=== PATIENT | female | born 1955 | race Two or more races ===

== ENCOUNTER 2024-02-03 01:10 | Emergency (ER) | payer MEDICARE, SELFPAY ==
[2024-02-03 01:18] VITALS: BP 150/90; PULSE 96; RESP 20; TEMP 36.5; O2SAT 100
--- NOTE | 2024-02-03 01:29 | XR_ITS ---
Examination: CT abdomen and pelvis without contrast. Coronal 3-D reconstructions. Sagittal 2-D reconstructions. Exam date and time: February 03, 2024 0153 hrs. Indications: Onset pelvic pain beginning 2 months ago CTDI: vol (mGy): 7.72 DLP: (mGycm): 451 Technique: Axial images of the abdomen have been obtained, 3 mm slice thickness Intravenous contrast material has not been administered. Low dose protocols were performed. One or more of the following dose reduction techniques were used; automated exposure control, adjustment of the mA and/or KV according to patient size, use of iterative reconstruction technique. Findings: No focal liver or splenic lesions No gallstones No pancreatic or adrenal mass No renal or ureteral calculi Abdominal aortic calcification no aneurysmal dilatation Normal appendix No bowel obstruction Moderate to abundant stool in the rectosigmoid Uterus is not visualized No pelvic mass Moderate osteopenia moderate disc narrowing L5-S1 with small central bulging disc Contracted urinary bladder Impression: No renal or ureteral calculi, no hydronephrosis Normal appendix No pelvic mass noted, consider pelvic sonography follow-up
--- NOTE | 2024-02-03 01:30 | PD.EDRME ---
Rapid Medical Screening Exam RME Arrival date/time: 02/03/24 01:10 68-year-old female presents emergency department complaining of diffuse abdominal pain and dysuria that is been ongoing for several months. Chief Complaint: Abdominal Pain Vital signs: Vital Signs Temperature 97.7 F 02/03/24 01:18 Pulse Rate 96 02/03/24 01:18 Respiratory Rate 20 02/03/24 01:18 Blood Pressure 150/90 H 02/03/24 01:18 Pulse Oximetry (%) 100 02/03/24 01:18 Oxygen Delivery Method Room Air 02/03/24 01:18 Vital signs reviewed by provider: Yes
[2024-02-03] MEDS: KETOROLAC INJ 60 MG/2 ML VIAL 30 MG IM (02:02)
[2024-02-03 02:40] LABS: Alanine Aminotransferase 11 U/L (10-49); Albumin, Serum 4.7 gm/dL (3.4-4.8); Albumin/Globulin Ratio 1.7 (1.2-2.2); Alkaline Phosphatase 77 U/L (46-116); Anion Gap 9 (7-16); Aspartate Amino Transferase 10 U/L (0-34); BUN/Creatinine Ratio 30 Ratio (12-20); Bilirubin,Total 0.8 mg/dL (0.3-1.2); Blood Urea Nitrogen 24 mg/dL (9-23); Calcium 10.4 mg/dL (8.3-10.6); Calcium (Corrected) 10.4 mg/dL (8.5-10.1); Carbon Dioxide 23.7 mMol/L (20.0-31.0); Chloride 98 mMol/L (98-107); Creatinine (Component) 0.8 mg/dL (0.6-1.3); Globulin 2.8 gm/dL (2.3-3.5); Glucose 221 mg/dL (74-106); Lipase 42 U/L (12-53); Osmolality,Calculated 273 (275-295); Potassium 4.7 mMol/L (3.4-5.1); Sodium 131 mMol/L (136-145); Total Protein 7.5 gm/dL (5.7-8.2); eGFR > 60 See Note
--- NOTE | 2024-02-03 02:47 | PRELIM_ITS ---
CT scan of the abdomen and pelvis without intravenous contrast (axial sections with sagittal and meghan nal reformats) February 03, 2024 0153 hours Clinical History: Abdominal pain Comparison: No prior joey dy is available for comparison. Findings:The lung bases are clear.The liver,gallbladder, pancreas, sp cathryn, kidneys and adrenals are unremarkable on this noncontrast study. A moderate amount of fecal mat erial is present in the colon. No evidence of bowel obstruction. The appendix is within normal limits ( coronal images 67-75/139). There is no mesenteric or retroperitoneal adenopathy.The urinary bladde r is unremarkable. There is no free fluid or free air.The osseous structures are unremarkable.Impress ion:No evidence of bowel obstruction, free air or fluid collection. Report Electronically Signed By: Caty Louis 02/03/2024 2:46:29 AM [EST]
[2024-02-03 02:48] LABS: Basophils # (Auto) 0.1 Thou/mm3 (0.0-0.2); Basophils % (Auto) 1 % (0-2.5); Eosinophils # (Auto) 0.6 Thou/mm3 (0.0-0.5); Eosinophils % (Auto) 4 % (0-10); Hematocrit 36.9 % (36.0-46.0); Hemoglobin 13.7 g/dL (12.0-16.0); Immature Granulocytes % (Auto) 0 % (0-0); Immature Granulocytes Auto 0.04 Thou/mm3 (0.00-0.00); Lymphocytes # (Auto) 2.3 Thou/mm3 (1.0-4.8); Lymphocytes % (Auto) 17 % (10-50); Mean Corpuscular HGB Conc 37.1 g/dl (31.0-37.0); Mean Corpuscular Hemoglobin 30.4 pg (25.0-35.0); Mean Corpuscular Volume 82 fL (80-100); Monocytes # (Auto) 0.8 Thou/mm3 (0.0-0.8); Monocytes % (Auto) 6 % (0-12); Neutrophils # (Auto) 9.4 Thou/mm3 (1.8-7.7); Neutrophils % (Auto) 71 % (37-80); Nucleated Red Blood Cell % 0 /100 WBC (0); Platelet Count 511 Thou/mm3 (140-440); Red Blood Count 4.51 Miln/mm3 (4.00-5.20); White Blood Count 13.1 Thou/mm3 (3.6-11.0)
[2024-02-03 02:53] LABS: Collection Type, Urine Clean Catch
[2024-02-03 02:58] LABS: Bilirubin,Urine Negative (Negative); Blood,Urine Trace (Negative); Clarity,Urine Clear (Clear/Hazy); Color,Urine Yellow (Lt Yel-Yel); Glucose, Urine 1+ (Negative); Hyaline Casts,Urine 2 /hpf (0-1); Ketones,Urine Trace (Negative); Leukocyte Esterase,Urine Positive (Negative); Nitrite,Urine Negative (Negative); PH,Urine 5.5 (5.0-7.0); Protein,Urine 2+ (Neg - Trace); RBC,Urine 3 /hpf (0-3); Specific Gravity,Urine 1.024 (1.001-1.035); Squamous Epithelial Cell,Urine 1 /hpf (0-5); Urobilinogen,Urine Negative mg/dL (0.0-1.0); WBC,Urine 16 /hpf (0-5)
[2024-02-03 02:59] LABS: Culture Indicated,Urine Yes
--- NOTE | 2024-02-03 03:07 | PD.EDABDPN ---
ED Abdominal Pain RME/HPI General Chief Complaint: Abdominal Pain Stated complaint: ABDOMINAL PAIN Time seen by provider: 02/03/24 03:39 Arrival date/time: 02/03/24 01:10 Limitations: no limitations RME / HPI RME / HPI narrative: 02/03/24 01:10 68-year-old female presents emergency department complaining of diffuse abdominal pain and dysuria that is been ongoing for several months. ------- Dr. Lyle's Main ED Evaluation: Related Data Home Medications ?Medication ?Instructions ?Recorded ?Confirmed acyclovir 200 mg capsule 400 mg PO BID 03/05/18 03/05/18 clonazepam 1 mg tablet 1 mg PO BID PRN Seizures 03/05/18 03/05/18 gabapentin 100 mg capsule 100 mg PO TID 03/05/18 03/05/18 Previous Rx's ?Medication ?Instructions ?Recorded benazepril 5 mg tablet 5 mg PO QDAY #30 tabs 01/17/18 metformin 1,000 mg tablet 1,000 mg PO BID #60 tabs 01/17/18 levetiracetam 250 mg tablet 500 mg (2 x 250 mg) PO BID #60 tabs 01/21/18 sitagliptin phosphate 100 mg 100 mg PO QDAY #30 tabs 01/21/18 tablet (Januvia) Allergies Allergy/AdvReac Type Severity Reaction Status Date / Time morphine AdvReac Severe Anaphylaxis Verified 03/05/18 11:02 Review of Systems Review of Systems Systems Reviewed: All systems reviewed, normal except as documented Past Medical History Past Medical History NEUROLOGIC: Positive Seizures and Head Trauma CARDIAC: Positive Hypercholesterolemia and Hypertension; Negative Cardiac Disorders or Congestive Heart Failure RESPIRATORY: Negative Chronic Obstructive Pulmonary Disease (COPD) or Asthma GENITOURINARY: Negative Genitourinary Disorders or Renal Disease REPRODUCTIVE: Negative Pelvic Inflammatory Disease MUSCULOSKELETAL: Negative Musculoskeletal Disorders ENT: Positive Head Trauma ENDOCRINE: Positive Diabetes Mellitus Type 2; Negative Diabetes Mellitus Type 1 HEMATOLOGIC: Negative Blood Disorders or Sickle Cell Disease PSYCHO/SOCIAL: Positive Anxiety Family History FAMILY HISTORY: Negative Family Cardiac Disorders Surgical History SURGICAL: Positive Hysterectomy and Section Social History SMOKING STATUS: Never smoker SUBSTANCE USE: does not use ED Exam General Limitations: Present no limitations General appearance: Present alert and in no apparent distress Head Head exam: Present atraumatic Eye Eye exam: Present normal appearance, PERRL and EOMI ENT ENT exam: Present normal exam, normal oropharynx and mucous membranes moist Neck Neck exam: Present normal inspection, full ROM and trachea midline Chest Chest inspection: Present normal inspection and symmetric chest wall rise Respiratory Respiratory exam: Present normal lung sounds bilaterally Cardiovascular Cardiovascular exam: Present regular rate, normal rhythm and normal heart sounds Abdominal Exam Abdominal exam: Present soft and normal bowel sounds Extremities Exam Extremities exam: Present normal inspection and full ROM Back Exam Back exam: Present normal inspection and full ROM Neurological Exam Neurological exam: Present alert, oriented X3 and CN II-XII intact Psychiatric Psychiatric exam: Present normal affect and normal mood Skin Skin exam: Present warm, dry, intact and normal color Course Quality Measures none Orders Category Date Time Status CT abdomen pelvis wo con Stat Exams 02/03/24 01:29 Taken CBC Stat Lab 02/03/24 01:43 Completed CMP [Comprehensive Metabolic Panel] Stat Lab 02/03/24 01:49 Completed Lipase Stat Lab 02/03/24 01:49 Completed Urinalysis, C/S if Indicated Stat Lab 02/03/24 02:47 Completed Urine Culture Stat Lab 02/03/24 02:47 Received Ketorolac Inj [Toradol Inj] Med 02/03/24 01:30 Discontinued 30 mg IM X1 ONE Vital Signs Vital signs: Vital Signs Temperature 97.7 F 02/03/24 01:18 Pulse Rate 96 02/03/24 01:18 Respiratory Rate 20 02/03/24 01:18 Blood Pressure 150/90 H 02/03/24 01:18 Pulse Oximetry (%) 100 02/03/24 01:18 Oxygen Delivery Method Room Air 02/03/24 01:18 Pulse ox is 100% on room air, which is normal according to my interpretation. Abdominal Pain MDM Patient data External records reviewed:: [facility] previous records (Per chart review, patient was admitted here on 01/20/18 for a UTI.) Clinical information provided by:: patient Social determinants that could affect healthcare access:: none Patient has the following chronic illnesses:: seizures, HTN, HLD, DM How is presenting disease/condition affected by chronic disease/condition?: uneffected by Evaluation data The following diagnostics were reviewed and interpreted by me:: lab results and radiology exam(s) Lab and/or radiology exams considered but not ordered:: none Interpretation Summary: WBC count is elevated at 13.1, Sodium is slightly low at 131, Glucose is elevated at 221, Lipase is normal, UA shows 2+ protein, 1+ glucose, and 16 WBCs, according to my interpretation. ---- I have personally reviewed the radiology data and agree with the radiologist's interpretation below: Telerad Preliminary Report Draft Patient: AMANDA COREY. Record#: [id number] Birthdate: 1955 Age/Sex: 68 / F Location: [facility] Attending Dr: Ordering Physician: Date of Service: Procedure(s): Accession Number(s): cc: ~ CT scan of the abdomen and pelvis without intravenous contrast (axial sections with sagittal and coronal reformats) February 03, 2024 0153 hours Clinical History: Abdominal pain Comparison: No prior study is available for comparison. Findings: The lung bases are clear. The liver,gallbladder, pancreas, spleen, kidneys and adrenals are unremarkable on this noncontrast study. A moderate amount of fecal material is present in the colon. No evidence of bowel obstruction. The appendix is within normal limits ( coronal images 67-75/139). There is no mesenteric or retroperitoneal adenopathy. The urinary bladder is unremarkable. There is no free fluid or free air. The osseous structures are unremarkable. Impression: No evidence of bowel obstruction, free air or fluid collection. Report Electronically Signed By: Caty Louis 02/03/2024 2:46:29 AM [EST] Medications / Prescriptions Medications or Prescriptions considered but not ordered:: none Medication administrations:: Medication Administration History Discontinued Medications Ketorolac Tromethamine (Ketorolac Inj 60 Mg/2 Ml Vial) 30 mg IM X1 ONE Stop: 02/03/24 01:31 Last Admin: 02/03/24 02:02 Dose: 30 mg Documented By: HERACLIO see above Consultations Consultation(s) initiated? (list below): No Discharge Plan Prescriptions/Referrals Prescriptions/Med Rec: No Action benazepril 5 mg tablet 5 mg PO QDAY Qty: 30 0RF metformin 1,000 mg tablet 1,000 mg PO BID Qty: 60 0RF levetiracetam 250 mg Tablet 500 mg PO BID Qty: 60 0RF sitagliptin phosphate [Januvia] 100 mg tablet 100 mg PO QDAY Qty: 30 0RF clonazepam 1 mg Tablet 1 mg PO BID PRN (Reason: Seizures) acyclovir 200 mg capsule 400 mg PO BID gabapentin 100 mg capsule 100 mg PO TID Patient/Caregiver Discharge Instructions Print Language: Sami
[2024-02-03 03:53] VITALS: BP 166/79; PULSE 81; RESP 19; TEMP 36.9; O2SAT 99
--- NOTE | 2024-02-03 05:23 | EDNOTE_ITS ---
ED Abdominal Pain RME/HPI General Chief Complaint: Abdominal Pain Stated complaint: ABDOMINAL PAIN Time seen by provider: 02/03/24 03:39 Arrival date/time: 02/03/24 01:10 68-year-old female past medical history of diabetes presents emergency department complaining of diffuse abdominal pain and dysuria notes been ongoing for several months. Patient reports recently was on oral antibiotics about 2 weeks ago and symptoms still persist. Patient reports has pending visit to [facility] due to symptoms. Patient Nuys any fever, chills, nausea vomiting, flank pain, or any other associated symptoms. Source: patient Mode of arrival: ambulatory Limitations: no limitations Related Data Home Medications ?Medication ?Instructions ?Recorded ?Confirmed acyclovir 200 mg capsule 400 mg PO BID 03/05/18 03/05/18 clonazepam 1 mg tablet 1 mg PO BID PRN Seizures 03/05/18 03/05/18 gabapentin 100 mg capsule 100 mg PO TID 03/05/18 03/05/18 Previous Rx's ?Medication ?Instructions ?Recorded benazepril 5 mg tablet 5 mg PO QDAY #30 tabs 01/17/18 metformin 1,000 mg tablet 1,000 mg PO BID #60 tabs 01/17/18 levetiracetam 250 mg tablet 500 mg (2 x 250 mg) PO BID #60 tabs 01/21/18 sitagliptin phosphate 100 mg 100 mg PO QDAY #30 tabs 01/21/18 tablet (Januvia) ciprofloxacin HCl 250 mg tablet 250 mg PO BID 3 days #6 tabs 02/03/24 (Cipro) Allergies Allergy/AdvReac Type Severity Reaction Status Date / Time morphine AdvReac Severe Anaphylaxis Verified 03/05/18 11:02 Review of Systems Review of Systems Systems Reviewed: All systems reviewed, normal except as documented Constitutional Constitutional: Reports system reviewed and no additional complaints, except as documented, Denies body ache(s), Denies chills and Denies fever(s) Eyes Eyes: Reports system reviewed and no additional complaints, except as documented and Denies change in vision ENT Ears, Nose, Mouth, and Throat: Reports system reviewed and no additional complaints, except as documented, Denies disequilibrium, Denies dizziness, Denies sore throat and Denies vertigo Cardiovascular Cardiovascular: Reports system reviewed and no additional complaints, except as documented, Denies chest pain and Denies dyspnea Respiratory Respiratory: Reports system reviewed and no additional complaints, except as documented, Denies chest congestion, Denies cough and Denies dyspnea Gastrointestinal Gastrointestinal: Reports system reviewed and no additional complaints, except as documented, Reports abdominal pain, Denies nausea and Denies vomiting Genitourinary Genitourinary: Reports other (Dysuria) Musculoskeletal Musculoskeletal: Reports system reviewed and no additional complaints, except as documented, Denies abnormal gait and Denies arthralgias Integumentary/Breasts Skin/Breast: Reports system reviewed and no additional complaints, except as documented, Denies erythema, Denies rash and Denies wounds Neurologic Neurologic: Reports system reviewed and no additional complaints, except as documented, Denies abnormal gait, Denies disequilibrium, Denies dizziness and Denies vertigo Past Medical History Past Medical History NEUROLOGIC: Positive Seizures and Head Trauma CARDIAC: Positive Hypercholesterolemia and Hypertension; Negative Cardiac Disorders or Congestive Heart Failure RESPIRATORY: Negative Chronic Obstructive Pulmonary Disease (COPD) or Asthma GENITOURINARY: Negative Genitourinary Disorders or Renal Disease REPRODUCTIVE: Negative Pelvic Inflammatory Disease MUSCULOSKELETAL: Negative Musculoskeletal Disorders ENT: Positive Head Trauma ENDOCRINE: Positive Diabetes Mellitus Type 2; Negative Diabetes Mellitus Type 1 HEMATOLOGIC: Negative Blood Disorders or Sickle Cell Disease PSYCHO/SOCIAL: Positive Anxiety Family History FAMILY HISTORY: Negative Family Cardiac Disorders Surgical History SURGICAL: Positive Hysterectomy and Section Social History SMOKING STATUS: Never smoker SUBSTANCE USE: does not use ED Exam General Limitations: Present no limitations General appearance: Present alert and in no apparent distress Head Head exam: Present atraumatic Eye Eye exam: Present normal appearance, PERRL and EOMI ENT ENT exam: Present normal exam, normal oropharynx and mucous membranes moist Neck Neck exam: Present normal inspection, full ROM and trachea midline Chest Chest inspection: Present normal inspection and symmetric chest wall rise Respiratory Respiratory exam: Present normal lung sounds bilaterally Cardiovascular Cardiovascular exam: Present regular rate, normal rhythm and normal heart sounds Abdominal Exam Abdominal exam: Present soft and normal bowel sounds; Absent tenderness, guarding, rebound, De La Torre's sign or tenderness at McBurney's Point Extremities Exam Extremities exam: Present normal inspection and full ROM Back Exam Back exam: Present normal inspection and full ROM Neurological Exam Neurological exam: Present alert, oriented X3 and CN II-XII intact Psychiatric Psychiatric exam: Present normal affect and normal mood Skin Skin exam: Present warm, dry, intact and normal color Course Quality Measures none Orders Category Date Time Status CT abdomen pelvis wo con Stat Exams 02/03/24 01:29 Taken CBC Stat Lab 02/03/24 01:43 Completed CMP [Comprehensive Metabolic Panel] Stat Lab 02/03/24 01:49 Completed Lipase Stat Lab 02/03/24 01:49 Completed Urinalysis, C/S if Indicated Stat Lab 02/03/24 02:47 Completed Urine Culture Stat Lab 02/03/24 02:47 Received 1,000 mg IM w/Lido* 1% Med 02/03/24 05:23 Ordered cefTRIAXone [Rocephin] 1,000 mg Lidocaine 1% 20 ml [Xylocaine 1% 20 ML] 2.1 ml IM X1 Ketorolac Inj [Toradol Inj] Med 02/03/24 01:30 Discontinued 30 mg IM X1 ONE Vital Signs Vital signs: Vital Signs Temperature 97.7 F 02/03/24 01:18 Pulse Rate 96 02/03/24 01:18 Respiratory Rate 20 02/03/24 01:18 Blood Pressure 150/90 H 02/03/24 01:18 Pulse Oximetry (%) 100 02/03/24 01:18 Oxygen Delivery Method Room Air 02/03/24 01:18 100% room air within normal limits Abdominal Pain MDM MDM Narrative MDM Narrative:: 68-year-old female past medical history of diabetes presents emergency department complaining of diffuse abdominal pain and dysuria notes been ongoing for several months. Patient reports recently was on oral antibiotics about 2 weeks ago and symptoms still persist. Patient reports has pending visit to [facility] due to symptoms. Patient Nuys any fever, chills, nausea vomiting, flank pain, or any other associated symptoms. Patient appears nontoxic and is hemodynamically stable. Abdomen soft and nontender. CT of abdomen and pelvis was unremarkable. CBC remarkable for any leukocytosi 13.1. CMP was unremarkable for any elevated liver enzymes or gross electrolyte abnormalities. Urinalysis remarkable for WBCs, leukocytes, and RBCs. Patient given IM Rocephin and discharged on oral antibiotics. Patient discharged instructed to follow-up with primary care provider and request referral to urologist if symptoms persist. Instructed to return to emergency department for any worsening symptoms or as needed. Patient data External records reviewed:: [facility] previous records Clinical information provided by:: patient Social determinants that could affect healthcare access:: none Patient has the following chronic illnesses:: See chart How is presenting disease/condition affected by chronic disease/condition?: exacerbated by Evaluation data The following diagnostics were reviewed and interpreted by me:: lab results and radiology exam(s) Lab and/or radiology exams considered but not ordered:: Ordered Interpretation Summary: Interpreted by me Medications / Prescriptions Medications or Prescriptions considered but not ordered:: Ordered Medication administrations:: Medication Administration History Ceftriaxone Sodium 1,000 mg/ (Lidocaine HCl 2.1 ml) 0 mg IM X1 ONE Stop: 02/03/24 05:24 Discontinued Medications Ketorolac Tromethamine (Ketorolac Inj 60 Mg/2 Ml Vial) 30 mg IM X1 ONE Stop: 02/03/24 01:31 Last Admin: 02/03/24 02:02 Dose: 30 mg Documented By: RC Given Consultations Consultation(s) initiated? (list below): No Diagnosis Differential diagnosis abdominal pain: abdominal pain, acute appendicitis, cons tipation, diverticulitis, gastroenteritis, pancreatitis and small bowel obstruction Most likely diagnosis given after review of the tests above:: UTI Admission Indicated Admission indicated?: not indicated Admission Request Was there a request for admission?: No Disposition Plan Disposition Plan: Discharge Discharge Attestation Discharge Attestation: The patient and all family members were given an opportunity to ask questions and understood the discharge instructions. Discharge instructions specifically effects, indications for sooner follow up or return to the emergency department, and the expected course of current diagnosis. Patient condition: Stable Discharge Plan Plan Patient Disposition: HOME (Self Care) Disposition Comment: Stable Prescriptions/Referrals Prescriptions/Med Rec: New ciprofloxacin HCl [Cipro] 250 mg tablet 250 mg PO BID 3 Days Qty: 6 0RF No Action benazepril 5 mg tablet 5 mg PO QDAY Qty: 30 0RF metformin 1,000 mg tablet 1,000 mg PO BID Qty: 60 0RF levetiracetam 250 mg Tablet 500 mg PO BID Qty: 60 0RF sitagliptin phosphate [Januvia] 100 mg tablet 100 mg PO QDAY Qty: 30 0RF clonazepam 1 mg Tablet 1 mg PO BID PRN (Reason: Seizures) acyclovir 200 mg capsule 400 mg PO BID gabapentin 100 mg capsule 100 mg PO TID Problem List Clinical Impression: Acute UTI Patient/Caregiver Discharge Instructions Discharge Activity: activity as tolerated Education Materials: ED CYSTITIS Female Adult Additional Instructions: Drink plenty of fluids and stay hydrated. Follow-up with primary care provider and request referral to urologist if symptoms persist. Return to the emergency department for any worsening symptoms or as needed. Print Language: Czech Stand Alone Forms: Britt Award Info., Patient Portal Info Letter PA/SHINGLES ROOFER HELPER Supervising Physician PA/VERO Supervising Physician: Dr. Mckeon
[2024-02-03] MEDS: cefTRIAXone 1,000 MG, LIDOCAINE 1% 20 ML 2.1 ML IM (05:32)
[2024-02-03 05:48] VITALS: BP 173/81; PULSE 82; RESP 16; TEMP 36.7; O2SAT 97
== END 2024-02-03 05:48 | disposition home or self-care (01) ==
PROVIDERS: Emergency Provider Emergency Medicine; PCP Family Medicine
DX: N39.0 Urinary tract infection, site not specified (principal); R10.2 Pelvic and perineal pain
CPT/HCPCS: 36415; 74176; 80053; 81001; 83690; 85025; 87086; 96372; 99284; J0696; J1885; J3490

== ENCOUNTER 2024-03-08 15:02 | Emergency (ER) | payer MEDICARE, SELFPAY ==
[2024-03-08 15:03] VITALS: BMI 27.6
[2024-03-08 15:39] VITALS: BP 121/65; PULSE 93; RESP 20; TEMP 36.6; O2SAT 100; BMI 27.4
--- NOTE | 2024-03-08 16:05 | XR_ITS ---
Examination: Abdomen sonogram, Limited Date and time of exam: March 08, 2024 1632 hrs. Indications: Abdominal pain several years Technique: Real-time villanueva scale transabdominal sonographic images of the upper abdomen obtained. Findings: 6 mm gallbladder polyp Negative for cholelithiasis Gallbladder wall 0.4 cm no edema Common bile duct 0.3 cm Pancreatic head 2.3 cm Liver 13.2 cm fatty infiltration no focal liver lesions Normal hepatopedal portal venous flow Patent IVC Impression: 6 mm gallbladder polyp Negative for cholelithiasis Borderline thickening gallbladder wall 0.4 cm but no edema, consider HIDA scan follow-up as clinically warranted
--- NOTE | 2024-03-08 16:05 | XR_ITS ---
Examination: Pelvic ultrasound, transabdominal, complete Technique: Transabdominal ultrasound of the pelvis performed using grayscale imaging Date and time of exam: March 08, 2024 at 1641 hrs. Indications: Lower pelvic pain and dysuria vaginal discomfort today, similar episodes 2 weeks ago Findings: Absent uterus Ovaries not visualized No free fluid in the adnexal region No solid pelvic mass Impression: No free fluid in the pelvis No solid pelvic mass
--- NOTE | 2024-03-08 16:05 | PD.EDRME ---
Rapid Medical Screening Exam RME Arrival date/time: 03/08/24 15:02 68-year-old female presents emergency department with complaints of lower pelvic pain and dysuria and vaginal discomfort. Reports that she was in the emergency department 2 weeks ago for similar symptoms. Denies nausea vomiting or fever. I have greeted and performed a focused initial assessment of this patient. Initial appropriate labs ordered at this time. A comprehensive ED assessment and evaluation of the patient and analysis of all test and completion of medical decision making process will be conducted by additional ED provider. Chief Complaint: Abdominal Pain Time Seen by Provider: 03/08/24 15:15 Vital signs: Vital Signs Temperature 97.8 F 03/08/24 15:39 Pulse Rate 93 03/08/24 15:39 Respiratory Rate 20 03/08/24 15:39 Blood Pressure 121/65 03/08/24 15:39 Pulse Oximetry (%) 100 03/08/24 15:39 Oxygen Delivery Method Room Air 03/08/24 15:39
[2024-03-08 16:29] LABS: Basophils # (Auto) 0.1 Thou/mm3 (0.0-0.2); Basophils % (Auto) 1 % (0-2.5); Eosinophils # (Auto) 0.5 Thou/mm3 (0.0-0.5); Eosinophils % (Auto) 5 % (0-10); Hematocrit 34.5 % (36.0-46.0); Hemoglobin 12.7 g/dL (12.0-16.0); Immature Granulocytes % (Auto) 0 % (0-0); Immature Granulocytes Auto 0.02 Thou/mm3 (0.00-0.00); Lymphocytes # (Auto) 1.8 Thou/mm3 (1.0-4.8); Lymphocytes % (Auto) 19 % (10-50); Mean Corpuscular HGB Conc 36.8 g/dl (31.0-37.0); Mean Corpuscular Hemoglobin 30.5 pg (25.0-35.0); Mean Corpuscular Volume 83 fL (80-100); Monocytes # (Auto) 0.5 Thou/mm3 (0.0-0.8); Monocytes % (Auto) 5 % (0-12); Neutrophils % (Auto) 71 % (37-80); Nucleated Red Blood Cell % 0 /100 WBC (0); Platelet Count 432 Thou/mm3 (140-440); RDW Standard Deviation 37.9 fL (36.4-46.3); Red Blood Count 4.17 Miln/mm3 (4.00-5.20); White Blood Count 9.9 Thou/mm3 (3.6-11.0)
[2024-03-08 16:52] LABS: Albumin, Serum 4.4 gm/dL (3.4-4.8); Albumin/Globulin Ratio 1.9 (1.2-2.2); Alkaline Phosphatase 73 U/L (46-116); Anion Gap 8 (7-16); BUN/Creatinine Ratio 19 Ratio (12-20); Bilirubin,Total 0.6 mg/dL (0.3-1.2); Blood Urea Nitrogen 15 mg/dL (9-23); Calcium 9.6 mg/dL (8.3-10.6); Calcium (Corrected) 9.6 mg/dL (8.5-10.1); Chloride 99 mMol/L (98-107); Creatinine (Component) 0.8 mg/dL (0.6-1.3); Estimated Creatinine Clearance 54.5 mL/min (>60); Globulin 2.3 gm/dL (2.3-3.5); Glucose 322 mg/dL (74-106); Lipase 42 U/L (12-53); Osmolality,Calculated 277 (275-295); Potassium 5.2 mMol/L (3.4-5.1); Sodium 132 mMol/L (136-145); Total Protein 6.7 gm/dL (5.7-8.2); eGFR > 60 See Note
--- NOTE | 2024-03-08 17:01 | PD.EDADULT ---
ED General RME/HPI General Chief complaint: Abdominal Pain Stated complaint: ABD PAIN/BURNING WITH UA x 7 DAYS Time Seen by Provider: 03/08/24 15:15 Arrival date/time: 03/08/24 15:02 CC: Low center abdominal pain HPI ongoing for years intermittent in nature this last episode started yesterday. Low center abdominal pain the daughter states the patient blacks out from the abdominal pain . They have been waiting for referrals from PCP for further workup. The patient states single episode of diarrhea today nausea without vomiting. Patient denies fever chest pain shortness of breath or difficulty breathing. Patient is afebrile and nontoxic-appearing RME / HPI RME / HPI narrative: 03/08/24 15:02 68-year-old female presents emergency department with complaints of lower pelvic pain and dysuria and vaginal discomfort. Reports that she was in the emergency department 2 weeks ago for similar symptoms. Denies nausea vomiting or fever. I have greeted and performed a focused initial assessment of this patient. Initial appropriate labs ordered at this time. A comprehensive ED assessment and evaluation of the patient and analysis of all test and completion of medical decision making process will be conducted by additional ED provider. Related Data Home Medications ?Medication ?Instructions ?Recorded ?Confirmed acyclovir 200 mg capsule 400 mg PO BID 03/05/18 03/05/18 clonazepam 1 mg tablet 1 mg PO BID PRN Seizures 03/05/18 03/05/18 gabapentin 100 mg capsule 100 mg PO TID 03/05/18 03/05/18 Previous Rx's ?Medication ?Instructions ?Recorded benazepril 5 mg tablet 5 mg PO QDAY #30 tabs 01/17/18 metformin 1,000 mg tablet 1,000 mg PO BID #60 tabs 01/17/18 levetiracetam 250 mg tablet 500 mg (2 x 250 mg) PO BID #60 tabs 01/21/18 sitagliptin phosphate 100 mg 100 mg PO QDAY #30 tabs 01/21/18 tablet (Januvia) famotidine 20 mg tablet 20 mg PO QDAY #30 tabs 03/08/24 Allergies Allergy/AdvReac Type Severity Reaction Status Date / Time morphine AdvReac Severe Anaphylaxis Verified 03/08/24 15:05 Review of Systems Review of Systems Narrative Review of Systems: GEN: No fever, no chills, no weight loss EYES: No discharge, no visual changes, no pain HEENT: No ear pain, no congestion, no sore throat PULM: No shortness of breath, no cough, no congestion CV: No chest pain, no dyspnea on exertion, no palpitations GI: No nausea, no vomiting, no diarrhea, + pain, no constipation : No frequency, no urgency, no dysuria MUSC/SKEL: No joint pain, no back pain SKIN: No rash PSYCH: No hallucinations, no depression HEME/LYMPH: No easy bleeding or bruising tendencies NEURO: No weakness, no headache Past Medical History Past Medical History NEUROLOGIC: Positive Seizures and Head Trauma CARDIAC: Positive Hypercholesterolemia and Hypertension; Negative Cardiac Disorders or Congestive Heart Failure RESPIRATORY: Negative Chronic Obstructive Pulmonary Disease (COPD) or Asthma GENITOURINARY: Negative Genitourinary Disorders or Renal Disease REPRODUCTIVE: Negative Pelvic Inflammatory Disease MUSCULOSKELETAL: Negative Musculoskeletal Disorders ENT: Positive Head Trauma ENDOCRINE: Positive Diabetes Mellitus Type 2; Negative Diabetes Mellitus Type 1 HEMATOLOGIC: Negative Blood Disorders or Sickle Cell Disease PSYCHO/SOCIAL: Positive Anxiety Family History FAMILY HISTORY: Negative Family Cardiac Disorders Surgical History SURGICAL: Positive Hysterectomy and Section Social History SMOKING STATUS: Never smoker SUBSTANCE USE: does not use ED Exam Narrative Physical exam: [General: In mild discomfort but not in any acute distress Head normocephalic HEENT: Eyes pupils are PERRLA EOMs are intact mouth pink moist membranes uvula is midline swallow symmetrical. Nose: No rhinorrhea epistaxis all other subsystems of HEENT are within acceptable limits Neck is supple nontender Chest equal chest rise nontender to palpation Respiratory: Clear to auscultation no wheezes crackles or rubs CV: Rate rhythm is regular no murmurs rubs or clicks Abdomen diffuse low center abdominal pain, no rebound tenderness or reflexive guarding. GI: Rectum, old hemorrhoids in the noon and 2 o'clock position, rectal tone is moderate, vault is empty brown stool off the vault downey is guaiac negative. Back: No CVA tenderness no spinous process tenderness from cervical spine thoracic and lumbar spine Skin: Intact no petechiae rash induration ulceration or crepitus Extremities: Moving all extremity against resistance cap refill less than 2 seconds neurosensory intact Neuro: Awake alert oriented x3 Glascow coma 15 no focal deficits] Course Quality Measures none Orders Category Date Time Status US gall bladder Stat Exams 03/08/24 16:05 Completed US pelvic complete Stat Exams 03/08/24 16:05 Completed Bacterial Vaginal Panel Stat Lab 03/08/24 Ordered CBC Stat Lab 03/08/24 16:22 Completed Comprehensive Metabolic Panel Stat Lab 03/08/24 16:22 Completed Lipase Stat Lab 03/08/24 16:22 Completed Urinalysis Stat Lab 03/08/24 17:55 Completed Famotidine [Pepcid] Med 03/08/24 18:57 Once 40 mg PO X1 ONE Insulin Regular Med 03/08/24 18:48 Discontinued 5 unit SC X1 ONE Sodium Chloride 0.9% 500 ml [Ns] 500 ml Med 03/08/24 18:20 Discontinued IV 999 mls/hr Vital Signs Vital signs: Vital Signs Temperature 97.8 F 03/08/24 15:39 Pulse Rate 93 03/08/24 15:39 Respiratory Rate 20 03/08/24 15:39 Blood Pressure 121/65 03/08/24 15:39 Pulse Oximetry (%) 100 03/08/24 15:39 Oxygen Delivery Method Room Air 03/08/24 15:39 [facility] Patient data External records reviewed:: [facility] previous records Clinical information provided by:: patient and family Social determinants that could affect healthcare access:: none Patient has the following chronic illnesses:: Diabetes How is presenting disease/condition affected by chronic disease/condition?: uneffected by Evaluation data The following diagnostics were reviewed and interpreted by me:: lab results and radiology exam(s) Lab and/or radiology exams considered but not ordered:: CBC shows no acute leukocytosis anemia thrombocytopenia CMP shows sodium 132 potassium of 5.2 chloride of 99 CO2 25.0 BUN of 15 creatinine 0.8 glucose of 322 Lipase of 42 Urine is negative for UTI Gallbladder ultrasound shows a mildly thickened gallbladder wall but there are no transaminitis or T. bili of H and I do not think that this is underlying for the pain Ultrasound the pelvis shows no acute finding Interpretation Summary: Given the patient's history and talking with the daughter this may also be reflux disease. Patient will be started on famotidine and asked to start a bland diet. Daughter is fairly adamant they have a follow-up appoint with GI and was seen by OB 3 days ago. Medications Medications considered but not ordered:: None Medication administrations:: Medication Administration History Famotidine (Famotidine 20 Mg Tablet) 40 mg PO X1 ONE Stop: 03/08/24 18:58 Discontinued Medications Sodium Chloride (Ns) 500 mls @ 999 mls/hr IV .Q31M ONE Stop: 03/08/24 18:50 Insulin Human Regular (Insulin Hum Regular 1 Unit/0.01 Ml (Per Unit)) 5 unit SC X1 ONE Stop: 03/08/24 18:49 Last Admin: 03/08/24 18:56 Dose: 5 unit Documented By: MARY KATE Co-signed By: EMELINA None Consultations Consultation(s) initiated? (list below): No Diagnosis Differential Diagnosis ED Complaint MDM: UTI pyelonephritis electrolyte imbalance Most likely diagnosis given after review of the tests above:: Abdominal pain nausea Admission Indicated Admission indicated?: not indicated Explain why admission is indicated or not indicated:: Stable for outpatient follow-up Admission Request Was there a request for admission?: No Disposition Plan Disposition Plan: Discharge Discharge Attestation Discharge Attestation: The patient and all family members were given an opportunity to ask questions and understood the discharge instructions. Discharge instructions specifically effects, indications for sooner follow up or return to the emergency department, and the expected course of current diagnosis. Patient condition: Stable Medical Decision Making Differential Diagnosis Differential Diagnosis: UTI pyelonephritis electrolyte imbalance Lab Data 03/08/24 16:22 03/08/24 16:22 Labs: Lab Results 03/08/24 03/08/24 Range/Units 16:22 17:55 WBC 9.9 (3.6-11.0) Thou/mm3 RBC 4.17 (4.00-5.20) Miln/mm3 Hgb 12.7 (12.0-16.0) g/dL Hct 34.5 L (36.0-46.0) % MCV 83 (80-100) fL MCH 30.5 (25.0-35.0) pg MCHC 36.8 (31.0-37.0) g/dl RDW Std Deviation 37.9 (36.4-46.3) fL Plt Count 432 D (140-440) Thou/mm3 Neut % (Auto) 71 (37-80) % Lymph % (Auto) 19 (10-50) % [place] % (Auto) 5 (0-12) % Eos % (Auto) 5 (0-10) % Baso % (Auto) 1 (0-2.5) % Neut # (Auto) 7.0 (1.8-7.7) Thou/mm3 Lymph # (Auto) 1.8 (1.0-4.8) Thou/mm3 [place] # (Auto) 0.5 (0.0-0.8) Thou/mm3 Eos # (Auto) 0.5 (0.0-0.5) Thou/mm3 Baso # (Auto) 0.1 (0.0-0.2) Thou/mm3 Immature Gran # (Auto) 0.02 H (0.00-0.00) Thou/mm3 Absolute Nucleated RBC 0.00 (0.00-0.00) Thou/mm3 Immature Gran % 0 (0-0) % Nucleated RBC % 0 (0) /100 WBC Sodium 132 L (136-145) mMol/L Potassium 5.2 H (3.4-5.1) mMol/L Chloride 99 (98-107) mMol/L Carbon Dioxide 25.0 (20.0-31.0) mMol/L Anion Gap 8 (7-16) BUN 15 (9-23) mg/dL Creatinine 0.8 (0.6-1.3) mg/dL Estim Creat Clear Calc 54.5 L (>60) mL/min eGFR > 60 (60 - ) See Note BUN/Creatinine Ratio 19 (12-20) Ratio Glucose 322 H (74-106) mg/dL Calculated Osmolality 277 (275-295) Calcium 9.6 (8.3-10.6) mg/dL Corrected Calcium 9.6 (8.5-10.1) mg/dL Total Bilirubin 0.6 (0.3-1.2) mg/dL AST < 8 (0-34) U/L ALT < 7 L (10-49) U/L Alkaline Phosphatase 73 (46-116) U/L Total Protein 6.7 (5.7-8.2) gm/dL Albumin 4.4 (3.4-4.8) gm/dL Globulin 2.3 (2.3-3.5) gm/dL Albumin/Globulin Ratio 1.9 (1.2-2.2) Lipase 42 (12-53) U/L Ur Collection Type Clean Catch Urine Color Lt-Yellow (Lt Yel-Yel) Urine Clarity Turbid A (Clear/Hazy) Urine pH 6.5 (5.0-7.0) Ur Specific [place] 1.015 (1.001-1.035) Urine Protein Trace (Neg - Trace) Urine Glucose (UA) 2+ A (Negative) Urine Ketones Negative (Negative) Urine Blood Negative (Negative) Urine Nitrite Negative (Negative) Urine Bilirubin Negative (Negative) Urine Urobilinogen (Auto) Negative (0.0-1.0) mg/dL Ur Leukocyte Esterase Positive (Negative) Urine RBC 0 (0-3) /hpf Urine WBC 9 H (0-5) /hpf Ur Squamous Epith Cells 4 (0-5) /hpf Urine Bacteria Rare (None) Hyaline Casts < 1 (0-1) /hpf Discharge Plan Plan Patient Disposition: HOME (Self Care) Patient condition on transfer: Stable Prescriptions/Referrals Prescriptions/Med Rec: New famotidine 20 mg tablet 20 mg PO QDAY Qty: 30 1RF No Action benazepril 5 mg tablet 5 mg PO QDAY Qty: 30 0RF metformin 1,000 mg tablet 1,000 mg PO BID Qty: 60 0RF levetiracetam 250 mg Tablet 500 mg PO BID Qty: 60 0RF sitagliptin phosphate [Januvia] 100 mg tablet 100 mg PO QDAY Qty: 30 0RF clonazepam 1 mg Tablet 1 mg PO BID PRN (Reason: Seizures) acyclovir 200 mg capsule 400 mg PO BID gabapentin 100 mg capsule 100 mg PO TID Referrals: Fredis Shah MD [Primary Care Provider] - In 1 week Problem List Clinical Impression: Chronic abdominal pain Patient/Caregiver Discharge Instructions Education Materials: Abdominal Pain, ED Diet, [place] (Adult) Additional Instructions: Consider a bland diet, take the medications prescribed for the next 30 days, avoid eating anything for 2 hours before going to bed to allow your stomach to empty. If symptoms continue to persist follow-up with GI as you stated. Print Language: Syriac Stand Alone Forms: Britt Award Info., Patient Portal Info Letter, Work/School Release PA/[employer]UST[employer]S COMPLIANCE SPECIALIST Supervising Physician PA/CUST[employer]S COMPLIANCE SPECIALIST Supervising Physician: João Encarnacion ENP
[2024-03-08 17:11] LABS: Alanine Aminotransferase < 7 U/L (10-49); Aspartate Amino Transferase < 8 U/L (0-34)
[2024-03-08 18:15] VITALS: BP 174/94; PULSE 73; RESP 15; TEMP 36.7; O2SAT 98
[2024-03-08 18:24] LABS: Collection Type, Urine Clean Catch; RBC,Urine 0 /hpf (0-3)
[2024-03-08 18:41] LABS: Bacteria,Urine Rare; Bilirubin,Urine Negative (Negative); Blood,Urine Negative (Negative); Clarity,Urine Turbid (Clear/Hazy); Color,Urine Lt-Yellow (Lt Yel-Yel); Glucose, Urine 2+ (Negative); Hyaline Casts,Urine < 1 /hpf (0-1); Ketones,Urine Negative (Negative); Leukocyte Esterase,Urine Positive (Negative); Nitrite,Urine Negative (Negative); PH,Urine 6.5 (5.0-7.0); Protein,Urine Trace (Neg - Trace); Specific Gravity,Urine 1.015 (1.001-1.035); Squamous Epithelial Cell,Urine 4 /hpf (0-5); Urobilinogen,Urine Negative mg/dL (0.0-1.0); WBC,Urine 9 /hpf (0-5)
[2024-03-08] MEDS: INSULIN HUM REGULAR 1 UNIT/0.01 ML (PER UNIT) 5 UNIT SC (18:56)
[2024-03-08] MEDS: FAMOTIDINE 20 MG TABLET 40 MG PO (19:12)
[2024-03-08 19:14] VITALS: BP 173/97; PULSE 76; RESP 17; O2SAT 98
== END 2024-03-08 19:24 | disposition home or self-care (01) ==
PROVIDERS: Nurse Practitioner Primary Care; Emergency Provider Emergency Medicine; PCP Student in an Organized Health Care Education/Training Program
DX: G89.29 Other chronic pain (principal); R19.7 Diarrhea, unspecified; R11.0 Nausea; R10.2 Pelvic and perineal pain
CPT/HCPCS: 36415; 76705; 76856; 80053; 81001; 81514; 83690; 85025; 96372; 99284; J1815; A9270

== ENCOUNTER 2024-03-26 09:27 | Inpatient (IN) | payer MEDICARE, SELFPAY ==
[2024-03-26] VITALS (8 sets, daily range): BP systolic 141–206; BP diastolic 81–121; PULSE 60–93; RESP 13–97; TEMP 36.2–36.7; O2SAT 95–98; BMI 27.2; BMI 26.2
--- NOTE | 2024-03-26 10:43 | EDNOTE_ITS ---
ED Syncope RME/HPI General Chief Complaint: Syncope / Near Syncope Stated Complaint: SYNCOPE Time Seen by Provider: 03/26/24 10:19 Arrival date/time: 03/26/24 09:27 RME / HPI RME / HPI narrative: This section includes all my notes and documentations, including HPI, PE, and ED course.? Abdulkadir Acuña MD HPI: 68 year old female with history of hypertension, diabetes, presents to the ED BIBA from PCP office for syncopal episode today. Daughter reports the patient had a scheduled appointment with [facility] Dr. Martin today and while in the office had complained of not feeling unwell. State they checked her blood pressure and was 164/79. Was advised to come to the ED for further evaluation. Daughter states as they were walking out of the office the patient had complained of chest pain and feeling near syncope. Was sat down on a wheelchair and while on the wheelchair became unresponsive for ~2-3 minutes. Reportedly staff at the clinic laid the patient on the floor and pushed on her chest and the patient did not respond. With no pulse palpable, chest compression performed. While in the ED patient complains of pain to her chest and nausea. Daughter adds 1 week ago patient had vomiting and diarrhea otherwise no other recent illness or fever. No other complaints reported. ROS: All negative except as documented in HPI. Physical Exam: General:? Alert and oriented.? No acute distress when remaining still.??High BP noted. Eyes:? Conjunctivae and lids clear.? PERRL. EOMI. ENT:? No nasal congestion.? Neck:? Supple.? No carotid bruit. No JVD. Heart:? RRR.? Lungs:? No respiratory distress.? Good air movement.? No rhonchi, wheezing, rales.?? Abdomen:? Soft and nontender.?? Back: No CVA tenderness. Legs:? No clubbing, cyanosis, edema.? Skin:? Warm and dry.?? Neuro:? Alert and oriented X 3.??Cranial nerves II through XII grossly normal. No peripheral motor deficits. I reviewed all diagnostic test results. My interpretation of the EKG is?NSR (90 bpm) with no ST-T changes. My interpretation of the chest x-ray is no acute disease. My review of the gallbladder US report is?negative for cholelithiasis and cholecystitis. My review of the abdomen/pelvis CT report is no acute findings. My review of the chest CTA report is negative for pulmonary emboli. My review of the head CT report is negative for acute hemorrhage. Blood tests and urine tests?remarkable for WBC 12.3, D-dimer 1920, and negative troponin. At this point, diagnoses include?syncope and chest pain and vomiting and hypertensive urgency. Treatment here included?Clonidine and Tylenol with codeine. Some improvement noted. I discussed the case with our hospitalist.? About the presentation and exam and diagnostics and treatments here.? And need of further care in the hospital.? Will accept the patient. Abdulkadir Acuña MD Related Data Home Medications ?Medication ?Instructions ?Recorded ?Confirmed acyclovir 200 mg capsule 400 mg PO BID 03/05/1803/05 clonazepam 1 mg tablet 1 mg PO BID PRN Seizures 11/1303/05/18 gabapentin 100 mg capsule 100 mg PO TID 03/05/1803/05 Previous Rx's ?Medication ?Instructions ?Recorded benazepril 5 mg tablet 5 mg PO QDAY #30 tabs metformin 1,000 mg tablet 1,000 mg PO BID #60 tabs levetiracetam 250 mg tablet 500 mg (2 x 250 mg) PO BID #60 tabs 01/21/18 sitagliptin phosphate 100 mg 100 mg PO QDAY #30 tabs 1 03/23/17 tablet (Januvia) famotidine 20 mg tablet 20 mg PO QDAY #30 tabs 03/08 Allergies Allergy/AdvReac Type Severity Reaction Status Date / Time morphine AdvReac Severe Anaphylaxis Verified 03/26/24 09:50 Review of Systems Review of Systems Systems Reviewed: All systems reviewed, normal except as documented Past Medical History Past Medical History NEUROLOGIC: Positive Seizures and Head Trauma CARDIAC: Positive Hypercholesterolemia and Hypertension ENT: Positive Head Trauma ENDOCRINE: Positive Diabetes Mellitus Type 2 PSYCHO/SOCIAL: Positive Anxiety Family History FAMILY HISTORY: Negative Family Cardiac Disorders Surgical History SURGICAL: Positive Hysterectomy and Section Social History SMOKING STATUS: Never smoker SUBSTANCE USE: does not use ED Exam Narrative Physical exam: As noted in HPI Course Quality Measures none Orders Category Date Time Status Admit to Inpatient Status Routine Admission 03/26/24 15:38 Active Patient Condition Routine Admission 03/26/24 15:37 Ordered Bedside Blood Glucose ACHS Care 03/26/24 15:37 Active Bedside COVID-19 Antigen Test NOW Care 03/26/24 10:53 Active Bedside Influenza A&B Antigen Test NOW Care 03/26/24 10:53 Completed COVID-19 Screening Questionnaire NOW Care 03/26/24 15:[address] Screening NOW Care 03/26/24 10:54 Active Decision to Admit X1 Care 03/26/24 15:05 Active EKG (ED ONLY) *Do not use* NOW Care 03/26/24 10:54 Completed Miscellaneous Nursing Order NOW Care 03/26/24 15:50 Active Miscellaneous Nursing Order NOW Care 03/26/24 15:50 Active Notify provider NEEDED Care 03/26/24 15:37 Active Nurse Swallow Screen X1 Care 03/26/24 15:50 Active Occult Blood,Stool (Nursing) NOW Care 03/26/24 15:55 Active Orthostatic Vitals NOW Care 03/26/24 10:56 Active Orthostatic Vitals NOW Care 03/26/24 15:53 Active Saline [Insert IV] NOW Care 03/26/24 10:53 Active Seizure precautions NEEDED Care 03/26/24 15:38 Active Consult to Gastroenterology Routine Cons 03/26/24 15:43 Ordered Diet Carbohydrate Consistent Diet 03/26/24 Dinner Active CA echo doppler complete Routine Exams 03/26/24 15:[address] abdomen pelvis w con Stat Exams 03/26/24 10:[address] angio chest Stat Exams 03/26/24 10:[address] head/brain wo con Stat Exams 03/26/24 10:54 Completed EKG (ED Only) Stat Exams 03/26/24 10:54 Draft US gall bladder Stat Exams 03/26/24 12:32 Completed XR chest 1V portable Stat Exams 03/26/24 10:54 Completed Amylase Stat Lab 03/26/24 12:18 Completed BMP [Basic Metabolic Panel] Stat Lab 03/26/24 12:18 Completed BNP [B-Type Natriuretic Peptide] Stat Lab 03/26/24 12:18 Completed Beta Hydroxybutyrate Stat Lab 03/26/24 12:18 Completed Blood Culture (Lab) Stat Lab 03/26/24 12:18 Received CBC AM DRAW Lab 03/27/24 05:00 Ordered CBC AM DRAW Lab 03/28/24 05:00 Ordered CBC AM DRAW Lab 03/29/24 05:00 Ordered CBC Stat Lab 03/26/24 12:18 Completed CRP [C-Reactive Protein] Stat Lab 03/26/24 12:18 Completed Comprehensive Metabolic Panel AM DRAW Lab 03/27/24 05:00 Ordered Comprehensive Metabolic Panel AM DRAW Lab 03/28/24 05:00 Ordered Comprehensive Metabolic Panel AM DRAW Lab 03/29/24 05:00 Ordered D-Dimer Stat Lab 03/26/24 12:18 Completed ESR [Sed Rate (ESR)] Stat Lab 03/26/24 12:18 Completed Glycohemoglobin w (eAG) AM DRAW Lab 03/27/24 05:00 Ordered Lactate (Lactic Acid) Stat Lab 03/26/24 12:18 Completed Lipase Stat Lab 03/26/24 12:18 Completed Lipid Panel AM DRAW Lab 03/27/24 05:00 Ordered Liver Panel Stat Lab 03/26/24 12:18 Completed Magnesium AM DRAW Lab 03/27/24 05:00 Ordered Magnesium AM DRAW Lab 03/28/24 05:00 Ordered Magnesium AM DRAW Lab 03/29/24 05:00 Ordered Magnesium Stat Lab 03/26/24 12:18 Completed Procalcitonin Stat Lab 03/26/24 12:18 Completed TSH [Thyroid Stimulating Hormone] Stat Lab 03/26/24 12:18 Completed Thyroid Stimulating Hormone AM DRAW Lab 03/27/24 05:00 Ordered Troponin I Routine Lab 03/26/24 20:00 Ordered Troponin I Stat Lab 03/26/24 12:18 Completed UA, C/S IF [Urinalysis, C/S if Indicated] Stat Lab 03/26/24 12:02 Completed VBG [Venous Blood Gas] Stat Lab 03/26/24 12:18 Completed ACETAMINOPHEN w/COD 300-30 [Tylenol w/Cod #3] Med 03/26/24 13:35 Discontinued 1 tab PO X1 ONE Acetaminophen Tab [Tylenol Tab] Med 03/26/24 15:37 Active 650 mg PO Q6H PRN Dextrose 50% Syr [D50w Syringe Abboject] Med 03/26/24 15:37 Active 25 ml IV Q15MIN PRN Dextrose 50% Syr [D50w Syringe Abboject] Med 03/26/24 15:37 Active 50 ml IV Q15MIN PRN Glucagon Inj Med 03/26/24 15:37 Active 1 mg IM Q15MIN PRN HYDROcodone*/APAP 5/325 [Westfir 5/325] Med 03/26/24 15:37 Active 1 tab PO Q4HR PRN Heparin Inj Med 03/26/24 22:00 Active 5,000 unit SC Q8HR INSULIN LISPRO (AdmeLOG) [HumaLOG] Med 03/26/24 17:00 Active See Protocol SC AC Lactulose Syrup [Enulose Syrup] Med 03/26/24 15:45 Active 20 gm PO QDAY Magnesium Sulfate 4 GM Ivpb [Magnesium Sulfate Ivpb] Med 03/26/24 15:59 Active 4 gm in 50 ml IV X1 Ondansetron Inj [Zofran Inj] Med 03/26/24 15:37 Active 4 mg IV Q6H PRN Pantoprazole [Protonix] Med 03/26/24 15:45 Active 40 mg PO QDAY Potassium Chloride [K-Dur] Med 03/26/24 15:58 Discontinued 20 meq PO X1 ONE Ringers Lactated 1000 ml [Lactated Ringers] 1,000 ml Med 03/26/24 10:53 Discontinued IV 1,000 mls/hr Sodium Chloride 0.9% 1000 ml [Ns] 1,000 ml Med 03/26/24 15:45 Active IV 80 mls/hr Sodium Chloride 0.9% 500 ml [Ns] 500 ml Med 03/26/24 15:37 Discontinued IV 999 mls/hr cloNIDine HCL [Catapres] Med 03/26/24 10:52 Discontinued 0.3 mg PO X1 ONE Code Status Routine Oth 03/26/24 15:37 Ordered EKG (RT) Routine RT 03/27/24 07:00 Ordered Oxygen Delivery PRN RT 03/26/24 15:37 Active Vital Signs Vital signs: Vital Signs Temperature 98.0 F 03/26/24 09:43 Pulse Rate 78 03/26/24 09:43 Respiratory Rate 17 03/26/24 09:43 Blood Pressure 206/121 H 03/26/24 09:43 Pulse Oximetry (%) 98 03/26/24 09:43 Oxygen Delivery Method Room Air 03/26/24 09:43 Pulse ox is 98% on room air which is adequate. Syncope MDM Narrative MDM Narrative:: I, Angela Benjamin, am scribing for and in the presence of Dr. Acuña. Patient data External records reviewed:: [facility] previous records (I reviewed ED visit on 03/08/2024) and EMS form Clinical information provided by:: patient, EMS and family (Daughter ) Social determinants that could affect healthcare access:: none Patient has the following chronic illnesses:: HTN, DM How is presenting disease/condition affected by chronic disease/condition?: exacerbated by Evaluation data The following diagnostics were reviewed and interpreted by me:: lab results, radiology exam(s) and EKG tracing(s) (My interpretation of the EKG: NSR (90 bpm) with no ST-T changes. Abdulkadir Acuña MD) Lab and/or radiology exams considered but not ordered:: None Interpretation Summary: Unremarkable diagnostics Medications / Prescriptions Medications or Prescriptions considered but not ordered:: None Medication administrations:: Medication Administration History Acetaminophen (Acetaminophen 325 Mg Tablet) 650 mg PO Q6H PRN PRN Reason: pain and Fever >100.4 Stop: 04/25/24 15:36 Hydrocodone Bitart/Acetaminophen (Hydrocodone/Apap 5/325 Tablet) 1 tab PO Q4HR PRN PRN Reason: PAIN SCALE 4-6 (Moderate Stop: 03/31/24 15:36 Dextrose (Dextrose 50%-Water Inj 50 Ml Syringe) 25 ml IV Q15MIN PRN PRN Reason: BG 50-70 responsive npo pt Stop: 04/25/24 15:36 Dextrose (Dextrose 50%-Water Inj 50 Ml Syringe) 50 ml IV Q15MIN PRN PRN Reason: BG <50 OR BG <70 & pt unresponsive Stop: 04/25/24 15:36 Glucagon (Glucagon Inj 1 Mg Vial) 1 mg IM Q15MIN PRN PRN Reason: BG <70, and no IV access Heparin Sodium (Porcine) (Heparin Sod Inj 5000 Unit/Ml Vial) 5,000 unit SC Q8HR TULIO Stop: 04/09/24 21:59 Sodium Chloride (Ns) 1,000 mls @ 80 mls/hr IV .[id number] TULIO Stop: 04/25/24 15:44 Magnesium Sulfate (Magnesium Sulfate Ivpb) 4 gm in 50 mls @ 12.5 mls/hr IV X1 ONE Stop: 03/26/24 19:58 Insulin Human Lispro (Insulin Lispro (Admelog) 1 Unit/0.01 Ml Unit) 0 unit SC AC [facility]; Protocol Stop: 04/25/24 16:59 Lactulose (Lactulose Syrup 20 Gm/30 Ml Udc) 20 gm PO QDAY [facility]; Protocol Stop: 04/25/24 15:44 Ondansetron HCl (Ondansetron Inj 2 Mg/Ml Inj 2 Ml) 4 mg IV Q6H PRN; Protocol PRN Reason: NAUSEA OR VOMITING Stop: 04/25/24 15:36 Pantoprazole Sodium (Pantoprazole 40 Mg Tablet) 40 mg PO QDAY TULIO Stop: 04/25/24 15:44 Discontinued Medications Acetaminophen/Codeine Phosphate (Acetaminophen W/Cod 300-30 Tablet) 1 tab PO X1 ONE Stop: 03/26/24 13:36 Last Admin: 03/26/24 14:13 Dose: 1 tab Documented By: CLEMENTE Clonidine (Clonidine Hcl 0.1 Mg Tablet) 0.3 mg PO X1 ONE Stop: 03/26/24 10:53 Last Admin: 03/26/24 11:23 Dose: 0.3 mg Documented By: EMELINA Lactated Ringer's (Lactated Ringers) 1,000 mls @ 1,000 mls/hr IV .Q1H ONE Stop: 03/26/24 11:52 Last Infusion: 03/26/24 15:39 Dose: Infused Documented By: Admin: 03/26/24 11:26 Dose: 1,000 mls/hr Documented By: EMELINA Sodium Chloride (Ns) 500 mls @ 999 mls/hr IV .Q31M ONE Stop: 03/26/24 16:07 Potassium Chloride (Potassium Chloride 20 Meq Tabcr) 20 meq PO X1 ONE Stop: 03/26/24 15:59 Patient given Clonidine, IV fluids, and tylenol with codeine Consultations Consultation(s) initiated? (list below): Yes Consultation #1 (Physician, Specialty, Details): I spoke with hospitalist regarding admission. Diagnosis Syncope Differential Diagnosis: syncope due to orthostatic hypotension, vasovagal syncope, complete atrioventricular block, subarachnoid hemorrhage, pulmonary embolism and dehydration Most likely diagnosis given after review of the tests above:: Syncope and hypertensive urgency and chest pain and vomiting Admission Indicated Admission indicated?: indicated Explain why admission is indicated or not indicated:: Syncope needing CPR Admission Request Was there a request for admission?: Yes Admission Attestation Admission request attestation: Discussed case with Hospitalist service regarding admission. Discussed patients ED course, exam findings, labs, and radiology results. The Hospitalist [agrees,declines] to accept the patient for admission. Disposition Plan Disposition Plan: Admit Discharge Plan Plan Patient Disposition: Admit Acute Care w/in Hospital Prescriptions/Referrals Prescriptions/Med Rec: No Action benazepril 5 mg tablet 5 mg PO QDAY Qty: 30 0RF metformin 1,000 mg tablet 1,000 mg PO BID Qty: 60 0RF levetiracetam 250 mg Tablet 500 mg PO BID Qty: 60 0RF sitagliptin phosphate [Januvia] 100 mg tablet 100 mg PO QDAY Qty: 30 0RF clonazepam 1 mg Tablet 1 mg PO BID PRN (Reason: Seizures) acyclovir 200 mg capsule 400 mg PO BID gabapentin 100 mg capsule 100 mg PO TID famotidine 20 mg tablet 20 mg PO QDAY Qty: 30 1RF Referrals: Fredis Shah MD [Primary Care Provider] - In 1 week Problem List Clinical Impression: Syncope, Hypertensive urgency, Chest pain, Vomiting Patient/Caregiver Discharge Instructions Print Language: Telugu Stand Alone Forms: Britt Award Info., Patient Portal Info Letter
--- NOTE | 2024-03-26 10:54 | XR_ITS ---
Examination: CT brain head without contrast. 2-D sagittal coronal reconstructions Date and time of exam:March 26, 2024 1310 hours INDICATIONS: Syncopal episode today CTDI: vol (mGy):48.4 DLP: (mGycm):934 Technique: Multiple CT axial sections of the brain have been obtained, 5 mm slice thickness. Contrast has not been administered. 2-D sagittal, coronal reconstructions have been obtained Low dose protocols were performed. One or more of the following dose reduction techniques were used; automated exposure control, adjustment of the mA and/or KV according to patient size, use of iterative reconstruction technique. Findings: No significant ventricular enlargement. Intra-axial or extra-axial hemorrhage density is not seen. No mass effect or midline shift Basal cisterns are not remarkable. Fourth ventricle is midline. Cranial vault intact. Impression: Negative for acute hemorrhage, mass effect or midline shift Advise clinical correlation and follow-up accordingly
--- NOTE | 2024-03-26 10:54 | EKG_ITS ---
[facility] Test Date: 2024-03-26 Pat Name: AMANDA COREY Department: Room: - Gender: Female Denial Management Representative: : 1955 Requested By: Abdulkadir Constantino Order Number: [id number] Reading MD: Abdulkadir Constantino Measurements Intervals [place] Rate: 90 P: 16 RI: 164 QRS: 19 QRSD: 88 T: 13 QT: 350 QTc: 430 Interpretive Statements SINUS RHYTHM Compared to ECG 01/17/2018 13:23:25 No significant changes /store/S0/[id number].pdf
--- NOTE | 2024-03-26 10:54 | XR_ITS ---
Examination: AP chest single view TECHNIQUE: AP portable upright chest single view Exam date and time: March 26, 2024 1246 hours INDICATIONS: Shortness of breath today FINDINGS: Normal heart size. Lungs are clear. The osseous structures are intact IMPRESSION: No active disease
--- NOTE | 2024-03-26 10:54 | XR_ITS ---
Examination: CT abdomen with intravenous contrast CT pelvis with intravenous contrast 2-D coronal reconstructions 2-D sagittal reconstructions Date and time of exam:March 26, 2024 1313 hours Comparison February 03, 2024 INDICATIONS: Generalized abdominal pain and vomiting today. CTDI: vol (mGy) 7.17 DLP: (mGycm) 397 Technique: Multiple axial sections of the abdomen and pelvis have been obtained. 64 slice high-resolution scanner used. 3 mm axial sections have been obtained, post intravenous injection 100 cc Isovue-370 2-D sagittal, coronal reconstructions obtained. Low dose protocols were performed. One or more of the following dose reduction techniques were used; automated exposure control, adjustment of the mA and/or KV according to patient size, use of iterative reconstruction technique. Findings: No focal liver or splenic lesions No gallstones No pancreatic or adrenal mass No renal or ureteral calculi, no hydronephrosis Aorta normal size 10 mm fat-containing umbilical hernia Abundant stool in the cecum Normal appendix No bowel obstruction No diverticulitis No pelvic mass Urinary bladder intact Advanced degenerative disc disease L5-S1 IMPRESSION: No renal or ureteral calculi, no hydronephrosis Normal appendix No bowel obstruction diverticulitis or free air
--- NOTE | 2024-03-26 10:54 | XR_ITS ---
Examination: CTA chest with intravenous contrast 2-D reconstructions 3-D reconstructions, vascular Date and time of exam: March 26, 2024 1313 hours INDICATIONS: Onset SOB syncope chest pain today CTDI: vol (mGy) 7.79 DLP: (mGycm) 246 Technique: Multiple axial sections of the thorax have been obtained. 3 mm slice thickness, from below the hemidiaphragms to above the apices of the lungs. Mediastinal and lung density settings have been obtained. 2-D sagittal and coronal reconstructions. 3-D angiographic renderings, 3-D volume renderings, 3D post processing, vascular maximum intensity projections obtained. Contrast administered is 100 cc Isovue-370. Intravenous Low dose protocols were performed. One or more of the following dose reduction techniques were used; automated exposure control, adjustment of the mA and/or KV according to patient size, use of iterative reconstruction technique. Findings: No thoracic aortic aneurysm dilatation or dissection Pulmonary artery segments are not enlarged No pulmonary artery filling defects No paratracheal tracheobronchial or bronchopulmonary adenopathy No pneumonia, pulmonary edema or pleural disease No visualized liver or splenic lesion No gallstones No pancreatic or adrenal mass No hydronephrosis IMPRESSION: Negative for pulmonary artery emboli No pneumonia, pulmonary edema or pleural disease
--- NOTE | 2024-03-26 10:55 | XR_ITS ---
Examination: Abdomen sonogram, Limited Date and time of exam: March 26, 2024 1143 hours INDICATIONS: Abdominal pain beginning 3 years ago Technique: Real-time villanueva scale transabdominal sonographic images of the upper abdomen obtained. Findings: 8 x 7 x 7 mm gallbladder polyp No gallstones Gallbladder wall 0.27 cm no edema Common bile duct 0.23 cm Pancreatic head 2.2 cm Liver 15.6 cm smooth contour Normal hepatopedal portal venous flow Patent IVC IMPRESSION: Gallbladder polyp Negative for cholelithiasis, negative for cholecystitis
[2024-03-26] MEDS: cloNIDine HCL 0.1 MG TABLET 0.3 MG PO (11:23)
[2024-03-26] MEDS: RINGERS LACTATED 1000 ML 1,000 ML IV (11:26)
--- NOTE | 2024-03-26 12:00 | PC.NURSE ---
US at bedside obtaining images. Per tech, patient unable to hold urine and RN to assist to bedside commode. UA sample obtained and sent to lab.
[2024-03-26 12:14] LABS: Collection Type, Urine Clean Catch
[2024-03-26 12:25] LABS: Bilirubin,Urine Negative (Negative); Blood,Urine Negative (Negative); Clarity,Urine Clear (Clear/Hazy); Color,Urine Colorless (Lt Yel-Yel); Culture Indicated,Urine Not Indicated; Glucose, Urine Negative (Negative); Ketones,Urine Negative (Negative); Leukocyte Esterase,Urine Negative (Negative); Nitrite,Urine Negative (Negative); PH,Urine 7.5 (5.0-7.0); Protein,Urine 1+ (Neg - Trace); RBC,Urine 1 /hpf (0-3); Specific Gravity,Urine 1.007 (1.001-1.035); Squamous Epithelial Cell,Urine 2 /hpf (0-5); Urobilinogen,Urine Negative mg/dL (0.0-1.0); WBC,Urine < 1 /hpf (0-5)
[2024-03-26 12:36] LABS: Base Excess, Venous 2 (-3-3); O2 Saturation, Venous 92 % (96-97); PCO2, Venous 41 mmHg (36-56); PO2, Venous 53 mmHg (15-58); pH, Venous 7.42 (7.33-7.66)
[2024-03-26 12:37] LABS: Lactate (Lactic Acid) 1.6 mMol/L (0.4-2.0)
[2024-03-26 12:40] LABS: Basophils # (Auto) 0.1 Thou/mm3 (0.0-0.2); Basophils % (Auto) 1 % (0-2.5); Eosinophils # (Auto) 0.5 Thou/mm3 (0.0-0.5); Eosinophils % (Auto) 4 % (0-10); Hematocrit 36.9 % (36.0-46.0); Hemoglobin 13.7 g/dL (12.0-16.0); Immature Granulocytes % (Auto) 0 % (0-0); Immature Granulocytes Auto 0.04 Thou/mm3 (0.00-0.00); Lymphocytes # (Auto) 1.9 Thou/mm3 (1.0-4.8); Lymphocytes % (Auto) 15 % (10-50); Mean Corpuscular HGB Conc 37.1 g/dl (31.0-37.0); Mean Corpuscular Hemoglobin 30.4 pg (25.0-35.0); Mean Corpuscular Volume 82 fL (80-100); Monocytes # (Auto) 0.6 Thou/mm3 (0.0-0.8); Monocytes % (Auto) 5 % (0-12); Neutrophils # (Auto) 9.1 Thou/mm3 (1.8-7.7); Neutrophils % (Auto) 74 % (37-80); Nucleated Red Blood Cell % 0 /100 WBC (0); Platelet Count 479 Thou/mm3 (140-440); RDW Standard Deviation 38.5 fL (36.4-46.3); Red Blood Count 4.51 Miln/mm3 (4.00-5.20); White Blood Count 12.3 Thou/mm3 (3.6-11.0)
[2024-03-26 12:43] LABS: Beta Hydroxybutyrate 0.3 mmol/L (<0.6)
[2024-03-26 12:52] LABS: B-Type Natriuretic Peptide 70 pg/mL (0-100)
[2024-03-26 12:56] LABS: D-Dimer 1920 ng/mL (<600)
[2024-03-26 13:07] LABS: Alanine Aminotransferase 9 U/L (10-49); Albumin, Serum 4.4 gm/dL (3.4-4.8); Alkaline Phosphatase 73 U/L (46-116); Amylase 41 U/L (30-118); Anion Gap 10 (7-16); Aspartate Amino Transferase 10 U/L (0-34); BUN/Creatinine Ratio 20 Ratio (12-20); Bilirubin,Direct 0.2 mg/dL (0.0-0.3); Bilirubin,Total 0.9 mg/dL (0.3-1.2); Blood Urea Nitrogen 12 mg/dL (9-23); C-Reactive Protein 0.5 mg/dL (0.0-0.9); Calcium 9.7 mg/dL (8.3-10.6); Carbon Dioxide 26.6 mMol/L (20.0-31.0); Chloride 101 mMol/L (98-107); Creatinine (Component) 0.6 mg/dL (0.6-1.3); Estimated Creatinine Clearance 72.4 mL/min (>60); Glucose 203 mg/dL (74-106); Lipase 33 U/L (12-53); Magnesium 1.6 mg/dL (1.6-2.6); Osmolality,Calculated 281 (275-295); Potassium 3.7 mMol/L (3.4-5.1); Procalcitonin 0.04 ng/ml (0.0-0.49); Sodium 138 mMol/L (136-145); Thyroid Stimulating Hormone 1.93 uIU/mL (0.55-4.78); Total Protein 7.1 gm/dL (5.7-8.2); Troponin I < 0.002 ng/mL (0.0-0.045); eGFR > 60 See Note
[2024-03-26 13:40] LABS: Sed Rate (ESR) 22 mm/hr (0-30)
[2024-03-26] MEDS: ACETAMINOPHEN w/COD 300-30 TABLET 1 TAB PO (14:13)
--- NOTE | 2024-03-26 15:41 | ECHO_ITS ---
Transthoracic Echo Report Ht (in): 59 Wt (lb): 135 Exam Location: Echo Lab Status: Emergency Soil Science Teacher: Maryellen Corcoran Indications: Procedure Performed: BP: 137 / 75 HR: 78 Technical Quality: Technically difficult study MEASUREMENTS (Male / Female) Normal Values 2D ECHO LV Diastolic Diameter PLAX 5.2 cm 4.2 - 5.9 / 3.9 - 5.3 cm LV Systolic Diameter PLAX 3.6 cm IVS Diastolic Thickness 0.8 cm 0.6 - 1.0 / 0.6 - 0.9 cm LVPW Diastolic Thickness 0.8 cm 0.6 - 1.0 / 0.6 - 0.9 cm LV Relative Wall Thickness 0.3 LVOT Diameter 2.1 cm LA Volume Index 17.2 cm?/m? 16 - 28 cm?/m? M-MODE Aortic Root Diameter MM 2.7 cm LA Systolic Diameter MM 3.4 cm LA Ao Ratio MM 1.3 AV Cusp Separation MM 1.7 cm DOPPLER AV Peak Velocity 127.0 cm/s AV Peak Gradient 6.5 mmHg AV Mean Gradient 3.0 mmHg AV Velocity Time Integral 27.2 cm LVOT Peak Velocity 109.0 cm/s LVOT Peak Gradient 4.8 mmHg LVOT Velocity Time Integral 26.0 cm LVOT Cardiac Index 4346.4 cm?/min?m? AV Area Cont Eq vti 3.3 cm? AV Area Cont Eq pk 3.0 cm? MV Area PHT 4.4 cm? MR Peak Velocity 444.5 cm/s MR Peak Gradient 79.0 mmHg Mitral E Point Velocity 73.7 cm/s Mitral A Point Velocity 87.3 cm/s Mitral E to A Ratio 0.8 LV E' Lateral Velocity 8.9 cm/s Mitral E to LV E' Lateral Ratio 8.3 LV E' Septal Velocity 7.3 cm/s Mitral E to LV E' Septal Ratio 10.1 PV Peak Velocity 121.0 cm/s PV Peak Gradient 5.9 mmHg FINDINGS Left Ventricle Normal left ventricular size, wall thickness, systolic function with no obvious regional wall motion abnormalities. Normal left ventricular diastolic filling pattern for age. The ejection fraction is visually estimated at 55-60 %. Right Ventricle The right ventricle is normal in size and systolic function. Left Atrium The left atrium is normal by two-dimensional, color flow and Doppler imaging with no structural abnormalities, no thrombus formation present. Right Atrium The right atrium is normal by two-dimensional imaging, color flow and Doppler imaging with no structural abnormalities, no thrombus formation present. Atrial Septum The interatrial septum appears normal with no evidence of a shunt. Aorta The aorta is normal by two-dimensional, color flow and Doppler interrogation. Mitral Valve The mitral valve is normal by two-dimensional, color flow and Doppler interrogation. There is mild to moderate mitral valve regurgitation, stenosis or prolapse. Aortic Valve The aortic valve is trileaflet and normal by two-dimensional, color flow and Doppler interrogation. There is no significant aortic valve regurgitation. Tricuspid Valve The tricuspid valve is normal by two-dimensional, color flow and Doppler interrogation. There is no significant tricuspid valve regurgitation. Pulmonic Valve The pulmonic valve is not well visualized. There is no significant pulmonic valve regurgitation. Vessels The pulmonary artery appears normal. The inferior vena cava pulmonary and hepatic veins appear normal. Pericardium The pericardium is normal by two-dimensional imaging. There is no significant pericardial effusion. CONCLUSIONS Indication: Syncope Normal LV size, wall thickness. Estimated EF 55-60 %. RV is normal in size and systolic function. Mild mitral regurgitation LOW Cardiac risk for surgery Dafne Bradley (Electronically Signed) Final Date: 29 March 2024 00:33
--- NOTE | 2024-03-26 15:51 | ESHP_ITS ---
Documentation for date of: 03/26/24 HPI History of Present Illness Chief complaint: Syncope and N/V History of present illness: 68-year-old female with past medical history of hypertension, DM2, seizures, headaches, and frequent UTIs was admitted to the hospital on 03/26/2024 after coming to the ED with chief complaints of syncopal episode as well as intractable nausea and vomiting. Assessment patient stated that she has been feeling unwell for quite some time now with nausea and vomiting on and off. She also stated that she gets a lot of acid reflux and burning sensation in her chest. She also stated that she feels like her food gets stuck and she regurgitates her food. Patient's daughter was at bedside and stated that sometimes patient complains of abdominal pain that is so severe that she passes out. 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 Patient stated that her chest pain was sharp in nature and that it was constant and then radiated to her left arm with some numbness in her left face. When the patient was told to come to the ER while she was going to her vehicle patient passed out and supposedly medical staff at the office did not feel pulse and gave 1 chest compressions after which patient regained consciousness. Patient also stated that she has been having some cough with productive phlegm, but denies any fevers or sick contacts. She states that she is usually constipated and sometimes has diarrhea in between which she states is really dark. She was started on Pepcid, but she states that it has not helped a lot with her acid reflux. ED course: Initially patient came in hypertensive and afebrile. Initial labs were relevant for mild leukocytosis (12.3), elevated D-dimer (1920), troponins were negative, and BNP was 70. Initial imaging included abdomen/pelvis CT which was unremarkable with only a 10 mm fat-containing umbilical hernia, chest CTA was unremarkable, chest x-ray was unremarkable, head CT was unremarkable, gallbladder ultrasound showed a gallbladder polyp, and EKG showed sinus rhythm with no acute ST changes. PMH: As above Social Hx: Denies any drugs, smoking, or alcohol Review of Systems Review of Systems Narrative Review of Systems: Constitutional: Denies sweats, Denies weight loss/gain, Denies fever, Denies chills. HEENT: Denies hearing loss, Denies ear pain, Denies postnasal drip, Denies double vision, Denies blurry vision. Respiratory: Admits shortness of breath, Admits cough, Denies wheezing. Cardiovascular: Admit chest pain, Denies palpitations, Denies sudden loss of consciousness. GI: Denies blood in stool, Admits black stools, Admits constipation, Admits abdominal pain, Denies difficulty swallowing, Admits nausea and vomit. : Denies urinary incontinence, Denies pain while urinating, Denies increased urinary frequency. MSK: Denies joint pain, Denies joint swelling, Admits numbness. Skin: Denies rash, Denies itching, Denies easy bruising. Neuro: Admits headaches, Admits dizziness, Denies seizures. Past Medical History Past Medical History NEUROLOGIC: Positive Seizures and Head Trauma CARDIAC: Positive Hypercholesterolemia and Hypertension ENT: Positive Head Trauma ENDOCRINE: Positive Diabetes Mellitus Type 2 PSYCHO/SOCIAL: Positive Anxiety Family History FAMILY HISTORY: Negative Family Cardiac Disorders Surgical History SURGICAL: Positive Hysterectomy and Section Social History SMOKING STATUS: Never smoker SUBSTANCE USE: does not use Exam Vital Signs Temp Pulse Resp BP Pulse Ox O2 Del Method 97.7 F 70 18 141/81 H 96 Room Air 03/26/24 14:04 03/26/24 14:04 03/26/24 14:04 03/26/24 14:04 03/26/24 14:04 03/26/24 12:29 Narrative Exam General: A/O x3, no acute distress, well-nourished, well-developed Eyes: PERRL, EOMI. Anicteric, vision grossly intact. Ears: No ear pain, no ear discharge, Hearing grossly intact. Nose: No nasal discharge. Mouth/Throat: Dry mucous membranes, no redness, no lesions. Neck: Neck supple, non-tender, no cervical lymphadenopathy. Lungs: Clear NHAN to auscultation and percussion, No accessory muscle use. Cardio: Normal S1/S2, regular rhythm, no murmurs, no JVD. Tenderness to palpation in the sternum Abdomen: Soft, non-tender, no palpable masses, peristalsis present, no guarding or rebound. Extremities: Symmetrical, no significant deformities, no peripheral edema , non-tender, peripheral pulses presents. Skin: No rashes, no lesions, warm to touch. Neuro: No focal neurological deficits. motor and sensory intact Psych: Cooperative, appropriate mood and effect. Results: Labs 03/26/24 12:18 03/26/24 12:18 Labs: Short CBC 03/26/24 Range/Units 12:18 WBC 12.3 H (3.6-11.0) Thou/mm3 Hgb 13.7 (12.0-16.0) g/dL Hct 36.9 (36.0-46.0) % Plt Count 479 H D (140-440) Thou/mm3 BMP 03/26/24 12:18 Sodium 138 Potassium 3.7 Chloride 101 Carbon Dioxide 26.6 BUN 12 Creatinine 0.6 Glucose 203 H Calcium 9.7 Cardiac Enzymes 03/26/24 Range/Units 12:18 Troponin I < 0.002 (0.0-0.045) ng/mL Liver Function 03/26/24 Range/Units 12:18 Total Bilirubin 0.9 (0.3-1.2) mg/dL Direct Bilirubin 0.2 (0.0-0.3) mg/dL AST 10 (0-34) U/L ALT 9 L (10-49) U/L Alkaline Phosphatase 73 (46-116) U/L Albumin 4.4 (3.4-4.8) gm/dL Urine 03/26/24 Range/Units 12:02 Urine Color Colorless A (Lt Yel-Yel) Urine Clarity Clear (Clear/Hazy) Urine pH 7.5 H (5.0-7.0) Ur Specific [place] 1.007 (1.001-1.035) Urine Protein 1+ A (Neg - Trace) Urine Glucose (UA) Negative (Negative) ABG Interpretation ABG results: 03/26/24 12:18 VBG pH 7.42 VBG pCO2 41 VBG pO2 53 VBG Base Excess 2 Quality Measures Quality Measures none Advance care planning discussed with:: patient and child Medications Home Medications and Allergies Home Medications ?Medication ?Instructions ?Recorded ?Confirmed ?Type benazepril 5 mg tablet 10 mg PO QDAY 03/26/2403/26 History metformin 1,000 mg tablet 500 mg PO BID 03/26/2403/26 History Allergies Allergy/AdvReac Type Severity Reaction Status Date / Time morphine AdvReac Severe Anaphylaxis Verified 03/26/24 09:50 Visit Medications Acetaminophen (Acetaminophen 325 Mg Tablet) 650 mg PO Q6H PRN PRN Reason: pain and Fever >100.4 Stop: 04/25/24 15:36 Hydrocodone Bitart/Acetaminophen (Hydrocodone/Apap 5/325 Tablet) 1 tab PO Q4HR PRN PRN Reason: PAIN SCALE 4-6 (Moderate Stop: 03/31/24 15:36 Dextrose (Dextrose 50%-Water Inj 50 Ml Syringe) 25 ml IV Q15MIN PRN PRN Reason: BG 50-70 responsive npo pt Stop: 04/25/24 15:36 Dextrose (Dextrose 50%-Water Inj 50 Ml Syringe) 50 ml IV Q15MIN PRN PRN Reason: BG <50 OR BG <70 & pt unresponsive Stop: 04/25/24 15:36 Glucagon (Glucagon Inj 1 Mg Vial) 1 mg IM Q15MIN PRN PRN Reason: BG <70, and no IV access Heparin Sodium (Porcine) (Heparin Sod Inj 5000 Unit/Ml Vial) 5,000 unit SC Q8HR [facility] Stop: 04/09/24 21:59 Sodium Chloride (Ns) 500 mls @ 999 mls/hr IV .Q31M ONE Stop: 03/26/24 16:07 Sodium Chloride (Ns) 1,000 mls @ 80 mls/hr IV .[id number] [facility] Stop: 04/25/24 15:44 Insulin Human Lispro (Insulin Lispro (Admelog) 1 Unit/0.01 Ml Unit) 0 unit SC AC [facility]; Protocol Stop: 04/25/24 16:59 Lactulose (Lactulose Syrup 20 Gm/30 Ml Udc) 20 gm PO QDAY [facility]; Protocol Stop: 04/25/24 15:44 Ondansetron HCl (Ondansetron Inj 2 Mg/Ml Inj 2 Ml) 4 mg IV Q6H PRN; Protocol PRN Reason: NAUSEA OR VOMITING Stop: 04/25/24 15:36 Pantoprazole Sodium (Pantoprazole 40 Mg Tablet) 40 mg PO QDAY [facility] Stop: 04/25/24 15:44 Discontinued Medications Acetaminophen/Codeine Phosphate (Acetaminophen W/Cod 300-30 Tablet) 1 tab PO X1 ONE Stop: 03/26/24 13:36 Last Admin: 03/26/24 14:13 Dose: 1 tab Clonidine (Clonidine Hcl 0.1 Mg Tablet) 0.3 mg PO X1 ONE Stop: 03/26/24 10:53 Last Admin: 03/26/24 11:23 Dose: 0.3 mg Lactated Ringer's (Lactated Ringers) 1,000 mls @ 1,000 mls/hr IV .Q1H ONE Stop: 03/26/24 11:52 Last Infusion: 03/26/24 15:39 Dose: Infused Assessment & Plan Plan 68-year-old female with past medical history of hypertension, DM2, seizures, headaches, and frequent UTIs was admitted to the hospital on 03/26/2024 for syncopal episode and intractable nausea and vomiting. #Syncopal episode #Chest pain ?Patient came in with complaints of chest pain sharp in nature which radiated to the left arm and with some numbness of the left lower face, this was followed by a syncopal episode. ? 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 Troponins negative ? EKG did not show any ST changes ? Chest CTA was unremarkable ?Head CT was unremarkable ? Chest x-ray was unremarkable Plan: ? IV fluids (500 cc bolus) ? Maintain his fluids ? Orthostatic vitals ordered ?Troponins ordered for 8 PM today ? Echo ordered ? EKG ordered for a.m. ? Will continue to monitor #Intractable nausea and vomiting #Gallbladder polyp #Abdominal pain #GI Bleed? ? Patient has been complaining of intractable nausea and vomiting which is on and off for the past few months ?Patient complaining of black stools ?DDx gastritis versus gastroparesis given history of diabetes ?Abdomen/pelvis CT was unremarkable -Hgb stable at 13.7 Plan: ? Protonix 40 mg daily ?Zofran as needed for nausea ?Fecal occult blood ordered ? GI consulted, appreciate recommendations ? Will continue to monitor #Hypertensive urgency ? Patient came in with blood pressure of 206/121 ? Patient was given clonidine x 1 ? Current blood pressures is 141/81 Plan: ? Will hold off on antihypertensive medication now as patient has syncopal episode which could have been caused by orthostatic hypotension versus dehydration. ? Goal blood pressure up to 160s and then her IV hydralazine should be okay for blood pressure above this ? Will continue to monitor #DM2 ?Last A1c was 9% on 2019 Plan: ? A1c ordered for morning labs ? ISS ? Accu-Cheks and hypoglycemia protocol ordered ? Will continue to monitor #Hx of seizures #Hx of headaches ?Patient has not been prescribed antiseizure medication as of recently ? Will wait for medication reconciliation before starting any antiseizure medication. Disposition: Patient admitted to telemetry for syncope work up and intractable N/V. Diet: Carb consistent GI prophylaxis: protonix DVT prophylaxis: heparin sc Code: Full code Case disclosed with Attending Dr. Cortes and My senior Dr. Reynolds PGY2. Thanh Pablo Graham PGY1 Senior Resident Attestation: The patient is a 68-year-old female with significant past medical history of hypertension, diabetes mellitus type 2, seizure disorder, headache, frequent UTIs presented to ED with chief complaint of syncopal episode associated with intractable nausea and vomiting admitted to hospital for further evaluation of syncope. The patient was returning back from her [employer]IC[employer] clinic where she lost her consciousness, and initially the medical person in the clinic thought that the patient may require CPR, but after first push on the chest she responded and CPR was held. The patient was brought in to ED by ambulance. So far, EKG, CT head, CTA chest, CT abdomen/pelvis and chest x-ray has been negative. As there was some concern regarding the patient had diarrhea about an week ago and on physical exam she appeared dry, she was given 500cc IV bolus fluid and started on maintenance IV fluid. We will order TTE and orthostatic vitals, and continue to monitor her in telemetry unit. I discussed with and supervised the manager intern physician involved in the care of this patient. I personally saw and examined the patient and discussed the assessment and plan with the entire medicine team, including my attending. I agree with the assessment and plan as documented above. Yamil Reynolds MD PGY2 Internal Medicine Attending Provider Attestation/Addendum I reviewed labs, imaging, EKG, home medications and prior available records. Face to face evaluation was performed by me. I have personally examined the patient and discussed assessment and plan with the IM team. I reviewed the resident note and agree with the plan with exceptions as below. Chest pain at rest Intractable nausea and vomiting Syncope Uncontrolled hypertension, essential Type 2 diabetes mellitus History of seizures Patient's chest pain can be in setting of GERD versus gastritis versus ACS. Will send another troponin. Symptomatic management of the pain. Consulted GI given the likely gastric etiology for possible EGD. Bolused the patient with 1 L of IV fluid. Continue maintenance fluids Management of nausea/vomiting as needed Ordered orthostatic vital signs. Hold antihypertensive treatment at this time Ordered echocardiogram Sliding scale insulin. Monitor fingersticks
[2024-03-26] MEDS: SODIUM CHLORIDE 0.9% 500 ML 500 ML 999 ML IV (17:10)
[2024-03-26] MEDS: LACTULOSE SYRUP 20 GM/30 ML UDC PO (17:11)
[2024-03-26] MEDS: PANTOPRAZOLE 40 MG TABLET PO (17:12)
[2024-03-26] MEDS: SODIUM CHLORIDE 0.9% 1000 ML 1,000 ML 80 ML IV (19:52)
[2024-03-26] MEDS: ACETAMINOPHEN 325 MG TABLET 650 MG PO (20:07)
[2024-03-26 20:54] LABS: Magnesium 1.5 mg/dL (1.6-2.6); Troponin I < 0.002 ng/mL (0.0-0.045)
--- NOTE | 2024-03-26 21:16 | PD.IMCONS ---
HPI Data of Consult Requesting Physician: Fracisco Cortes MD Primary Care Provider: Fredis Shah MD Consult Narrative Reason for consult: Nausea vomiting, melena. History of present illness: 68 years of female have been consulted for her symptoms of nausea vomiting and melena and upper abdominal pain CT scan of the abdomen pelvis with contrast is negative Patient had a syncopal episode requiring chest compression At subsequent admission to the ER CT head is negative Chest CT is negative Gallbladder ultrasound shows polyp in the gallbladder otherwise negative for cholelithiasis Patient does have a history of diabetes mellitus type 2 history of seizure disorder cc:: cc: Fracisco Cortes MD Review of Systems Review of Systems Systems Reviewed: All systems reviewed, normal except as documented Past Medical History Surgical History OTHER SURGICAL HX: As in the history of present illness Meds Home Medications and Allergies Home Medications ?Medication ?Instructions ?Recorded ?Confirmed ?Type benazepril 5 mg tablet 10 mg PO QDAY 03/26/24 03/26/24 History metformin 1,000 mg tablet 500 mg PO BID 03/26/24 03/26/24 History Allergies Allergy/AdvReac Type Severity Reaction Status Date / Time morphine AdvReac Severe Anaphylaxis Verified 03/26/24 09:50 Exam Vital Signs Temp Pulse Resp BP Pulse Ox O2 Del Method 97.1 F 826 H 26 H 158/88 H 96 Room Air 03/26/24 20:00 03/26/24 20:00 03/26/24 20:00 03/26/24 20:00 03/26/24 20:00 03/26/24 20:00 Constitutional Comments: Alert oriented Routine Respiratory Exam Comments: Normal to auscultation Routine Abdominal Exam Comments: Soft nontender Results Labs 03/26/24 12:18 03/26/24 12:18 Labs: Short CBC 03/26/24 Range/Units 12:18 WBC 12.3 H (3.6-11.0) Thou/mm3 Hgb 13.7 (12.0-16.0) g/dL Hct 36.9 (36.0-46.0) % Plt Count 479 H D (140-440) Thou/mm3 BMP 03/26/24 12:18 Sodium 138 Potassium 3.7 Chloride 101 Carbon Dioxide 26.6 BUN 12 Creatinine 0.6 Glucose 203 H Calcium 9.7 Cardiac Enzymes 03/26/24 03/26/24 Range/Units 12:18 20:27 Troponin I < 0.002 < 0.002 (0.0-0.045) ng/mL Liver Function 03/26/24 Range/Units 12:18 Total Bilirubin 0.9 (0.3-1.2) mg/dL Direct Bilirubin 0.2 (0.0-0.3) mg/dL AST 10 (0-34) U/L ALT 9 L (10-49) U/L Alkaline Phosphatase 73 (46-116) U/L Albumin 4.4 (3.4-4.8) gm/dL Urine 03/26/24 Range/Units 12:02 Urine Color Colorless A (Lt Yel-Yel) Urine Clarity Clear (Clear/Hazy) Urine pH 7.5 H (5.0-7.0) Ur Specific [place] 1.007 (1.001-1.035) Urine Protein 1+ A (Neg - Trace) Urine Glucose (UA) Negative (Negative) ABG Interpretation ABG results: 03/26/24 12:18 VBG pH 7.42 VBG pCO2 41 VBG pO2 53 VBG Base Excess 2 Assessment and Plan Additional Assessment & Plan Additional Plan: # Nausea vomiting # Melena # Pain abdomen Plan CCK HIDA scan with ejection fraction of the gallbladder Consent obtained for fiberoptic esophagogastroduodenoscopy with possible biopsy possible therapeutic intervention under intravenous moderate sedation N.p.o. midnight except p.o. meds Other medical problems include # Chest pain with a normal troponin # Diabetes mellitus type 2 # Headache # Syncope thank you very much for the opportunity to participate in the care of this patient
--- NOTE | 2024-03-26 21:23 | XR_ITS ---
Examination: LUISITO, hepatobiliary radioisotope scan Gallbladder ejection fraction study. Date and time of exam: March 27, 2024 1512 hours INDICATIONS: Vomiting nausea melanoma upper abdominal pain this month Technique: 6.0 mCi of 99M Hepatolite administered. Serial imaging then obtained from immediate through 60 minutes. 1.4 mcg selective catheter Kinevac administered for gallbladder ejection fraction study. Findings: Radioisotope activity within the liver is reasonably homogenous. Gallbladder, common bile duct small bowel activity noted Impression: Gallbladder activity Abnormal gallbladder ejection fraction, 16%, normal greater than 35%
[2024-03-26] MEDS: HEPARIN SOD INJ 5000 UNIT/ML VIAL SC (21:42)
[2024-03-26] MEDS: Magnesium Sulfate 4 GM Ivpb 4 GM/50 ML BAG IV (23:20)
[2024-03-26] MEDS: HYDROcodone/APAP 5/325 TABLET 1 TAB PO (23:24)
[2024-03-27] VITALS (14 sets, daily range): BP systolic 104–208; BP diastolic 50–108; PULSE 63–88; RESP 11–16; TEMP 36.1–36.5; O2SAT 95–99; BMI 25.9
[2024-03-27] MEDS: ONDANSETRON INJ 2 MG/ML INJ 2 ML 4 MG IV ×2 (03:55→23:11)
[2024-03-27] MEDS: KETOROLAC INJ 30 MG/ML VIAL 15 MG IVP (04:10)
[2024-03-27 08:09] LABS: Basophils # (Auto) 0.1 Thou/mm3 (0.0-0.2); Basophils % (Auto) 1 % (0-2.5); Eosinophils # (Auto) 0.4 Thou/mm3 (0.0-0.5); Eosinophils % (Auto) 4 % (0-10); Hematocrit 30.9 % (36.0-46.0); Hemoglobin 11.4 g/dL (12.0-16.0); Immature Granulocytes % (Auto) 0 % (0-0); Immature Granulocytes Auto 0.03 Thou/mm3 (0.00-0.00); Lymphocytes # (Auto) 1.3 Thou/mm3 (1.0-4.8); Lymphocytes % (Auto) 12 % (10-50); Mean Corpuscular HGB Conc 36.9 g/dl (31.0-37.0); Mean Corpuscular Hemoglobin 30.5 pg (25.0-35.0); Mean Corpuscular Volume 83 fL (80-100); Monocytes # (Auto) 0.5 Thou/mm3 (0.0-0.8); Monocytes % (Auto) 5 % (0-12); Neutrophils # (Auto) 8.5 Thou/mm3 (1.8-7.7); Neutrophils % (Auto) 79 % (37-80); Nucleated Red Blood Cell % 0 /100 WBC (0); Platelet Count 405 Thou/mm3 (140-440); RDW Standard Deviation 39.8 fL (36.4-46.3); Red Blood Count 3.74 Miln/mm3 (4.00-5.20); White Blood Count 10.8 Thou/mm3 (3.6-11.0)
[2024-03-27] MEDS: SODIUM CHLORIDE 0.9% 1000 ML 1,000 ML 80 ML IV (08:39)
[2024-03-27 08:43] LABS: Glucose Estimated Average 160 mg/dL (80-131); Hemoglobin A1C 7.2 % Hgb (4.8-6.0)
[2024-03-27 08:51] LABS: Alanine Aminotransferase 7 U/L (10-49); Albumin, Serum 3.8 gm/dL (3.4-4.8); Albumin/Globulin Ratio 1.7 (1.2-2.2); Alkaline Phosphatase 67 U/L (46-116); Anion Gap 8 (7-16); Aspartate Amino Transferase < 8 U/L (0-34); BUN/Creatinine Ratio 18 Ratio (12-20); Bilirubin,Total 0.9 mg/dL (0.3-1.2); Blood Urea Nitrogen 11 mg/dL (9-23); Calcium (Corrected) 9.2 mg/dL (8.5-10.1); Carbon Dioxide 27.5 mMol/L (20.0-31.0); Cardiac Risk Estimate 3.9 RATIO (3.7-5.6); Chloride 104 mMol/L (98-107); Cholesterol 181 mg/dL (132-200); Creatinine (Component) 0.6 mg/dL (0.6-1.3); Estimated Creatinine Clearance 77.1 mL/min (>60); Globulin 2.3 gm/dL (2.3-3.5); Glucose 199 mg/dL (74-106); HDL Cholesterol 46 mg/dL (40-60); LDL Cholesterol,Calculated 101 mg/dL (0-130); Magnesium 2.2 mg/dL (1.6-2.6); Osmolality,Calculated 282 (275-295); Potassium 4.4 mMol/L (3.4-5.1); Sodium 139 mMol/L (136-145); Thyroid Stimulating Hormone 2.21 uIU/mL (0.55-4.78); Total Protein 6.1 gm/dL (5.7-8.2); Triglycerides 171 mg/dL (30-150); eGFR > 60 See Note
--- NOTE | 2024-03-27 10:01 | ESPR_ITS ---
<Statement entered by Andrzej Nelson MD - 03/28/24 13:41> I reviewed above note and agree with findings and plans. I have also personally examined the patient with medicine team and went over assessment and plan with medical team including international exchange coordinator and resident physician. Documentation for date of: 03/27/24 Subjective Subjective Interval history: Patient was seen at bedside this morning. No overnight events. Patient was placed n.p.o. since midnight by GI specialist for EGD today. Patient was feeling a lot better today and her troponins were again negative last night. Her orthostatic vitals were positive. She had no other complaints at this time. Exam Vital Signs Temp Pulse Resp BP Pulse Ox O2 Del Method 97.0 F 67 14 125/71 96 Room Air 03/27/24 08:00 03/27/24 08:00 03/27/24 08:00 03/27/24 08:00 03/27/24 08:00 03/27/24 08:00 Narrative Exam General: A/O x3, no acute distress, well-nourished, well-developed Eyes: PERRL, EOMI. Anicteric, vision grossly intact. Ears: No ear pain, no ear discharge, Hearing grossly intact. Nose: No nasal discharge. Mouth/Throat: Dry mucous membranes, no redness, no lesions. Neck: Neck supple, non-tender, no cervical lymphadenopathy. Lungs: Clear NHAN to auscultation and percussion, No accessory muscle use. Cardio: Normal S1/S2, regular rhythm, no murmurs, no JVD. Tenderness to palpation in the sternum Abdomen: Soft, non-tender, no palpable masses, peristalsis present, no guarding or rebound. Extremities: Symmetrical, no significant deformities, no peripheral edema , non-tender, peripheral pulses presents. Skin: No rashes, no lesions, warm to touch. Neuro: No focal neurological deficits. motor and sensory intact Psych: Cooperative, appropriate mood and effect. Objective Labs 03/27/24 07:45 03/27/24 07:45 Labs: Laboratory Results - last 24 hr 03/26/24 03/26/24 03/26/24 12:02 12:18 20:27 WBC 12.3 H RBC 4.51 Hgb 13.7 Hct 36.9 MCV 82 MCH 30.4 MCHC 37.1 H RDW Std Deviation 38.5 Plt Count 479 H D Neut % (Auto) 74 Lymph % (Auto) 15 [place] % (Auto) 5 Eos % (Auto) 4 Baso % (Auto) 1 Neut # (Auto) 9.1 H Lymph # (Auto) 1.9 [place] # (Auto) 0.6 Eos # (Auto) 0.5 Baso # (Auto) 0.1 Immature Gran # (Auto) 0.04 H Absolute Nucleated RBC 0.00 Immature Gran % 0 Nucleated RBC % 0 ESR 22 D-Dimer 1920 H VBG pH 7.42 VBG pCO2 41 VBG pO2 53 VBG O2 Sat ([place]) 92 L VBG Base Excess 2 Sodium 138 Potassium 3.7 Chloride 101 Carbon Dioxide 26.6 Anion Gap 10 BUN 12 Creatinine 0.6 Estim Creat Clear Calc 72.4 eGFR > 60 BUN/Creatinine Ratio [address] Glu mg/dL Hemoglobin A1c Calculated Osmolality 281 Lactic Acid 1.6 Calcium 9.7 Corrected Calcium Magnesium 1.6 1.5 L Total Bilirubin 0.9 Direct Bilirubin 0.2 AST 10 ALT 9 L Alkaline Phosphatase 73 Troponin I < 0.002 < 0.002 C-Reactive Prot, Quant 0.5 B-Natriuretic Peptide 70 Total Protein 7.1 Albumin 4.4 Globulin Albumin/Globulin Ratio Triglycerides Cholesterol LDL Cholesterol, Calc HDL Cholesterol Cholesterol/HDL Ratio Amylase 41 Lipase 33 Beta-Hydroxybutyrate/Acetoacetate 0.3 Procalcitonin 0.04 TSH 1.93 Ur Collection Type Clean Catch Urine Color Colorless A Urine Clarity Clear Urine pH 7.5 H Ur Specific [place] 1.007 Urine Protein 1+ A Urine Glucose (UA) Negative Urine Ketones Negative Urine Blood Negative Urine Nitrite Negative Urine Bilirubin Negative Urine Urobilinogen (Auto) Negative Ur Leukocyte Esterase Negative Urine RBC 1 Urine WBC < 1 Ur Squamous Epith Cells 2 Urine Bacteria None Ur Culture Indicated? Not Indicated 03/27/24 07:45 WBC 10.8 RBC 3.74 L Hgb 11.4 L D Hct 30.9 L MCV 83 MCH 30.5 MCHC 36.9 RDW Std Deviation 39.8 Plt Count 405 D Neut % (Auto) 79 Lymph % (Auto) 12 [place] % (Auto) 5 Eos % (Auto) 4 Baso % (Auto) 1 Neut # (Auto) 8.5 H Lymph # (Auto) 1.3 [place] # (Auto) 0.5 Eos # (Auto) 0.4 Baso # (Auto) 0.1 Immature Gran # (Auto) 0.03 H Absolute Nucleated RBC 0.00 Immature Gran % 0 Nucleated RBC % 0 ESR D-Dimer VBG pH VBG pCO2 VBG pO2 VBG O2 Sat ([place]) VBG Base Excess Sodium 139 Potassium 4.4 D Chloride 104 Carbon Dioxide 27.5 Anion Gap 8 BUN 11 Creatinine 0.6 Estim Creat Clear Calc 77.1 eGFR > 60 BUN/Creatinine Ratio 18 [address]ucose [address] Glu mg/dL 160 H Hemoglobin A1c 7.2 H Calculated Osmolality 282 Lactic Acid Calcium 9.0 Corrected Calcium 9.2 Magnesium 2.2 Total Bilirubin 0.9 Direct Bilirubin AST < 8 ALT 7 L Alkaline Phosphatase 67 Troponin I C-Reactive Prot, Quant B-Natriuretic Peptide Total Protein 6.1 Albumin 3.8 D Globulin 2.3 Albumin/Globulin Ratio 1.7 Triglycerides 171 H Cholesterol 181 LDL Cholesterol, Calc 101 HDL Cholesterol 46 Cholesterol/HDL Ratio 3.9 Amylase Lipase Beta-Hydroxybutyrate/Acetoacetate Procalcitonin TSH 2.21 Ur Collection Type Urine Color Urine Clarity Urine pH Ur Specific [place] Urine Protein Urine Glucose (UA) Urine Ketones Urine Blood Urine Nitrite Urine Bilirubin Urine Urobilinogen (Auto) Ur Leukocyte Esterase Urine RBC Urine WBC Ur Squamous Epith Cells Urine Bacteria Ur Culture Indicated? ABG Interpretation ABG results: 03/26/24 12:18 VBG pH 7.42 VBG pCO2 41 VBG pO2 53 VBG Base Excess 2 Quality Measures Quality Measures none Advance care planning discussed with:: patient Assessment & Plan Assessment Current Active Medications: Generic Name Dose Route Start Last Admin Trade Name Ana PRN Reason Stop Dose Admin Acetaminophen 650 mg 03/27/24 07:51 Acetaminophen 325 Mg Tablet PO 04/25/24 15:36 Q6H PRN pain 1-3 and Fever >100.4 Hydrocodone Bitart/Acetaminophen 1 tab 03/26/24 15:37 03/26/24 23:24 Hydrocodone/Apap 5/325 Tablet PO 03/31/24 15:36 1 tab Q4HR PRN Administration PAIN SCALE 4-6 (Moderate Dextrose 25 ml 03/26/24 15:37 Dextrose 50%-Water Inj 50 Ml Syringe IV 04/25/24 15:36 Q15MIN PRN BG 50-70 responsive npo pt Dextrose 50 ml 03/26/24 15:37 Dextrose 50%-Water Inj 50 Ml Syringe IV 04/25/24 15:36 Q15MIN PRN BG <50 OR BG <70 & pt unresponsive Glucagon 1 mg 03/26/24 15:37 Glucagon Inj 1 Mg Vial IM Q15MIN PRN BG <70, and no IV access Sodium Chloride 1,000 mls @ 80 mls/hr 03/26/24 15:45 03/27/24 08:39 Ns IV 04/25/24 15:44 80 mls/hr .[id number] TULIO Administration Insulin Human Lispro 0 unit 03/26/24 17:00 03/27/24 07:32 Insulin Lispro (Admelog) 1 Unit/0.01 Ml Unit SC 04/25/24 16:59 Not Given AC TULIO Protocol Lactulose 20 gm 03/26/24 15:45 03/26/24 17:11 Lactulose Syrup 20 Gm/30 Ml Udc PO 04/25/24 15:44 20 gm QDAY TULIO Administration Protocol Ondansetron HCl 4 mg 03/26/24 15:37 03/27/24 03:55 Ondansetron Inj 2 Mg/Ml Inj 2 Ml IV 04/25/24 15:36 4 mg Q6H PRN Administration NAUSEA OR VOMITING Protocol Pantoprazole Sodium 40 mg 03/26/24 15:45 03/26/24 17:12 Pantoprazole 40 Mg Tablet PO 04/25/24 15:44 40 mg QDAY TULIO Administration Plan 68-year-old female with past medical history of hypertension, DM2, seizures, headaches, and frequent UTIs was admitted to the hospital on 03/26/2024 for syncopal episode and intractable nausea and vomiting. #Intractable nausea and vomiting #Gallbladder polyp #Abdominal pain #GI Bleed? ? Patient has been complaining of intractable nausea and vomiting which is on and off for the past few months ?Patient complaining of black stools ?DDx gastritis versus gastroparesis given history of diabetes ?Abdomen/pelvis CT was unremarkable -Hgb stable at 11.4 today, hemodilutional due to IV fluids, no signs of active bleeding Plan: -NPO for EGD today ? Protonix 40 mg daily ?Zofran as needed for nausea ?Fecal occult blood ordered ? GI consulted, appreciate recommendations ? Will continue to monitor #Syncopal episode secondary to #Orthostatic hypotension #Chest pain ?Patient came in with complaints of chest pain sharp in nature which radiated to the left arm and with some numbness of the left lower face, this was followed by a syncopal episode. ? 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 Troponins negative ? EKG did not show any ST changes ? Chest CTA was unremarkable ?Head CT was unremarkable ? Chest x-ray was unremarkable ?Patient's orthostatic vitals were positive Plan: ? Maintaince fluids ? Echo pending ? Will continue to monitor #Hypertensive urgency ? Patient came in with blood pressure of 206/121 ? Patient was given clonidine x 1 ? Current blood pressures in am was 127/71 Plan: ? Will hold off on antihypertensive medication now as patient has syncopal episode which could have been caused by orthostatic hypotension versus dehydration. ? Goal blood pressure up to 160s and then her IV hydralazine should be okay for blood pressure above this ? Will continue to monitor #DM2 ?Last A1c was 7.2% on 02/2024 Plan: ? ISS ? Accu-Cheks and hypoglycemia protocol ordered ? Will continue to monitor #Hx of seizures #Hx of headaches ?Patient has not been prescribed antiseizure medication as of recently ? Will wait for medication reconciliation before starting any antiseizure medication. Disposition: Patient admitted to telemetry for syncope and intractable N/V, NPO getting EGD today . Diet: NPO GI prophylaxis: protonix DVT prophylaxis: heparin sc Code: Full code Case disclosed with Attending Dr. Nelson and My senior Dr. Reynolds PGY2. Thanh Graham PGY1 Senior Resident Attestation: The patient is a 68-year-old female with significant past medical history of hypertension, diabetes mellitus type 2, seizure disorder, headache, frequent UTIs presented to ED with chief complaint of syncopal episode associated with intractable nausea and vomiting admitted to hospital for further evaluation of syncope. The patient was returning back from her [employer]UC[employer] clinic where she lost her consciousness, and initially the medical person in the clinic thought that the patient may require CPR, but after first push on the chest she responded and CPR was held. The patient was brought in to ED by ambulance. So far, EKG, CT head, CTA chest, CT abdomen/pelvis and chest x-ray has been negative. Her orthostatic vitals were positive, suggestive of dehydration secondary to vomiting and diarrhea. We will continue the patient on IV fluids, and will do echocardiogram. She will undergo EGD by Dr. Moran today evening. Pending further recommendations by GI Dr. Moran. I discussed with and supervised the international exchange coordinator physician involved in the care of this patient. I personally saw and examined the patient and discussed the assessment and plan with the entire medicine team, including my attending. I agree with the assessment and plan as documented above. Yamil Reynolds MD PGY2 Internal Medicine
--- NOTE | 2024-03-27 18:27 | SUR.PHASEI ---
1827 Patient arrived to recovery, report received from Es CAVANAUGH
--- NOTE | 2024-03-27 19:05 | SUR.PHASEI ---
1900 Report given to Lisa CAVANAUGH, patient meets discharge criteria from recovery, awake and alert, breathing unlabored, vital signs stable, denies pain, drinking water; tolerating well. 1904 Patient transported via gurney to room 261 without incident, DRIVER LICENSE TECHNICIAN assisted this field underwriter with transferring patient from gurney to bed, patient daughter awaiting for patient in her room, patient resting comfortably in her bed when this field underwriter left patients room
[2024-03-27] MEDS: SUCRALFATE SUSP 1 GM/10 ML UDC PO (21:19)
[2024-03-27] MEDS: ACETAMINOPHEN 325 MG TABLET 650 MG PO (23:19)
[2024-03-28] VITALS (7 sets, daily range): BP systolic 125–154; BP diastolic 69–98; PULSE 71–110; RESP 12–97; TEMP 35.6–37.2; O2SAT 95–98; BMI 25.9
[2024-03-28] MEDS: SODIUM CHLORIDE 0.9% 1000 ML 1,000 ML 80 ML IV ×2 (01:53→14:36)
[2024-03-28] MEDS: SUCRALFATE SUSP 1 GM/10 ML UDC PO ×4 (05:53→20:49)
[2024-03-28] MEDS: ACETAMINOPHEN 325 MG TABLET 650 MG PO ×2 (06:21→14:24)
[2024-03-28 06:23] LABS: Basophils # (Auto) 0.1 Thou/mm3 (0.0-0.2); Basophils % (Auto) 1 % (0-2.5); Eosinophils # (Auto) 0.7 Thou/mm3 (0.0-0.5); Eosinophils % (Auto) 7 % (0-10); Hematocrit 30.2 % (36.0-46.0); Hemoglobin 11.1 g/dL (12.0-16.0); Immature Granulocytes % (Auto) 0 % (0-0); Immature Granulocytes Auto 0.03 Thou/mm3 (0.00-0.00); Lymphocytes # (Auto) 1.7 Thou/mm3 (1.0-4.8); Lymphocytes % (Auto) 17 % (10-50); Mean Corpuscular HGB Conc 36.8 g/dl (31.0-37.0); Mean Corpuscular Hemoglobin 30.2 pg (25.0-35.0); Mean Corpuscular Volume 82 fL (80-100); Monocytes # (Auto) 0.7 Thou/mm3 (0.0-0.8); Monocytes % (Auto) 7 % (0-12); Neutrophils # (Auto) 6.9 Thou/mm3 (1.8-7.7); Neutrophils % (Auto) 68 % (37-80); Nucleated Red Blood Cell % 0 /100 WBC (0); Platelet Count 404 Thou/mm3 (140-440); RDW Standard Deviation 39.7 fL (36.4-46.3); Red Blood Count 3.67 Miln/mm3 (4.00-5.20); White Blood Count 10.1 Thou/mm3 (3.6-11.0)
[2024-03-28 06:59] LABS: Alanine Aminotransferase < 7 U/L (10-49); Albumin, Serum 3.4 gm/dL (3.4-4.8); Albumin/Globulin Ratio 1.5 (1.2-2.2); Alkaline Phosphatase 63 U/L (46-116); Anion Gap 9 (7-16); Aspartate Amino Transferase < 8 U/L (0-34); BUN/Creatinine Ratio 18 Ratio (12-20); Bilirubin,Total 0.7 mg/dL (0.3-1.2); Blood Urea Nitrogen 9 mg/dL (9-23); Calcium 8.4 mg/dL (8.3-10.6); Calcium (Corrected) 8.9 mg/dL (8.5-10.1); Chloride 108 mMol/L (98-107); Creatinine (Component) 0.5 mg/dL (0.6-1.3); Estimated Creatinine Clearance 92.5 mL/min (>60); Globulin 2.2 gm/dL (2.3-3.5); Glucose 127 mg/dL (74-106); Osmolality,Calculated 281 (275-295); Potassium 3.6 mMol/L (3.4-5.1); Sodium 141 mMol/L (136-145); Total Protein 5.6 gm/dL (5.7-8.2); eGFR > 60 See Note
[2024-03-28] MEDS: LACTULOSE SYRUP 20 GM/30 ML UDC PO (08:40)
[2024-03-28] MEDS: PANTOPRAZOLE 40 MG TABLET PO (08:40)
[2024-03-28] MEDS: LIDOCAINE 5% 1 PATCH TOP (11:06)
[2024-03-28] MEDS: INSULIN LISPRO (AdmeLOG) 1 UNIT/0.01 ML UNIT SC ×2 (11:48→16:44)
--- NOTE | 2024-03-28 13:59 | ESPR_ITS ---
<Statement entered by Andrzej Nelson MD - 04/03/24 15:56> I reviewed above note and agree with findings and plans. I have also personally examined the patient with medicine team and went over assessment and plan with medical team including internal combustion engine assembler and resident physician. Documentation for date of: 03/28/24 Subjective Subjective Interval history: Patient was seen at bedside this morning. No overnight events. Patient underwent EGD on 03/27/2024 - resumed diet Fluids given for positive orthostatic vitals, BP now improved. Will ambulate patient. Patient complains of chest pain and thoracic back pain since CPR. HIDA scan confirmed biliary dyskinesia, patient informed of findings. Will get general surgery on board for further evaluation for cholecystectomy. Exam Vital Signs Temp Pulse Resp BP Pulse Ox O2 Del Method O2 Flow Rate 97.4 F 83 15 137/75 H 97 Room Air 3 03/28/24 12:00 03/28/24 12:03/28/24 12:03/28/24 12:03/28/24 12:03/28/24 12:03/27/24 18:10 Narrative Exam Constitutional Alert, oriented x4 and comfortable on RA HEENT Vision grossly intact. Patent nares. Trachea midline. Respiratory Chest normal on inspection, sternal pain on palpation, clear to auscultation bilaterally. Cardiovascular S1 and S2 audible, RRR. No murmurs or carotid bruit. No gross JVD. Abdominal Soft, tender to palpation in RUQ quadrant. BS + Genitourinary No bladder tenderness, no flank pain. Normal to palpation. Musculoskeletal Extremities tone within normal limits. 1+ LE edema. Neurological CN II - XII grossly intact. Extremity motor and sensation grossly intact. Skin Warm, dry and intact. No apparent lesions. Psychiatric Patient has a good affect, is cooperative. Objective Labs 03/28/24 04:52 03/28/24 04:52 Labs: Laboratory Results - last 24 hr 03/28/24 04:52 WBC 10.1 RBC 3.67 L Hgb 11.1 L Hct 30.2 L MCV 82 MCH 30.2 MCHC 36.8 RDW Std Deviation 39.7 Plt Count 404 Neut % (Auto) 68 Lymph % (Auto) 17 [place] % (Auto) 7 Eos % (Auto) 7 Baso % (Auto) 1 Neut # (Auto) 6.9 Lymph # (Auto) 1.7 [place] # (Auto) 0.7 Eos # (Auto) 0.7 H Baso # (Auto) 0.1 Immature Gran # (Auto) 0.03 H Absolute Nucleated RBC 0.00 Immature Gran % 0 Nucleated RBC % 0 Sodium 141 Potassium 3.6 D Chloride 108 H Carbon Dioxide 24.0 Anion Gap 9 BUN 9 Creatinine 0.5 L Estim Creat Clear Calc 92.5 eGFR > 60 BUN/Creatinine Ratio 18 Glucose 127 H D Calculated Osmolality 281 Calcium 8.4 Corrected Calcium 8.9 Magnesium 2.0 Total Bilirubin 0.7 AST < 8 ALT < 7 L Alkaline Phosphatase 63 Total Protein 5.6 L Albumin 3.4 Globulin 2.2 L Albumin/Globulin Ratio 1.5 ABG Interpretation ABG results: 03/26/24 12:18 VBG pH 7.42 VBG pCO2 41 VBG pO2 53 VBG Base Excess 2 Quality Measures Quality Measures none Advance care planning discussed with:: patient, spouse and child Assessment & Plan Assessment Current Active Medications: Generic Name Dose Route Start Last Admin Trade Name Ana PRN Reason Stop Dose Admin Acetaminophen 650 mg 03/27/24 07:51 03/28/24 06:21 Acetaminophen 325 Mg Tablet PO 04/25/24 15:36 650 mg Q6H PRN Administration pain 1-3 and Fever >100.4 Hydrocodone Bitart/Acetaminophen 1 tab 03/26/24 15:37 03/26/24 23:24 Hydrocodone/Apap 5/325 Tablet PO 03/31/24 15:36 1 tab Q4HR PRN Administration PAIN SCALE 4-6 (Moderate Celecoxib 100 mg 03/28/24 11:13 Celecoxib 100 Mg Capsule PO 04/27/24 11:14 BID PRN chest wall pain Dextrose 25 ml 03/26/24 15:37 Dextrose 50%-Water Inj 50 Ml Syringe IV 04/25/24 15:36 Q15MIN PRN BG 50-70 responsive npo pt Dextrose 50 ml 03/26/24 15:37 Dextrose 50%-Water Inj 50 Ml Syringe IV 04/25/24 15:36 Q15MIN PRN BG <50 OR BG <70 & pt unresponsive Glucagon 1 mg 03/27/24 15:12 Glucagon Inj 1 Mg Vial IM Q15MIN PRN BG <70, and no IV access Sodium Chloride 1,000 mls @ 80 mls/hr 03/26/24 15:45 03/28/24 01:53 Ns IV 04/25/24 15:44 80 mls/hr .[id number] TULIO Administration Insulin Human Lispro 0 unit 03/27/24 15:12 03/28/24 11:48 Insulin Lispro (Admelog) 1 Unit/0.01 Ml Unit SC 04/25/24 16:59 4 unit AC TULIO Administration Protocol Lactulose 20 gm 03/28/24 09:00 03/28/24 08:40 Lactulose Syrup 20 Gm/30 Ml Udc PO 04/25/24 15:44 20 gm QDAY TULIO Administration Protocol Lidocaine 1 patch 03/28/24 10:56 03/28/24 11:06 Lidocaine 5% 1 Patch TOP 04/27/24 10:55 1 patch UD PRN Administration PAIN Ondansetron HCl 4 mg 03/26/24 15:37 03/27/24 23:11 Ondansetron Inj 2 Mg/Ml Inj 2 Ml IV 04/25/24 15:36 4 mg Q6H PRN Administration NAUSEA OR VOMITING Protocol Pantoprazole Sodium 40 mg 03/26/24 15:45 03/28/24 08:40 Pantoprazole 40 Mg Tablet PO 04/25/24 15:44 40 mg QDAY TULIO Administration Sucralfate 1 gm 03/27/24 21:00 03/28/24 11:24 Sucralfate Susp 1 Gm/10 Ml Udc PO 04/26/24 20:59 1 gm QID TULIO Administration Plan Ms Multani is a 68-year-old female with past medical history of hypertension, DM2, seizures, headaches, and frequent UTIs was admitted to the hospital on 03/26/2024 for syncopal episode and intractable nausea and vomiting. 1. Intractable nausea and vomiting 2. Abdominal pain secondary to 3. Biliary Dyskinesia on HIDA 4. Gastric ulcer, pending rule out ? Patient has been complaining of intractable nausea and vomiting which is on and off for the past few months ? Patient complaining of black stools ? Abdomen/pelvis CT : unremarkable - 03/26 : orthostatic vitals positive, likely due to dehydration secondary to vomiting and diarrhea - 03/27 : GI Dr. Moran consulted, patient underwent EGD , pending final EGD report - 03/28 : HIDA should biliary dyskinesia ejection fraction 16% Plan: - GI Dr Moran consulted, appreciate recommendations. Follow-up EGD report, and GI recommendations - General surgery Dr Frias consulted, appreciate recommendations - Continue Protonix 40 mg daily, Zofran as needed for nausea - GI started p.o. diet on 03/27 ; Will hold after midnight on 03/29 if plan for surgical intervention 4. Syncopal episode 5. Angina secondary to 6. Orthostatic hypotension ? Patient came in with complaints of chest pain sharp in nature which radiated to the left arm and with some numbness of the left lower face, this was followed by a syncopal episode. ? 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 ? Troponins : negative ? EKG did not show any ST changes ? Chest CTA was unremarkable ? Head CT was unremarkable ? Chest x-ray was unremarkable ? Patient's orthostatic vitals : positive Plan: - Cardiology Dr Ibarra is consulted, appreciate recommendations - Patient is +1.5L since admission. Oral hydration encouraged, IVF discontinued - Nurse requested to ambulate patient with assistance, will continue to monitor for orthostatics - Echo results pending 7. Hypertensive urgency - resolved ? Patient came in with blood pressure of 206/121 ? Patient was given clonidine x 1 ? Current blood pressures in am was 127/71 Plan: ? Will hold off on antihypertensive medication now as patient has syncopal episode which could have been caused by orthostatic hypotension versus dehydration. ? Goal blood pressure up to 160s and then her IV hydralazine should be okay for blood pressure above this ? Will continue to monitor 8. Type 2 DM - Last A1c = 7.2% on 02/2024 - 03/28 : Blood sugar >300 is diet resumed. Will add long-acting insulin Plan: - Continue on AC sliding scale insulin - Ordered glargine 10 units SC x1 - Hypoglycemia protocol ordered 9. Hx of seizures disorder 10. Hx of headaches ? Patient has not been prescribed antiseizure medication as of recently ? Will wait for medication reconciliation before starting any antiseizure medication. Health maintenance: Disposition: Patient admitted to telemetry for syncope and intractable N/V, NPO getting EGD today . Diet: High fiber diet GI prophylaxis: protonix DVT prophylaxis: heparin sc Code: Full code Plan of care discussed with attending Demetrio Perkins M.D. PGY2
[2024-03-28] MEDS: CELECOXIB 100 MG CAPSULE PO (15:19)
[2024-03-28] MEDS: INSULIN GLARGINE (Lantus) 5 UNIT/0.05 ML (PER 5 UNITS) 10 UNIT SC (16:46)
--- NOTE | 2024-03-28 17:28 | PD.IMPROG ---
Documentation for date of: 03/28/24 Subjective Subjective Interval history: Spoke with the patient and her son in the room discussed endoscopic findings which shows hemorrhagic gastritis CCK HIDA scan with ejection fraction shows an ejection fraction of 16% Patient had had abdominal pain and nausea vomiting in the past according to the son And they would very much like to have surgical consultation for evaluation of the biliary dyskinesia and possible laparoscopic versus open cholecystectomy I told him that is an outpatient procedure as she is improving but nonetheless I will talk to the internal medicine team to arrange that consultation Exam Vital Signs Temp Pulse Resp BP Pulse Ox O2 Del Method O2 Flow Rate 97.2 F 87 16 137/75 H 95 Room Air 3 03/28/24 16:00 03/28/24 16:00 03/28/24 16:00 03/28/24 16:00 03/28/24 16:00 03/28/24 16:00 03/27/24 18:10 Objective Labs 03/28/24 04:52 03/28/24 04:52 Labs: Laboratory Results - last 24 hr 03/28/24 04:52 WBC 10.1 RBC 3.67 L Hgb 11.1 L Hct 30.2 L MCV 82 MCH 30.2 MCHC 36.8 RDW Std Deviation 39.7 Plt Count 404 Neut % (Auto) 68 Lymph % (Auto) 17 [place] % (Auto) 7 Eos % (Auto) 7 Baso % (Auto) 1 Neut # (Auto) 6.9 Lymph # (Auto) 1.7 [place] # (Auto) 0.7 Eos # (Auto) 0.7 H Baso # (Auto) 0.1 Immature Gran # (Auto) 0.03 H Absolute Nucleated RBC 0.00 Immature Gran % 0 Nucleated RBC % 0 Sodium 141 Potassium 3.6 D Chloride 108 H Carbon Dioxide 24.0 Anion Gap 9 BUN 9 Creatinine 0.5 L Estim Creat Clear Calc 92.5 eGFR > 60 BUN/Creatinine Ratio 18 Glucose 127 H D Calculated Osmolality 281 Calcium 8.4 Corrected Calcium 8.9 Magnesium 2.0 Total Bilirubin 0.7 AST < 8 ALT < 7 L Alkaline Phosphatase 63 Total Protein 5.6 L Albumin 3.4 Globulin 2.2 L Albumin/Globulin Ratio 1.5 Impressions Impression: # Nausea vomiting improved # Hemorrhagic gastritis # Biliary dyskinesia Recommend surgical consultation ABG Interpretation ABG results: 03/26/24 12:18 VBG pH 7.42 VBG pCO2 41 VBG pO2 53 VBG Base Excess 2 Assessment & Plan A&P Narrative # Nausea vomiting # Melena # Pain abdomen Plan CCK HIDA scan with ejection fraction of the gallbladder Consent obtained for fiberoptic esophagogastroduodenoscopy with possible biopsy possible therapeutic intervention under intravenous moderate sedation N.p.o. midnight except p.o. meds Other medical problems include # Chest pain with a normal troponin # Diabetes mellitus type 2 # Headache # Syncope thank you very much for the opportunity to participate in the care of this patient Time Spent With Patient Time: Total time spent is greater than 50% in coordination of care (as documented) at patient's floor/unit and/or counseling patient:
--- NOTE | 2024-03-28 19:12 | PD.SURCONS ---
HPI Consult details Consult date: 03/28/24 Reason for consultation narrative: The patient was seen in consultation because of cholelithiasis and poor ejection fraction on the gallbladder HIDA scan History of present illness: Patient was admitted because of the syncopal episode and some chest pain. She did not have any abdominal pain but she has been complaining of lower abdominal discomfort for some time. Patient has been nauseated and vomiting. While she was here workup revealed gallbladder polyp and gallbladder ejection fraction of 16%. Therefore surgical consultation was obtained Past Medical History Past Medical History NEUROLOGIC: Positive Seizures and Head Trauma CARDIAC: Positive Hypercholesterolemia and Hypertension; Negative Cardiac Disorders or Congestive Heart Failure RESPIRATORY: Negative Chronic Obstructive Pulmonary Disease (COPD) or Asthma GENITOURINARY: Negative Genitourinary Disorders or Renal Disease REPRODUCTIVE: Negative Pelvic Inflammatory Disease MUSCULOSKELETAL: Negative Musculoskeletal Disorders ENT: Positive Head Trauma ENDOCRINE: Positive Diabetes Mellitus Type 2; Negative Diabetes Mellitus Type 1 HEMATOLOGIC: Negative Blood Disorders or Sickle Cell Disease PSYCHO/SOCIAL: Positive Anxiety OTHER HISTORY: Negative Blood Transfusions or Anesthesia Reactions Family History FAMILY HISTORY: Negative Family Cardiac Disorders Surgical History SURGICAL: Positive Hysterectomy and Section OTHER SURGICAL HX: As in the history of present illness Social History SMOKING STATUS: Never smoker SECOND HAND EXPOSURE: No SUBSTANCE USE: does not use Meds Home Medications and Allergies Home Medications ?Medication ?Instructions ?Recorded ?Confirmed ?Type benazepril 5 mg tablet 10 mg PO QDAY 03/26/24 03/26/24 History metformin 1,000 mg tablet 500 mg PO BID 03/26/24 03/26/24 History Allergies Allergy/AdvReac Type Severity Reaction Status Date / Time morphine AdvReac Severe Anaphylaxis Verified 03/27/24 18:51 Exam Vital Signs Temp Pulse Resp BP Pulse Ox O2 Del Method O2 Flow Rate 97.2 F 87 16 137/75 H 95 Room Air 3 03/28/24 16:00 03/28/24 16:00 03/28/24 16:03/28/24 16:03/28/24 16:03/28/24 16:03/27/24 18:10 Narrative Exam Physical examination revealed a 68-year-old female who speaks some Mongolian but mostly Upper Sorbian. Her vital signs are normal Routine Abdominal Exam Comments: Examination of the abdomen showed midline surgical scar from the previous surgery. Examination of the abdomen does not show any tenderness in the upper abdomen over the right upper quadrant. Routine Rectal Exam Comments: Deferred Routine Exam Comments: Deferred Results Results: Laboratory Laboratory Narrative: Patient's laboratory workup is within normal limit Results: Imaging Imaging narrative: Ultrasound of the gallbladder showed a polyp measuring about 8 mm. He had a HIDA scan which showed ejection fraction of 60% Assessment & Plan Additional Assessment Additional comments: Impression: Polyp in the gallbladder Poor ejection fraction of the gallbladder on HIDA scan Syncopal attack Hypertension Recurrent urinary tract infection Plan Plan: The patient's problem is not related to the gallbladder. Gallbladder polyp does not require surgical intervention. However the ejection fraction is low and may be a reason for diagnosis of biliary dyskinesia. But this is never an urgent acute condition. This can be evaluated as an outpatient to see if the patient has biliary symptoms which can be attributed to biliary dyskinesia. I suggest we get a cardiology evaluation for her syncope before discharge. She does not require cholecystectomy at this time. Thank you very much
[2024-03-29] VITALS (10 sets, daily range): BP systolic 142–166; BP diastolic 77–92; PULSE 76–90; RESP 13–98; TEMP 36.3–37.3; O2SAT 96–98; BMI 26.9
--- NOTE | 2024-03-29 00:59 | ESCONSULT_ITS ---
RE: AMANDA COREY : 1955 DATE OF CONSULTATION: 03/28/2024 CONSULTING PHYSICIANS: Andrzej Nelson MD REASON FOR CONSULTATION: Cardiovascular evaluation for syncopal episode. Cardiac clearance for surgery. CHIEF COMPLAINT: Right upper quadrant pain and syncopal episode. HISTORY OF PRESENT ILLNESS: The patient is a 68-year-old lady with a past medical history of hypertension, type 2 diabetes mellitus, never had a cardiac problem. She has had recurrent syncope episodes. Family describes every time she eats a certain amount of food, she gets severe pain in the right upper quadrant and blood pressure changes and she faints. The patient has severe right upper quadrant tenderness as well when we examined. Gallbladder HIDA scan was abnormal. The patient has recurrent syncope episode whenever she has abdominal pain due to vagal episodes. The patient apparently went to OB doctor's office today. She was nauseous, dizzy and not feeling well, and she was sent to the hospital. Here in the emergency room, while she was sitting in a wheelchair, she slumped and definitely collapsed with syncopal episode, not on the monitor, not sure what was happening. The patient was unresponsive briefly. As soon as one thump was given to the chest, the patient came back to normal. She was breathing and she was fine. She definitely had a vasovagal syncope in the emergency department and according to the family, she had similar episodes whenever she had GI symptoms only, not at other times. So far, EKG is unremarkable. Enzymes are normal. No evidence of any cardiac arrhythmias. ALLERGIES: Unknown . MEDICATIONS: Benazepril 5 mg daily, metformin 1000 b.i.d. PAST MEDICAL HISTORY: History of type 2 diabetes mellitus, hypertension. SOCIAL HISTORY: with the . Does not smoke or drink alcoholic beverages. FAMILY HISTORY: Noncontributory PHYSICAL EXAMINATION: GENERAL: A well-nourished female, alert and awake, in no acute distress. VITAL SIGNS: Her blood pressure 150/90, pulse , respirations 23, temperature is normal. HEAD: Head is atraumatic and normocephalic. EYES: Normal. ENT: Normal. NECK: Neck is supple. No JVD. Carotid pulses felt but no bruits. CHEST: Symmetrical. LUNGS: Decreased breath sounds at the bases. HEART: S1, SR, regular. No gallops or murmurs. ABDOMEN: Abdomen is soft. There is evidence of right upper quadrant tenderness, unable to palpate. As soon as I touch the right upper quadrant, she is tender. Rest of the abdominal exam is normal. EXTREMITIES: No edema. GENITOURINARY AND RECTAL: Not performed. DIAGNOSTIC DATA: Electrocardiogram showed sinus rhythm within normal limits. Cardiac enzymes so far negative. There is no evidence of myocardial infarction. EKGs are normal as well. IMAGING: Gallbladder showed no evidence of cholecystectomy or cholelithiasis. There is an 8 x 7 x 7 mm gallbladder polyp noted and a nuclear medicine scan showed gallbladder function with abnormal 16% function, normal is greater than 35%. She also had chest CTA. No pulmonary emboli. Normal chest CT. Chest x-ray negative as well. LABORATORY DATA: Lab data so far shows amylase is normal. Liver enzymes are normal. Alkaline phosphatase is normal as well. IMPRESSION/ASSESSMENT: 1. Recurrent syncopal episode preceded by severe abdominal pain, clearly vasovagal syncope with normal EKGs and negative exam findings. 2. Gallbladder polyp with decreased gallbladder function with severe abdominal pain, recurrent episodes of abdominal pain upon eating food with right upper quadrant pain and followed by syncope, clearly severe vasovagal syncope due to gastrointestinal symptoms and vagal stimulation. RECOMMENDATIONS: The patient should have a cardiac echo. If the echo is normal, she is low risk for surgery. There is no evidence of any coronary artery disease. She has no angina. No cardiac symptoms at this time. I doubt very much she has significant CAD or other cardiac issues causing her syncope. Most likely, she has vasovagal syncope based on clinical history and recommended cholecystectomy either now or electively, but definitely she has these issues with upper GI problems causing pain and syncopal episodes based on recurrent episodes of similar symptoms causing syncopal episodes. DT: 23:51:05 TT: 00:57:00 Ref: [id number] - TID: [id number] [facility]
[2024-03-29] MEDS: HYDROcodone/APAP 5/325 TABLET 1 TAB PO ×4 (02:05→22:45)
[2024-03-29] MEDS: ONDANSETRON INJ 2 MG/ML INJ 2 ML 4 MG IV ×4 (02:18→22:46)
[2024-03-29] MEDS: SUCRALFATE SUSP 1 GM/10 ML UDC PO ×4 (05:26→20:22)
[2024-03-29] MEDS: SODIUM CHLORIDE 0.9% 1000 ML 1,000 ML 80 ML IV ×2 (05:26→20:23)
[2024-03-29 05:56] LABS: Basophils # (Auto) 0.1 Thou/mm3 (0.0-0.2); Basophils % (Auto) 1 % (0-2.5); Eosinophils # (Auto) 0.6 Thou/mm3 (0.0-0.5); Eosinophils % (Auto) 6 % (0-10); Hematocrit 28.8 % (36.0-46.0); Hemoglobin 10.7 g/dL (12.0-16.0); Immature Granulocytes % (Auto) 0 % (0-0); Immature Granulocytes Auto 0.04 Thou/mm3 (0.00-0.00); Lymphocytes # (Auto) 1.7 Thou/mm3 (1.0-4.8); Lymphocytes % (Auto) 19 % (10-50); Mean Corpuscular HGB Conc 37.2 g/dl (31.0-37.0); Mean Corpuscular Hemoglobin 30.6 pg (25.0-35.0); Mean Corpuscular Volume 82 fL (80-100); Monocytes # (Auto) 0.8 Thou/mm3 (0.0-0.8); Monocytes % (Auto) 8 % (0-12); Neutrophils # (Auto) 6.1 Thou/mm3 (1.8-7.7); Neutrophils % (Auto) 66 % (37-80); Nucleated Red Blood Cell % 0 /100 WBC (0); Platelet Count 404 Thou/mm3 (140-440); RDW Standard Deviation 39.8 fL (36.4-46.3); White Blood Count 9.2 Thou/mm3 (3.6-11.0)
[2024-03-29 06:05] LABS: Prothrombin Time 10.9 Seconds (9.0-12.2)
[2024-03-29 06:37] LABS: Alanine Aminotransferase < 7 U/L (10-49); Albumin, Serum 3.4 gm/dL (3.4-4.8); Albumin/Globulin Ratio 1.5 (1.2-2.2); Alkaline Phosphatase 65 U/L (46-116); Anion Gap 9 (7-16); Aspartate Amino Transferase < 8 U/L (0-34); BUN/Creatinine Ratio 15 Ratio (12-20); Bilirubin,Total 0.5 mg/dL (0.3-1.2); Blood Urea Nitrogen 9 mg/dL (9-23); Calcium 8.2 mg/dL (8.3-10.6); Calcium (Corrected) 8.7 mg/dL (8.5-10.1); Carbon Dioxide 24.1 mMol/L (20.0-31.0); Chloride 107 mMol/L (98-107); Creatinine (Component) 0.6 mg/dL (0.6-1.3); Estimated Creatinine Clearance 77.1 mL/min (>60); Globulin 2.2 gm/dL (2.3-3.5); Glucose 261 mg/dL (74-106); Osmolality,Calculated 287 (275-295); Sodium 140 mMol/L (136-145); Total Protein 5.6 gm/dL (5.7-8.2); eGFR > 60 See Note
[2024-03-29] MEDS: INSULIN LISPRO (AdmeLOG) 1 UNIT/0.01 ML UNIT SC ×3 (07:56→17:12)
[2024-03-29] MEDS: PANTOPRAZOLE 40 MG TABLET PO (08:53)
[2024-03-29] MEDS: LACTULOSE SYRUP 20 GM/30 ML UDC PO (08:53)
[2024-03-29] MEDS: LIDOCAINE 5% 1 PATCH TOP (09:48)
--- NOTE | 2024-03-29 13:30 | ESPR_ITS ---
<Statement entered by Andrzej Nelson MD - 04/03/24 16:21> I reviewed above note and agree with findings and plans. I have also personally examined the patient with medicine team and went over assessment and plan with medical team including creative services intern and resident physician. Documentation for date of: 03/29/24 Subjective Subjective Interval history: Patient was seen and examined at bedside. No acute overnight events. Patient continues to complain of abdominal and back pain and asked for lidocaine patch which was provided. Patient still have not had any bowel movement since admission on lactulose, was given additional milk of magnesia today. Her glucose in the morning was 261, sliding scale resistance was increased. Patient continues to complain of dizziness and weakness, physical therapy was ordered. Will continue current management and monitor patient. Exam Vital Signs Temp Pulse Resp BP Pulse Ox O2 Del Method O2 Flow Rate 98.2 F 78 20 154/80 H 96 Room Air 3 03/29/24 12:00 03/29/24 12:00 03/29/24 12:00 03/29/24 12:03/29/24 12:03/29/24 12:00 03/27/24 18:10 Narrative Exam Gen: Well-developed and well-nourished elderly female. HEENT: NCAT, PERRLA, EOMI, MMM, anicteric conjunctivae. CVS: normal S1 and S2. RRR. No M/R/G. Resp: CTA B/L. No rhonchi, rales, crackles or wheezing. Abd: soft, tender in upper quadrants, non-distended. BS+ in all 4 quadrants. MSK: Good ROM in BUE & BLE. No edema or rash. Neuro: CN II-XII grossly intact. Strength 5/5 in BUE & BLE. Alert and oriented x3. Psych: appropriate mood and affect. Objective Labs 03/30/24 06:15 03/30/24 06:15 Labs: Laboratory Results - last 24 hr 03/29/24 05:36 WBC 9.2 RBC 3.50 L Hgb 10.7 L Hct 28.8 L MCV 82 MCH 30.6 MCHC 37.2 H RDW Std Deviation 39.8 Plt Count 404 Neut % (Auto) 66 Lymph % (Auto) 19 [place] % (Auto) 8 Eos % (Auto) 6 Baso % (Auto) 1 Neut # (Auto) 6.1 Lymph # (Auto) 1.7 [place] # (Auto) 0.8 Eos # (Auto) 0.6 H Baso # (Auto) 0.1 Immature Gran # (Auto) 0.04 H Absolute Nucleated RBC 0.00 Immature Gran % 0 Nucleated RBC % 0 PT 10.9 INR 1.0 Sodium 140 Potassium 4.0 Chloride 107 Carbon Dioxide 24.1 Anion Gap 9 BUN 9 Creatinine 0.6 Estim Creat Clear Calc 77.1 eGFR > 60 BUN/Creatinine Ratio 15 Glucose 261 H D Calculated Osmolality 287 Calcium 8.2 L Corrected Calcium 8.7 Magnesium 2.0 Total Bilirubin 0.5 AST < 8 ALT < 7 L Alkaline Phosphatase 65 Total Protein 5.6 L Albumin 3.4 Globulin 2.2 L Albumin/Globulin Ratio 1.5 ABG Interpretation ABG results: 03/26/24 12:18 VBG pH 7.42 VBG pCO2 41 VBG pO2 53 VBG Base Excess 2 Quality Measures Quality Measures VTE prophylaxis Advance care planning discussed with:: patient Assessment & Plan Assessment Current Active Medications: Generic Name Dose Route Start Last Admin Trade Name Freq PRN Reason Stop Dose Admin Acetaminophen 650 mg 03/27/24 07:51 03/28/24 14:24 Acetaminophen 325 Mg Tablet PO 04/25/24 15:36 650 mg Q6H PRN Administration pain 1-3 and Fever >100.4 Hydrocodone Bitart/Acetaminophen 1 tab 03/26/24 15:37 03/29/24 09:02 Hydrocodone/Apap 5/325 Tablet PO 03/31/24 15:36 1 tab Q4HR PRN Administration PAIN SCALE 4-6 (Moderate Celecoxib 100 mg 03/28/24 11:13 03/28/24 15:19 Celecoxib 100 Mg Capsule PO 04/27/24 11:14 100 mg BID PRN Administration chest wall pain Protocol Dextrose 25 ml 03/26/24 15:37 Dextrose 50%-Water Inj 50 Ml Syringe IV 04/25/24 15:36 Q15MIN PRN BG 50-70 responsive npo pt Dextrose 50 ml 03/26/24 15:37 Dextrose 50%-Water Inj 50 Ml Syringe IV 04/25/24 15:36 Q15MIN PRN BG <50 OR BG <70 & pt unresponsive Glucagon 1 mg 03/27/24 15:12 Glucagon Inj 1 Mg Vial IM Q15MIN PRN BG <70, and no IV access Sodium Chloride 1,000 mls @ 80 mls/hr 03/26/24 15:45 03/29/24 05:26 Ns IV 04/25/24 15:44 80 mls/hr .[id number] TULIO Administration Insulin Human Lispro 0 unit 03/29/24 07:04 03/29/24 11:23 Insulin Lispro (Admelog) 1 Unit/0.01 Ml Unit SC 04/25/24 16:59 3 unit AC TULIO Administration Protocol Lactulose 20 gm 03/28/24 09:00 03/29/24 08:53 Lactulose Syrup 20 Gm/30 Ml Udc PO 04/25/24 15:44 20 gm QDAY TULIO Administration Protocol Lidocaine 1 patch 03/28/24 10:56 03/29/24 09:48 Lidocaine 5% 1 Patch TOP 04/27/24 10:55 1 patch UD PRN Administration PAIN Protocol Ondansetron HCl 4 mg 03/26/24 15:37 03/29/24 09:02 Ondansetron Inj 2 Mg/Ml Inj 2 Ml IV 04/25/24 15:36 4 mg Q6H PRN Administration NAUSEA OR VOMITING Protocol Pantoprazole Sodium 40 mg 03/26/24 15:45 03/29/24 08:53 Pantoprazole 40 Mg Tablet PO 04/25/24 15:44 40 mg QDAY TULIO Administration Sucralfate 1 gm 03/27/24 21:00 03/29/24 11:19 Sucralfate Susp 1 Gm/10 Ml Udc PO 04/26/24 20:59 1 gm QID TULIO Administration Plan Ms Multani is a 68-year-old female with past medical history of hypertension, DM2, seizures, headaches, and frequent UTIs was admitted to the hospital on 03/26/2024 for syncopal episode and intractable nausea and vomiting. #Intractable nausea and vomiting, improved. #Abdominal pain. #Biliary Dyskinesia on HIDA. #Hemorrhagic gastritis. ? Patient has been complaining of intractable nausea and vomiting which is on and off for the past few months. ? Patient complaining of black stools. ? Abdomen/pelvis CT : unremarkable. - 03/26 : orthostatic vitals positive, likely due to dehydration secondary to vomiting and diarrhea. - 03/27 : GI Dr. Moran consulted, patient underwent EGD, showed hemorrhagic gastritis - 03/28 : HIDA showed biliary dyskinesia ejection fraction 16%. Plan: - GI Dr Moran consulted, appreciate recommendations. Follow-up EGD report, and GI recommendations. - General surgery Dr Frias consulted, appreciate recommendations. - Continue Protonix 40 mg daily, Zofran as needed for nausea. - GI started p.o. diet on 03/27. #Syncopal episode. #Orthostatic hypotension. ? Patient came in with complaints of chest pain sharp in nature which radiated to the left arm and with some numbness of the left lower face, this was followed by a syncopal episode. ? Patient was returning back from her [employer] clinic where she lost her consciousness, and initially the medical person in the clinic thought that the patient may require CPR, but after first push on the chest she responded and CPR was held. ? Troponins : negative ? EKG did not show any ST changes ? Chest CTA was unremarkable ? Head CT was unremarkable ? Chest x-ray was unremarkable ? Patient's orthostatic vitals : positive - echo showed EF 55-60 % with normal LV function. - per cardiology patient likely had vasovagal syncope. Plan: - Cardiology Dr Ibarra is consulted, appreciate recommendations. - Nurse requested to ambulate patient with assistance, will continue to monitor for orthostatics. - PT ordered. #Hypertensive urgency, resolved. ? Patient came in with blood pressure of 206/121. ? Patient was given clonidine x 1. Plan: ? Will hold off on antihypertensive medication now as patient has syncopal episode which could have been caused by orthostatic hypotension versus dehydration. ? Goal blood pressure up to 160s and then her IV hydralazine should be okay for blood pressure above this. ? Will continue to monitor. #Type 2 DM. - Last A1c = 7.2% on 02/2024. Plan: - Continue on AC sliding scale insulin, resistance scale increased. - Hypoglycemia protocol ordered. #Hx of seizures disorder. #Hx of headaches. ? Patient has not been prescribed antiseizure medication as of recently, last seizure episode was 1.5 years ago. Health maintenance: Disposition: Patient admitted to telemetry for syncope and intractable N/V, continues to have significant abdominal pain. Diet: High fiber diet. GI prophylaxis: protonix. DVT prophylaxis: heparin sc. Code: Full code. Plan of care discussed with attending Dr. Nelson. Roberto Pugh MD, PGY 2. Disclaimer: This note was dictated by speech recognition. Minor errors in biomedical equipment specialist may be present due to voice recognition software.
[2024-03-29] MEDS: Milk Of Magnesia Susp 30 ML UDC PO (15:15)
--- NOTE | 2024-03-29 16:28 | ESPR_ITS ---
Documentation for date of: 03/29/24 Subjective Subjective Interval history: 68 years old female evaluated Surgical consult appreciated Patient be followed by the ingredient specialist as an outpatient for biliary dyskinesia with an ejection fraction of 16% Cardiology consultation on board Upper endoscopy showed hemorrhagic gastritis Exam Vital Signs Temp Pulse Resp BP Pulse Ox O2 Del Method O2 Flow Rate 98.0 F 82 18 142/82 H 97 Room Air 3 03/29/24 15:47 03/29/24 15:47 03/29/24 15:47 03/29/24 15:47 03/29/24 15:47 03/29/24 15:47 03/27/24 18:10 Objective Labs 03/29/24 05:36 03/29/24 05:36 Labs: Laboratory Results - last 24 hr 03/29/24 05:36 WBC 9.2 RBC 3.50 L Hgb 10.7 L Hct 28.8 L MCV 82 MCH 30.6 MCHC 37.2 H RDW Std Deviation 39.8 Plt Count 404 Neut % (Auto) 66 Lymph % (Auto) 19 [place] % (Auto) 8 Eos % (Auto) 6 Baso % (Auto) 1 Neut # (Auto) 6.1 Lymph # (Auto) 1.7 [place] # (Auto) 0.8 Eos # (Auto) 0.6 H Baso # (Auto) 0.1 Immature Gran # (Auto) 0.04 H Absolute Nucleated RBC 0.00 Immature Gran % 0 Nucleated RBC % 0 PT 10.9 INR 1.0 Sodium 140 Potassium 4.0 Chloride 107 Carbon Dioxide 24.1 Anion Gap 9 BUN 9 Creatinine 0.6 Estim Creat Clear Calc 77.1 eGFR > 60 BUN/Creatinine Ratio 15 Glucose 261 H D Calculated Osmolality 287 Calcium 8.2 L Corrected Calcium 8.7 Magnesium 2.0 Total Bilirubin 0.5 AST < 8 ALT < 7 L Alkaline Phosphatase 65 Total Protein 5.6 L Albumin 3.4 Globulin 2.2 L Albumin/Globulin Ratio 1.5 Impressions Impression: # Hemorrhagic gastritis # Biliary dyskinesia Continue current management ABG Interpretation ABG results: 03/26/24 12:18 VBG pH 7.42 VBG pCO2 41 VBG pO2 53 VBG Base Excess 2 Assessment & Plan A&P Narrative # Nausea vomiting # Melena # Pain abdomen Plan CCK HIDA scan with ejection fraction of the gallbladder Consent obtained for fiberoptic esophagogastroduodenoscopy with possible biopsy possible therapeutic intervention under intravenous moderate sedation N.p.o. midnight except p.o. meds Other medical problems include # Chest pain with a normal troponin # Diabetes mellitus type 2 # Headache # Syncope thank you very much for the opportunity to participate in the care of this patient Time Spent With Patient Time: Total time spent is greater than 50% in coordination of care (as documented) at patient's floor/unit and/or counseling patient:
--- NOTE | 2024-03-29 18:48 | PD.SURPROG ---
Documentation for date of: 03/29/24 Subjective Subjective Brief History: Patient was admitted because of the syncopal episode and some chest pain. She did not have any abdominal pain but she has been complaining of lower abdominal discomfort for some time. Patient has been nauseated and vomiting. While she was here workup revealed gallbladder polyp and gallbladder ejection fraction of 16%. Therefore surgical consultation was obtained Narrative: Patient is feeling better and is eating regular diet. Exam Vital Signs Temp Pulse Resp BP Pulse Ox O2 Del Method O2 Flow Rate 98.0 F 80 18 142/82 H 97 Room Air 3 03/29/24 15:47 03/29/24 16:00 03/29/24 15:47 03/29/24 15:47 03/29/24 15:47 03/29/24 15:47 03/27/24 18:10 Assessment & Plan Assessment Additional comments: Impression polyp in the gallbladder Biliary dyskinesia as shown by the ejection fraction of 16% Esophagitis on upper GI endoscopy Plan Plan: Patient ejection fraction is 16% which shows poorly functioning gallbladder. I talked with the daughter and mention to her that the poor functioning gallbladder may not be the source of her continuous pain. She also has pain in the lower abdomen. That will not change if surgically remove the gallbladder. Laparoscopic cholecystectomy is an option if she is experiencing upper abdominal pain. But there is no guarantee that she will not have pain after the surgery or after few months after the surgery. Patient wants to go ahead with surgery which will be arranged tomorrow.
[2024-03-30] VITALS (20 sets, daily range): BP systolic 148–183; BP diastolic 72–101; PULSE 70–97; RESP 12–18; TEMP 36–37; O2SAT 94–99; BMI 29.8
--- NOTE | 2024-03-30 04:28 | PC.LAC ---
Patient is in pain and wants pain medicine but she is NPO due to cholecystectomy procedure. MD Craig said ok to give norco PO now but hold off on morning PO med
--- NOTE | 2024-03-30 04:28 | PC.NURSE ---
PAtient is in pain so notified MD Craig since patient is NPO. Patient is NPO for procedure but MD Craig said patient can have norco PO now but hold off on morning med due at 6 AM
[2024-03-30] MEDS: HYDROcodone/APAP 5/325 TABLET 1 TAB PO ×2 (04:43→20:51)
[2024-03-30] MEDS: ONDANSETRON INJ 2 MG/ML INJ 2 ML 4 MG IV ×2 (04:46→11:30)
[2024-03-30] MEDS: INSULIN LISPRO (AdmeLOG) 1 UNIT/0.01 ML UNIT SC ×4 (05:41→20:47)
[2024-03-30 06:29] LABS: Basophils # (Auto) 0.1 Thou/mm3 (0.0-0.2); Basophils % (Auto) 1 % (0-2.5); Eosinophils # (Auto) 0.7 Thou/mm3 (0.0-0.5); Eosinophils % (Auto) 7 % (0-10); Hematocrit 31.8 % (36.0-46.0); Hemoglobin 11.5 g/dL (12.0-16.0); Immature Granulocytes % (Auto) 0 % (0-0); Immature Granulocytes Auto 0.02 Thou/mm3 (0.00-0.00); Lymphocytes # (Auto) 1.7 Thou/mm3 (1.0-4.8); Lymphocytes % (Auto) 17 % (10-50); Mean Corpuscular HGB Conc 36.2 g/dl (31.0-37.0); Mean Corpuscular Hemoglobin 30.4 pg (25.0-35.0); Mean Corpuscular Volume 84 fL (80-100); Monocytes # (Auto) 0.7 Thou/mm3 (0.0-0.8); Monocytes % (Auto) 7 % (0-12); Neutrophils # (Auto) 6.8 Thou/mm3 (1.8-7.7); Neutrophils % (Auto) 68 % (37-80); Nucleated Red Blood Cell % 0 /100 WBC (0); Platelet Count 418 Thou/mm3 (140-440); RDW Standard Deviation 41.4 fL (36.4-46.3); Red Blood Count 3.78 Miln/mm3 (4.00-5.20); White Blood Count 9.9 Thou/mm3 (3.6-11.0)
[2024-03-30 06:57] LABS: Anion Gap 7 (7-16); BUN/Creatinine Ratio 16 Ratio (12-20); Blood Urea Nitrogen 8 mg/dL (9-23); Carbon Dioxide 28.4 mMol/L (20.0-31.0); Chloride 105 mMol/L (98-107); Creatinine (Component) 0.5 mg/dL (0.6-1.3); Estimated Creatinine Clearance 98.9 mL/min (>60); Glucose 260 mg/dL (74-106); Osmolality,Calculated 286 (275-295); Phosphorous 2.5 mg/dL (2.4-5.1); Potassium 4.2 mMol/L (3.4-5.1); Sodium 140 mMol/L (136-145); eGFR > 60 See Note
[2024-03-30] MEDS: LABETALOL INJ 5 MG/ML VIAL 20 ML 10 MG IVP (08:15)
--- NOTE | 2024-03-30 10:06 | ESPR_ITS ---
<Statement entered by Andrzej Nelson MD - 04/03/24 16:21> I reviewed above note and agree with findings and plans. I have also personally examined the patient with medicine team and went over assessment and plan with medical team including director internal audit and resident physician. <Statement entered by Roberto Pugh MD - 03/30/24 17:20> Senior Resident Attestation: I supervised/discussed management plan with director internal audit physician Dr. Wilson, and was involved in the care of this patient. I personally saw and examined the patient and discussed the assessment and plan with the entire medicine team, including my attending. I agree with the assessment and plan as documented. Patient underwent cholecystectomy in the morning today. Pain is controlled with Dilaudid. Continue current management. Patient's care was discussed with attending physician, Dr. Nelson. Roberto Pugh MD PGY-2. Documentation for date of: 03/30/24 Subjective Subjective Interval history: 03/30/2024: Patient examined at bedside today. Overnight events include patient having blood pressure in the 180s systolic, given labetalol 10 mg x 1. Patient to have cholecystectomy to be performed by Dr. Smith. BUN/creatinine 8 and 0.5, blood sugar 260, potassium 4, magnesium 2. White count 10 hemoglobin 11.5. Will check in with patient for pain control after surgery. No other complaints this time Exam Vital Signs Temp Pulse Resp BP Pulse Ox O2 Del Method O2 Flow Rate 97.5 F 76 14 162/83 H 96 Room Air 3 03/30/24 08:00 03/30/24 08:25 03/30/24 08:00 03/30/24 08:25 03/30/24 08:00 03/30/24 08:00 03/27/24 18:10 Narrative Exam Gen: Well-developed and well-nourished elderly female. HEENT: NCAT, PERRLA, EOMI, MMM, anicteric conjunctivae. CVS: normal S1 and S2. RRR. No M/R/G. Resp: CTA B/L. No rhonchi, rales, crackles or wheezing. Abd: soft, tender in upper quadrants, non-distended. BS+ in all 4 quadrants. MSK: Good ROM in BUE & BLE. No edema or rash. Neuro: CN II-XII grossly intact. Strength 5/5 in BUE & BLE. Alert and oriented x3. Psych: appropriate mood and affect. Objective Labs 03/30/24 06:15 03/30/24 06:15 Labs: Laboratory Results - last 24 hr 03/30/24 06:15 WBC 9.9 RBC 3.78 L Hgb 11.5 L Hct 31.8 L MCV 84 MCH 30.4 MCHC 36.2 RDW Std Deviation 41.4 Plt Count 418 Neut % (Auto) 68 Lymph % (Auto) 17 [place] % (Auto) 7 Eos % (Auto) 7 Baso % (Auto) 1 Neut # (Auto) 6.8 Lymph # (Auto) 1.7 [place] # (Auto) 0.7 Eos # (Auto) 0.7 H Baso # (Auto) 0.1 Immature Gran # (Auto) 0.02 H Absolute Nucleated RBC 0.00 Immature Gran % 0 Nucleated RBC % 0 Sodium 140 Potassium 4.2 Chloride 105 Carbon Dioxide 28.4 Anion Gap 7 BUN 8 L Creatinine 0.5 L Estim Creat Clear Calc 98.9 eGFR > 60 BUN/Creatinine Ratio 16 Glucose 260 H Calculated Osmolality 286 Calcium 9.0 Phosphorus 2.5 Magnesium 2.0 ABG Interpretation ABG results: 03/26/24 12:18 VBG pH 7.42 VBG pCO2 41 VBG pO2 53 VBG Base Excess 2 Quality Measures Quality Measures VTE prophylaxis Advance care planning discussed with:: patient Assessment & Plan Assessment Current Active Medications: Generic Name Dose Route Start Last Admin Trade Name Freq PRN Reason Stop Dose Admin Acetaminophen 650 mg 03/27/24 07:51 03/28/24 14:24 Acetaminophen 325 Mg Tablet PO 04/25/24 15:36 650 mg Q6H PRN Administration pain 1-3 and Fever >100.4 Hydrocodone Bitart/Acetaminophen 1 tab 03/26/24 15:37 03/30/24 04:43 Hydrocodone/Apap 5/325 Tablet PO 03/31/24 15:36 1 tab Q4HR PRN Administration PAIN SCALE 4-6 (Moderate Celecoxib 100 mg 03/28/24 11:13 03/28/24 15:19 Celecoxib 100 Mg Capsule PO 04/27/24 11:14 100 mg BID PRN Administration chest wall pain Protocol Dextrose 25 ml 03/26/24 15:37 Dextrose 50%-Water Inj 50 Ml Syringe IV 04/25/24 15:36 Q15MIN PRN BG 50-70 responsive npo pt Dextrose 50 ml 03/26/24 15:37 Dextrose 50%-Water Inj 50 Ml Syringe IV 04/25/24 15:36 Q15MIN PRN BG <50 OR BG <70 & pt unresponsive Fentanyl Citrate 25 mcg 03/30/24 09:33 Fentanyl Cit Inj 50 Mcg/Ml Amp 2ml IV 03/30/24 11:34 Q5M PRN PAIN SCALE 7-10 (Severe Protocol Fentanyl Citrate 25 mcg 03/30/24 09:33 Fentanyl Cit Inj 50 Mcg/Ml Amp 2ml IV 03/30/24 11:34 Q5M PRN PAIN SCALE 4-6 (Moderate Protocol Fentanyl Citrate 25 mcg 03/30/24 09:33 Fentanyl Cit Inj 50 Mcg/Ml Amp 2ml IV 03/30/24 11:34 Q5M PRN PAIN SCALE 1-3 (mild Protocol Glucagon 1 mg 03/27/24 15:12 Glucagon Inj 1 Mg Vial IM Q15MIN PRN BG <70, and no IV access Sodium Chloride 1,000 mls @ 80 mls/hr 03/26/24 15:45 03/30/24 08:58 Ns IV 04/25/24 15:44 Not Given .[id number] [facility] Insulin Human Lispro 0 unit 03/30/24 12:00 Insulin Lispro (Admelog) 1 Unit/0.01 Ml Unit SC 04/29/24 11:59 Q6HR [facility] Protocol Lactulose 20 gm 03/28/24 09:00 03/30/24 08:09 Lactulose Syrup 20 Gm/30 Ml Udc PO 04/25/24 15:44 Not Given QDAY [facility] Protocol Lidocaine 1 patch 03/28/24 10:56 03/29/24 09:48 Lidocaine 5% 1 Patch TOP 04/27/24 10:55 1 patch UD PRN Administration PAIN Protocol Ondansetron HCl 4 mg 03/26/24 15:37 03/30/24 04:46 Ondansetron Inj 2 Mg/Ml Inj 2 Ml IV 04/25/24 15:36 4 mg Q6H PRN Administration NAUSEA OR VOMITING Protocol Pantoprazole Sodium 40 mg 03/30/24 12:00 Pantoprazole Inj 40 Mg Vial IVP 04/29/24 11:59 BID [facility] Sucralfate 1 gm 03/27/24 21:00 03/30/24 05:47 Sucralfate Susp 1 Gm/10 Ml Udc PO 04/26/24 20:59 Not Given QID [place] Plan Assessment Ms Multani is a 68-year-old female with past medical history of hypertension, DM2, seizures, headaches, and frequent UTIs was admitted to the hospital on 03/26/2024 for syncopal episode and intractable nausea and vomiting. She was found to have biliary dyskinesia on HIDA scan, requiring cholecystectomy to be performed by Dr. Smith. #Intractable nausea and vomiting, improving #Abdominal pain #Biliary Dyskinesia, EF ~16% #Hemorrhagic gastritis ? Patient has been complaining of intractable nausea and vomiting which is on and off for the past few months. ? Patient complaining of black stools. ? Abdomen/pelvis CT : unremarkable. - 03/26 : orthostatic vitals positive, likely due to dehydration secondary to vomiting and diarrhea. - 03/27 : GI Dr. Moran consulted, patient underwent EGD, showed hemorrhagic gastritis - 03/28 : HIDA showed biliary dyskinesia ejection fraction 16% Risk and benefits were discussed with patient regards to cholecystectomy, and may not give full resolution of symptoms, patient is still agreeable. Patient to undergo cholecystectomy to be performed today by Dr. Smith Plan: - GI Dr Moran consulted, appreciate recommendations - General surgery Dr Frias consulted, appreciate recommendations. - Continue Protonix 40 mg daily, Zofran as needed for nausea. - Pain control after cholecystectomy #Syncopal episode. #Orthostatic hypotension ? Patient came in with complaints of chest pain sharp in nature which radiated to the left arm and with some numbness of the left lower face, this was followed by a syncopal episode. ? Patient was returning back from her [employer] [facility] where she lost her consciousness, and initially the medical person in the clinic thought that the patient may require CPR, but after first push on the chest she responded and CPR was held. ? Troponins : negative ? EKG did not show any ST changes ? Chest CTA was unremarkable ? Head CT was unremarkable ? Chest x-ray was unremarkable ? Patient's orthostatic vitals : positive - echo showed EF 55-60 % with normal LV function. - per cardiology patient likely had vasovagal syncope ? Patient symptoms small most likely from vasovagal syncope in combination with irretractable nausea and vomiting Plan: - Cardiology Dr Ibarra is consulted, appreciate recommendations. - PT on consult #Hypertensive urgency, resolved. ? Patient came in with blood pressure of 206/121. ? Patient was given clonidine x 1. ? Gave patient labetalol 10 mg x 1 Plan: ? Will resume patient on home blood pressure medicines after surgery #Type 2 DM. - Last A1c = 7.2% on 02/2024 ?16 units of short acting use over 24 hours, will give 8 of glargine and adjust following tomorrow Plan: - Switched to insulin correction scale step 3 ? 8 units Lantus at bedtime - Hypoglycemia protocol ordered - Blood sugar checks AC #Hx of seizures disorder. #Hx of headaches. ? Patient has not been prescribed antiseizure medication as of recently, last seizure episode was 1.5 years ago. #Health Maintenance Disposition: Telemetry DVT prophylaxis: Heparin GI prophylaxis: Protonix Diet: N.p.o., will resume diet after surgery CODE STATUS: Full Patient seen and care discussed with my senior resident, Dr. Pugh , and my attending physician, Dr. Leslie Wilson, PGY-1
--- NOTE | 2024-03-30 10:42 | SUR.PHASEI ---
1042: Pt. AAOx4, vitals stable, breathing unlabored, no complaint of pain or nasuea, x5 dressing to ABD CDI, no active bleed noted, report received from MD Gutierrez and Emir CAVANAGUH.
[2024-03-30] MEDS: fentaNYL CIT INJ 50 mCg/ML AMP 2ML 25 MCG IV ×2 (10:52→11:09)
--- NOTE | 2024-03-30 11:17 | ESOP_ITS ---
Date of Procedure 03/30/24 Pre Op Diagnosis Biliary dyskinesia Polyp in the gallbladder measuring 8 mm Persistent right upper quadrant pain Post Op Diagnosis Same Procedure Laparoscopic cholecystectomy Incidental appendectomy Findings Patient was found to have a normal gallbladder but there was a polyp in the wall as seen preoperatively. Patient also had slightly swollen appendix and the refore incidental appendectomy was performed. Procedure Description After endotracheal anesthesia was given the patient was placed in supine position and the abdomen was prepped with chloroprep solution and draped in a sterile manner. After time out was performed I injected a few cc of of half percent Marcaine with epinephrine below the umbilicus and I made an incision for about 3 cm in length. The fascia was cleaned and Veress needle was inserted to create a pneumoperitoneum up to 15 mmHg. Then introduced a 12 mm trocar and a 10 mm camera through the fascia and I inspected the intra-abdominal organs as well as the gallbladder and the liver. Another 5 mm trocar was inserted in the epigastric region under direct vision after injecting some local anesthesia. At this time the patient was kept in reverse Trendelenburg position with the left lateral tilt. The third 5 mm trocar was inserted over the mid axillary line under direct vision and a Endy and Aleida grasper was used to hold the fundus of the gallbladder. The retraction was carried out by the business services assistant moving the fundus of the gallbladder towards the right shoulder of the patient to create enough traction. I placed a another 5 mm trocar in the midaxillary line just lateral to the rectus muscle under direct vision. I used a fenestrated grasper to retract the neck of the gallbladder laterally towards the patient's right hip. The Calot's triangle was exposed and I achieved the critical view of safety as follows: I dissected out the fatty tissue from the hepatocystic triangle and cleared this area. I also dissected inferior and posterior to the gallbladder to identify the cystic duct and the gallbladder wall. Then superiorly I dissected along the cystic plate up to lower one third third of the gallbladder to lift the gallbladder from the liver. At this time I confirmed that only 2 structures entering the gallbladder were cystic artery and the cystic duct. The common duct was seen distally but no dissection was carried out around the duct. I did not see any need for operative cholangiogram in this patient. The cystic duct was clipped doubly and then divided and cystic artery was similarly dealt with. Then the gallbladder was removed from the liver bed using Harmonic morris to control the small blood vessels as the dissection proceeded. Then the gallbladder was from the liver bed completely and delivered through the umbilical port using an Endopouch. The liver bed was coagulated with cautery to obtain satisfactory hemostasis. At this time I looked at her appendix which seems to be slightly swollen for her age. Even though there was no inflammation I discussed with her daughter mentioning that incidental appendectomy can be performed without any problem. She gave the consent and I proceeded with laparoscopic appendectomy. I placed a trocar in the right lower quadrant using laparoscopic [place] I lifted up the appendix. Harmonic morris were used to control the mesoappendix. Then using it Endo cutter 35 mm powered stapler I divided the appendix. It was pulled out through the abdominal wound at the umbilicus. The trocars were pulled out from the abdominal cavity and the fascia at the umbilical incision was closed with interrupted 0 Ethibond. Subcutaneous tissues was closed with 3-0 chromic and injected a few cc of half percent Marcaine with epinephrine and the skin was closed with interrupted 4-0 Monocryl subcuticular stitches at all the trocar sites. Dressing was applied with 2 x 2 and Tegaderm. Patient tolerated the procedure well and returned to recovery room in stable condition. Anesthesia GETA Pathology / specimen Other (1. Gallbladder with a polyp #2 appendix) Estimated Blood Loss 20 Condition Stable Disposition PACU Surgeon Leticia Frias MD Surgical Staff Operation Date: 03/30/24 09:15 Case Staff Anesthesiologist: Wilfred Gutierrez RN First Assistant: Edie Nicole
--- NOTE | 2024-03-30 11:42 | SUR.PHASEI ---
1135: Pt. AAOx4, vitals stable, breathing unlabored, no complaint of pain, complaint of nausea, medication provided for nausea, x5 dressing to ABD CDI, no active bleed noted, pt. tolerated bites of ice well, gave report to Lisa CAVANAUGH prior to transfer to room 261, family made aware of transfer to room.
[2024-03-30] MEDS: SODIUM CHLORIDE 0.9% 1000 ML 1,000 ML 80 ML IV (11:59)
[2024-03-30] MEDS: PANTOPRAZOLE INJ 40 MG VIAL IVP ×2 (11:59→20:46)
[2024-03-30] MEDS: HYDROmorphone INJ 2 MG/ML VIAL 0.5 MG IVP ×2 (12:00→15:42)
[2024-03-30] MEDS: LIDOCAINE 5% 1 PATCH TOP (15:42)
[2024-03-30] MEDS: Lisinopril 2.5 MG TABLET 10 MG PO (15:42)
[2024-03-30] MEDS: SUCRALFATE SUSP 1 GM/10 ML UDC PO (17:05)
--- NOTE | 2024-03-30 19:31 | ESPR_ITS ---
Documentation for date of: 03/30/24 Subjective Subjective Interval history: Hemoglobin hematocrit 11.5 and 31.8 Patient status post laparoscopic cholecystectomy for bili dyskinesia as well as incidental appendectomy Exam Vital Signs Temp Pulse Resp BP Pulse Ox O2 Del Method O2 Flow Rate 97.2 F 83 16 162/84 H 96 Nasal Cannula 1 03/30/24 16:00 03/30/24 16:00 03/30/24 16:00 03/30/24 16:00 03/30/24 16:00 03/30/24 16:00 03/30/24 16:00 Objective Labs 03/30/24 06:15 03/30/24 06:15 Labs: Laboratory Results - last 24 hr 03/30/24 06:15 WBC 9.9 RBC 3.78 L Hgb 11.5 L Hct 31.8 L MCV 84 MCH 30.4 MCHC 36.2 RDW Std Deviation 41.4 Plt Count 418 Neut % (Auto) 68 Lymph % (Auto) 17 [place] % (Auto) 7 Eos % (Auto) 7 Baso % (Auto) 1 Neut # (Auto) 6.8 Lymph # (Auto) 1.7 [place] # (Auto) 0.7 Eos # (Auto) 0.7 H Baso # (Auto) 0.1 Immature Gran # (Auto) 0.02 H Absolute Nucleated RBC 0.00 Immature Gran % 0 Nucleated RBC % 0 Sodium 140 Potassium 4.2 Chloride 105 Carbon Dioxide 28.4 Anion Gap 7 BUN 8 L Creatinine 0.5 L Estim Creat Clear Calc 98.9 eGFR > 60 BUN/Creatinine Ratio 16 Glucose 260 H Calculated Osmolality 286 Calcium 9.0 Phosphorus 2.5 Magnesium 2.0 Impressions Impression: # Stable hemoglobin hematocrit # Status post laparoscopic cholecystectomy and incidental appendectomy Continue current management ABG Interpretation ABG results: 03/26/24 12:18 VBG pH 7.42 VBG pCO2 41 VBG pO2 53 VBG Base Excess 2 Assessment & Plan A&P Narrative # Nausea vomiting # Melena # Pain abdomen Plan CCK HIDA scan with ejection fraction of the gallbladder Consent obtained for fiberoptic esophagogastroduodenoscopy with possible biopsy possible therapeutic intervention under intravenous moderate sedation N.p.o. midnight except p.o. meds Other medical problems include # Chest pain with a normal troponin # Diabetes mellitus type 2 # Headache # Syncope thank you very much for the opportunity to participate in the care of this patient Time Spent With Patient Time: Total time spent is greater than 50% in coordination of care (as documented) at patient's floor/unit and/or counseling patient:
[2024-03-30] MEDS: INSULIN GLARGINE (Lantus) 5 UNIT/0.05 ML (PER 5 UNITS) 8 UNIT SC (20:47)
[2024-03-31] VITALS (8 sets, daily range): BP systolic 151–161; BP diastolic 82–87; PULSE 87–99; RESP 14–95; TEMP 36.2–36.6; O2SAT 95–97; BMI 29.8
[2024-03-31] MEDS: HYDROcodone/APAP 5/325 TABLET 1 TAB PO ×3 (03:38→16:11)
[2024-03-31 06:30] LABS: Basophils # (Auto) 0.1 Thou/mm3 (0.0-0.2); Basophils % (Auto) 1 % (0-2.5); Eosinophils # (Auto) 0.6 Thou/mm3 (0.0-0.5); Eosinophils % (Auto) 4 % (0-10); Hematocrit 32.2 % (36.0-46.0); Hemoglobin 11.9 g/dL (12.0-16.0); Immature Granulocytes % (Auto) 0 % (0-0); Immature Granulocytes Auto 0.05 Thou/mm3 (0.00-0.00); Lymphocytes # (Auto) 1.9 Thou/mm3 (1.0-4.8); Lymphocytes % (Auto) 14 % (10-50); Mean Corpuscular Hemoglobin 30.8 pg (25.0-35.0); Mean Corpuscular Volume 83 fL (80-100); Monocytes # (Auto) 0.8 Thou/mm3 (0.0-0.8); Monocytes % (Auto) 6 % (0-12); Neutrophils # (Auto) 9.8 Thou/mm3 (1.8-7.7); Neutrophils % (Auto) 74 % (37-80); Nucleated Red Blood Cell % 0 /100 WBC (0); Platelet Count 461 Thou/mm3 (140-440); Red Blood Count 3.86 Miln/mm3 (4.00-5.20); White Blood Count 13.1 Thou/mm3 (3.6-11.0)
[2024-03-31 06:58] LABS: Anion Gap 9 (7-16); BUN/Creatinine Ratio 16 Ratio (12-20); Blood Urea Nitrogen 8 mg/dL (9-23); Calcium 8.7 mg/dL (8.3-10.6); Carbon Dioxide 23.8 mMol/L (20.0-31.0); Chloride 105 mMol/L (98-107); Creatinine (Component) 0.5 mg/dL (0.6-1.3); Estimated Creatinine Clearance 98.9 mL/min (>60); Glucose 219 mg/dL (74-106); Osmolality,Calculated 280 (275-295); Potassium 4.1 mMol/L (3.4-5.1); Sodium 138 mMol/L (136-145); eGFR > 60 See Note
[2024-03-31] MEDS: SUCRALFATE SUSP 1 GM/10 ML UDC PO ×4 (07:45→20:48)
[2024-03-31] MEDS: INSULIN LISPRO (AdmeLOG) 1 UNIT/0.01 ML UNIT SC ×3 (07:46→17:34)
[2024-03-31] MEDS: LACTULOSE SYRUP 20 GM/30 ML UDC PO (08:04)
[2024-03-31] MEDS: PANTOPRAZOLE INJ 40 MG VIAL IVP ×2 (08:04→20:48)
[2024-03-31] MEDS: Lisinopril 2.5 MG TABLET 10 MG PO (08:05)
[2024-03-31 08:44] LABS: Magnesium 1.9 mg/dL (1.6-2.6)
[2024-03-31] MEDS: INSULIN GLARGINE (Lantus) 5 UNIT/0.05 ML (PER 5 UNITS) SC ×2 (09:12→20:55)
--- NOTE | 2024-03-31 10:05 | ESPR_ITS ---
<Statement entered by Roberto Pugh MD - 04/01/24 10:56> Senior Resident Attestation: I supervised/discussed management plan with underwriting internship physician Dr. Wilson, and was involved in the care of this patient. I personally saw and examined the patient and discussed the assessment and plan with the entire medicine team, including my attending. I agree with the assessment and plan as documented. Patient underwent cholecystectomy with incidental appendectomy. Still complains of significant abdominal pain, will continue to monitor and control pain. Patient's care was discussed with attending physician, Dr. Nelson. Roberto Pugh MD PGY-2. Documentation for date of: 03/31/24 Subjective Subjective Interval history: 03/30/2024: Patient examined at bedside today. Overnight events include patient having blood pressure in the 180s systolic, given labetalol 10 mg x 1. Patient to have cholecystectomy to be performed by Dr. Smith. BUN/creatinine 8 and 0.5, blood sugar 260, potassium 4, magnesium 2. White count 10 hemoglobin 11.5. Will check in with patient for pain control after surgery. No other complaints this time 03/31/2024: Pt examined at bedside today. no overnight events on telemetry. Patient is doing well as she had cholecystectomy and incidental appendectomy. She reports some abdominal pain and still has not had a bowel movement. She has not vomited or is experiencing shortness of breath. BUN/creatinine 8 and 0.5 respectively, white count 13.1, hemoglobin 11.9. Blood pressure 152/82 likely slightly elevated due to pain. No other complaints at this time, Exam Vital Signs Temp Pulse Resp BP Pulse Ox O2 Del Method O2 Flow Rate 97.5 F 87 23 H 158/84 H 96 Room Air 1 03/31/24 08:00 03/31/24 08:05 03/31/24 08:00 03/31/24 08:05 03/31/24 08:00 03/31/24 08:00 03/30/24 20:00 Narrative Exam Gen: Well-developed and well-nourished elderly female. HEENT: NCAT, PERRLA, EOMI, MMM, anicteric conjunctivae. CVS: normal S1 and S2. RRR. No M/R/G. Resp: CTA B/L. No rhonchi, rales, crackles or wheezing. Abd: BS+ in all 4 quadrants, bandages present over abdomen, no erythema or active pus drainage at this time MSK: Good ROM in BUE & BLE. No edema or rash. Neuro: CN II-XII grossly intact. Strength 5/5 in BUE & BLE. Alert and oriented x3. Psych: appropriate mood and affect. Objective Labs 03/31/24 05:53 03/31/24 05:53 Labs: Laboratory Results - last 24 hr 03/31/24 05:53 WBC 13.1 H RBC 3.86 L Hgb 11.9 L Hct 32.2 L MCV 83 MCH 30.8 MCHC 37.0 RDW Std Deviation 41.0 Plt Count 461 H D Neut % (Auto) 74 Lymph % (Auto) 14 [place] % (Auto) 6 Eos % (Auto) 4 Baso % (Auto) 1 Neut # (Auto) 9.8 H Lymph # (Auto) 1.9 [place] # (Auto) 0.8 Eos # (Auto) 0.6 H Baso # (Auto) 0.1 Immature Gran # (Auto) 0.05 H Absolute Nucleated RBC 0.00 Immature Gran % 0 Nucleated RBC % 0 Sodium 138 Potassium 4.1 Chloride 105 Carbon Dioxide 23.8 Anion Gap 9 BUN 8 L Creatinine 0.5 L Estim Creat Clear Calc 98.9 eGFR > 60 BUN/Creatinine Ratio 16 Glucose 219 H Calculated Osmolality 280 Calcium 8.7 Magnesium 1.9 ABG Interpretation ABG results: 03/26/24 12:18 VBG pH 7.42 VBG pCO2 41 VBG pO2 53 VBG Base Excess 2 Quality Measures Quality Measures VTE prophylaxis Advance care planning discussed with:: patient Assessment & Plan Assessment Current Active Medications: Generic Name Dose Route Start Last Admin Trade Name Freq PRN Reason Stop Dose Admin Acetaminophen 650 mg 03/27/24 07:51 03/28/24 14:24 Acetaminophen 325 Mg Tablet PO 04/25/24 15:36 650 mg Q6H PRN Administration pain 1-3 and Fever >100.4 Hydrocodone Bitart/Acetaminophen 1 tab 03/26/24 15:37 03/31/24 09:11 Hydrocodone/Apap 5/325 Tablet PO 03/31/24 15:36 1 tab Q4HR PRN Administration PAIN SCALE 4-6 (Moderate Celecoxib 100 mg 03/28/24 11:13 03/28/24 15:19 Celecoxib 100 Mg Capsule PO 04/27/24 11:14 100 mg BID PRN Administration chest wall pain Protocol Dextrose 25 ml 03/26/24 15:37 Dextrose 50%-Water Inj 50 Ml Syringe IV 04/25/24 15:36 Q15MIN PRN BG 50-70 responsive npo pt Dextrose 50 ml 03/26/24 15:37 Dextrose 50%-Water Inj 50 Ml Syringe IV 04/25/24 15:36 Q15MIN PRN BG <50 OR BG <70 & pt unresponsive Glucagon 1 mg 03/27/24 15:12 Glucagon Inj 1 Mg Vial IM Q15MIN PRN BG <70, and no IV access Sodium Chloride 1,000 mls @ 80 mls/hr 03/26/24 15:45 03/31/24 01:21 Ns IV 04/25/24 15:44 Not Given .[id number] TULIO Insulin Glargine 5 unit 03/31/24 21:00 Insulin Glargine (Lantus) 5 Unit/0.05 Ml (Per 5 Units) SC 04/30/24 20:59 HS TULIO Insulin Human Lispro 0 unit 03/31/24 11:30 Insulin Lispro (Admelog) 1 Unit/0.01 Ml Unit SC 04/30/24 11:29 AC TULIO Protocol Lactulose 20 gm 03/28/24 09:00 03/31/24 08:04 Lactulose Syrup 20 Gm/30 Ml Udc PO 04/25/24 15:44 20 gm QDAY TULIO Administration Protocol Lidocaine 1 patch 03/28/24 10:56 03/30/24 15:42 Lidocaine 5% 1 Patch TOP 04/27/24 10:55 1 patch UD PRN Administration PAIN Protocol Lisinopril 10 mg 03/30/24 14:00 03/31/24 08:05 Lisinopril 2.5 Mg Tablet PO 04/29/24 13:59 10 mg QDAY TULIO Administration Ondansetron HCl 4 mg 03/26/24 15:37 03/30/24 04:46 Ondansetron Inj 2 Mg/Ml Inj 2 Ml IV 04/25/24 15:36 4 mg Q6H PRN Administration NAUSEA OR VOMITING Protocol Pantoprazole Sodium 40 mg 03/30/24 12:00 03/31/24 08:04 Pantoprazole Inj 40 Mg Vial IVP 04/29/24 11:59 40 mg BID TULIO Administration Sucralfate 1 gm 03/30/24 17:00 03/31/24 07:45 Sucralfate Susp 1 Gm/10 Ml Udc PO 04/26/24 20:59 1 gm ACHS TULIO Administration Plan Assessment Ms Multani is a 68-year-old female with past medical history of hypertension, DM2, seizures, headaches, and frequent UTIs was admitted to the hospital on 03/26/2024 for syncopal episode and intractable nausea and vomiting. She was found to have biliary dyskinesia on HIDA scan, requiring cholecystectomy to be performed by Dr. Simth. #Biliary Dyskinesia, EF ~16% s/p cholecystectomy postoperative day 1 #Incidental appendectomy #Intractable nausea and vomiting, resolved #Hemorrhagic gastritis #Constipation Patient underwent EGD, showed hemorrhagic gastritis Patient is postoperative day 1 for laparoscopic cholecystectomy and incidental appendectomy Appendenctomy was done as surgeon, Dr. Smith, seen appendix being slightly swollen Will advance diet and continue pain control Bowel movement per patient has not occurred in a week Physical therapy recommends home discharge with family support Plan: - GI Dr Moran consulted, appreciate recommendations - General surgery Dr Frias consulted, appreciate recommendations. - Continue Protonix 40 mg daily, Zofran as needed for nausea. - Pain control ? Advance diet as tolerated ?Continue with PT ? Mineral oil enema ? Glycerin suppository x 1 #Syncopal episode, resolved #Orthostatic hypotension, improving ? Patient came in with complaints of chest pain sharp in nature which radiated to the left arm and with some numbness of the left lower face, this was followed by a syncopal episode. ? Patient was returning back from her [facility] [employer] clinic where she lost her consciousness, and initially the medical person in the clinic thought that the patient may require CPR, but after first push on the chest she responded and CPR was held. ? Troponins : negative ? EKG did not show any ST changes ? Chest CTA was unremarkable ? Head CT was unremarkable ? Chest x-ray was unremarkable ? Patient's orthostatic vitals : positive - echo showed EF 55-60 % with normal LV function. - per cardiology patient likely had vasovagal syncope ? Patient symptoms small most likely from vasovagal syncope in combination with irretractable nausea and vomiting Plan: - Cardiology Dr Ibarra is consulted, appreciate recommendations. - PT on consult #History of hypertension #Hypertensive urgency, resolved. ? Patient came in with blood pressure of 206/121. Home blood pressure medicine of lisinopril 10 Will adjust blood pressure medicines as pain is not controlled at this time Plan: ? Continue with lisinopril 10 mg #Type 2 DM. - Last A1c = 7.2% on 02/2024 ?16 units of short acting use over 24 hours ?Will recheck and adjust after tomorrow's dose Plan: - Continue with insulin correction scale step 3 ? 5 units of Lantus now, 5 units tonight - Hypoglycemia protocol ordered - Blood sugar checks AC #Hx of seizures disorder. #Hx of headaches. ? Patient has not been prescribed antiseizure medication as of recently, last seizure episode was 1.5 years ago. #Health Maintenance Disposition: Telemetry DVT prophylaxis: Heparin GI prophylaxis: Protonix Diet: Carb low consistent CODE STATUS: Full Patient seen and care discussed with my senior resident, Dr. Pugh, and my attending physician, Dr. Leslie Wilson, PGY-1
--- NOTE | 2024-03-31 10:19 | PD.SURPROG ---
Documentation for date of: 03/31/24 Subjective Subjective Brief History: Patient was admitted because of the syncopal episode and some chest pain. She did not have any abdominal pain but she has been complaining of lower abdominal discomfort for some time. Patient has been nauseated and vomiting. While she was here workup revealed gallbladder polyp and gallbladder ejection fraction of 16%. Therefore surgical consultation was obtained Narrative: The patient is doing well after surgery and does not have much complaints Exam Vital Signs Temp Pulse Resp BP Pulse Ox O2 Del Method O2 Flow Rate 97.5 F 87 23 H 158/84 H 96 Room Air 1 03/31/24 08:00 03/31/24 08:05 03/31/24 08:00 03/31/24 08:05 03/31/24 08:00 03/31/24 08:00 03/30/24 20:00 Assessment & Plan Assessment Additional comments: Impression: Stable recovery following laparoscopic cholecystectomy Plan Plan: We shall discharge the patient today and I will be seeing her in follow-up in 2 weeks. Procedures Procedures Laparoscopic cholecystectomy Incidental appendectomy
[2024-03-31] MEDS: GLYCERIN, ADULT 1 EA SUPP 1 EACH PR (12:34)
[2024-03-31] MEDS: SODIUM CHLORIDE 0.9% 1000 ML 1,000 ML 80 ML IV (12:35)
--- NOTE | 2024-03-31 20:55 | ESPR_ITS ---
Documentation for date of: 03/31/24 Subjective Subjective Interval history: Doing well postoperatively after laparoscopic cholecystectomy for biliary dyskinesia ejection fraction of 16% Exam Vital Signs Temp Pulse Resp BP Pulse Ox O2 Del Method O2 Flow Rate 97.7 F 93 17 161/86 H 97 Nasal Cannula 1 03/31/24 20:00 03/31/24 20:00 03/31/24 20:00 03/31/24 20:00 03/31/24 20:00 03/31/24 20:00 03/31/24 20:00 Objective Labs 03/31/24 05:53 03/31/24 05:53 Labs: Laboratory Results - last 24 hr 03/31/24 05:53 WBC 13.1 H RBC 3.86 L Hgb 11.9 L Hct 32.2 L MCV 83 MCH 30.8 MCHC 37.0 RDW Std Deviation 41.0 Plt Count 461 H D Neut % (Auto) 74 Lymph % (Auto) 14 [place] % (Auto) 6 Eos % (Auto) 4 Baso % (Auto) 1 Neut # (Auto) 9.8 H Lymph # (Auto) 1.9 [place] # (Auto) 0.8 Eos # (Auto) 0.6 H Baso # (Auto) 0.1 Immature Gran # (Auto) 0.05 H Absolute Nucleated RBC 0.00 Immature Gran % 0 Nucleated RBC % 0 Sodium 138 Potassium 4.1 Chloride 105 Carbon Dioxide 23.8 Anion Gap 9 BUN 8 L Creatinine 0.5 L Estim Creat Clear Calc 98.9 eGFR > 60 BUN/Creatinine Ratio 16 Glucose 219 H Calculated Osmolality 280 Calcium 8.7 Magnesium 1.9 Impressions Impression: # Nausea vomiting resolved # bili dyskinesia status post laparoscopic cholecystectomy # posthemorrhagic anemia secondary to gastritis ABG Interpretation ABG results: 03/26/24 12:18 VBG pH 7.42 VBG pCO2 41 VBG pO2 53 VBG Base Excess 2 Assessment & Plan A&P Narrative # Nausea vomiting # Melena # Pain abdomen Plan CCK HIDA scan with ejection fraction of the gallbladder Consent obtained for fiberoptic esophagogastroduodenoscopy with possible biopsy possible therapeutic intervention under intravenous moderate sedation N.p.o. midnight except p.o. meds Other medical problems include # Chest pain with a normal troponin # Diabetes mellitus type 2 # Headache # Syncope thank you very much for the opportunity to participate in the care of this patient Time Spent With Patient Time: Total time spent is greater than 50% in coordination of care (as documented) at patient's floor/unit and/or counseling patient: #
[2024-04-01] VITALS (8 sets, daily range): BP systolic 148–177; BP diastolic 79–89; PULSE 80–95; RESP 16–97; TEMP 36.1–36.8; O2SAT 95–98; BMI 29.8
[2024-04-01] MEDS: HYDROmorphone INJ 2 MG/ML VIAL 0.5 MG IVP (01:18)
[2024-04-01] MEDS: HYDROmorphone INJ 2 MG/ML VIAL 0.25 MG IVP (02:41)
[2024-04-01 06:12] LABS: Basophils # (Auto) 0.1 Thou/mm3 (0.0-0.2); Basophils % (Auto) 1 % (0-2.5); Eosinophils # (Auto) 0.8 Thou/mm3 (0.0-0.5); Eosinophils % (Auto) 7 % (0-10); Hemoglobin 10.4 g/dL (12.0-16.0); Immature Granulocytes % (Auto) 0 % (0-0); Immature Granulocytes Auto 0.04 Thou/mm3 (0.00-0.00); Lymphocytes # (Auto) 1.9 Thou/mm3 (1.0-4.8); Lymphocytes % (Auto) 17 % (10-50); Mean Corpuscular HGB Conc 37.1 g/dl (31.0-37.0); Mean Corpuscular Hemoglobin 30.9 pg (25.0-35.0); Mean Corpuscular Volume 83 fL (80-100); Monocytes # (Auto) 0.8 Thou/mm3 (0.0-0.8); Monocytes % (Auto) 8 % (0-12); Neutrophils # (Auto) 7.3 Thou/mm3 (1.8-7.7); Neutrophils % (Auto) 67 % (37-80); Nucleated Red Blood Cell % 0 /100 WBC (0); Platelet Count 412 Thou/mm3 (140-440); RDW Standard Deviation 40.2 fL (36.4-46.3); Red Blood Count 3.37 Miln/mm3 (4.00-5.20); White Blood Count 10.9 Thou/mm3 (3.6-11.0)
[2024-04-01 06:55] LABS: Anion Gap 8 (7-16); BUN/Creatinine Ratio 14 Ratio (12-20); Blood Urea Nitrogen 7 mg/dL (9-23); Calcium 8.6 mg/dL (8.3-10.6); Carbon Dioxide 27.5 mMol/L (20.0-31.0); Chloride 105 mMol/L (98-107); Creatinine (Component) 0.5 mg/dL (0.6-1.3); Estimated Creatinine Clearance 98.9 mL/min (>60); Glucose 185 mg/dL (74-106); Osmolality,Calculated 282 (275-295); Potassium 3.8 mMol/L (3.4-5.1); Sodium 140 mMol/L (136-145); eGFR > 60 See Note
[2024-04-01] MEDS: SUCRALFATE SUSP 1 GM/10 ML UDC PO ×4 (07:37→21:26)
[2024-04-01] MEDS: INSULIN LISPRO (AdmeLOG) 1 UNIT/0.01 ML UNIT SC ×3 (07:38→17:29)
[2024-04-01] MEDS: Lisinopril 2.5 MG TABLET 10 MG PO ×2 (08:00→11:07)
[2024-04-01] MEDS: LACTULOSE SYRUP 20 GM/30 ML UDC PO (08:00)
[2024-04-01] MEDS: INSULIN GLARGINE (Lantus) 5 UNIT/0.05 ML (PER 5 UNITS) 2 UNIT SC (08:01)
[2024-04-01] MEDS: PANTOPRAZOLE INJ 40 MG VIAL IVP ×2 (08:01→21:26)
[2024-04-01] MEDS: ACETAMINOPHEN 500 MG TABLET 1000 MG PO (09:48)
[2024-04-01] MEDS: SENNA TABLET 1 TAB PO (11:06)
--- NOTE | 2024-04-01 12:00 | ESPR_ITS ---
Documentation for date of: 04/01/24 Subjective Subjective Interval history: 03/30/2024: Patient examined at bedside today. Overnight events include patient having blood pressure in the 180s systolic, given labetalol 10 mg x 1. Patient to have cholecystectomy to be performed by Dr. Smith. BUN/creatinine 8 and 0.5, blood sugar 260, potassium 4, magnesium 2. White count 10 hemoglobin 11.5. Will check in with patient for pain control after surgery. No other complaints this time 03/31/2024: Pt examined at bedside today. no overnight events on telemetry. Patient is doing well as she had cholecystectomy and incidental appendectomy. She reports some abdominal pain and still has not had a bowel movement. She has not vomited or is experiencing shortness of breath. BUN/creatinine 8 and 0.5 respectively, white count 13.1, hemoglobin 11.9. Blood pressure 152/82 likely slightly elevated due to pain. No other complaints at this time. 04/01/2024: Pt examined at bedside today. No acute overnight events, telemetry reviewed, rate controlled in 70s. Pt is post operative day 2. She did receive some dilaudid overnight. Says she has a headache right now and is requesting some pain medicines at this time. Says her abd pain is controlled. Had two small bowel movements yesterday. No other complaints at this time. Exam Vital Signs Temp Pulse Resp BP Pulse Ox O2 Del Method O2 Flow Rate 97.4 F 80 16 155/88 H 95 Room Air 1 04/01/24 08:00 04/01/24 11:07 04/01/24 08:00 04/01/24 11:07 04/01/24 08:00 04/01/24 08:00 03/31/24 20:00 Narrative Exam Gen: Well-developed and well-nourished elderly female. HEENT: NCAT, PERRLA, EOMI, MMM, anicteric conjunctivae. CVS: normal S1 and S2. RRR. No M/R/G. Resp: CTA B/L. No rhonchi, rales, crackles or wheezing. Abd: BS+ in all 4 quadrants, bandages present over abdomen, no erythema or active pus drainage at this time MSK: Good ROM in BUE & BLE. No edema or rash. Neuro: CN II-XII grossly intact. Strength 5/5 in BUE & BLE. Alert and oriented x3. Psych: appropriate mood and affect. Objective Labs 04/02/24 04:30 04/02/24 04:30 Labs: Laboratory Results - last 24 hr 04/01/24 05:55 WBC 10.9 RBC 3.37 L Hgb 10.4 L Hct 28.0 L MCV 83 MCH 30.9 MCHC 37.1 H RDW Std Deviation 40.2 Plt Count 412 D Neut % (Auto) 67 Lymph % (Auto) 17 [place] % (Auto) 8 Eos % (Auto) 7 Baso % (Auto) 1 Neut # (Auto) 7.3 Lymph # (Auto) 1.9 [place] # (Auto) 0.8 Eos # (Auto) 0.8 H Baso # (Auto) 0.1 Immature Gran # (Auto) 0.04 H Absolute Nucleated RBC 0.00 Immature Gran % 0 Nucleated RBC % 0 Sodium 140 Potassium 3.8 Chloride 105 Carbon Dioxide 27.5 Anion Gap 8 BUN 7 L Creatinine 0.5 L Estim Creat Clear Calc 98.9 eGFR > 60 BUN/Creatinine Ratio 14 Glucose 185 H Calculated Osmolality 282 Calcium 8.6 ABG Interpretation ABG results: 03/26/24 12:18 VBG pH 7.42 VBG pCO2 41 VBG pO2 53 VBG Base Excess 2 Quality Measures Quality Measures VTE prophylaxis Advance care planning discussed with:: patient Assessment & Plan Assessment Current Active Medications: Generic Name Dose Route Start Last Admin Trade Name Freq PRN Reason Stop Dose Admin Acetaminophen 1,000 mg 04/01/24 09:24 04/01/24 09:48 Acetaminophen 500 Mg Tablet PO 04/25/24 15:36 1,000 mg Q6H PRN Administration pain 1-3 and Fever >100 Celecoxib 100 mg 03/28/24 11:13 03/28/24 15:19 Celecoxib 100 Mg Capsule PO 04/27/24 11:14 100 mg BID PRN Administration chest wall pain Protocol Dextrose 25 ml 03/26/24 15:37 Dextrose 50%-Water Inj 50 Ml Syringe IV 04/25/24 15:36 Q15MIN PRN BG 50-70 responsive npo pt Dextrose 50 ml 03/26/24 15:37 Dextrose 50%-Water Inj 50 Ml Syringe IV 04/25/24 15:36 Q15MIN PRN BG <50 OR BG <70 & pt unresponsive Glucagon 1 mg 03/27/24 15:12 Glucagon Inj 1 Mg Vial IM Q15MIN PRN BG <70, and no IV access Insulin Glargine 10 unit 04/01/24 21:00 Insulin Glargine (Lantus) 5 Unit/0.05 Ml (Per 5 Units) SC 05/01/24 20:59 HS TULIO Insulin Human Lispro 0 unit 03/31/24 11:30 04/01/24 11:26 Insulin Lispro (Admelog) 1 Unit/0.01 Ml Unit SC 04/30/24 11:29 3 unit AC TULIO Administration Protocol Lactulose 20 gm 03/28/24 09:00 04/01/24 08:00 Lactulose Syrup 20 Gm/30 Ml Udc PO 04/25/24 15:44 20 gm QDAY TULIO Administration Protocol Lidocaine 1 patch 03/28/24 10:56 03/30/24 15:42 Lidocaine 5% 1 Patch TOP 04/27/24 10:55 1 patch UD PRN Administration PAIN Protocol Lisinopril 20 mg 04/02/24 09:00 Lisinopril 20 Mg Tablet PO 05/02/24 08:59 QDAY TULIO Ondansetron HCl 4 mg 03/26/24 15:37 03/30/24 04:46 Ondansetron Inj 2 Mg/Ml Inj 2 Ml IV 04/25/24 15:36 4 mg Q6H PRN Administration NAUSEA OR VOMITING Protocol Pantoprazole Sodium 40 mg 03/30/24 12:00 04/01/24 08:01 Pantoprazole Inj 40 Mg Vial IVP 04/29/24 11:59 40 mg BID TULIO Administration Sennosides 1 tab 04/01/24 10:00 04/01/24 11:06 Senna Tablet PO 05/01/24 09:59 1 tab QDAY [facility] Administration Protocol Sucralfate 1 gm 03/30/24 17:00 04/01/24 11:06 Sucralfate Susp 1 Gm/10 Ml Udc PO 04/26/24 20:59 1 gm ACHS TULIO Administration Plan Assessment Ms Mulatni is a 68-year-old female with past medical history of hypertension, DM2, seizures, headaches, and frequent UTIs was admitted to the hospital on 03/26/2024 for syncopal episode and intractable nausea and vomiting. She was found to have biliary dyskinesia on HIDA scan, requiring cholecystectomy to be performed by Dr. Smith, post operative day 2 for cholecystectomy and incidental appendectomy. #Biliary Dyskinesia, EF ~16% s/p cholecystectomy postoperative day 2 #Incidental appendectomy #Intractable nausea and vomiting, resolved #Hemorrhagic gastritis #Constipation Patient underwent EGD, showed hemorrhagic gastritis Patient is postoperative day 1 for laparoscopic cholecystectomy and incidental appendectomy Appendenctomy was done as surgeon, Dr. Smith, seen appendix being slightly swollen Will advance diet and continue pain control Bowel movement per patient has not occurred in a week Physical therapy recommends home discharge with family support Will limit pain medicines at this time, encourage bowel movements with medicines Pain component with constipation Plan: - GI Dr Moran consulted, appreciate recommendations - General surgery Dr Frias consulted, appreciate recommendations. - Continue Protonix 40 mg BID and Carafate for hemorrhagic gastritis ? Zofran - Pain control, will limit nacrotics ? Advance diet as tolerated ?Continue with PT ? Senna TULIO ? MiraLAX TULIO #Syncopal episode, resolved #Orthostatic hypotension, improving ? Patient came in with complaints of chest pain sharp in nature which radiated to the left arm and with some numbness of the left lower face, this was followed by a syncopal episode. ? Patient was returning back from her [facility] clinic where she lost her consciousness, and initially the medical person in the clinic thought that the patient may require CPR, but after first push on the chest she responded and CPR was held. ? Troponins : negative ? EKG did not show any ST changes ? Chest CTA was unremarkable ? Head CT was unremarkable ? Chest x-ray was unremarkable ? Patient's orthostatic vitals : positive - echo showed EF 55-60 % with normal LV function. - per cardiology patient likely had vasovagal syncope ? Patient symptoms small most likely from vasovagal syncope in combination with irretractable nausea and vomiting Plan: - Cardiology Dr Ibarra is consulted, appreciate recommendations. - PT on consult #History of hypertension #Hypertensive urgency, resolved. ? Patient came in with blood pressure of 206/121. Home blood pressure medicine of lisinopril 10 Will adjust blood pressure medicines as pt appears to be in 150s systolic as a trend Plan: ? Increased to lisinopril 20 mg p.o. #Type 2 DM. - Last A1c = 7.2% on 02/2024 ?16 units of short acting use over 24 hours ?Will recheck and adjust after tomorrow's dose Plan: - Continue with insulin correction scale step 3 ? 5 units of Lantus now, 5 units tonight - Hypoglycemia protocol ordered - Blood sugar checks AC #Hx of seizures disorder. #Hx of headaches. ? Patient has not been prescribed antiseizure medication as of recently, last seizure episode was 1.5 years ago. #Health Maintenance Disposition: Telemetry DVT prophylaxis: Heparin GI prophylaxis: Protonix Diet: Carb low consistent CODE STATUS: Full Patient seen and care discussed with my senior resident, Dr. Pugh, and my attending physician, Dr. Sebastian Wilson, PGY-1 Attending Provider Attestation/Addendum I reviewed labs, imaging, EKG, home medications and prior available records. Face to face evaluation was performed by me. I have personally examined the patient and discussed assessment and plan with the IM team. I reviewed the resident note and agree with the plan with exceptions as below. Intractable nausea and vomiting/chest pain at rest: In the setting of hemorrhagic gastritis and biliary dyskinesia. Status post EGD that showed hemorrhagic gastritis. Status post laparoscopic cholecystectomy. Continue PPI and sucralfate. Management of pain as needed. Advance diet as tolerated. Management of nausea/vomiting as needed. Hemorrhagic gastritis: As above Low ejection fracture of gallbladder: Per HIDA scan. Status post laparoscopic cholecystectomy. As above Uncontrolled hypertension: Increase lisinopril to 20 mg daily. Monitor BP Uncontrolled diabetes mellitus with hyperglycemia: Increase Lantus. Continue sliding scale insulin. Monitor fingersticks
--- NOTE | 2024-04-01 13:12 | ESPR_ITS ---
Documentation for date of: 04/01/24 Subjective Subjective Interval history: Patient evaluated she had 2 bowel movements Still has pain off-and-on Exam Vital Signs Temp Pulse Resp BP Pulse Ox O2 Del Method O2 Flow Rate 97.4 F 80 16 155/88 H 95 Room Air 1 04/01/24 08:00 04/01/24 11:07 04/01/24 08:00 04/01/24 11:07 04/01/24 08:00 04/01/24 08:00 03/31/24 20:00 Objective Labs 04/01/24 05:55 04/01/24 05:55 Labs: Laboratory Results - last 24 hr 04/01/24 05:55 WBC 10.9 RBC 3.37 L Hgb 10.4 L Hct 28.0 L MCV 83 MCH 30.9 MCHC 37.1 H RDW Std Deviation 40.2 Plt Count 412 D Neut % (Auto) 67 Lymph % (Auto) 17 [place] % (Auto) 8 Eos % (Auto) 7 Baso % (Auto) 1 Neut # (Auto) 7.3 Lymph # (Auto) 1.9 [place] # (Auto) 0.8 Eos # (Auto) 0.8 H Baso # (Auto) 0.1 Immature Gran # (Auto) 0.04 H Absolute Nucleated RBC 0.00 Immature Gran % 0 Nucleated RBC % 0 Sodium 140 Potassium 3.8 Chloride 105 Carbon Dioxide 27.5 Anion Gap 8 BUN 7 L Creatinine 0.5 L Estim Creat Clear Calc 98.9 eGFR > 60 BUN/Creatinine Ratio 14 Glucose 185 H Calculated Osmolality 282 Calcium 8.6 Impressions Impression: # Status post laparoscopic cholecystectomy for bili dyskinesia # Gastritis Continue current management ABG Interpretation ABG results: 03/26/24 12:18 VBG pH 7.42 VBG pCO2 41 VBG pO2 53 VBG Base Excess 2 Assessment & Plan A&P Narrative # Nausea vomiting # Melena # Pain abdomen Plan CCK HIDA scan with ejection fraction of the gallbladder Consent obtained for fiberoptic esophagogastroduodenoscopy with possible biopsy possible therapeutic intervention under intravenous moderate sedation N.p.o. midnight except p.o. meds Other medical problems include # Chest pain with a normal troponin # Diabetes mellitus type 2 # Headache # Syncope thank you very much for the opportunity to participate in the care of this patient Time Spent With Patient Time: Total time spent is greater than 50% in coordination of care (as documented) at patient's floor/unit and/or counseling patient:
--- NOTE | 2024-04-01 13:48 | PC.SS ---
Patient is alert/oriented. She verified her demographics. Patient is Ivorian speaking. SS used interpreting line to assist. Patient is independent with ADL's. Patient states she does not use any DME. Patient states her daughter, Tricia, is the designated medical decision maker. Patient plans on returning home. She states all her family memers work during the day. SS asked if patient has been up ambulating in the room. She states she has not. SS discussed SNF as an alternate plan if needed. Patient refused. She states she wants to return home. HH would be her preference if needed. Patient PCP: Dr. Shah at [facility]. Family will assist in transportation assistance. [facility] [place] is the preferred pharmacy.
[2024-04-01] MEDS: POLYETHYLENE GLYCOL 17 GM PACKET PO (15:49)
--- NOTE | 2024-04-01 16:00 | PC.PT ---
Patient will be D/C from PT services 03/29 she is xI with bed mobility, transfers and is able to ambulate using DME. Patient is safe to ambulate in the serna and to the bathroom with a walker and 1 staff assist. RN notified.
[2024-04-01] MEDS: HYDROcodone/APAP 5/325 TABLET 2 TAB PO (17:28)
[2024-04-01] MEDS: INSULIN GLARGINE (Lantus) 5 UNIT/0.05 ML (PER 5 UNITS) 10 UNIT SC (21:27)
[2024-04-02] VITALS (8 sets, daily range): BP systolic 132–175; BP diastolic 74–96; PULSE 82–92; RESP 15–18; TEMP 36.2–36.9; O2SAT 95–97
[2024-04-02] MEDS: HYDROcodone/APAP 5/325 TABLET 2 TAB PO (00:05)
[2024-04-02] MEDS: CELECOXIB 100 MG CAPSULE PO (02:20)
[2024-04-02 06:08] LABS: Basophils # (Auto) 0.1 Thou/mm3 (0.0-0.2); Basophils % (Auto) 1 % (0-2.5); Eosinophils # (Auto) 0.8 Thou/mm3 (0.0-0.5); Eosinophils % (Auto) 8 % (0-10); Hematocrit 30.5 % (36.0-46.0); Hemoglobin 11.4 g/dL (12.0-16.0); Immature Granulocytes % (Auto) 0 % (0-0); Immature Granulocytes Auto 0.04 Thou/mm3 (0.00-0.00); Lymphocytes # (Auto) 1.7 Thou/mm3 (1.0-4.8); Lymphocytes % (Auto) 17 % (10-50); Mean Corpuscular HGB Conc 37.4 g/dl (31.0-37.0); Mean Corpuscular Hemoglobin 30.7 pg (25.0-35.0); Mean Corpuscular Volume 82 fL (80-100); Monocytes # (Auto) 0.9 Thou/mm3 (0.0-0.8); Monocytes % (Auto) 9 % (0-12); Neutrophils # (Auto) 6.4 Thou/mm3 (1.8-7.7); Neutrophils % (Auto) 65 % (37-80); Nucleated Red Blood Cell % 0 /100 WBC (0); Platelet Count 468 Thou/mm3 (140-440); RDW Standard Deviation 39.2 fL (36.4-46.3); Red Blood Count 3.71 Miln/mm3 (4.00-5.20)
[2024-04-02 06:31] LABS: Anion Gap 8 (7-16); BUN/Creatinine Ratio 24 Ratio (12-20); Blood Urea Nitrogen 12 mg/dL (9-23); Calcium 8.8 mg/dL (8.3-10.6); Carbon Dioxide 29.2 mMol/L (20.0-31.0); Chloride 100 mMol/L (98-107); Creatinine (Component) 0.5 mg/dL (0.6-1.3); Estimated Creatinine Clearance 98.9 mL/min (>60); Glucose 214 mg/dL (74-106); Osmolality,Calculated 279 (275-295); Potassium 3.7 mMol/L (3.4-5.1); Sodium 137 mMol/L (136-145); eGFR > 60 See Note
[2024-04-02] MEDS: LACTULOSE SYRUP 20 GM/30 ML UDC PO (08:26)
[2024-04-02] MEDS: SENNA TABLET 1 TAB PO (08:26)
[2024-04-02] MEDS: Lisinopril 20 MG TABLET PO (08:26)
[2024-04-02] MEDS: SUCRALFATE SUSP 1 GM/10 ML UDC PO ×4 (08:26→21:05)
[2024-04-02] MEDS: PANTOPRAZOLE INJ 40 MG VIAL IVP ×2 (08:27→21:05)
[2024-04-02] MEDS: INSULIN LISPRO (AdmeLOG) 1 UNIT/0.01 ML UNIT SC ×4 (08:28→23:12)
[2024-04-02] MEDS: INSULIN GLARGINE (Lantus) 5 UNIT/0.05 ML (PER 5 UNITS) SC (09:59)
--- NOTE | 2024-04-02 11:29 | PD.RESPRO ---
Documentation for date of: 04/02/24 Subjective Subjective Interval history: 03/30/2024: Patient examined at bedside today. Overnight events include patient having blood pressure in the 180s systolic, given labetalol 10 mg x 1. Patient to have cholecystectomy to be performed by Dr. Smith. BUN/creatinine 8 and 0.5, blood sugar 260, potassium 4, magnesium 2. White count 10 hemoglobin 11.5. Will check in with patient for pain control after surgery. No other complaints this time 03/31/2024: Pt examined at bedside today. no overnight events on telemetry. Patient is doing well as she had cholecystectomy and incidental appendectomy. She reports some abdominal pain and still has not had a bowel movement. She has not vomited or is experiencing shortness of breath. BUN/creatinine 8 and 0.5 respectively, white count 13.1, hemoglobin 11.9. Blood pressure 152/82 likely slightly elevated due to pain. No other complaints at this time. 04/01/2024: Pt examined at bedside today. No acute overnight events, telemetry reviewed, rate controlled in 70s. Pt is post operative day 2. She did receive some dilaudid overnight. Says she has a headache right now and is requesting some pain medicines at this time. Says her abd pain is controlled. Had two small bowel movements yesterday. No other complaints at this time. 04/02/2024: Pt examined at bedside today. Patient reports she was not able to sleep well last night. She still complaining of a headache, and mild abdominal pain. Would like to stay in the hospital at this time for further pain management. Patient hemoglobin 11.4, white count 10, BUN/creatinine 12 and 0.5, potassium 3.7. No other complaints at this time. Exam Vital Signs Temp Pulse Resp BP Pulse Ox O2 Del Method O2 Flow Rate 97.4 F 88 17 145/75 H 95 Room Air 1 04/02/24 07:46 04/02/24 08:26 04/02/24 07:46 04/02/24 08:26 04/02/24 07:46 04/02/24 07:46 03/31/24 20:00 Narrative Exam Gen: Well-developed and well-nourished elderly female. HEENT: NCAT, PERRLA, EOMI, MMM, anicteric conjunctivae. CVS: normal S1 and S2. RRR. No M/R/G. Resp: CTA B/L. No rhonchi, rales, crackles or wheezing. Abd: BS+ in all 4 quadrants, bandages present over abdomen, no erythema or active pus drainage at this time MSK: Good ROM in BUE & BLE. No edema or rash. Neuro: CN II-XII grossly intact. Strength 5/5 in BUE & BLE. Alert and oriented x3. Psych: appropriate mood and affect. Objective Labs 04/03/24 04:50 04/03/24 04:50 Labs: Laboratory Results - last 24 hr 04/02/24 04:30 WBC 10.0 RBC 3.71 L Hgb 11.4 L Hct 30.5 L MCV 82 MCH 30.7 MCHC 37.4 H RDW Std Deviation 39.2 Plt Count 468 H D Neut % (Auto) 65 Lymph % (Auto) 17 [place] % (Auto) 9 Eos % (Auto) 8 Baso % (Auto) 1 Neut # (Auto) 6.4 Lymph # (Auto) 1.7 [place] # (Auto) 0.9 H Eos # (Auto) 0.8 H Baso # (Auto) 0.1 Immature Gran # (Auto) 0.04 H Absolute Nucleated RBC 0.00 Immature Gran % 0 Nucleated RBC % 0 Sodium 137 Potassium 3.7 Chloride 100 Carbon Dioxide 29.2 Anion Gap 8 BUN 12 Creatinine 0.5 L Estim Creat Clear Calc 98.9 eGFR > 60 BUN/Creatinine Ratio 24 H Glucose 214 H Calculated Osmolality 279 Calcium 8.8 ABG Interpretation ABG results: 03/26/24 12:18 VBG pH 7.42 VBG pCO2 41 VBG pO2 53 VBG Base Excess 2 Quality Measures Quality Measures VTE prophylaxis Advance care planning discussed with:: patient Assessment & Plan Assessment Current Active Medications: Generic Name Dose Route Start Last Admin Trade Name Freq PRN Reason Stop Dose Admin Acetaminophen 650 mg 04/02/24 12:00 Acetaminophen 325 Mg Tablet PO 05/02/24 11:59 Q6HR [facility] Celecoxib 100 mg 03/28/24 11:13 04/02/24 02:20 Celecoxib 100 Mg Capsule PO 04/27/24 11:14 100 mg BID PRN Administration chest wall pain Protocol Dextrose 25 ml 03/26/24 15:37 Dextrose 50%-Water Inj 50 Ml Syringe IV 04/25/24 15:36 Q15MIN PRN BG 50-70 responsive npo pt Dextrose 50 ml 03/26/24 15:37 Dextrose 50%-Water Inj 50 Ml Syringe IV 04/25/24 15:36 Q15MIN PRN BG <50 OR BG <70 & pt unresponsive Glucagon 1 mg 03/27/24 15:12 Glucagon Inj 1 Mg Vial IM Q15MIN PRN BG <70, and no IV access Insulin Glargine 15 unit 04/03/24 21:00 Insulin Glargine (Lantus) 5 Unit/0.05 Ml (Per 5 Units) SC 05/03/24 20:59 HS TULIO Insulin Glargine 10 unit 04/02/24 21:00 Insulin Glargine (Lantus) 5 Unit/0.05 Ml (Per 5 Units) SC 04/02/24 21:01 X1 ONE Insulin Human Lispro 0 unit 03/31/24 11:30 04/02/24 08:28 Insulin Lispro (Admelog) 1 Unit/0.01 Ml Unit SC 04/30/24 11:29 3 unit AC TULIO Administration Protocol Lactulose 20 gm 03/28/24 09:00 04/02/24 08:26 Lactulose Syrup 20 Gm/30 Ml Udc PO 04/25/24 15:44 20 gm QDAY TULIO Administration Protocol Lidocaine 1 patch 03/28/24 10:56 03/30/24 15:42 Lidocaine 5% 1 Patch TOP 04/27/24 10:55 1 patch UD PRN Administration PAIN Protocol Lisinopril 20 mg 04/02/24 09:00 04/02/24 08:26 Lisinopril 20 Mg Tablet PO 05/02/24 08:59 20 mg QDAY TULIO Administration Metoclopramide HCl 10 mg 04/02/24 12:00 Metoclopramide Inj 5 Mg/Ml Vial 2 Ml IVP 04/03/24 11:59 Q6HR TULIO Protocol Ondansetron HCl 4 mg 03/26/24 15:37 03/30/24 04:46 Ondansetron Inj 2 Mg/Ml Inj 2 Ml IV 04/25/24 15:36 4 mg Q6H PRN Administration NAUSEA OR VOMITING Protocol Pantoprazole Sodium 40 mg 03/30/24 12:00 04/02/24 08:27 Pantoprazole Inj 40 Mg Vial IVP 04/29/24 11:59 40 mg BID TULIO Administration Sennosides 1 tab 04/01/24 10:00 04/02/24 08:26 Senna Tablet PO 05/01/24 09:59 1 tab QDAY TULIO Administration Protocol Sucralfate 1 gm 03/30/24 17:00 04/02/24 08:26 Sucralfate Susp 1 Gm/10 Ml Udc PO 04/26/24 20:59 1 gm ACHS TULIO Administration Plan Assessment Ms Multani is a 68-year-old female with past medical history of hypertension, DM2, seizures, headaches, and frequent UTIs was admitted to the hospital on 03/26/2024 for syncopal episode and intractable nausea and vomiting. She was found to have biliary dyskinesia on HIDA scan, requiring cholecystectomy to be performed by Dr. Smith, post operative day 2 for cholecystectomy and incidental appendectomy. #Biliary Dyskinesia, EF ~16% s/p cholecystectomy postoperative day 3 #Incidental appendectomy #Intractable nausea and vomiting, resolved #Hemorrhagic gastritis #Constipation Patient underwent EGD, showed hemorrhagic gastritis Patient is postoperative day 1 for laparoscopic cholecystectomy and incidental appendectomy Appendenctomy was done as surgeon, Dr. Smith, seen appendix being slightly swollen Will advance diet and continue pain control Bowel movement per patient has not occurred in a week Physical therapy recommends home discharge with family support Will limit pain medicines at this time, encourage bowel movements with medicines Continuing with bowel regimen and pain control Patient had some bowel movements, but pt may need more enemas Plan: - GI Dr Moran consulted, appreciate recommendations - General surgery Dr Frias consulted, appreciate recommendations. - Continue Protonix 40 mg BID and Carafate for hemorrhagic gastritis ? Zofran - Pain control, will limit nacrotics ? Advance diet as tolerated ?Continue with PT ? Senna TULIO ? MiraLAX TULIO -Tylenol for pain control #Syncopal episode, resolved #Orthostatic hypotension, improving ? Patient came in with complaints of chest pain sharp in nature which radiated to the left arm and with some numbness of the left lower face, this was followed by a syncopal episode. ? Patient was returning back from her [employer] clinic where she lost her consciousness, and initially the medical person in the clinic thought that the patient may require CPR, but after first push on the chest she responded and CPR was held. ? Troponins : negative ? EKG did not show any ST changes ? Chest CTA was unremarkable ? Head CT was unremarkable ? Chest x-ray was unremarkable ? Patient's orthostatic vitals : positive - echo showed EF 55-60 % with normal LV function. - per cardiology patient likely had vasovagal syncope ? Patient symptoms small most likely from vasovagal syncope in combination with irretractable nausea and vomiting Plan: - Cardiology Dr Ibarra is consulted, appreciate recommendations. - PT on consult #History of hypertension #Hypertensive urgency, resolved. ? Patient came in with blood pressure of 206/121. Home blood pressure medicine of lisinopril 10 Will adjust blood pressure medicines as pt appears to be in 150s systolic as a trend Plan: ? Increased to lisinopril 20 mg p.o. #Type 2 DM. - Last A1c = 7.2% on 02/2024 ?16 units of short acting use over 24 hours ?Will recheck and adjust after tomorrow's dose Plan: - Continue with insulin correction scale step 3 ? 5 units of Lantus now, 5 units tonight - Hypoglycemia protocol ordered - Blood sugar checks AC #Hx of seizures disorder. #Hx of headaches. ? Patient has not been prescribed antiseizure medication as of recently, last seizure episode was 1.5 years ago. #Health Maintenance Disposition: Telemetry DVT prophylaxis: Heparin GI prophylaxis: Protonix Diet: Carb low consistent CODE STATUS: Full Patient seen and care discussed with my senior resident, Dr. Gilliam, and my attending physician, Dr. Sebastian Wilson, PGY-1 Attending Provider Attestation/Addendum I reviewed labs, imaging, EKG, home medications and prior available records. Face to face evaluation was performed by me. I have personally examined the patient and discussed assessment and plan with the IM team. I reviewed the resident note and agree with the plan with exceptions as below. Intractable nausea and vomiting/chest pain at rest: In the setting of hemorrhagic gastritis and biliary dyskinesia. Status post EGD that showed hemorrhagic gastritis. Status post laparoscopic cholecystectomy. Continue PPI and sucralfate. Management of pain as needed. Wean off IV opiates. Advance diet as tolerated. Management of nausea/vomiting as needed. Pending bowel movement Hemorrhagic gastritis: As above Low ejection fracture of gallbladder: Per HIDA scan. Status post laparoscopic cholecystectomy. As above Uncontrolled hypertension: Increase lisinopril to 20 mg daily. Monitor BP Uncontrolled diabetes mellitus with hyperglycemia: Increase Lantus. Continue sliding scale insulin. Monitor fingersticks
[2024-04-02] MEDS: ACETAMINOPHEN 325 MG TABLET 650 MG PO ×3 (12:33→23:15)
[2024-04-02] MEDS: METOCLOPRAMIDE INJ 5 MG/ML VIAL 2 ML 10 MG IVP ×3 (12:33→23:14)
--- NOTE | 2024-04-02 14:37 | ESPR_ITS ---
<Statement entered by Chaparro Ibarra MD - 04/03/24 09:04> The patient is doing much better now not not have any further cardiac symptoms or syncopal episode stable I reviewed the patient's with resident physician agree with continued treatment plan recommendation to patient can be discharged from cardiology point of view no further workup is needed Documentation for date of: 04/02/24 Subjective Subjective Interval history: No overnight events. Patient seen and examined at bedside. Patient complaining of diffuse abdominal pain, nausea. Denies vomiting. Patient denies chest pain, shortness of breath, fevers or chills. Patient status post surgery, cleared for discharge from cardiology perspective. Exam Vital Signs Temp Pulse Resp BP Pulse Ox O2 Del Method O2 Flow Rate 97.5 F 90 17 132/74 H 96 Room Air 1 04/02/24 12:00 04/02/24 12:04/02/24 12:04/02/24 12:04/02/24 12:04/02/24 12:03/31/24 20:00 Narrative Exam PE: Gen: Well-developed and well-nourished. Appears mildly distressed. HEENT: NCAT, PERRLA, EOMI, MMM, anicteric conjunctivae. CVS: normal S1 and S2. RRR. No M/R/G. Resp: CTA B/L. No rhonchi, rales, crackles or wheezing. Abd: Mild diffuse abdominal tenderness. Surgical sites bandaged without erythema or drainage. MSK: Good ROM in BUE & BLE. No edema or rash. Neuro: CN II-XII grossly intact. Strength 5/5 in BUE & BLE. Alert and oriented x3. Psych: appropriate mood and affect. Objective Labs 04/02/24 04:30 04/02/24 04:30 Labs: Laboratory Results - last 24 hr 04/02/24 04:30 WBC 10.0 RBC 3.71 L Hgb 11.4 L Hct 30.5 L MCV 82 MCH 30.7 MCHC 37.4 H RDW Std Deviation 39.2 Plt Count 468 H D Neut % (Auto) 65 Lymph % (Auto) 17 [place] % (Auto) 9 Eos % (Auto) 8 Baso % (Auto) 1 Neut # (Auto) 6.4 Lymph # (Auto) 1.7 [place] # (Auto) 0.9 H Eos # (Auto) 0.8 H Baso # (Auto) 0.1 Immature Gran # (Auto) 0.04 H Absolute Nucleated RBC 0.00 Immature Gran % 0 Nucleated RBC % 0 Sodium 137 Potassium 3.7 Chloride 100 Carbon Dioxide 29.2 Anion Gap 8 BUN 12 Creatinine 0.5 L Estim Creat Clear Calc 98.9 eGFR > 60 BUN/Creatinine Ratio 24 H Glucose 214 H Calculated Osmolality 279 Calcium 8.8 ABG Interpretation ABG results: 03/26/24 12:18 VBG pH 7.42 VBG pCO2 41 VBG pO2 53 VBG Base Excess 2 Quality Measures Quality Measures VTE prophylaxis Advance care planning discussed with:: patient Assessment & Plan Assessment Current Active Medications: Generic Name Dose Route Start Last Admin Trade Name Freq PRN Reason Stop Dose Admin Acetaminophen 650 mg 04/02/24 12:00 04/02/24 12:33 Acetaminophen 325 Mg Tablet PO 05/02/24 11:59 650 mg Q6HR TULIO Administration Celecoxib 100 mg 03/28/24 11:13 04/02/24 02:20 Celecoxib 100 Mg Capsule PO 04/27/24 11:14 100 mg BID PRN Administration chest wall pain Protocol Dextrose 25 ml 03/26/24 15:37 Dextrose 50%-Water Inj 50 Ml Syringe IV 04/25/24 15:36 Q15MIN PRN BG 50-70 responsive npo pt Dextrose 50 ml 03/26/24 15:37 Dextrose 50%-Water Inj 50 Ml Syringe IV 04/25/24 15:36 Q15MIN PRN BG <50 OR BG <70 & pt unresponsive Glucagon 1 mg 03/27/24 15:12 Glucagon Inj 1 Mg Vial IM Q15MIN PRN BG <70, and no IV access Insulin Glargine 15 unit 04/03/24 21:00 Insulin Glargine (Lantus) 5 Unit/0.05 Ml (Per 5 Units) SC 05/03/24 20:59 HS TULIO Insulin Glargine 10 unit 04/02/24 21:00 Insulin Glargine (Lantus) 5 Unit/0.05 Ml (Per 5 Units) SC 04/02/24 21:01 X1 ONE Insulin Human Lispro 0 unit 03/31/24 11:30 04/02/24 12:39 Insulin Lispro (Admelog) 1 Unit/0.01 Ml Unit SC 04/30/24 11:29 3 unit AC TULIO Administration Protocol Lactulose 20 gm 03/28/24 09:00 04/02/24 08:26 Lactulose Syrup 20 Gm/30 Ml Udc PO 04/25/24 15:44 20 gm QDAY TULIO Administration Protocol Lidocaine 1 patch 03/28/24 10:56 03/30/24 15:42 Lidocaine 5% 1 Patch TOP 04/27/24 10:55 1 patch UD PRN Administration PAIN Protocol Lisinopril 20 mg 04/02/24 09:00 04/02/24 08:26 Lisinopril 20 Mg Tablet PO 05/02/24 08:59 20 mg QDAY TULIO Administration Metoclopramide HCl 10 mg 04/02/24 12:00 04/02/24 12:33 Metoclopramide Inj 5 Mg/Ml Vial 2 Ml IVP 04/03/24 11:59 10 mg Q6HR TULIO Administration Protocol Ondansetron HCl 4 mg 03/26/24 15:37 03/30/24 04:46 Ondansetron Inj 2 Mg/Ml Inj 2 Ml IV 04/25/24 15:36 4 mg Q6H PRN Administration NAUSEA OR VOMITING Protocol Pantoprazole Sodium 40 mg 03/30/24 12:00 04/02/24 08:27 Pantoprazole Inj 40 Mg Vial IVP 04/29/24 11:59 40 mg BID TULIO Administration Sennosides 1 tab 04/01/24 10:00 04/02/24 08:26 Senna Tablet PO 05/01/24 09:59 1 tab QDAY TULIO Administration Protocol Sucralfate 1 gm 03/30/24 17:00 04/02/24 12:33 Sucralfate Susp 1 Gm/10 Ml Udc PO 04/26/24 20:59 1 gm ACHS TULIO Administration Plan 68-year-old female with past medical history of hypertension, DM2, seizures, headaches, and frequent UTIs was admitted to the hospital on 03/26/2024 for syncopal episode and intractable nausea and vomiting. She was found to have biliary dyskinesia on HIDA scan, requiring cholecystectomy to be performed by Dr. Smith, post operative day 2 for cholecystectomy and incidental appendectomy. #Syncopal episode, resolved #Orthostatic hypotension, improving Patient came in with complaints of chest pain sharp in nature which radiated to the left arm and with some numbness of the left lower face, this was followed by a syncopal episode. EKG did not show any ST changes. Chest CTA was unremarkable. Head CT was unremarkable. Chest x-ray was unremarkable. Patient's orthostatic vitals were positive. Echo showed EF 55-60 % with normal LV function. Likely vasovagal syncope exacerbated by intractable nausea and vomiting. -PT consulted -No further management needed from cardiology perspective #History of hypertension #Hypertensive urgency, resolved. Patient came in with blood pressure of 206/121. Home blood pressure medicine of lisinopril 10. Patient's blood pressure remained consistently high despite home medication. -Increased to lisinopril 20 mg p.o. #Biliary Dyskinesia, s/p cholecystectomy #Incidental appendectomy #Intractable nausea and vomiting, resolved #Hemorrhagic gastritis #Constipation #Type 2 DM. #Hx of seizures disorder. #Hx of headaches. Management as per primary team Disposition: Telemetry DVT prophylaxis: Heparin GI prophylaxis: Protonix Diet: Carb low consistent CODE STATUS: Full Plan of care discussed with attending Dr. Ibarra. Alber Dunn MD PGY?1
--- NOTE | 2024-04-02 21:40 | ESPR_ITS ---
Documentation for date of: 04/02/24 Subjective Subjective Interval history: Patient evaluated C. Complains of some nausea Hemoglobin hematocrit stable at 11.4 and 30.5 Patient status post laparoscopic cholecystectomy and incidental appendectomy Exam Vital Signs Temp Pulse Resp BP Pulse Ox O2 Del Method O2 Flow Rate 97.7 F 88 15 175/96 H 97 Room Air 1 04/02/24 20:00 04/02/24 20:00 04/02/24 20:00 04/02/24 20:00 04/02/24 20:00 04/02/24 20:00 03/31/24 20:00 Objective Labs 04/02/24 04:30 04/02/24 04:30 Labs: Laboratory Results - last 24 hr 04/02/24 04:30 WBC 10.0 RBC 3.71 L Hgb 11.4 L Hct 30.5 L MCV 82 MCH 30.7 MCHC 37.4 H RDW Std Deviation 39.2 Plt Count 468 H D Neut % (Auto) 65 Lymph % (Auto) 17 [place] % (Auto) 9 Eos % (Auto) 8 Baso % (Auto) 1 Neut # (Auto) 6.4 Lymph # (Auto) 1.7 [place] # (Auto) 0.9 H Eos # (Auto) 0.8 H Baso # (Auto) 0.1 Immature Gran # (Auto) 0.04 H Absolute Nucleated RBC 0.00 Immature Gran % 0 Nucleated RBC % 0 Sodium 137 Potassium 3.7 Chloride 100 Carbon Dioxide 29.2 Anion Gap 8 BUN 12 Creatinine 0.5 L Estim Creat Clear Calc 98.9 eGFR > 60 BUN/Creatinine Ratio 24 H Glucose 214 H Calculated Osmolality 279 Calcium 8.8 Impressions Impression: # Hemorrhagic gastritis stable hemoglobin hematocrit # Nausea most likely related to gastroesophageal diffuse disease Continue current management ABG Interpretation ABG results: 03/26/24 12:18 VBG pH 7.42 VBG pCO2 41 VBG pO2 53 VBG Base Excess 2 Assessment & Plan A&P Narrative # Nausea vomiting # Melena # Pain abdomen Plan CCK HIDA scan with ejection fraction of the gallbladder Consent obtained for fiberoptic esophagogastroduodenoscopy with possible biopsy possible therapeutic intervention under intravenous moderate sedation N.p.o. midnight except p.o. meds Other medical problems include # Chest pain with a normal troponin # Diabetes mellitus type 2 # Headache # Syncope thank you very much for the opportunity to participate in the care of this patient Time Spent With Patient Time: Total time spent is greater than 50% in coordination of care (as documented) at patient's floor/unit and/or counseling patient:
[2024-04-02] MEDS: INSULIN GLARGINE (Lantus) 5 UNIT/0.05 ML (PER 5 UNITS) 10 UNIT SC (23:13)
[2024-04-03] VITALS (9 sets, daily range): BP systolic 120–171; BP diastolic 62–94; PULSE 80–93; RESP 16–95; TEMP 36.1–36.8; O2SAT 93–99
[2024-04-03 05:43] LABS: Basophils # (Auto) 0.1 Thou/mm3 (0.0-0.2); Basophils % (Auto) 1 % (0-2.5); Eosinophils # (Auto) 0.7 Thou/mm3 (0.0-0.5); Eosinophils % (Auto) 8 % (0-10); Hematocrit 29.7 % (36.0-46.0); Hemoglobin 10.9 g/dL (12.0-16.0); Immature Granulocytes % (Auto) 0 % (0-0); Immature Granulocytes Auto 0.03 Thou/mm3 (0.00-0.00); Lymphocytes # (Auto) 1.9 Thou/mm3 (1.0-4.8); Lymphocytes % (Auto) 20 % (10-50); Mean Corpuscular HGB Conc 36.7 g/dl (31.0-37.0); Mean Corpuscular Hemoglobin 30.4 pg (25.0-35.0); Mean Corpuscular Volume 83 fL (80-100); Monocytes # (Auto) 0.8 Thou/mm3 (0.0-0.8); Monocytes % (Auto) 9 % (0-12); Neutrophils # (Auto) 5.8 Thou/mm3 (1.8-7.7); Neutrophils % (Auto) 63 % (37-80); Nucleated Red Blood Cell % 0 /100 WBC (0); Platelet Count 476 Thou/mm3 (140-440); RDW Standard Deviation 39.7 fL (36.4-46.3); Red Blood Count 3.59 Miln/mm3 (4.00-5.20); White Blood Count 9.3 Thou/mm3 (3.6-11.0)
[2024-04-03] MEDS: ACETAMINOPHEN 325 MG TABLET 650 MG PO ×4 (05:53→23:46)
[2024-04-03] MEDS: METOCLOPRAMIDE INJ 5 MG/ML VIAL 2 ML 10 MG IVP (05:54)
[2024-04-03 06:04] LABS: Anion Gap 8 (7-16); BUN/Creatinine Ratio 38 Ratio (12-20); Blood Urea Nitrogen 15 mg/dL (9-23); Calcium 8.5 mg/dL (8.3-10.6); Carbon Dioxide 27.9 mMol/L (20.0-31.0); Chloride 102 mMol/L (98-107); Creatinine (Component) 0.4 mg/dL (0.6-1.3); Estimated Creatinine Clearance 125.6 mL/min (>60); Glucose 172 mg/dL (74-106); Osmolality,Calculated 280 (275-295); Potassium 3.6 mMol/L (3.4-5.1); Sodium 138 mMol/L (136-145); eGFR > 60 See Note
[2024-04-03] MEDS: SUCRALFATE SUSP 1 GM/10 ML UDC PO ×4 (07:45→21:36)
[2024-04-03] MEDS: INSULIN LISPRO (AdmeLOG) 1 UNIT/0.01 ML UNIT SC ×4 (07:45→21:43)
--- NOTE | 2024-04-03 08:15 | PC.SS ---
Patient needs a FWW for home. The diagnosis creates mobility limitation that significantly impairs ability to participate in the patients activities of daily living either in their entirety, or in a reasonable time frame. Also the patient is able to safely use the walker and the patient?s mobility is sufficiently resolved with the use of the walker and cane has been ruled out.
--- NOTE | 2024-04-03 08:49 | PC.SS ---
Follow up note: SS submitted order for FWW. SS received a call from [facility] indicating that current insurance on demographics has . They will run Medicare number to verify coverage.
[2024-04-03] MEDS: Lisinopril 20 MG TABLET PO (09:08)
[2024-04-03] MEDS: LACTULOSE SYRUP 20 GM/30 ML UDC PO (09:08)
[2024-04-03] MEDS: SENNA TABLET 1 TAB PO (09:08)
[2024-04-03] MEDS: CELECOXIB 100 MG CAPSULE PO (09:08)
[2024-04-03] MEDS: PANTOPRAZOLE INJ 40 MG VIAL IVP ×2 (09:09→22:33)
--- NOTE | 2024-04-03 10:25 | PC.SS ---
Addendum entered by Kaht Alexander 04/03/24 12:06: SS updated patient and daughter, Tricia @ [phone]. Daughter and patient want to file an appeal. D/c orders are in. Their concern is that patient has not had a few solid b.m.'s yet. They want to wait until she has more consistent b.m.'s. Provided both daughter and patient with Medicare IMM numbers. Updated physician. Original Note: SS received update that patient's insurance has termed. She is now [employer] effec. 03-28-24. SS faxed order to [facility] o/p PT as well as [facility] for FWW order. Possible d/c home today.
--- NOTE | 2024-04-03 11:33 | ESDS_ITS ---
Planned Discharge Date 04/03/24 DS: Providers Provider Date of admission: 03/26/24 15:38 Primary care physician: Fredis Shah MD Admitting Provider: Fracisco Cortes MD Attending Provider on Admission: Fracisco Cortes MD Consults: 03/26/24 15:43 Consult to Gastroenterology Routine Comment: Consulting Provider: Robert Moran 03/28/24 11:12 Consult to General Surgery Routine Comment: Biliary dyskinesia Consulting Provider: Leticia Frias 03/28/24 15:00 Consult to Cardiology Routine Comment: Consulting Provider: Chaparro Ibarra 03/29/24 09:43 Referral Physical Therapy Routine Comment: symcopal episode, continues having weakness & diz Physician Instructions: Attending Provider on DC: Fracisco Cortes MD Discharging Provider: Demetrio Gilliam MD DS: Diagnosis Discharge Diagnosis (1) Status post cholecystectomy: Status: Acute Problem List Completed Was Problem List Reviewed/Reconciled?: Yes Hospital Course Hospital Course Hospital course: Hospital Course: 68-year-old female with past medical history of hypertension, DM2, seizures, headaches, and frequent UTIs was admitted to the hospital on 03/26/2024 for syncopal episode and intractable nausea and vomiting. She was found to have biliary dyskinesia on HIDA scan. Patient is s/p laparascopic cholecystectomy and incidental appendectomy. She was also found to have hemorrhagic gastritis on Endoscopy. Medications staretd for the same, patient advised to avoid NSAIDs. She continued to have mild abdominal pain post operatively, likely due to constipation from anesthesia and opioid medication use. She responded to fleet enema and oral laxatives, abdominal pain improved after BMs and patient was able to ambulate with assistance. No discharge noted at the surgical site, wound are clean and dry and healing well. Patient is back to her baseline, denies N/V, tolerating diet and having BMs. Problems on this admission: - Hemorrhagic gastritis , moderate - severe - Biliary Dyskinesia s/p cholecystectomy - Incidental appendectomy - Syncope 2/2 Orthostatic hypotension - Primary hypertension - Hypertensive urgency - resolved - Constipation - Type 2 DM Procedures: None Discharge instructions: - Follow up with PCP within 1 week from discharge. If you dont have a PCP call for an appointment at the [facility] - Call for appointment at out patient PT : [phone] - [facility] will provide FWW , call : [phone] - Take pantoprazole 40mg twice a day for gastritis - Take Sucralfate solution 30minutes before meals to prevent gastric hemorrhage - Continue Bp medications as taken at home - Started Januvia daily for blood sugar control. Continue Metformin. - May take Metoclopramide or Miralax if you have constipation We are grateful to be able to participate in Ms Multani's care. We wish her the best. - Demetrio Gilliam MD Status at Discharge Cognitive/behavioral status at discharge: Stable and returned to baseline Time Spent with Patient Time attestation: Total time spent providing and/or coordinating discharge services: more than 50% Exam Vital Signs Temp Pulse Resp BP Pulse Ox O2 Del Method O2 Flow Rate 97.1 F 84 16 141/75 H 95 Room Air 1 04/03/24 08:00 04/03/24 09:08 04/03/24 08:00 04/03/24 09:08 04/03/24 08:00 04/03/24 08:00 03/31/24 20:00 Narrative Exam Gen: Well-developed and well-nourished. HEENT: NCAT, PERRLA, EOMI, MMM, anicteric conjunctivae. CVS: normal S1 and S2. RRR. No M/R/G. Resp: CTA B/L. No rhonchi, rales, crackles or wheezing. Abd: Minimal abdominal tenderness. Surgical sites bandaged without erythema or drainage. MSK: Good ROM in BUE & BLE. No edema or rash. Neuro: CN II-XII grossly intact. Strength 5/5 in BUE & BLE. Alert and oriented x3. Psych: appropriate mood and affect. Discharge Plan Plan Patient Disposition: HOME (Self Care) Patient condition on transfer: Stable Care Plan Goals: - Follow up with PCP within 1 week from discharge. If you dont have a PCP call : [facility] [address] , [address] [place] [address] - Call out patient PT Department at: [phone] - [facility] will provide FWW at: [phone] - Take pantoprazole 40mg twice a day for gastritis - Take Sucralfate solution 30minutes before meals to prevent gastric hemorrhage - Continue Bp medications as taken at home - Started Januvia daily for blood sugar control. Continue Metformin. - May take Metoclopramide or Miralax if you have constipation Prescriptions/Referrals Prescriptions/Med Rec: New pantoprazole [Protonix] 40 mg tablet,delayed release (DR/EC) 40 mg PO BID Qty: 60 0RF Januvia 25 mg tablet 25 mg PO QDAY 30 Days Qty: 30 0RF metoclopramide HCl 5 mg tablet 5 mg PO QDAY PRN (Reason: constipation) 30 Days Qty: 30 0RF polyethylene glycol 3350 [Miralax] 17 gram/dose powder 4 g PO QDAY PRN (Reason: constipation) 30 Days Qty: 119 0RF sucralfate 100 mg/mL suspension 10 ml PO QID 30 Days Qty: 1200 0RF Rx Instructions: swish in mouth and swallow; use after food/drink metformin 500 mg tablet 500 mg PO BIDWMEAL 30 Days Qty: 60 0RF Continued benazepril 5 mg tablet 10 mg PO QDAY Discontinued famotidine 20 mg tablet 20 mg PO QDAY Qty: 30 1RF metformin 1,000 mg tablet 500 mg PO BID Referrals: Fredis Shah MD [Primary Care Provider] - Patient/Caregiver Discharge Instructions Discharge Activity: resume usual activities Other Discharge Activity Instructions:: - Follow up with PCP within 1 week from discharge. If you dont have a PCP call : [facility] [address] , [address] [place] [address] - Call out patient PT Department at: [phone] - [facility] will provide FWW at: [phone] - Take pantoprazole 40mg twice a day for gastritis - Take Sucralfate solution 30minutes before meals to prevent gastric hemorrhage - Continue Bp medications as taken at home - Started Januvia daily for blood sugar control. Continue Metformin. - May take Metoclopramide or Miralax if you have constipation Education Materials: Preventing Surgical Site Infections Print Language: Tajik Stand Alone Forms: Britt Award Info., Patient Portal Info Letter Discharge Order Discharge Orders: Discharge (Routine); Ordered 04/03/24 Ordered By: Demetrio Gilliam Quality Discharge Quality Measures VTE prophylaxis MD Attestestation MD Attestation I reviewed labs, imaging, EKG, home medications and prior available records. Face to face evaluation was performed by me. I have personally examined the patient and discussed assessment and plan with the IM team. I reviewed the resident note and agree with the plan with exceptions as below. Intractable nausea and vomiting/chest pain at rest: In the setting of hemorrhagic gastritis and biliary dyskinesia. Status post EGD that showed hemorrhagic gastritis. Status post laparoscopic cholecystectomy. Continue PPI and sucralfate. Management of pain as needed. Wean off IV opiates. Advance diet as tolerated. Management of nausea/vomiting as needed. Pending bowel movement Hemorrhagic gastritis: As above Low ejection fracture of gallbladder: Per HIDA scan. Status post laparoscopic cholecystectomy. As above Uncontrolled hypertension: Increase lisinopril to 20 mg daily. Monitor BP Uncontrolled diabetes mellitus with hyperglycemia: Increase Lantus. Continue sliding scale insulin. Monitor fingersticks Patient is appealing her discharge. custodial maintenance worker is notified. Discussed with social worker health services
--- NOTE | 2024-04-03 14:18 | PC.CC ---
[facility] Case Control ID [id number]; documents uploaded to provider portal.
--- NOTE | 2024-04-03 20:42 | PD.IMPROG ---
Documentation for date of: 04/03/24 Subjective Subjective Interval history: Improvement in nausea Continue current management Exam Vital Signs Temp Pulse Resp BP Pulse Ox O2 Del Method O2 Flow Rate 96.9 F 82 18 171/92 H 99 Room Air 1 04/03/24 16:00 04/03/24 16:19 04/03/24 16:19 04/03/24 16:00 04/03/24 16:00 04/03/24 16:00 03/31/24 20:00 Objective Labs 04/03/24 04:50 04/03/24 04:50 Labs: Laboratory Results - last 24 hr 04/03/24 04:50 WBC 9.3 RBC 3.59 L Hgb 10.9 L Hct 29.7 L MCV 83 MCH 30.4 MCHC 36.7 RDW Std Deviation 39.7 Plt Count 476 H Neut % (Auto) 63 Lymph % (Auto) 20 [place] % (Auto) 9 Eos % (Auto) 8 Baso % (Auto) 1 Neut # (Auto) 5.8 Lymph # (Auto) 1.9 [place] # (Auto) 0.8 Eos # (Auto) 0.7 H Baso # (Auto) 0.1 Immature Gran # (Auto) 0.03 H Absolute Nucleated RBC 0.00 Immature Gran % 0 Nucleated RBC % 0 Sodium 138 Potassium 3.6 Chloride 102 Carbon Dioxide 27.9 Anion Gap 8 BUN 15 Creatinine 0.4 L Estim Creat Clear Calc 125.6 eGFR > 60 BUN/Creatinine Ratio 38 H Glucose 172 H Calculated Osmolality 280 Calcium 8.5 Impressions Impression: # Status post laparoscopic cholecystectomy and incidental appendectomy # Improving nausea ABG Interpretation ABG results: 03/26/24 12:18 VBG pH 7.42 VBG pCO2 41 VBG pO2 53 VBG Base Excess 2 Assessment & Plan A&P Narrative # Nausea vomiting # Melena # Pain abdomen Plan CCK HIDA scan with ejection fraction of the gallbladder Consent obtained for fiberoptic esophagogastroduodenoscopy with possible biopsy possible therapeutic intervention under intravenous moderate sedation N.p.o. midnight except p.o. meds Other medical problems include # Chest pain with a normal troponin # Diabetes mellitus type 2 # Headache # Syncope thank you very much for the opportunity to participate in the care of this patient Time Spent With Patient Time: Total time spent is greater than 50% in coordination of care (as documented) at patient's floor/unit and/or counseling patient:
[2024-04-03] MEDS: INSULIN GLARGINE (Lantus) 5 UNIT/0.05 ML (PER 5 UNITS) 15 UNIT SC (21:39)
[2024-04-04] VITALS: BP 170/83; PULSE 85; PULSE 93; RESP 18; TEMP 36.6; O2SAT 96
[2024-04-04 04:00] VITALS: BP 150/80; PULSE 83; PULSE 86; RESP 19; RESP 97; TEMP 36.6; O2SAT 97
[2024-04-04] MEDS: CELECOXIB 100 MG CAPSULE PO (04:13)
[2024-04-04] MEDS: ACETAMINOPHEN 325 MG TABLET 650 MG PO ×2 (05:04→11:53)
[2024-04-04 06:00] VITALS: BMI 14.0
[2024-04-04 07:49] VITALS: BP 151/78; PULSE 89; RESP 19; TEMP 36.3; O2SAT 97
[2024-04-04] MEDS: INSULIN LISPRO (AdmeLOG) 1 UNIT/0.01 ML UNIT SC ×2 (07:52→11:52)
[2024-04-04] MEDS: SUCRALFATE SUSP 1 GM/10 ML UDC PO ×2 (07:52→11:53)
[2024-04-04 08:00] VITALS: PULSE 80
[2024-04-04 08:30] VITALS: BP 151/78; PULSE 89
[2024-04-04] MEDS: Lisinopril 20 MG TABLET 30 MG PO (08:30)
[2024-04-04] MEDS: SENNA TABLET 1 TAB PO (08:31)
[2024-04-04] MEDS: PANTOPRAZOLE INJ 40 MG VIAL IVP (08:31)
[2024-04-04] MEDS: LACTULOSE SYRUP 20 GM/30 ML UDC PO (08:33)
[2024-04-04 12:00] VITALS: BP 142/78; PULSE 88; PULSE 97; RESP 19; TEMP 36.3; O2SAT 97
--- NOTE | 2024-04-04 13:13 | PC.SS ---
[employer] T[employer] Technician (EZRA) Rasheeda received a phone call from patient's daughter, Tricia. EZRA informed by Tricia that she was requesting an update from [employer]. EZRA checked [employer] Portal and patient will be liable for payment on 04/05/2024. EZRA notified Tricia and confirmed discharge plan, which would be to return home, transportation provided by family. Tricia also requested to speak to Dr. Cortes via telephone. EZRA updated bedside Willis and Dr. Cortes.
--- NOTE | 2024-04-04 14:08 | PD.IMPROG ---
Documentation for date of: 04/04/24 Subjective Subjective Interval history: Patient evaluated agree with discharge planning Exam Vital Signs Temp Pulse Resp BP Pulse Ox O2 Del Method O2 Flow Rate 97.4 F 88 19 142/78 H 97 Room Air 1 04/04/24 12:00 04/04/24 12:00 04/04/24 12:00 04/04/24 12:00 04/04/24 12:00 04/04/24 12:00 03/31/24 20:00 Objective Labs 04/03/24 04:50 04/03/24 04:50 Impressions Impression: # Hemorrhagic gastritis # Nausea improved # biliary dyskinesia status post laparoscopic cholecystectomy ABG Interpretation ABG results: 03/26/24 12:18 VBG pH 7.42 VBG pCO2 41 VBG pO2 53 VBG Base Excess 2 Assessment & Plan A&P Narrative # Nausea vomiting # Melena # Pain abdomen Plan CCK HIDA scan with ejection fraction of the gallbladder Consent obtained for fiberoptic esophagogastroduodenoscopy with possible biopsy possible therapeutic intervention under intravenous moderate sedation N.p.o. midnight except p.o. meds Other medical problems include # Chest pain with a normal troponin # Diabetes mellitus type 2 # Headache # Syncope thank you very much for the opportunity to participate in the care of this patient Time Spent With Patient Time: Total time spent is greater than 50% in coordination of care (as documented) at patient's floor/unit and/or counseling patient:
--- NOTE | 2024-04-04 14:36 | ESDS_ITS ---
Planned Discharge Date 04/04/24 DS: Providers Provider Date of admission: 03/26/24 15:38 Primary care physician: Fredis Shah MD Admitting Provider: Fracisco Cortes MD Attending Provider on Admission: Fracisco Cortes MD Consults: 03/26/24 15:43 Consult to Gastroenterology Routine Comment: Consulting Provider: Robert Moran 03/28/24 11:12 Consult to General Surgery Routine Comment: Biliary dyskinesia Consulting Provider: Leticia Frias 03/28/24 15:00 Consult to Cardiology Routine Comment: Consulting Provider: Chaparro Ibarra 03/29/24 09:43 Referral Physical Therapy Routine Comment: symcopal episode, continues having weakness & diz Physician Instructions: Attending Provider on DC: Fracisco Cortes MD Discharging Provider: Fracisco Cortes MD DS: Diagnosis Problem List Completed Was Problem List Reviewed/Reconciled?: Yes Hospital Course Hospital Course Hospital course: 68-year-old female with past medical history of hypertension, DM2, seizures, headaches, and frequent UTIs was admitted to the hospital on 03/26/2024 for syncopal episode and intractable nausea and vomiting. She was found to have biliary dyskinesia on HIDA scan. Patient is s/p laparascopic cholecystectomy and incidental appendectomy. She was also found to have hemorrhagic gastritis on Endoscopy. Medications staretd for the same, patient advised to avoid NSAIDs. Sh donny continued to have mild abdominal pain post operatively, likely due to constipation from anesthesia and opioid medication use. She responded to fleet enema and oral laxatives, abdominal pain improved after BMs and patient was able to ambulate with assistance. No discharge noted at the surgical site, wound are clean and dry and healing well. Patient is back to her baseline, denies N/V, tolerating diet and having BMs. She appealed discharge status in which it was reviewed and it was denied as pt is medically cleared at this time. We do recommend patient to follow up with GI for outpatient colonoscopy. We informed her to take tylenol for pain and we will be prescribing a short course of as needed nacrotic pain medicine. She was also informed to avoid NSAIDs including motrin and naproxen as she has hx of hemorrhagic gastritis. - Follow up with PCP within 1 week from discharge. If you dont have a PCP call : [facility] [address] , [address] [place] [address] - Call out patient PT Department at: [phone] - [facility] will provide FWW at: [phone] - Take pantoprazole 40mg twice a day for gastritis. - Take Sucralfate solution 30minutes before meals to prevent gastric hemorrhage. - Continue Bp medications as taken at home. - Started Januvia daily for blood sugar control. Continue Metformin. - May take Metoclopramide or Miralax if you have constipation. - Follow up with GI Dr. Moran within 2 week and schedule outpatient colonoscopy. - Follow up with PCP within 1 week - Avoid taking NSAIDs including Motrin (ibuprofen), and Aleeve (Naproxen) #Hemorrhagic gastritis , moderate - severe #Biliary Dyskinesia s/p cholecystectomy #Incidental appendectomy #Syncope 2/2 Orthostatic hypotension #Primary hypertension #Hypertensive urgency - resolved #Constipation #Type 2 DM Patient seen and care discussed with my senior resident, Dr. Pugh , and my attending physician, Dr. Sebsatian Wilson, PGY-1 Time Spent with Patient Time attestation: Total time spent providing and/or coordinating discharge services: Time spent: Greater than 30 minutes Exam Vital Signs Temp Pulse Resp BP Pulse Ox O2 Del Method O2 Flow Rate 97.4 F 88 19 142/78 H 97 Room Air 1 04/04/24 12:00 04/04/24 12:04/04/24 12:04/04/24 12:04/04/24 12:04/04/24 12:03/31/24 20:00 Narrative Exam Gen: Well-developed and well-nourished elderly female. HEENT: NCAT, PERRLA, EOMI, MMM, anicteric conjunctivae. CVS: normal S1 and S2. RRR. No M/R/G. Resp: CTA B/L. No rhonchi, rales, crackles or wheezing. Abd: BS+ in all 4 quadrants, bandages present over abdomen, no erythema or active pus drainage at this time MSK: Good ROM in BUE & BLE. No edema or rash. Neuro: CN II-XII grossly intact. Strength 5/5 in BUE & BLE. Alert and oriented x3. Psych: appropriate mood and affect. Discharge Plan Plan Patient Disposition: HOME (Self Care) Patient condition on transfer: Stable Care Plan Goals: - Follow up with PCP within 1 week from discharge. If you dont have a PCP call : [facility] [address] , [address] [place] [address] - Call out patient PT Department at: [phone] - [facility] will provide FWW at: [phone] - Take pantoprazole 40mg twice a day for gastritis - Take Sucralfate solution 30minutes before meals to prevent gastric hemorrhage - Continue Bp medications as taken at home - Started Januvia daily for blood sugar control. Continue Metformin. - May take Metoclopramide or Miralax if you have constipation - Follow up with GI Dr. Moran within 2 week and schedule outpatient colonoscopy. - Follow up with PCP within 1 week. - Catrachita marry jesus con el PCP dentro de la semana posterior al raj. Si no tiene un PCP, llame a: [facility] [address], [address] [place] [address] - Llame al Departamento de fisioterapia para pacientes al: [phone] - [facility] proporcionar? FWW al: [phone] - Aren pantoprazol 40 mg dos veces al d?a para la gastritis. - Aren soluci?n de sucralfato 30 minutos antes de las comidas para prevenir hemorragia g?strica. - Continuar con los medicamentos para la Bp oleg candy se maura en casa. - Comenz? Januvia diariamente para controlar el az?car en ashutosh. Continuar con metformina. - Puede aren Metoclopramida o Miralax si tiene estre?imiento. - Catrachita un seguimiento con el GI Dr. Moran dentro de las 2 semanas y programe marry colonoscopia para pacientes ambulatorios. - Catrachita marry jesus con el PCP dentro de 1 semana. Prescriptions/Referrals Prescriptions/Med Rec: New pantoprazole [Protonix] 40 mg tablet,delayed release (DR/EC) 40 mg PO BID Qty: 60 0RF Januvia 25 mg tablet 25 mg PO QDAY 30 Days Qty: 30 0RF metoclopramide HCl 5 mg tablet 5 mg PO QDAY PRN (Reason: constipation) 30 Days Qty: 30 0RF polyethylene glycol 3350 [Miralax] 17 gram/dose powder 4 g PO QDAY PRN (Reason: constipation) 30 Days Qty: 119 0RF sucralfate 100 mg/mL suspension 10 ml PO QID 30 Days Qty: 1200 0RF Rx Instructions: swish in mouth and swallow; use after food/drink metformin 500 mg tablet 500 mg PO BIDWMEAL 30 Days Qty: 60 0RF hydromorphone [Dilaudid] 2 mg tablet 2 mg PO Q6H MDD 10 mg PRN (Reason: pain) Qty: 14 0RF Continued benazepril 5 mg tablet 10 mg PO QDAY Discontinued famotidine 20 mg tablet 20 mg PO QDAY Qty: 30 1RF metformin 1,000 mg tablet 500 mg PO BID Referrals: Fredis Shah MD [Primary Care Provider] - Robert Moran MD [Physician] - Patient/Caregiver Discharge Instructions Discharge Activity: resume usual activities Other Discharge Activity Instructions:: - Follow up with PCP within 1 week from discharge. If you dont have a PCP call : [facility] [address] , [address] [place] [address] - Call out patient PT Department at: [phone] - [facility] will provide FWW at: [phone] - Take pantoprazole 40mg twice a day for gastritis. - Take Sucralfate solution 30minutes before meals to prevent gastric hemorrhage. - Continue Bp medications as taken at home. - Started Januvia daily for blood sugar control. Continue Metformin. - May take Metoclopramide or Miralax if you have constipation. - Follow up with GI Dr. Moran within 2 week and schedule outpatient colonoscopy. - Follow up with PCP within 1 week - Avoid taking NSAIDs including Motrin (ibuprofen), and Aleeve (Naproxen) Education Materials: Preventing Surgical Site Infections Print Language: Upper Sorbian Stand Alone Forms: Britt Award Info., Patient Portal Info Letter Discharge Order Discharge Orders: Discharge (Routine); Ordered 04/03/24 Ordered By: Demetrio Gilliam Quality Discharge Quality Measures VTE prophylaxis (SCDs) Attestestation MD Attestation I reviewed labs, imaging, EKG, home medications and prior available records. Face to face evaluation was performed by me. I have personally examined the patient and discussed assessment and plan with the IM team. I reviewed the resident note and agree with the plan with exceptions as below. Intractable nausea and vomiting/chest pain at rest: In the setting of hemorrhagic gastritis and biliary dyskinesia. Status post EGD that showed hemorrhagic gastritis. Status post laparoscopic cholecystectomy. Continue PPI twice daily and sucralfate. Management of pain as needed. Hemorrhagic gastritis: As above Low ejection fracture of gallbladder: Per HIDA scan. Status post laparoscopic cholecystectomy. As above Uncontrolled hypertension: Continue benazepril. Manage pain as needed. Monitor BP Uncontrolled diabetes mellitus with hyperglycemia: Continue metformin. Add Januvia. Monitor fingersticks. Time spent is 40 minutes. More than 50% of the time was spent on patient education and coordination of care.
== END 2024-04-04 15:09 | disposition home or self-care (01) | DRG 417 ==
LOC: SERX 15:07 → SERHOLD 16:37 → S2NX 18:00 → S3SX 04-02 05:02
PROVIDERS: Specialist; Student in an Organized Health Care Education/Training Program; Surgery; Admitting Provider Student in an Organized Health Care Education/Training Program; Emergency Provider Emergency Medicine; PCP Student in an Organized Health Care Education/Training Program; Visit Provider Student in an Organized Health Care Education/Training Program
PROC: (CPT 43239; principal; 2024-03-27 18:00)
PROC: 0FT44ZZ Resection of Gallbladder, Percutaneous Endoscopic Approach (ICD-10-PCS; CPT 47562; principal; 2024-03-30 09:00)
PROC: 0DTJ4ZZ Resection of Appendix, Percutaneous Endoscopic Approach (ICD-10-PCS; CPT 44970; 2024-03-30 09:00)
DX: K82.4 Cholesterolosis of gallbladder (principal); K29.71 Gastritis, unspecified, with bleeding; D62 Acute posthemorrhagic anemia; K82.8 Other specified diseases of gallbladder; I10 Essential (primary) hypertension; K20.90 Esophagitis, unspecified without bleeding; I16.0 Hypertensive urgency; K38.9 Disease of appendix, unspecified; E11.65 Type 2 diabetes mellitus with hyperglycemia; K59.00 Constipation, unspecified; I95.1 Orthostatic hypotension; K44.9 Diaphragmatic hernia without obstruction or gangrene; R20.0 Anesthesia of skin; M54.6 Pain in thoracic spine; G40.909 Epilepsy, unspecified, not intractable, without status epilepticus; I20.9 Angina pectoris, unspecified; Z79.899 Other long term (current) drug therapy; Z87.440 Personal history of urinary (tract) infections; T41.45XA Adverse effect of unspecified anesthetic, initial encounter
CPT/HCPCS: 36415; 36600; 70450; 71045; 71275; 74177; 76705; 78227; 80048; 80053; 80061; 80076; 81001; 82010; 82150; 82803; 83036; 83605; 83690; 83735; 83880; 84100; 84145; 84443; 84484; 85025; 85379; 85610; 85652; 86140; 87040; 87400; 87811; 93005; 93225; 93306; 96360; 96361; 97162; 99285; A4217; A4649; A9537; J0360; J1200; J1643; J1815; J1885; J2250; J2405; J2470; J2704; J2765; J2805; J3010; J3475; J3490; J7030; J7040; J7120; Q9967; A9270; J1920

== ENCOUNTER 2024-04-10 16:15 | Inpatient (IN) | payer OTHER, MEDICARE, SELFPAY ==
[2024-04-10 17:03] VITALS: BP 125/73; PULSE 93; RESP 20; TEMP 37.1; O2SAT 99
--- NOTE | 2024-04-10 17:12 | XR_ITS ---
Examination: CT abdomen and pelvis without contrast. Coronal 3-D reconstructions. Sagittal 2-D reconstructions. Date and time of exam:April 10, 2024 1715 hours Comparison March 26, 2024 Indications: Generalized abdominal pain and painful urination 4 days CTDI: vol (mGy): 7.52 DLP: (mGycm): 416 Technique: Axial images of the abdomen have been obtained, 3 mm slice thickness Intravenous contrast material has not been administered. Low dose protocols were performed. One or more of the following dose reduction techniques were used; automated exposure control, adjustment of the mA and/or KV according to patient size, use of iterative reconstruction technique. Findings: No focal liver or splenic lesion Absent gallbladder No pancreatic or adrenal mass No renal or ureteral calculi, Cirrhosis 10 mm fat-containing umbilical hernia Air droplets in the anterior abdominal wall, axial image 132, clinical correlation advised Absent appendix No diverticulitis No bowel obstruction Contracted urinary bladder Moderate disc narrowing L5-S1 Impression: Air droplets in the anterior abdominal wall axial image 132, clinical correlation advised No renal or ureteral calculi, no hydronephrosis Appendix not visualized No bowel obstruction or diverticulitis
--- NOTE | 2024-04-10 17:16 | PD.EDRME ---
Rapid Medical Screening Exam E Arrival date/time: 04/10/24 16:15 68-year-old female with a history of hypertension, type 2 diabetes, recent cholecystectomy and appendectomy on 03/30/2024 presents to the emergency room with a chief complaint of 10 out of 10 generalized abdominal pain, nausea, vomiting, weakness. Patient states they called their surgeon and he recommended him to come to the emergency room. I have greeted and performed a focused initial assessment of this patient. A comprehensive ED assessment and evaluation of the patient, analysis of all test results, and completion of the medical decision making process will be conducted by additional ED providers. Chief Complaint: Nausea/Vomiting/Diarrhea Vital signs: Vital Signs Temperature 98.8 F 04/10/24 17:03 Pulse Rate 93 04/10/24 17:03 Respiratory Rate 20 04/10/24 17:03 Blood Pressure 125/73 04/10/24 17:03 Pulse Oximetry (%) 99 04/10/24 17:03 Oxygen Delivery Method Room Air 04/10/24 17:03 Vital signs reviewed by provider: Yes
[2024-04-10 17:47] LABS: Basophils # (Auto) 0.1 Thou/mm3 (0.0-0.2); Basophils % (Auto) 1 % (0-2.5); Eosinophils # (Auto) 0.6 Thou/mm3 (0.0-0.5); Eosinophils % (Auto) 6 % (0-10); Hematocrit 33.6 % (36.0-46.0); Hemoglobin 12.3 g/dL (12.0-16.0); Immature Granulocytes % (Auto) 0 % (0-0); Immature Granulocytes Auto 0.05 Thou/mm3 (0.00-0.00); Lymphocytes # (Auto) 1.7 Thou/mm3 (1.0-4.8); Lymphocytes % (Auto) 15 % (10-50); Mean Corpuscular HGB Conc 36.6 g/dl (31.0-37.0); Mean Corpuscular Hemoglobin 30.4 pg (25.0-35.0); Mean Corpuscular Volume 83 fL (80-100); Monocytes # (Auto) 0.9 Thou/mm3 (0.0-0.8); Monocytes % (Auto) 8 % (0-12); Neutrophils # (Auto) 8.1 Thou/mm3 (1.8-7.7); Neutrophils % (Auto) 71 % (37-80); Nucleated Red Blood Cell % 0 /100 WBC (0); Platelet Count 574 Thou/mm3 (140-440); RDW Standard Deviation 39.9 fL (36.4-46.3); Red Blood Count 4.05 Miln/mm3 (4.00-5.20); White Blood Count 11.5 Thou/mm3 (3.6-11.0)
[2024-04-10] MEDS: ONDANSETRON ODT 4 MG TABRAP PO (18:21)
[2024-04-10 18:22] LABS: Alanine Aminotransferase 11 U/L (10-49); Albumin, Serum 4.5 gm/dL (3.4-4.8); Albumin/Globulin Ratio 1.8 (1.2-2.2); Alkaline Phosphatase 114 U/L (46-116); Anion Gap 8 (7-16); Aspartate Amino Transferase 14 U/L (0-34); BUN/Creatinine Ratio 24 Ratio (12-20); Bilirubin,Total 0.5 mg/dL (0.3-1.2); Blood Urea Nitrogen 24 mg/dL (9-23); Calcium 9.5 mg/dL (8.3-10.6); Calcium (Corrected) 9.5 mg/dL (8.5-10.1); Carbon Dioxide 25.8 mMol/L (20.0-31.0); Chloride 102 mMol/L (98-107); Globulin 2.5 gm/dL (2.3-3.5); Glucose 184 mg/dL (74-106); Lipase 51 U/L (12-53); Osmolality,Calculated 280 (275-295); Sodium 136 mMol/L (136-145); eGFR > 60 See Note
[2024-04-10] MEDS: KETOROLAC INJ 60 MG/2 ML VIAL 30 MG IM (18:24)
--- NOTE | 2024-04-10 18:26 | PD.EDNV ---
Nausea/Vomit./Diarrhea-RME/HPI General Chief complaint: Nausea/Vomiting/Diarrhea Stated complaint: Vomiting X 4 days, painful urination Time Seen by Provider: 04/10/24 18:14 Arrival date/time: 04/10/24 16:15 RME / HPI RME / HPI Narrative: 04/10/24 16:15 68-year-old female with a history of hypertension, type 2 diabetes, recent cholecystectomy and appendectomy on 03/30/2024 presents to the emergency room with a chief complaint of 10 out of 10 generalized abdominal pain, nausea, vomiting, weakness. Patient states they called their surgeon and he recommended him to come to the emergency room. I have greeted and performed a focused initial assessment of this patient. A comprehensive ED assessment and evaluation of the patient, analysis of all test results, and completion of the medical decision making process will be conducted by additional ED providers. This section includes all my notes and documentations, including HPI, PE, and ED course. Abdulkadir Acuña MD HPI: 68yo female with a history of HTN, DM, seizures, recent appendectomy and cholecystectomy on 03/30/[address] Frias presents to the ED for complaints of generalized abdominal pain and N/V. Patient states she's developed severe abdominal pain and N/V over the last 4 days. She called her surgeon and was advised to come in for evaluation. She denies any fever, chills or any other associated symptoms. No other complaints reported. ROS: All negative except as documented in HPI. Physical Exam: General: Alert and oriented. In obvious pain with appearance of malaise. Eyes: Conjunctivae and lids clear. ENT: No nasal congestion. Neck: Supple. Heart: RRR. Lungs: No respiratory distress. Good air movement. No rhonchi, wheezing, rales. Abdomen: Soft. Diffusely tender. Legs: No clubbing, cyanosis, edema. Skin: Warm and dry. Neuro: Alert and oriented X 3. I reviewed all diagnostic test results. My review of the abdominal CT report is air droplets in the anterior abdominal wall. Blood tests remarkable for WBC 11.5. At this point, diagnoses include intractable abdominal pain and vomiting after cholecystectomy and appendectomy. Treatment here included Toradol, Zofran, Dilaudid, and NS. Significant improvement not noted. I discussed the case with her surgeon and our hospitalist. About the presentation and exam and diagnostics and treatments here. And need of further care in the hospital. Will accept the patient. Abdulkadir Acuña MD Related Data Home Medications ?Medication ?Instructions ?Recorded ?Confirmed benazepril 5 mg tablet 10 mg PO QDAY 03/26/24 03/26/24 Previous Rx's ?Medication ?Instructions ?Recorded pantoprazole 40 mg tablet,delayed 40 mg PO BID #60 tabs 04/01/24 release (Protonix) metformin 500 mg tablet 500 mg PO BIDWMEAL 1 month #60 tabs 04/03/24 metoclopramide HCl 5 mg tablet 5 mg PO QDAY PRN constipation 1 04/03/24 month #30 tabs polyethylene glycol 3350 17 4 g PO QDAY PRN constipation 1 04/03/24 gram/dose oral powder (Miralax) month #119 grams sitagliptin phosphate 25 mg tablet 25 mg PO QDAY 1 month #30 tabs 04/03/24 (Januvia) sucralfate 100 mg/mL oral 10 ml PO QID gastritis 1 month 04/03/24 suspension #1,200 mL hydromorphone 2 mg tablet 2 mg PO Q6H PRN pain #14 tabs 04/04/24 (Dilaudid) Allergies Allergy/AdvReac Type Severity Reaction Status Date / Time morphine AdvReac Severe Anaphylaxis Verified 04/10/24 16:23 Review of Systems Review of Systems Systems Reviewed: All systems reviewed, normal except as documented ED Exam Narrative Physical exam: As noted in HPI. Course Quality Measures none Orders Category Date Time Status COVID-19 Screening Questionnaire NOW Care 04/10/24 19:59 Active Decision to Admit X1 Care 04/10/24 19:59 Active Saline [Insert IV] NOW Care 04/10/24 18:[address] abdomen pelvis wo con Stat Exams 04/10/24 17:12 Completed CBC Stat Lab 04/10/24 17:30 Completed CMP [Comprehensive Metabolic Panel] Stat Lab 04/10/24 17:30 Completed Lipase Stat Lab 04/10/24 17:30 Completed Magnesium Stat Lab 04/10/24 17:30 Completed UA [Urinalysis] Stat Lab 04/10/24 17:12 Ordered Urine Culture Stat Lab 04/10/24 17:12 Ordered HYDROmorphone INJ [Dilaudid Inj] Med 04/10/24 18:41 Discontinued 1 mg IVP X1 ONE Ketorolac Inj [Toradol Inj] Med 04/10/24 17:12 Discontinued 30 mg IM X1 ONE Ondansetron Inj [Zofran Inj] Med 04/10/24 18:41 Discontinued 4 mg IV X1 ONE Ondansetron Odt [Zofran Odt] Med 04/10/24 17:12 Discontinued 4 mg PO X1 ONE Sodium Chloride 0.9% 1000 ml [Ns] 1,000 ml Med 04/10/24 18:41 Discontinued IV 999 mls/hr Vital Signs Vital signs: Vital Signs Temperature 98.8 F 04/10/24 17:03 Pulse Rate 93 04/10/24 17:03 Respiratory Rate 20 04/10/24 17:03 Blood Pressure 125/73 04/10/24 17:03 Pulse Oximetry (%) 99 04/10/24 17:03 Oxygen Delivery Method Room Air 04/10/24 17:03 Nausea/Vomiting/Diarrhea MDM Narrative MDM Narrative:: Scribe Attestation: 04/10/24 Korin Flores am scribing for and in the presence of Dr. Acuña. Patient data External records reviewed:: [facility] previous records (Per chart review, patient was admitted here on 03/26/24 for chest pain.) Clinical information provided by:: patient Social determinants that could affect healthcare access:: none Patient has the following chronic illnesses:: HTN, DM2, seizures How is presenting disease/condition affected by chronic disease/condition?: uneffected by Evaluation data The following diagnostics were reviewed and interpreted by me:: lab results and radiology exam(s) Lab and/or radiology exams considered but not ordered:: none Interpretation Summary: Intractable abdominal pain and vomiting after appendectomy and cystectomy Medications / Prescriptions Medications / Prescriptions considered but not ordered:: none Medication administrations:: Medication Administration History Acetaminophen (Acetaminophen 325 Mg Tablet) 650 mg PO Q6H PRN PRN Reason: PAIN SCALE 1-3 (mild Stop: 05/10/24 21:01 Acetaminophen (Acetaminophen 325 Mg Tablet) 650 mg PO Q6H PRN PRN Reason: Fever >100.4 Stop: 05/10/24 21:01 Hydrocodone Bitart/Acetaminophen (Hydrocodone/Apap 10/325 Tab) 1 tab PO Q4HR PRN PRN Reason: PAIN SCALE 7-10 (Severe Stop: 04/15/24 21:01 Dextrose (Dextrose 50%-Water Inj 50 Ml Syringe) 25 ml IV Q15MIN PRN PRN Reason: BG 50-70 responsive npo pt Stop: 05/10/24 21:06 Dextrose (Dextrose 50%-Water Inj 50 Ml Syringe) 50 ml IV Q15MIN PRN PRN Reason: BG <50 OR BG <70 & pt unresponsive Stop: 05/10/24 21:06 Glucagon (Glucagon Inj 1 Mg Vial) 1 mg IM Q15MIN PRN PRN Reason: BG <70, and no IV access Heparin Sodium (Porcine) (Heparin Sod Inj 5000 Unit/Ml Vial) 5,000 unit SC Q8HR [facility] Stop: 04/24/24 21:59 Last Admin: 04/10/24 22:29 Dose: 5,000 unit Documented By: MARY KATE Co-signed By: JOAN Sodium Chloride (Ns) 1,000 mls @ 100 mls/hr IV .Q10H [facility] Stop: 04/11/24 07:04 Last Admin: 04/10/24 22:22 Dose: 100 mls/hr Documented By: MARY KATE Piperacillin Sod/Tazobactam (Sod 4.5 gm/ Sodium Chloride) 100 mls @ 200 mls/hr IV Q8HR [facility] Stop: 04/18/24 05:59 Insulin Human Lispro (Insulin Lispro (Admelog) 1 Unit/0.01 Ml Unit) 0 unit SC [facility]; Protocol Stop: 05/11/24 07:29 Lisinopril (Lisinopril 20 Mg Tablet) 10 mg PO QDAY [facility] Stop: 05/11/24 08:59 Ondansetron HCl (Ondansetron Inj 2 Mg/Ml Inj 2 Ml) 4 mg IV Q6H PRN; Protocol PRN Reason: NAUSEA OR VOMITING Stop: 05/10/24 21:01 Oxycodone/Acetaminophen (Oxycodone/Apap 5/325 Tablet) 1 tab PO Q6H PRN PRN Reason: PAIN SCALE 4-6 (Moderate Stop: 04/15/24 21:01 Pantoprazole Sodium (Pantoprazole Inj 40 Mg Vial) 40 mg IVP QDAY [facility] Stop: 05/11/24 08:59 Discontinued Medications Hydromorphone HCl (Hydromorphone Inj 2 Mg/Ml Vial) 1 mg IVP X1 ONE Stop: 04/10/24 18:42 Last Admin: 04/10/24 22:03 Dose: 1 mg Documented By: MARY KATE Sodium Chloride (Ns) 1,000 mls @ 999 mls/hr IV .Q1H1M ONE Stop: 04/10/24 19:41 Last Infusion: 04/10/24 23:05 Dose: Infused Documented By: Admin: 04/10/24 22:04 Dose: 999 mls/hr Documented By: MARY KATE Piperacillin Sod/Tazobactam (Sod 4.5 gm/ Sodium Chloride) 100 mls @ 200 mls/hr IV X1 ONE Stop: 04/10/24 21:59 Last Infusion: 04/10/24 22:55 Dose: Infused Documented By: Admin: 04/10/24 22:22 Dose: 200 mls/hr Documented By: MARY KATE Ketorolac Tromethamine (Ketorolac Inj 60 Mg/2 Ml Vial) 30 mg IM X1 ONE Stop: 04/10/24 17:13 Last Admin: 04/10/24 18:24 Dose: 30 mg Documented By: Ondansetron HCl (Ondansetron Odt 4 Mg Tabrap) 4 mg PO X1 ONE; Protocol Stop: 04/10/24 17:13 Last Admin: 04/10/24 18:21 Dose: 4 mg Documented By: Ondansetron HCl (Ondansetron Inj 2 Mg/Ml Inj 2 Ml) 4 mg IV X1 ONE; Protocol Stop: 04/10/24 18:42 Last Admin: 04/10/24 22:03 Dose: 4 mg Documented By: MARY KATE Toradol, Zofran, Dilaudid, NS Consultations Consultation(s) initiated? (list below): Yes Consultation #1 (Physician, Specialty, Details): Discussed case with Dr. Frias from general surgery regarding consultation. Discussed patients ED course, exam findings, labs, and radiology results. States he will review the CT and call me back. Time: 18:47 Consultation #2 (Physician, Specialty, Details): Dr. Frias called me back, who feels that the patient may need to be admitted for intractable abdominal pain intractable vomiting. Time: 19:26 Consultation #3 (Physician, Specialty, Details): I spoke with Dr. Frias due to the patient continuing to be in severe pain. He states he will consult during admission. Time: 19:45 Diagnosis Nausea Differential Diagnosis: drug-induced nausea and vomiting, dehydration and other (Pneumoperitoneum, intra-abdominal infection) Most likely diagnosis given after review of the tests above:: Intractable abdominal pain and vomiting after cholecystectomy and appendectomy Admission Indicated Admission indicated?: indicated Explain why admission is indicated or not indicated:: Intractable abdominal pain and vomiting after cholecystectomy and appendectomy Admission Request Was there a request for admission?: Yes Admission Attestation Admission request attestation: Discussed case with Hospitalist service regarding admission. Discussed patients ED course, exam findings, labs, and radiology results. The Hospitalist [agrees] to accept the patient for admission. Disposition Plan Disposition Plan: Admit Discharge Plan Plan Patient Disposition: Admit Acute Care w/in Hospital Problem List Clinical Impression: Intractable abdominal pain, Intractable vomiting, Intra-abdominal free air of unknown etiology
[2024-04-10 19:13] LABS: Magnesium 1.7 mg/dL (1.6-2.6)
--- NOTE | 2024-04-10 21:10 | ESHP_ITS ---
Documentation for date of: 04/10/24 HPI History of Present Illness History of present illness: This is a 68-year-old female with PMHx of HTN, T2DM, frequent headaches, frequent UTIs, document history of seizures, presenting to the ED with intractable vomiting and diarrhea. She presented to the hospital on 03/26 with a syncopal episode and intractable nausea and vomiting. At that time, she was seen by her [employer] for abdominal pain and syncopized in the office, they performed a chest compression and, after which she again consciousness. Imaging then showed 6 mm gallbladder polyp, borderline wall thickening and biliary dyskinesia. She completed uncomplicated lap judith and incidental appendectomy with Dr. Smith. She was discharged on REGLAN, MIRALAX and SUCRALFATE which she took for few days. She had a bowel movement prior to discharge, next bowel movement was 4 days after discharge which was normal. Apparently she continued to have normal bowel movement, was tolerating oral intake until 4 days ago when she started experiencing vomiting and diarrhea, about 3-4 episodes daily, occur immediately following meals, unable to keep anything down. Describes soft stool, not watery, nonbloody. Vomiting consist of partially digested stomach content and partial biliary, no blood. Associated with her symptoms are episodes of chills on and off, without fever or night sweats. Her abdominal pain seems to be chronic ongoing for greater than 2 years. She describes episodes of severe pain where she syncopized is from the pain. Pain localized in the epigastric region, appears to be episodic, not related to certain foods or time of meal. She never had endoscopy or colonoscopy done. She also has chronic UTI, as well as chronic vulvovaginal pain leading to burning sensation while urinating for which she follows up with gynecology regularly. Her last appointment was on March 26 when she had her syncope and was sent to the hospital. She has not been able to follow-up with gynecology yet, but her symptoms persist. She complains of bilateral, anterior and posterior chest pain following CPR which was done at her [employer] office on March 26. Pain reproducible on exam, less likely to be cardiac. Denies fever, headaches, fall, trauma, cardiogenic chest pain in nature, shortness of breath, productive cough, or vaginal discharge. ED COURSE: Vitals within normal limit. WBC 11.5 with left shift, PLT 574, otherwise CBC normal. CR 1.0 (baseline 0.4), GLUCOSE 184. Remainder chemistry panel normal including LFTs, lipase, and LA were negative. PMHx: HTN, T2DM, frequent headaches, frequent UTIs, ? seizures. PSHx: Hysterectomy, appendectomy, cholecystectomy. MEDS: BENZEPRO 10 mg, METFORMIN 500, SITAGLIPTIN 25 mg daily, METOCLOPRAMIDE 0.5 mg, PANTOPRAZOLE 40 mg daily, SUCRALFATE 10 mg QID, MIRALAX 4 mg daily. ALLERGIES: MORPHINE (anaphylaxis) FHx: Not relevant. SH: Denies alcohol, tobacco, or drug use. Exam Vital Signs Temp Pulse Resp BP Pulse Ox O2 Del Method 98.8 F 93 20 125/73 99 Room Air 04/10/24 17:03 04/10/24 17:03 04/10/24 17:03 04/10/24 17:03 04/10/24 17:03 04/10/24 17:03 Narrative Exam GENERAL * Normal appearing adult female, in mild distress secondary to pain and vomiting. HEENT * NCAT.?TUNDE. Oral mucosa is moist. Patent Nares NECK * Supple, nontender, no thyromegaly, no meningismus, no JVD, no step offs CHEST * RRR, no m/g/r * CTAB, no w/r/r. Symmetrical chest rise. No intercostal subcostal retraction * Atraumatic, nontender, no crepitus, symmetrical expansion. ABDOMEN * Soft, flat, tender to palpation throughout. * No guarding/rebound tenderness/masses. * Hyperactive bowel sounds throughout. * Surgical ports well-healed, without signs of infection. EXTREMITIES * Nontender, no cyanosis, no edema * No edema/cyanosis.? SKIN * Warm and dry, no jaundice/rashes. NEUROMUSCULAR * No lumbar or midline, no CVA, no paraspinal muscle spasm or tenderness. * Moves all 4 extremities well, with full ROM and good CSM. * CARBALLO x4, CN II-XII grossly intact. * No focal neurologic deficits. PSYCHIATRY * Normal mood and affect, cooperative, no SI or HI or hallucinations. Results: Labs 04/10/24 17:30 04/10/24 17:30 Labs: Short CBC 04/10/24 Range/Units 17:30 WBC 11.5 H (3.6-11.0) Thou/mm3 Hgb 12.3 (12.0-16.0) g/dL Hct 33.6 L (36.0-46.0) % Plt Count 574 H D (140-440) Thou/mm3 BMP 04/10/24 17:30 Sodium 136 Potassium 4.0 Chloride 102 Carbon Dioxide 25.8 BUN 24 H Creatinine 1.0 Glucose 184 H Calcium 9.5 Liver Function 04/10/24 Range/Units 17:30 Total Bilirubin 0.5 (0.3-1.2) mg/dL AST 14 (0-34) U/L ALT 11 (10-49) U/L Alkaline Phosphatase 114 (46-116) U/L Albumin 4.5 (3.4-4.8) gm/dL Quality Measures Quality Measures none Advance care planning discussed with:: patient and child Medications Home Medications and Allergies Home Medications ?Medication ?Instructions ?Recorded ?Confirmed ?Type benazepril 5 mg tablet 10 mg PO QDAY 03/26/2403/26 History Allergies Allergy/AdvReac Type Severity Reaction Status Date / Time morphine AdvReac Severe Anaphylaxis Verified 04/10/24 16:23 Visit Medications Acetaminophen (Acetaminophen 325 Mg Tablet) 650 mg PO Q6H PRN PRN Reason: PAIN SCALE 1-3 (mild Stop: 05/10/24 21:01 Acetaminophen (Acetaminophen 325 Mg Tablet) 650 mg PO Q6H PRN PRN Reason: Fever >100.4 Stop: 05/10/24 21:01 Hydrocodone Bitart/Acetaminophen (Hydrocodone/Apap 10/325 Tab) 1 tab PO Q4HR PRN PRN Reason: PAIN SCALE 7-10 (Severe Stop: 04/15/24 21:01 Dextrose (Dextrose 50%-Water Inj 50 Ml Syringe) 25 ml IV Q15MIN PRN PRN Reason: BG 50-70 responsive npo pt Stop: 05/10/24 21:06 Dextrose (Dextrose 50%-Water Inj 50 Ml Syringe) 50 ml IV Q15MIN PRN PRN Reason: BG <50 OR BG <70 & pt unresponsive Stop: 05/10/24 21:06 Glucagon (Glucagon Inj 1 Mg Vial) 1 mg IM Q15MIN PRN PRN Reason: BG <70, and no IV access Heparin Sodium (Porcine) (Heparin Sod Inj 5000 Unit/Ml Vial) 5,000 unit SC Q8HR [facility] Stop: 04/24/24 21:59 Sodium Chloride (Ns) 1,000 mls @ 100 mls/hr IV .Q10H [facility] Stop: 05/10/24 21:04 Piperacillin Sod/Tazobactam (Sod 4.5 gm/ Sodium Chloride) 100 mls @ 200 mls/hr IV Q8HR [facility] Stop: 04/17/24 21:59 Insulin Human Lispro (Insulin Lispro (Admelog) 1 Unit/0.01 Ml Unit) 0 unit SC [facility]; Protocol Stop: 05/11/24 07:29 Lisinopril (Lisinopril 2.5 Mg Tablet) 10 mg PO QDAY [facility] Stop: 05/11/24 08:59 Ondansetron HCl (Ondansetron Inj 2 Mg/Ml Inj 2 Ml) 4 mg IV Q6H PRN; Protocol PRN Reason: NAUSEA OR VOMITING Stop: 05/10/24 21:01 Oxycodone/Acetaminophen (Oxycodone/Apap 5/325 Tablet) 1 tab PO Q6H PRN PRN Reason: PAIN SCALE 4-6 (Moderate Stop: 04/15/24 21:01 Pantoprazole Sodium (Pantoprazole Inj 40 Mg Vial) 40 mg IVP QDAY [facility] Stop: 05/11/24 08:59 Discontinued Medications Hydromorphone HCl (Hydromorphone Inj 2 Mg/Ml Vial) 1 mg IVP X1 ONE Stop: 04/10/24 18:42 Sodium Chloride (Ns) 1,000 mls @ 999 mls/hr IV .Q1H1M ONE Stop: 04/10/24 19:41 Ketorolac Tromethamine (Ketorolac Inj 60 Mg/2 Ml Vial) 30 mg IM X1 ONE Stop: 04/10/24 17:13 Last Admin: 04/10/24 18:24 Dose: 30 mg Ondansetron HCl (Ondansetron Odt 4 Mg Tabrap) 4 mg PO X1 ONE; Protocol Stop: 04/10/24 17:13 Last Admin: 04/10/24 18:21 Dose: 4 mg Ondansetron HCl (Ondansetron Inj 2 Mg/Ml Inj 2 Ml) 4 mg IV X1 ONE; Protocol Stop: 04/10/24 18:42 Assessment & Plan Plan In summary: 68-year-old female with PMHx of HTN, T2DM, frequent headaches, frequent UTIs, document history of seizures, admitted for abdominal pain, intractable vomiting and diarrhea. Appreciate recommendations from GI. Abdominal pain Intractable vomiting and diarrhea DDx: Gastroenteritis, PUD, SIBO, iatrogenic, bile acid diarrhea, C. difficile, IBS/IBD. Chronic history of recurrent, episodic, severe abdominal pain, not related to eating. She was admitted on 03/26 for abdominal pain, had findings suggestive of biliary dyskinesia, completed uncomplicated cholecystectomy and incidental appendectomy. She was having normal bowel movements after she was discharged. Continue taking PROKINETICS which were described on discharge. Returning with 4 days of soft stool, intractable vomiting, greater than 4 episodes a day. Associated with abdominal pain, chills but no fever. Vitals and labs are relatively stable except for mild leukocytosis and thrombocytosis which are likely reactive, as well as ESR 34, CRP 1.4. CT abdominal pelvis showed air droplets in anterior wall, likely postsurgical changes. Although low suspicion for acute rejection, will treat with ZOSYN. ? Discontinued PROKINETICS ? Continue ZOSYN (04/11 to present) ? Continue ONDANSETRON ? Continue maintenance NS at 100 cc/H ? GI consulted ? Pending C. difficile Prerenal ODILON Likely in settings of volume loss. Creatinine 1.0, baseline 0.4. Received 1 L bolus in ED. ? Fluids as above HTN BP 170/90, HR 80. ? Holding home LISINOPRIL in settings of OIDLON ? Started AMLODIPINE 10 mg daily Mild hypomagnesemia Acute GI loss. Magnesium 1.7, repleted. ? Daily labs Recurrent UTIs Denies symptoms of dysuria, vaginal discharge, urgency or frequency. ? Pending UA T2DM Glucose 184. A1c 7.2 from 02/2024. ? INSULIN sliding scale ? Accu-Cheks Documented history of seizure Patient denies. Continue monitoring. Health maintenance Diet: NPO GI prophylaxis: PROTONIX DVT prophylaxis: HEPARIN subcu Antibiotics: ZOSYN CODE STATUS: Full code Disposition: Pending GI recommendations. Patient case was discussed with attending, Clinton Albert MD. Caren Craig Attending Provider Attestation/Addendum 68-year-old Lithuanian-speaking female was seen in the ED complaining of intractable nausea and vomiting abdominal pain. Patient is taking sucralfate and Dilaudid at home. She had a syncopal episode earlier today and her doctor's clinic. Review of CT scan showed significant fecal load. Patient will be admitted for symptomatic treatment. Patient will need good bowel regimen. She was recently here for Pu[place] cystectomy and incidental appendectomy. Of note she had some reaction including chest discomfort after she was given IV Dilaudid in the ER tonight.
--- NOTE | 2024-04-10 21:50 | PD.IMCONS ---
HPI Data of Consult Primary Care Provider: Fredis Shah MD Consult Narrative Reason for consult: Nausea vomiting History of present illness: 68 years old female being asked to evaluate for nausea and vomiting She did have a gallbladder polyp and CCK HIDA scan with ejection fraction was low with the last admission requiring cholecystectomy Patient comes back and had a CT scan of the abdomen pelvis done with contrast and showed air droplets in the anterior abdominal wall which I believe are related to surgery and is not consistent with any acute abdomen Patient also has constipation cc:: cc: Review of Systems Review of Systems Systems Reviewed: All systems reviewed, normal except as documented Past Medical History Surgical History OTHER SURGICAL HX: Cholecystectomy Essential hypertension Meds Home Medications and Allergies Home Medications ?Medication ?Instructions ?Recorded ?Confirmed ?Type benazepril 5 mg tablet 10 mg PO QDAY 03/26/24 03/26/24 History Allergies Allergy/AdvReac Type Severity Reaction Status Date / Time morphine AdvReac Severe Anaphylaxis Verified 04/10/24 16:23 Exam Vital Signs Temp Pulse Resp BP Pulse Ox O2 Del Method 98.8 F 93 20 125/73 99 Room Air 04/10/24 17:03 04/10/24 17:03 04/10/24 17:03 04/10/24 17:03 04/10/24 17:03 04/10/24 17:03 Constitutional Comments: Alert oriented Routine Respiratory Exam Comments: Normal to auscultation Routine Abdominal Exam Comments: Midepigastric tenderness no rebound Results Labs 04/11/24 04:59 04/11/24 04:59 Labs: Short CBC 04/10/24 Range/Units 17:30 WBC 11.5 H (3.6-11.0) Thou/mm3 Hgb 12.3 (12.0-16.0) g/dL Hct 33.6 L (36.0-46.0) % Plt Count 574 H D (140-440) Thou/mm3 BMP 04/10/24 17:30 Sodium 136 Potassium 4.0 Chloride 102 Carbon Dioxide 25.8 BUN 24 H Creatinine 1.0 Glucose 184 H Calcium 9.5 Liver Function 04/10/24 Range/Units 17:30 Total Bilirubin 0.5 (0.3-1.2) mg/dL AST 14 (0-34) U/L ALT 11 (10-49) U/L Alkaline Phosphatase 114 (46-116) U/L Albumin 4.5 (3.4-4.8) gm/dL Assessment and Plan Additional Assessment & Plan Additional Plan: # Nausea vomiting suggestive of gastric motility disorder # Status post laparoscopic cholecystectomy # Air droplets, on anterior abdominal wall are insignificant and does not suggest any acute abdomen perforated viscus, related to previous surgery # Change of bowel habit with constipation Plan Agree with the current management reevaluate in 24 hours If nausea continues I will consider doing an upper endoscopy Thank you for the opportunity to participate in the care of this patient
[2024-04-10] MEDS: HYDROmorphone INJ 2 MG/ML VIAL 1 MG IVP (22:03)
[2024-04-10] MEDS: ONDANSETRON INJ 2 MG/ML INJ 2 ML 4 MG IV (22:03)
[2024-04-10] MEDS: SODIUM CHLORIDE 0.9% 1000 ML 1,000 ML 999 ML IV (22:04)
[2024-04-10] MEDS: SODIUM CHLORIDE 0.9% 1000 ML 1,000 ML 100 ML IV (22:22)
[2024-04-10] MEDS: PIPER/TAZO INJ 4.5 GM in SODIUM CHLORIDE 0.9% (P) 100 ML IV (22:22)
[2024-04-10] MEDS: HEPARIN SOD INJ 5000 UNIT/ML VIAL SC (22:29)
[2024-04-10 23:00] VITALS: BP 187/94; PULSE 80; RESP 18; TEMP 37.1; O2SAT 100
[2024-04-10 23:21] LABS: C-Reactive Protein 1.4 mg/dL (0.0-0.9)
--- NOTE | 2024-04-10 23:27 | PC.NURSE ---
Dr. Peters in to see pt. Dtr at bedside.
[2024-04-11] VITALS (8 sets, daily range): BP systolic 118–179; BP diastolic 62–90; PULSE 75–84; RESP 16–20; TEMP 36–36.7; O2SAT 95–100; BMI 25.9
[2024-04-11 00:46] LABS: Lactate (Lactic Acid) 1.3 mMol/L (0.4-2.0)
[2024-04-11] MEDS: ONDANSETRON INJ 2 MG/ML INJ 2 ML 4 MG IV ×3 (01:15→14:57)
[2024-04-11 01:24] LABS: Sed Rate (ESR) 34 mm/hr (0-30)
[2024-04-11] MEDS: amLODIPine BESYLATE 5 MG TABLET 10 MG PO (01:37)
[2024-04-11] MEDS: Magnesium Sulfate 2 GM Ivpb 2 GM/50 ML BAG IV (01:38)
[2024-04-11 02:58] LABS: Collection Type, Urine Clean Catch
[2024-04-11 03:12] LABS: Bilirubin,Urine Negative (Negative); Blood,Urine Trace (Negative); Clarity,Urine Clear (Clear/Hazy); Color,Urine Lt-Yellow (Lt Yel-Yel); Glucose, Urine Negative (Negative); Hyaline Casts,Urine < 1 /hpf (0-1); Ketones,Urine Negative (Negative); Leukocyte Esterase,Urine Positive (Negative); Nitrite,Urine Negative (Negative); PH,Urine 5.5 (5.0-7.0); Protein,Urine 1+ (Neg - Trace); RBC,Urine 2 /hpf (0-3); Specific Gravity,Urine 1.017 (1.001-1.035); Squamous Epithelial Cell,Urine 3 /hpf (0-5); Urobilinogen,Urine Negative mg/dL (0.0-1.0); WBC,Urine 5 /hpf (0-5)
[2024-04-11] MEDS: PIPER/TAZO 3.375 GM 50 ML IV ×3 (05:30→21:56)
[2024-04-11] MEDS: ACETAMINOPHEN 325 MG TABLET 650 MG PO (05:30)
[2024-04-11] MEDS: HEPARIN SOD INJ 5000 UNIT/ML VIAL SC ×3 (05:30→21:56)
[2024-04-11 05:47] LABS: Basophils # (Auto) 0.1 Thou/mm3 (0.0-0.2); Basophils % (Auto) 1 % (0-2.5); Eosinophils # (Auto) 0.7 Thou/mm3 (0.0-0.5); Eosinophils % (Auto) 6 % (0-10); Immature Granulocytes % (Auto) 0 % (0-0); Immature Granulocytes Auto 0.05 Thou/mm3 (0.00-0.00); Lymphocytes # (Auto) 1.6 Thou/mm3 (1.0-4.8); Lymphocytes % (Auto) 14 % (10-50); Mean Corpuscular HGB Conc 36.7 g/dl (31.0-37.0); Mean Corpuscular Hemoglobin 30.6 pg (25.0-35.0); Mean Corpuscular Volume 83 fL (80-100); Monocytes # (Auto) 0.8 Thou/mm3 (0.0-0.8); Monocytes % (Auto) 7 % (0-12); Neutrophils # (Auto) 8.1 Thou/mm3 (1.8-7.7); Neutrophils % (Auto) 72 % (37-80); Nucleated Red Blood Cell % 0 /100 WBC (0); Platelet Count 457 Thou/mm3 (140-440); White Blood Count 11.3 Thou/mm3 (3.6-11.0)
[2024-04-11 06:31] LABS: Alanine Aminotransferase 19 U/L (10-49); Albumin, Serum 3.5 gm/dL (3.4-4.8); Albumin/Globulin Ratio 1.7 (1.2-2.2); Alkaline Phosphatase 113 U/L (46-116); Anion Gap 8 (7-16); Aspartate Amino Transferase 24 U/L (0-34); BUN/Creatinine Ratio 30 Ratio (12-20); Bilirubin,Total 0.5 mg/dL (0.3-1.2); Blood Urea Nitrogen 21 mg/dL (9-23); Calcium 8.5 mg/dL (8.3-10.6); Calcium (Corrected) 8.9 mg/dL (8.5-10.1); Carbon Dioxide 24.1 mMol/L (20.0-31.0); Chloride 107 mMol/L (98-107); Creatinine (Component) 0.7 mg/dL (0.6-1.3); Globulin 2.1 gm/dL (2.3-3.5); Glucose 175 mg/dL (74-106); Magnesium 2.3 mg/dL (1.6-2.6); Osmolality,Calculated 284 (275-295); Phosphorous 3.1 mg/dL (2.4-5.1); Potassium 3.5 mMol/L (3.4-5.1); Prothrombin Time 10.9 Seconds (9.0-12.2); Sodium 139 mMol/L (136-145); Total Protein 5.6 gm/dL (5.7-8.2); eGFR > 60 See Note
[2024-04-11] MEDS: PANTOPRAZOLE INJ 40 MG VIAL IVP (08:47)
[2024-04-11] MEDS: oxyCODONE/APAP 5/325 TABLET 1 TAB PO ×2 (08:47→17:51)
[2024-04-11] MEDS: Lisinopril 2.5 MG TABLET 10 MG PO (10:44)
[2024-04-11] MEDS: METOCLOPRAMIDE INJ 5 MG/ML VIAL 2 ML IVP (11:24)
--- NOTE | 2024-04-11 11:57 | PD.SURCONS ---
HPI Consult details Consult date: 04/11/24 Reason for consultation narrative: Patient was seen on consultation because of some air bubbles seen on the abdominal wall seen on the CT scan performed yesterday evening History of present illness: Patient was discharged after laparoscopic cholecystectomy for biliary dyskinesia and incidental appendectomy. She was in the hospital for at least 4 days after the surgery because she was still having some abdominal pain. After she was discharged she still experienced the same symptoms of nausea and vomiting and constipation and pain in the pubic region. She was therefore brought to the emergency room. There the workup consisted of a CT scan of the abdomen which showed few bubbles of air in the abdominal wall and a surgical consultation was obtained. Patient denies any history of new abdominal pain. Past Medical History Past Medical History NEUROLOGIC: Positive Seizures and Head Trauma CARDIAC: Positive Hypercholesterolemia and Hypertension; Negative Cardiac Disorders or Congestive Heart Failure RESPIRATORY: Negative Chronic Obstructive Pulmonary Disease (COPD) or Asthma GENITOURINARY: Negative Genitourinary Disorders or Renal Disease REPRODUCTIVE: Negative Pelvic Inflammatory Disease MUSCULOSKELETAL: Negative Musculoskeletal Disorders ENT: Positive Head Trauma ENDOCRINE: Positive Diabetes Mellitus Type 2; Negative Diabetes Mellitus Type 1 HEMATOLOGIC: Negative Blood Disorders or Sickle Cell Disease PSYCHO/SOCIAL: Positive Anxiety OTHER HISTORY: Negative Blood Transfusions, Blood Transfusion Reaction or Anesthesia Reactions Family History FAMILY HISTORY: Negative Family Cardiac Disorders Surgical History SURGICAL: Positive Hysterectomy and Section Social History SMOKING STATUS: Never smoker SECOND HAND EXPOSURE: No SUBSTANCE USE: does not use Meds Home Medications and Allergies Home Medications ?Medication ?Instructions ?Recorded ?Confirmed ?Type benazepril 5 mg tablet 10 mg PO QDAY 03/26/24 03/26/24 History Allergies Allergy/AdvReac Type Severity Reaction Status Date / Time morphine AdvReac Severe Anaphylaxis Verified 04/10/24 16:23 Exam Vital Signs Temp Pulse Resp BP Pulse Ox O2 Del Method 97.5 F 77 17 139/71 H 97 Room Air 04/11/24 08:00 04/11/24 10:44 04/11/24 08:00 04/11/24 10:44 04/11/24 08:00 04/11/24 08:00 Narrative Exam My physical examination revealed an elderly 68-year-old female who can speak Irish. Her vital signs are essentially normal Routine Abdominal Exam Comments: Her abdominal examination is benign with soft nondistended abdomen with hypoactive bowel sounds. Results Results: Laboratory Laboratory Narrative: Patient's laboratory report shows normal W Results: Imaging Imaging narrative: He CT scan was reviewed and showed few bubbles of air in the abdominal wall not inside the abdomen it is located at the site of the umbilicus there is no intra-abdominal air. Assessment & Plan Additional Assessment Additional comments: Impression: Patient has no change in her physical condition on this presence of air in the abdominal wall has no bearing upon her present condition. I do not know whether this is a residual gas from the laparoscopic cholecystectomy discussed lodged in the abdominal wall. Does not in any way because her present symptoms. We need to investigate the reason for her persistent nausea vomiting and constipation. As I mentioned before surgery the biliary dyskinesia is not an acute condition and cholecystectomy may or may not improve her symptoms. It seems to me that her symptoms are still continuing. This needs to be worked up and treated as per the symptoms. Plan Plan: CT findings of some air in the abdominal wall is totally unrelated to the patient's presentation. The emergency room physician decided to admit the patient for control of the vomiting and it is not my suggestion to admit this patient. Daughters were concerned about having a colonoscopy which may be considered by the [facility] former to evaluate her chronic constipation. At this time I have nothing else to add to the care of this patient. Thank you very much
--- NOTE | 2024-04-11 12:30 | ESPR_ITS ---
<Statement entered by Andrzej Nelson MD - 04/23/24 08:00> I reviewed above note and agree with findings and plans. I have also personally examined the patient with medicine team and went over assessment and plan with medical team including advisory intern and resident physician. Documentation for date of: 04/11/24 Subjective Subjective Interval history: Patient was seen and examined at bedside. No acute overnight events. Patient reports abdominal pain but no nausea or vomiting. She was evaluated by general surgery who cleared patient does not need any surgery at this moment. Pending evaluation by GI. She was given Reglan 5 mg IV x 1. Will continue current management and monitor patient. Exam Vital Signs Temp Pulse Resp BP Pulse Ox O2 Del Method 97.5 F 77 17 139/71 H 97 Room Air 04/11/24 08:00 04/11/24 10:44 04/11/24 08:00 04/11/24 10:44 04/11/24 08:00 04/11/24 08:00 Narrative Exam Gen: Well-developed and well-nourished female. HEENT: NCAT, PERRLA, EOMI, MMM, anicteric conjunctivae. CVS: normal S1 and S2. RRR. No M/R/G. Resp: CTA B/L. No rhonchi, rales, crackles or wheezing. Abd: soft, tender throughout, non-distended. Surgical scar appears clean. BS+ in all 4 quadrants. MSK: Good ROM in BUE & BLE. No edema or rash. Neuro: CN II-XII grossly intact. Strength 5/5 in BUE & BLE. Alert and oriented x3. Objective Labs 04/11/24 04:59 04/11/24 04:59 Labs: Laboratory Results - last 24 hr 04/10/24 04/10/24 04/10/24 00:16 17:30 21:37 WBC 11.5 H RBC 4.05 Hgb 12.3 Hct 33.6 L MCV 83 MCH 30.4 MCHC 36.6 RDW Std Deviation 39.9 Plt Count 574 H D Neut % (Auto) 71 Lymph % (Auto) 15 [place] % (Auto) 8 Eos % (Auto) 6 Baso % (Auto) 1 Neut # (Auto) 8.1 H Lymph # (Auto) 1.7 [place] # (Auto) 0.9 H Eos # (Auto) 0.6 H Baso # (Auto) 0.1 Immature Gran # (Auto) 0.05 H Absolute Nucleated RBC 0.00 Immature Gran % 0 Nucleated RBC % 0 ESR 34 H PT INR Sodium 136 Potassium 4.0 Chloride 102 Carbon Dioxide 25.8 Anion Gap 8 BUN 24 H Creatinine 1.0 Estim Creat Clear Calc Not Performed. eGFR > 60 BUN/Creatinine Ratio 24 H Glucose 184 H Calculated Osmolality 280 Lactic Acid 1.3 Calcium 9.5 Corrected Calcium 9.5 Phosphorus Magnesium 1.7 Total Bilirubin 0.5 AST 14 ALT 11 Alkaline Phosphatase 114 C-Reactive Prot, Quant 1.4 H Total Protein 7.0 Albumin 4.5 Globulin 2.5 Albumin/Globulin Ratio 1.8 Lipase 51 Ur Collection Type Urine Color Urine Clarity Urine pH Ur Specific [place] Urine Protein Urine Glucose (UA) Urine Ketones Urine Blood Urine Nitrite Urine Bilirubin Urine Urobilinogen (Auto) Ur Leukocyte Esterase Urine RBC Urine WBC Ur Squamous Epith Cells Urine Bacteria Hyaline Casts 04/11/24 04/11/24 01:51 04:59 WBC 11.3 H RBC 3.60 L Hgb 11.0 L Hct 30.0 L MCV 83 MCH 30.6 MCHC 36.7 RDW Std Deviation 40.0 Plt Count 457 H D Neut % (Auto) 72 Lymph % (Auto) 14 [place] % (Auto) 7 Eos % (Auto) 6 Baso % (Auto) 1 Neut # (Auto) 8.1 H Lymph # (Auto) 1.6 [place] # (Auto) 0.8 Eos # (Auto) 0.7 H Baso # (Auto) 0.1 Immature Gran # (Auto) 0.05 H Absolute Nucleated RBC 0.00 Immature Gran % 0 Nucleated RBC % 0 ESR PT 10.9 INR 1.0 Sodium 139 Potassium 3.5 D Chloride 107 Carbon Dioxide 24.1 Anion Gap 8 BUN 21 Creatinine 0.7 Estim Creat Clear Calc Not Performed. eGFR > 60 BUN/Creatinine Ratio 30 H Glucose 175 H Calculated Osmolality 284 Lactic Acid Calcium 8.5 Corrected Calcium 8.9 Phosphorus 3.1 Magnesium 2.3 Total Bilirubin 0.5 AST 24 ALT 19 Alkaline Phosphatase 113 C-Reactive Prot, Quant Total Protein 5.6 L Albumin 3.5 D Globulin 2.1 L Albumin/Globulin Ratio 1.7 Lipase Ur Collection Type Clean Catch Urine Color Lt-Yellow Urine Clarity Clear Urine pH 5.5 Ur Specific [place] 1.017 Urine Protein 1+ A Urine Glucose (UA) Negative Urine Ketones Negative Urine Blood Trace Urine Nitrite Negative Urine Bilirubin Negative Urine Urobilinogen (Auto) Negative Ur Leukocyte Esterase Positive Urine RBC 2 Urine WBC 5 Ur Squamous Epith Cells 3 Urine Bacteria None Hyaline Casts < 1 Quality Measures Quality Measures VTE prophylaxis Advance care planning discussed with:: patient Assessment & Plan Assessment Current Active Medications: Generic Name Dose Route Start Last Admin Trade Name Freq PRN Reason Stop Dose Admin Acetaminophen 650 mg 04/10/24 21:02 04/11/24 05:30 Acetaminophen 325 Mg Tablet PO 05/10/24 21:01 650 mg Q6H PRN Administration PAIN SCALE 1-3 (mild Acetaminophen 650 mg 04/10/24 21:02 Acetaminophen 325 Mg Tablet PO 05/10/24 21:01 Q6H PRN Fever >100.4 Hydrocodone Bitart/Acetaminophen 1 tab 04/10/24 21:02 Hydrocodone/Apap 10/325 Tab PO 04/15/24 21:01 Q4HR PRN PAIN SCALE 7-10 (Severe Amlodipine Besylate 10 mg 04/11/24 01:15 04/11/24 01:37 Amlodipine Besylate 5 Mg Tablet PO 05/11/24 01:14 10 mg QDAY TULIO Administration Dextrose 25 ml 04/10/24 21:07 Dextrose 50%-Water Inj 50 Ml Syringe IV 05/10/24 21:06 Q15MIN PRN BG 50-70 responsive npo pt Dextrose 50 ml 04/10/24 21:07 Dextrose 50%-Water Inj 50 Ml Syringe IV 05/10/24 21:06 Q15MIN PRN BG <50 OR BG <70 & pt unresponsive Glucagon 1 mg 04/10/24 21:07 Glucagon Inj 1 Mg Vial IM Q15MIN PRN BG <70, and no IV access Heparin Sodium (Porcine) 5,000 unit 04/10/24 22:00 04/11/24 05:30 Heparin Sod Inj 5000 Unit/Ml Vial SC 04/24/24 21:59 5,000 unit Q8HR TULIO Administration Piperacillin/Tazobactam/Dextrose 50 mls @ 12.5 mls/hr 04/11/24 06:00 04/11/24 05:30 Zosyn IV 04/18/24 05:59 12.5 mls/hr Q8HR TULIO Administration Protocol Insulin Human Lispro 0 unit 04/11/24 06:00 04/11/24 12:17 Insulin Lispro (Admelog) 1 Unit/0.01 Ml Unit SC 05/11/24 05:59 Not Given Q6HR TULIO Protocol Lisinopril 10 mg 04/11/24 10:45 04/11/24 10:44 Lisinopril 2.5 Mg Tablet PO 05/11/24 10:44 10 mg QDAY TULIO Administration Ondansetron HCl 4 mg 04/10/24 21:02 04/11/24 08:47 Ondansetron Inj 2 Mg/Ml Inj 2 Ml IV 05/10/24 21:01 4 mg Q6H PRN Administration NAUSEA OR VOMITING Protocol Oxycodone/Acetaminophen 1 tab 04/10/24 21:02 04/11/24 08:47 Oxycodone/Apap 5/325 Tablet PO 04/15/24 21:01 1 tab Q6H PRN Administration PAIN SCALE 4-6 (Moderate Pantoprazole Sodium 40 mg 04/11/24 09:00 04/11/24 08:47 Pantoprazole Inj 40 Mg Vial IVP 05/11/24 08:59 40 mg QDAY TULIO Administration Plan 68-year-old female with PMHx of HTN, T2DM, frequent headaches, frequent UTIs, document history of seizures, admitted for abdominal pain, intractable vomiting and diarrhea. #Abdominal pain. #Intractable vomiting and diarrhea. DDx: Gastroenteritis, PUD, SIBO, iatrogenic, bile acid diarrhea, C. difficile, IBS/IBD. Chronic history of recurrent, episodic, severe abdominal pain, not related to eating. She was admitted on 03/26 for abdominal pain, had findings suggestive of biliary dyskinesia, completed uncomplicated cholecystectomy and incidental appendectomy. She was having normal bowel movements after she was discharged. Continue taking PROKINETICS which were described on discharge. Returning with 4 days of soft stool, intractable vomiting, greater than 4 episodes a day. Associated with abdominal pain, chills but no fever. Vitals and labs are relatively stable except for mild leukocytosis and thrombocytosis which are likely reactive, as well as ESR 34, CRP 1.4. CT abdominal pelvis showed air droplets in anterior wall, likely postsurgical changes. Although low suspicion for acute infection, will treat with ZOSYN. Per general surgery patient does not need any surgical intervention at this time. Plan: ? given reglan 5 mg x1. ? Continue ZOSYN (04/11 to present) ? Continue ONDANSETRON ? Continue maintenance NS at 100 cc/H ? GI consulted ? Pending C. difficile #Prerenal ODILON. Likely in settings of volume loss. Creatinine 1.0, baseline 0.4. Received 1 L bolus in ED. ? Fluids as above #HTN. BP 170/90, HR 80. ? Holding home LISINOPRIL in settings of ODILON ? Started AMLODIPINE 10 mg daily Mild hypomagnesemia. Acute GI loss. Magnesium 1.7, repleted. ? Daily labs #Recurrent UTIs. Denies symptoms of dysuria, vaginal discharge, urgency or frequency. ? Pending UA #T2DM. Glucose 184. A1c 7.2 from 02/2024. ? INSULIN sliding scale ? Accu-Cheks Documented history of seizure. Patient denies. Continue monitoring. Health maintenance: Diet: NPO GI prophylaxis: PROTONIX DVT prophylaxis: HEPARIN subcu Antibiotics: ZOSYN CODE STATUS: Full code Disposition: Pending GI recommendations. Plan of care discussed with attending Dr. Nelson. Roberto Pugh MD, PGY 2. Disclaimer: This note was dictated by speech recognition. Minor errors in construction plant operator may be present due to voice recognition software.
--- NOTE | 2024-04-11 19:22 | ESPR_ITS ---
Documentation for date of: 04/11/24 Subjective Subjective Interval history: Patient evaluated nausea vomiting continues Met with the family Schedule patient for an upper endoscopy for tomorrow morning Exam Vital Signs Temp Pulse Resp BP Pulse Ox O2 Del Method 96.9 F 78 19 126/65 97 Room Air 04/11/24 16:00 04/11/24 16:00 04/11/24 16:00 04/11/24 16:00 04/11/24 16:00 04/11/24 16:00 Objective Labs 04/11/24 04:59 04/11/24 04:59 Labs: Laboratory Results - last 24 hr 04/10/24 04/10/24 04/11/24 00:16 21:37 01:51 WBC RBC Hgb Hct MCV MCH MCHC RDW Std Deviation Plt Count Neut % (Auto) Lymph % (Auto) [place] % (Auto) Eos % (Auto) Baso % (Auto) Neut # (Auto) Lymph # (Auto) [place] # (Auto) Eos # (Auto) Baso # (Auto) Immature Gran # (Auto) Absolute Nucleated RBC Immature Gran % Nucleated RBC % ESR 34 H PT INR Sodium Potassium Chloride Carbon Dioxide Anion Gap BUN Creatinine Estim Creat Clear Calc eGFR BUN/Creatinine Ratio Glucose Calculated Osmolality Lactic Acid 1.3 Calcium Corrected Calcium Phosphorus Magnesium Total Bilirubin AST ALT Alkaline Phosphatase C-Reactive Prot, Quant 1.4 H Total Protein Albumin Globulin Albumin/Globulin Ratio Ur Collection Type Clean Catch Urine Color Lt-Yellow Urine Clarity Clear Urine pH 5.5 Ur Specific [place] 1.017 Urine Protein 1+ A Urine Glucose (UA) Negative Urine Ketones Negative Urine Blood Trace Urine Nitrite Negative Urine Bilirubin Negative Urine Urobilinogen (Auto) Negative Ur Leukocyte Esterase Positive Urine RBC 2 Urine WBC 5 Ur Squamous Epith Cells 3 Urine Bacteria None Hyaline Casts < 1 04/11/24 04:59 WBC 11.3 H RBC 3.60 L Hgb 11.0 L Hct 30.0 L MCV 83 MCH 30.6 MCHC 36.7 RDW Std Deviation 40.0 Plt Count 457 H D Neut % (Auto) 72 Lymph % (Auto) 14 [place] % (Auto) 7 Eos % (Auto) 6 Baso % (Auto) 1 Neut # (Auto) 8.1 H Lymph # (Auto) 1.6 [place] # (Auto) 0.8 Eos # (Auto) 0.7 H Baso # (Auto) 0.1 Immature Gran # (Auto) 0.05 H Absolute Nucleated RBC 0.00 Immature Gran % 0 Nucleated RBC % 0 ESR PT 10.9 INR 1.0 Sodium 139 Potassium 3.5 D Chloride 107 Carbon Dioxide 24.1 Anion Gap 8 BUN 21 Creatinine 0.7 Estim Creat Clear Calc Not Performed. eGFR > 60 BUN/Creatinine Ratio 30 H Glucose 175 H Calculated Osmolality 284 Lactic Acid Calcium 8.5 Corrected Calcium 8.9 Phosphorus 3.1 Magnesium 2.3 Total Bilirubin 0.5 AST 24 ALT 19 Alkaline Phosphatase 113 C-Reactive Prot, Quant Total Protein 5.6 L Albumin 3.5 D Globulin 2.1 L Albumin/Globulin Ratio 1.7 Ur Collection Type Urine Color Urine Clarity Urine pH Ur Specific [place] [employer] Urine Protein Urine Glucose (UA) Urine Ketones Urine Blood Urine Nitrite Urine Bilirubin Urine Urobilinogen (Auto) Ur Leukocyte Esterase Urine RBC Urine WBC Ur Squamous Epith Cells Urine Bacteria Hyaline Casts Impressions Impression: # Nausea vomiting etiology uncertain Upper endoscopy with possible biopsy scheduled for tomorrow Assessment & Plan A&P Narrative # Nausea vomiting suggestive of gastric motility disorder # Status post laparoscopic cholecystectomy # Air droplets, on anterior abdominal wall are insignificant and does not suggest any acute abdomen perforated viscus, related to previous surgery # Change of bowel habit with constipation Plan Agree with the current management reevaluate in 24 hours If nausea continues I will consider doing an upper endoscopy Thank you for the opportunity to participate in the care of this patient Time Spent With Patient Time: Total time spent is greater than 50% in coordination of care (as documented) at patient's floor/unit and/or counseling patient:
[2024-04-12] VITALS (22 sets, daily range): BP systolic 114–192; BP diastolic 58–107; PULSE 77–104; RESP 12–24; TEMP 36.1–36.9; O2SAT 94–100
[2024-04-12] MEDS: PIPER/TAZO 3.375 GM 50 ML IV ×3 (05:01→22:49)
[2024-04-12] MEDS: oxyCODONE/APAP 5/325 TABLET 1 TAB PO (05:01)
[2024-04-12] MEDS: HEPARIN SOD INJ 5000 UNIT/ML VIAL SC ×2 (05:01→13:33)
[2024-04-12 06:07] LABS: Basophils # (Auto) 0.1 Thou/mm3 (0.0-0.2); Basophils % (Auto) 1 % (0-2.5); Eosinophils # (Auto) 0.7 Thou/mm3 (0.0-0.5); Eosinophils % (Auto) 8 % (0-10); Hematocrit 29.9 % (36.0-46.0); Immature Granulocytes % (Auto) 0 % (0-0); Immature Granulocytes Auto 0.02 Thou/mm3 (0.00-0.00); Lymphocytes # (Auto) 1.4 Thou/mm3 (1.0-4.8); Lymphocytes % (Auto) 16 % (10-50); Mean Corpuscular HGB Conc 36.8 g/dl (31.0-37.0); Mean Corpuscular Hemoglobin 30.4 pg (25.0-35.0); Mean Corpuscular Volume 83 fL (80-100); Monocytes # (Auto) 0.6 Thou/mm3 (0.0-0.8); Monocytes % (Auto) 7 % (0-12); Neutrophils # (Auto) 6.4 Thou/mm3 (1.8-7.7); Neutrophils % (Auto) 69 % (37-80); Nucleated Red Blood Cell % 0 /100 WBC (0); Platelet Count 503 Thou/mm3 (140-440); RDW Standard Deviation 39.9 fL (36.4-46.3); Red Blood Count 3.62 Miln/mm3 (4.00-5.20); White Blood Count 9.2 Thou/mm3 (3.6-11.0)
[2024-04-12 06:39] LABS: Alanine Aminotransferase 15 U/L (10-49); Albumin, Serum 3.7 gm/dL (3.4-4.8); Albumin/Globulin Ratio 1.7 (1.2-2.2); Alkaline Phosphatase 110 U/L (46-116); Anion Gap 9 (7-16); Aspartate Amino Transferase < 10 U/L (0-34); BUN/Creatinine Ratio 17 Ratio (12-20); Bilirubin,Total 0.6 mg/dL (0.3-1.2); Blood Urea Nitrogen 10 mg/dL (9-23); Calcium 8.7 mg/dL (8.3-10.6); Calcium (Corrected) 8.9 mg/dL (8.5-10.1); Carbon Dioxide 23.6 mMol/L (20.0-31.0); Chloride 107 mMol/L (98-107); Creatinine (Component) 0.6 mg/dL (0.6-1.3); Estimated Creatinine Clearance 76.9 mL/min (>60); Globulin 2.2 gm/dL (2.3-3.5); Glucose 125 mg/dL (74-106); Magnesium 2.1 mg/dL (1.6-2.6); Osmolality,Calculated 279 (275-295); Phosphorous 2.9 mg/dL (2.4-5.1); Potassium 3.5 mMol/L (3.4-5.1); Sodium 140 mMol/L (136-145); Total Protein 5.9 gm/dL (5.7-8.2); eGFR > 60 See Note
[2024-04-12] MEDS: ONDANSETRON INJ 2 MG/ML INJ 2 ML 4 MG IV (08:02)
[2024-04-12] MEDS: Lisinopril 2.5 MG TABLET 10 MG PO (08:04)
[2024-04-12] MEDS: PANTOPRAZOLE INJ 40 MG VIAL IVP (08:04)
[2024-04-12] MEDS: amLODIPine BESYLATE 5 MG TABLET 10 MG PO (08:05)
--- NOTE | 2024-04-12 13:39 | ESPR_ITS ---
<Statement entered by Andrzej Nelson MD - 04/23/24 08:03> I reviewed above note and agree with findings and plans. I have also personally examined the patient with medicine team and went over assessment and plan with medical team including finance intern and resident physician. Documentation for date of: 04/12/24 Subjective Subjective Interval history: Patient was seen and examined at bedside this AM. No acute events overnight. She had adequate urine output and mentation is at baseline. Patient continues to have abdominal pain but no nausea or vomiting. She is currently NPO , pending EGD by GI. and possible colonoscopy to follow We will continue current management for N/V and monitor patient closely Daughter informed of plan at bedside, will update as we find out more CT Angiogram ordered to rule out mesenteric ischemia Exam Vital Signs Temp Pulse Resp BP Pulse Ox O2 Del Method 97.9 F 82 18 114/58 L 97 Room Air 04/12/24 12:00 04/12/24 12:00 04/12/24 12:00 04/12/24 12:00 04/12/24 12:04/12/24 12:00 Narrative Exam Constitutional Alert, oriented x4 and nauseous HEENT Vision grossly intact. Patent nares. Trachea midline. Respiratory Chest normal on inspection, clear to auscultation bilaterally. Cardiovascular S1 and S2 audible, RRR. No murmurs or carotid bruit. No gross JVD. Abdominal Soft, tender to palpation in RUQ and epigastric region. BS + Genitourinary No bladder tenderness, no flank pain. Normal to palpation. Musculoskeletal Extremities tone within normal limits. 1+ LE edema. Neurological CN II - XII grossly intact. Extremity motor and sensation grossly intact. Skin Warm, dry and intact. No apparent lesions. Psychiatric Patient has a good affect, is cooperative. Objective Labs 04/12/24 05:43 04/12/24 05:43 Labs: Laboratory Results - last 24 hr 04/12/24 05:43 WBC 9.2 RBC 3.62 L Hgb 11.0 L Hct 29.9 L MCV 83 MCH 30.4 MCHC 36.8 RDW Std Deviation 39.9 Plt Count 503 H D Neut % (Auto) 69 Lymph % (Auto) 16 [place] % (Auto) 7 Eos % (Auto) 8 Baso % (Auto) 1 Neut # (Auto) 6.4 Lymph # (Auto) 1.4 [place] # (Auto) 0.6 Eos # (Auto) 0.7 H Baso # (Auto) 0.1 Immature Gran # (Auto) 0.02 H Absolute Nucleated RBC 0.00 Immature Gran % 0 Nucleated RBC % 0 Sodium 140 Potassium 3.5 Chloride 107 Carbon Dioxide 23.6 Anion Gap 9 BUN 10 Creatinine 0.6 Estim Creat Clear Calc 76.9 eGFR > 60 BUN/Creatinine Ratio 17 Glucose 125 H D Calculated Osmolality 279 Calcium 8.7 Corrected Calcium 8.9 Phosphorus 2.9 Magnesium 2.1 Total Bilirubin 0.6 AST < 10 ALT 15 Alkaline Phosphatase 110 Total Protein 5.9 Albumin 3.7 Globulin 2.2 L Albumin/Globulin Ratio 1.7 Quality Measures Quality Measures VTE prophylaxis Advance care planning discussed with:: patient and child Assessment & Plan Assessment Current Active Medications: Generic Name Dose Route Start Last Admin Trade Name Freq PRN Reason Stop Dose Admin Acetaminophen 650 mg 04/10/24 21:02 04/11/24 05:30 Acetaminophen 325 Mg Tablet PO 05/10/24 21:01 650 mg Q6H PRN Administration PAIN SCALE 1-3 (mild Acetaminophen 650 mg 04/10/24 21:02 Acetaminophen 325 Mg Tablet PO 05/10/24 21:01 Q6H PRN Fever >100.4 Hydrocodone Bitart/Acetaminophen 1 tab 04/10/24 21:02 Hydrocodone/Apap 10/325 Tab PO 04/15/24 21:01 Q4HR PRN PAIN SCALE 7-10 (Severe Amlodipine Besylate 10 mg 04/11/24 01:15 04/12/24 08:05 Amlodipine Besylate 5 Mg Tablet PO 05/11/24 01:14 10 mg QDAY TULIO Administration Dextrose 25 ml 04/10/24 21:07 Dextrose 50%-Water Inj 50 Ml Syringe IV 05/10/24 21:06 Q15MIN PRN BG 50-70 responsive npo pt Dextrose 50 ml 04/10/24 21:07 Dextrose 50%-Water Inj 50 Ml Syringe IV 05/10/24 21:06 Q15MIN PRN BG <50 OR BG <70 & pt unresponsive Glucagon 1 mg 04/10/24 21:07 Glucagon Inj 1 Mg Vial IM Q15MIN PRN BG <70, and no IV access Heparin Sodium (Porcine) 5,000 unit 04/10/24 22:00 04/12/24 05:01 Heparin Sod Inj 5000 Unit/Ml Vial SC 04/24/24 21:59 5,000 unit Q8HR TULIO Administration Piperacillin/Tazobactam/Dextrose 50 mls @ 12.5 mls/hr 04/11/24 06:00 04/12/24 05:01 Zosyn IV 04/18/24 05:59 12.5 mls/hr Q8HR TULIO Administration Protocol Insulin Human Lispro 0 unit 04/11/24 06:00 04/12/24 11:59 Insulin Lispro (Admelog) 1 Unit/0.01 Ml Unit SC 05/11/24 05:59 Not Given Q6HR TULIO Protocol Lisinopril 10 mg 04/11/24 10:45 04/12/24 08:04 Lisinopril 2.5 Mg Tablet PO 05/11/24 10:44 10 mg QDAY TULIO Administration Ondansetron HCl 4 mg 04/10/24 21:02 04/12/24 08:02 Ondansetron Inj 2 Mg/Ml Inj 2 Ml IV 05/10/24 21:01 4 mg Q6H PRN Administration NAUSEA OR VOMITING Protocol Oxycodone/Acetaminophen 1 tab 04/10/24 21:02 04/12/24 05:01 Oxycodone/Apap 5/325 Tablet PO 04/15/24 21:01 1 tab Q6H PRN Administration PAIN SCALE 4-6 (Moderate Pantoprazole Sodium 40 mg 04/11/24 09:00 04/12/24 08:04 Pantoprazole Inj 40 Mg Vial IVP 05/11/24 08:59 40 mg QDAY TULIO Administration Plan Patient is a 68-year-old spnaish speaking female with PMHx of HTN, T2DM, frequent headaches, frequent UTIs, document history of seizures, admitted for abdominal pain, intractable vomiting and diarrhea. Severe abdominal pain, in the setting of Intractable nausea and vomiting Presyncope secondary to Dehydration Poor oral intake Mild diarrhea - resolved s/p recent cholecystectomy and appendectomy - Chronic history of recurrent, episodic, severe abdominal pain, not related to eating. Recently admitted on 03/26 for abdominal pain, had findings suggestive of biliary dyskinesia, completed uncomplicated cholecystectomy and incidental appendectomy. She was having normal bowel movements after she was discharged. Returning with 4 days of soft stool, intractable vomiting, greater than 4 episodes a day, associated with abdominal pain, chills but no fever. - Patient overused prokinetics which were prescribed on discharge. - Patient is unable to tolerate oral intake due to severe pain - CT abdominal pelvis : air droplets in anterior wall, likely postsurgical changes. Plan: - Per general surgery patient does not need any surgical intervention at this time. - GI consulted, appreciate recommendations. EGD scheduled - On prophylactic IV ZOSYN (04/11 - - PRN zofran 4mg q6H for N/V - Maintenance IVF : NS @ 100 cc/H - Will resume diet once EGD completed - Pending C. difficile PCR results - CT angio abdomen ordered to rule out mesenteric ischemia Primary HTN BP 170/90, HR 80 on admission 04/12: BP 114/58 without oral antihypertensives Plan: ? Holding LISINOPRIL in settings of ODILON ? Holding AMLODIPINE 10 mg daily, as NPO T2DM Glucose 184 A1c = 7.2 % from 02/2024 Plan: - NPO for EGD - On INSULIN sliding scale - Continue q6H checks for now while NPO, transition to accu-checks once diet resumed - Follow up GI recs History of seizure. Patient denies, previously documented Continue monitoring. Health maintenance: Disposition: Pending EGD and GI recommendations Diet: NPO GI prophylaxis: PROTONIX DVT prophylaxis: HEPARIN SC Antibiotics: ZOSYN CODE STATUS: Full code Plan of care discussed with attending Dr. Nelson. Demetrio Gilliam M.D. PGY2 Disclaimer: This note was dictated by speech recognition. Minor errors in pharmacist critical care may be present due to voice recognition software.
--- NOTE | 2024-04-12 17:05 | PC.NURSE ---
Patient to endo via gurney for endoscopy.
--- NOTE | 2024-04-12 17:50 | SUR.PHASEI ---
[id number] patient arrived to recovery, report received from Candace CAVANAUGH
--- NOTE | 2024-04-12 18:29 | SUR.PHASEI ---
1829 P blood pressure elevated 192/107 verbal order-read back received from Dr. Moran Hydralazine 10mg via IV, will place order and administer per MD order
[2024-04-12] MEDS: hydrALAZINE INJ 20 MG/ML VIAL 10 MG IV (18:37)
--- NOTE | 2024-04-12 18:50 | SUR.PHASEI ---
[id number] Medication effective, patient blood pressure within normal range
--- NOTE | 2024-04-12 18:51 | SUR.PHASEI ---
[id number] Verbal order-read back from Dr. Moran for PRN Hydralazine 10mg for SBP >180 or DBP>105, [address] place order in EMR
--- NOTE | 2024-04-12 18:54 | SUR.PHASEI ---
1848 Report given to Kenny RN, patient meets discharge criteria from recovery, awake and talking with staff, breathing unlabored, vital signs stable, denies pain, drinking 7up; tolerating well 185 Patient transported via gurney to room 381 without incident
[2024-04-12] MEDS: PROMETHAZINE INJ 12.5 MG in SODIUM CHLORIDE 0.9% 50 ML 150 MG IV (20:40)
[2024-04-12] MEDS: NA SU/NAHCO3/KC/PEG (Golytely) 4,000 ML BTL 4000 ML PO (20:42)
[2024-04-13] VITALS (7 sets, daily range): BP systolic 120–157; BP diastolic 60–80; PULSE 65–86; RESP 18–19; TEMP 36.1–37; O2SAT 95–99
[2024-04-13] MEDS: PROMETHAZINE INJ 12.5 MG in SODIUM CHLORIDE 0.9% 50 ML 150 MG IV ×5 (01:03→23:30)
[2024-04-13] MEDS: PIPER/TAZO 3.375 GM 50 ML IV ×2 (05:37→13:29)
[2024-04-13] MEDS: HEPARIN SOD INJ 5000 UNIT/ML VIAL SC ×2 (05:38→21:02)
[2024-04-13] MEDS: oxyCODONE/APAP 5/325 TABLET 1 TAB PO (05:45)
[2024-04-13 05:58] LABS: Basophils # (Auto) 0.1 Thou/mm3 (0.0-0.2); Basophils % (Auto) 1 % (0-2.5); Eosinophils # (Auto) 0.8 Thou/mm3 (0.0-0.5); Eosinophils % (Auto) 9 % (0-10); Hematocrit 29.2 % (36.0-46.0); Hemoglobin 10.8 g/dL (12.0-16.0); Immature Granulocytes % (Auto) 0 % (0-0); Immature Granulocytes Auto 0.02 Thou/mm3 (0.00-0.00); Lymphocytes # (Auto) 1.6 Thou/mm3 (1.0-4.8); Lymphocytes % (Auto) 17 % (10-50); Mean Corpuscular Hemoglobin 30.5 pg (25.0-35.0); Mean Corpuscular Volume 83 fL (80-100); Monocytes # (Auto) 0.7 Thou/mm3 (0.0-0.8); Monocytes % (Auto) 8 % (0-12); Neutrophils # (Auto) 5.8 Thou/mm3 (1.8-7.7); Neutrophils % (Auto) 65 % (37-80); Nucleated Red Blood Cell % 0 /100 WBC (0); Platelet Count 453 Thou/mm3 (140-440); RDW Standard Deviation 39.4 fL (36.4-46.3); Red Blood Count 3.54 Miln/mm3 (4.00-5.20)
[2024-04-13 06:28] LABS: Alanine Aminotransferase 11 U/L (10-49); Albumin, Serum 3.6 gm/dL (3.4-4.8); Albumin/Globulin Ratio 1.6 (1.2-2.2); Alkaline Phosphatase 101 U/L (46-116); Anion Gap 10 (7-16); Aspartate Amino Transferase 10 U/L (0-34); BUN/Creatinine Ratio 14 Ratio (12-20); Bilirubin,Total 0.6 mg/dL (0.3-1.2); Blood Urea Nitrogen 7 mg/dL (9-23); Calcium 9.1 mg/dL (8.3-10.6); Calcium (Corrected) 9.4 mg/dL (8.5-10.1); Carbon Dioxide 24.9 mMol/L (20.0-31.0); Chloride 107 mMol/L (98-107); Creatinine (Component) 0.5 mg/dL (0.6-1.3); Estimated Creatinine Clearance 92.3 mL/min (>60); Globulin 2.3 gm/dL (2.3-3.5); Glucose 172 mg/dL (74-106); Magnesium 1.8 mg/dL (1.6-2.6); Osmolality,Calculated 285 (275-295); Phosphorous 2.9 mg/dL (2.4-5.1); Potassium 3.6 mMol/L (3.4-5.1); Sodium 142 mMol/L (136-145); Total Protein 5.9 gm/dL (5.7-8.2); eGFR > 60 See Note
[2024-04-13] MEDS: INSULIN LISPRO (AdmeLOG) 1 UNIT/0.01 ML UNIT SC ×4 (07:33→21:34)
--- NOTE | 2024-04-13 08:26 | XR_ITS ---
Examination: CTA abdomen, with intravenous contrast. 2-D sagittal and coronal reconstructions. 3-D reconstructions. Date and time of exam: April 13, 2024 1129 hrs. Indications: Abdominal pain today, clinical diagnosis mesenteric ischemia CTDI vol (mgy) 8.34 DLP (MGycm) 316 Technique: Multiple CTA images, 2.0 mm slice thickness, obtained abdomen with the high-resolution 64 slice scanner. 100 cc Isovue-370 is administered intravenously. Sagittal and coronal 2-D reconstructions are obtained. 3-D reconstructions, angiographic images are obtained. 3-D postprocessing, including vascular maximum intensity projections. Low dose protocols were performed. One or more of the following dose reduction techniques were used; automated exposure control, adjustment of the mA and/or KV according to patient size, use of iterative reconstruction technique. Findings: No thoracic aortic aneurysm dilatation No pulmonary artery filling defects No visualized liver or splenic lesion Absent gallbladder No pancreatic or adrenal mass No renal or ureteral calculi Fluid distended small bowel loops Negative for peritoneal Impression: Fluid distended small bowel loops, differential would include enteritis ileus Negative for pneumoperitoneum, negative for air in the portal venous system
[2024-04-13] MEDS: PANTOPRAZOLE INJ 40 MG VIAL IVP (09:42)
[2024-04-13] MEDS: Lisinopril 2.5 MG TABLET 10 MG PO (09:42)
[2024-04-13] MEDS: amLODIPine BESYLATE 5 MG TABLET 10 MG PO (09:42)
[2024-04-13] MEDS: RINGERS LACTATED 1000 ML 500 ML 999 ML IV (10:12)
--- NOTE | 2024-04-13 12:59 | ESPR_ITS ---
<Statement entered by Andrzej Nelson MD - 04/23/24 08:03> I reviewed above note and agree with findings and plans. I have also personally examined the patient with medicine team and went over assessment and plan with medical team including journalism intern and resident physician. <Statement entered by Roberto Pugh MD - 04/14/24 12:57> Senior Resident Attestation: I supervised/discussed management plan with journalism intern physician Dr. Wilson, and was involved in the care of this patient. I personally saw and examined the patient and discussed the assessment and plan with the entire medicine team, including my attending. I agree with the assessment and plan as documented. Patient's care was discussed with attending physician, Dr. Nelson. Roberto Pugh MD PGY-2. Documentation for date of: 04/13/24 Subjective Subjective Interval history: Pt examined at bedside today. No acute overnight events. Pt reports she is tolerating golytely prep at this time. She says her abd pain is minimal at this time. She states that she does not want strong pain medication as reiterates she is allergic to morphine. She says she slept well as well. No other complaints at this time. Exam Vital Signs Temp Pulse Resp BP Pulse Ox O2 Del Method O2 Flow Rate 97.7 F 86 18 157/79 H 97 Room Air 3 04/13/24 08:00 04/13/24 09:42 04/13/24 08:00 04/13/24 09:42 04/13/24 08:00 04/13/24 08:00 04/12/24 17:40 Narrative Exam General: AAOx3, NAD, pleasant female HEENT: Moist mucous membranes, conjunctiva clear, EOMI, PERRLA, Cardiovascular: S1, S2, radial pulses +2 bilat, RRR Pulmonary: CTAB bilat no cough, no wheezing GI: Minimal tenderness to palpitation, no guarding, rigidity, rebound tenderness or distension Extremities: No presence of trace or pitting edema in lower extremities bilaterally, dorsalis pedis pulses +2 bilaterally Neuro: AAOx3, no focal motor or sensory deficits in the UE or LE bilat Psych: Good judgement, thought and behavior. Cooperative Objective Labs 04/13/24 05:15 04/13/24 05:15 Labs: Laboratory Results - last 24 hr 04/13/24 05:15 WBC 9.0 RBC 3.54 L Hgb 10.8 L Hct 29.2 L MCV 83 MCH 30.5 MCHC 37.0 RDW Std Deviation 39.4 Plt Count 453 H D Neut % (Auto) 65 Lymph % (Auto) 17 [place] % (Auto) 8 Eos % (Auto) 9 Baso % (Auto) 1 Neut # (Auto) 5.8 Lymph # (Auto) 1.6 [place] # (Auto) 0.7 Eos # (Auto) 0.8 H Baso # (Auto) 0.1 Immature Gran # (Auto) 0.02 H Absolute Nucleated RBC 0.00 Immature Gran % 0 Nucleated RBC % 0 Sodium 142 Potassium 3.6 Chloride 107 Carbon Dioxide 24.9 Anion Gap 10 BUN 7 L Creatinine 0.5 L Estim Creat Clear Calc 92.3 eGFR > 60 BUN/Creatinine Ratio 14 Glucose 172 H Calculated Osmolality 285 Calcium 9.1 Corrected Calcium 9.4 Phosphorus 2.9 Magnesium 1.8 Total Bilirubin 0.6 AST 10 ALT 11 Alkaline Phosphatase 101 Total Protein 5.9 Albumin 3.6 Globulin 2.3 Albumin/Globulin Ratio 1.6 Quality Measures Quality Measures VTE prophylaxis Advance care planning discussed with:: patient Assessment & Plan Assessment Current Active Medications: Generic Name Dose Route Start Last Admin Trade Name Freq PRN Reason Stop Dose Admin Acetaminophen 650 mg 04/10/24 21:02 04/11/24 05:30 Acetaminophen 325 Mg Tablet PO 05/10/24 21:01 650 mg Q6H PRN Administration PAIN SCALE 1-3 (mild Acetaminophen 650 mg 04/10/24 21:02 Acetaminophen 325 Mg Tablet PO 05/10/24 21:01 Q6H PRN Fever >100.4 Hydrocodone Bitart/Acetaminophen 1 tab 04/10/24 21:02 Hydrocodone/Apap 10/325 Tab PO 04/15/24 21:01 Q4HR PRN PAIN SCALE 7-10 (Severe Amlodipine Besylate 10 mg 04/11/24 01:15 04/13/24 09:42 Amlodipine Besylate 5 Mg Tablet PO 05/11/24 01:14 10 mg QDAY TULIO Administration Dextrose 25 ml 04/10/24 21:07 Dextrose 50%-Water Inj 50 Ml Syringe IV 05/10/24 21:06 Q15MIN PRN BG 50-70 responsive npo pt Dextrose 50 ml 04/10/24 21:07 Dextrose 50%-Water Inj 50 Ml Syringe IV 05/10/24 21:06 Q15MIN PRN BG <50 OR BG <70 & pt unresponsive Glucagon 1 mg 04/10/24 21:07 Glucagon Inj 1 Mg Vial IM Q15MIN PRN BG <70, and no IV access Heparin Sodium (Porcine) 5,000 unit 04/10/24 22:00 04/13/24 05:38 Heparin Sod Inj 5000 Unit/Ml Vial SC 04/24/24 21:59 5,000 unit Q8HR TULIO Administration Hydralazine HCl 10 mg 04/12/24 18:52 Hydralazine Inj 20 Mg/Ml Vial IV 05/12/24 18:51 Q6H PRN SBP > 180 OR DBP >105 Piperacillin/Tazobactam/Dextrose 50 mls @ 12.5 mls/hr 04/11/24 06:00 04/13/24 05:37 Zosyn IV 04/18/24 05:59 12.5 mls/hr Q8HR TULIO Administration Protocol Promethazine HCl 12.5 mg/ 50.5 mls @ 150 mls/hr 04/12/24 18:15 04/13/24 12:06 Sodium Chloride IV 05/12/24 18:14 150 mls/hr Q6HR TULIO Administration Insulin Human Lispro 0 unit 04/13/24 07:30 04/13/24 12:06 Insulin Lispro (Admelog) 1 Unit/0.01 Ml Unit SC 05/13/24 07:29 1 unit AC TULIO Administration Protocol Lisinopril 10 mg 04/11/24 10:45 04/13/24 09:42 Lisinopril 2.5 Mg Tablet PO 05/11/24 10:44 10 mg QDAY TULIO Administration Ondansetron HCl 4 mg 04/10/24 21:02 04/12/24 08:02 Ondansetron Inj 2 Mg/Ml Inj 2 Ml IV 05/10/24 21:01 4 mg Q6H PRN Administration NAUSEA OR VOMITING Protocol Oxycodone/Acetaminophen 1 tab 04/10/24 21:02 04/13/24 05:45 Oxycodone/Apap 5/325 Tablet PO 04/15/24 21:01 1 tab Q6H PRN Administration PAIN SCALE 4-6 (Moderate Pantoprazole Sodium 40 mg 04/11/24 09:00 04/13/24 09:42 Pantoprazole Inj 40 Mg Vial IVP 05/11/24 08:59 40 mg QDAY TULIO Administration Plan Assessment Ms. Multani is a 68-year-old female with past medical history of biliary dyskinesia s/p cholecystectomy and appendectomy, hypertension, DM2, seizures, headaches, and frequent UTIs who is admitted for severe abdominal pain and intractable N and V. #Intractable nausea and vomiting, improving #Abdominal pain, improving #Biliary Dyskinesia, EF ~16% s/p cholecystectomy #Hx of Incidental appendectomy #Hx of Hemorrhagic gastritis s/p EGD #Hx of Constipation Pt underwent EGD last night, will follow up with report Pt is currently is currently bowel prep for colonoscopy To rule out AMI, we will CT angio Plan: - GI Dr Moran consulted, appreciate recommendations -General surgery Dr Frias consulted, does not recommend any surgical intervention at this time -Continue with bowel prep and colonscopy -Continue Protonix 40 mg IV qday ?Zofran -Pain control, with percocet and tylenol -Phenergren 12.5 mg IV q6h -Follow up CT angio abdomen #History of hypertension Plan: ? On lisinopril 10 mg and Amlodipine 10 mg #Type 2 DM. - Last A1c = 7.2% on 02/2024 Plan: -SSI - Hypoglycemia protocol ordered - Blood sugar checks ACHS #Hx of seizures disorder. #Hx of headaches. Patient has not been prescribed antiseizure medication as of recently, last seizure episode was 1.5 years ago. Plan: -Will consider resuming home medicine if pt has #Health Maintenance Disposition: Med Surg DVT prophylaxis: Heparin q12h GI prophylaxis: Protonix Diet: Clear liquid CODE STATUS: Full Patient seen and care discussed with my senior resident, Dr. Pugh, and my attending physician, Dr. Leslie Wilson, PGY-1
--- NOTE | 2024-04-13 17:26 | PC.SS ---
Arely Multani is 68 year old female admitted to [facility] for intractable vomiting. SS conducted bedside contact with the patient to complete initial assessment and to discuss discharge planning.? SW used all precautionary measures to complete initial. Role and reason for the contact was explained to Arely. Pt is alert and oriented times 4. Pt had sonChang assist with Uz[place] words that were not familiar to her. Patient confirmed demographic information and is correct on facesheet both address and telephone number. Pt lives with spouse. Patient identifies Tricia Multani, daughter, ?as her surrogate decision maker. SS spoke with Suman from registration to make this change.Pt states prior to hospitalization she is unable to complete ADL?s independently does not have DME nor O2. Pt confirmed no history of mental health or substance abuse. Pts PCP is Fredis Shah. [facility] choice [facility]. Discharge options discussed and the pt will return home. ?If pt needs HH, no preference on provider; confirmed pt is not on dialysis and taking metformin for diabetes. Family will provide transportation upon DC. No further intervention required at this time, manager social would be available to address any further concerns. DC Plan: Home Contact: Tricia Multani, sonja, ? Address: Confirmed on face sheet PCP: Fredis Shah
--- NOTE | 2024-04-13 17:55 | ESPR_ITS ---
Documentation for date of: 04/13/24 Subjective Subjective Interval history: Patient was scheduled for a colonoscopy but she is not clear Additional GoLytely Procedure rescheduled for tomorrow Exam Vital Signs Temp Pulse Resp BP Pulse Ox O2 Del Method O2 Flow Rate 97.2 F 70 18 120/60 95 Room Air 3 04/13/24 12:00 04/13/24 12:00 04/13/24 12:00 04/13/24 12:00 04/13/24 12:00 04/13/24 12:00 04/12/24 17:40 Objective Labs 04/13/24 05:15 04/13/24 05:15 Labs: Laboratory Results - last 24 hr 04/13/24 05:15 WBC 9.0 RBC 3.54 L Hgb 10.8 L Hct 29.2 L MCV 83 MCH 30.5 MCHC 37.0 RDW Std Deviation 39.4 Plt Count 453 H D Neut % (Auto) 65 Lymph % (Auto) 17 [place] % (Auto) 8 Eos % (Auto) 9 Baso % (Auto) 1 Neut # (Auto) 5.8 Lymph # (Auto) 1.6 [place] # (Auto) 0.7 Eos # (Auto) 0.8 H Baso # (Auto) 0.1 Immature Gran # (Auto) 0.02 H Absolute Nucleated RBC 0.00 Immature Gran % 0 Nucleated RBC % 0 Sodium 142 Potassium 3.6 Chloride 107 Carbon Dioxide 24.9 Anion Gap 10 BUN 7 L Creatinine 0.5 L Estim Creat Clear Calc 92.3 eGFR > 60 BUN/Creatinine Ratio 14 Glucose 172 H Calculated Osmolality 285 Calcium 9.1 Corrected Calcium 9.4 Phosphorus 2.9 Magnesium 1.8 Total Bilirubin 0.6 AST 10 ALT 11 Alkaline Phosphatase 101 Total Protein 5.9 Albumin 3.6 Globulin 2.3 Albumin/Globulin Ratio 1.6 Impressions Impression: Persistent abdominal pain Change in bowel habits with increasing constipation Abdominal bloating Additional GoLytely Colonoscopy postponed to tomorrow as patient is not clear today Assessment & Plan A&P Narrative # Nausea vomiting suggestive of gastric motility disorder # Status post laparoscopic cholecystectomy # Air droplets, on anterior abdominal wall are insignificant and does not suggest any acute abdomen perforated viscus, related to previous surgery # Change of bowel habit with constipation Plan Agree with the current management reevaluate in 24 hours If nausea continues I will consider doing an upper endoscopy Thank you for the opportunity to participate in the care of this patient Time Spent With Patient Time: Total time spent is greater than 50% in coordination of care (as documented) at patient's floor/unit and/or counseling patient:
[2024-04-13] MEDS: NA SU/NAHCO3/KC/PEG (Golytely) 4,000 ML BTL 4000 ML PO (17:56)
--- NOTE | 2024-04-13 18:05 | PC.NURSE ---
Patient still not clear after first bottle of golytley and water enema. Dr. Moran was notified and ordered another bottle of golytley.
[2024-04-13] MEDS: TAZO IV (21:05)
[2024-04-13] MEDS: PIPERACILLIN IV (21:05)
[2024-04-14] VITALS (16 sets, daily range): BP systolic 125–157; BP diastolic 63–83; PULSE 89–97; RESP 13–21; TEMP 36.1–36.5; O2SAT 95–100; BMI 25.9
[2024-04-14 05:11] LABS: Basophils # (Auto) 0.1 Thou/mm3 (0.0-0.2); Basophils % (Auto) 2 % (0-2.5); Eosinophils % (Auto) 10 % (0-10); Hematocrit 28.9 % (36.0-46.0); Hemoglobin 10.6 g/dL (12.0-16.0); Immature Granulocytes % (Auto) 0 % (0-0); Immature Granulocytes Auto 0.02 Thou/mm3 (0.00-0.00); Lymphocytes # (Auto) 1.6 Thou/mm3 (1.0-4.8); Lymphocytes % (Auto) 17 % (10-50); Mean Corpuscular HGB Conc 36.7 g/dl (31.0-37.0); Mean Corpuscular Hemoglobin 30.1 pg (25.0-35.0); Mean Corpuscular Volume 82 fL (80-100); Monocytes # (Auto) 0.8 Thou/mm3 (0.0-0.8); Monocytes % (Auto) 8 % (0-12); Neutrophils # (Auto) 5.9 Thou/mm3 (1.8-7.7); Neutrophils % (Auto) 63 % (37-80); Nucleated Red Blood Cell % 0 /100 WBC (0); Platelet Count 521 Thou/mm3 (140-440); RDW Standard Deviation 39.4 fL (36.4-46.3); Red Blood Count 3.52 Miln/mm3 (4.00-5.20); White Blood Count 9.4 Thou/mm3 (3.6-11.0)
[2024-04-14] MEDS: PROMETHAZINE INJ 12.5 MG in SODIUM CHLORIDE 0.9% 50 ML 150 MG IV ×2 (05:15→13:42)
[2024-04-14 06:02] LABS: Alanine Aminotransferase 10 U/L (10-49); Albumin, Serum 3.6 gm/dL (3.4-4.8); Albumin/Globulin Ratio 1.7 (1.2-2.2); Alkaline Phosphatase 100 U/L (46-116); Anion Gap 10 (7-16); Aspartate Amino Transferase < 10 U/L (0-34); BUN/Creatinine Ratio 10 Ratio (12-20); Bilirubin,Total 0.6 mg/dL (0.3-1.2); Blood Urea Nitrogen < 5 mg/dL (9-23); Calcium (Corrected) 9.3 mg/dL (8.5-10.1); Carbon Dioxide 28.7 mMol/L (20.0-31.0); Chloride 105 mMol/L (98-107); Creatinine (Component) 0.5 mg/dL (0.6-1.3); Estimated Creatinine Clearance 92.3 mL/min (>60); Globulin 2.1 gm/dL (2.3-3.5); Glucose 159 mg/dL (74-106); Magnesium 1.8 mg/dL (1.6-2.6); Osmolality,Calculated 287 (275-295); Phosphorous 2.5 mg/dL (2.4-5.1); Potassium 3.3 mMol/L (3.4-5.1); Sodium 144 mMol/L (136-145); Total Protein 5.7 gm/dL (5.7-8.2); eGFR > 60 See Note
[2024-04-14] MEDS: INSULIN LISPRO (AdmeLOG) 1 UNIT/0.01 ML UNIT SC ×3 (07:40→21:58)
[2024-04-14] MEDS: PANTOPRAZOLE INJ 40 MG VIAL IVP (08:43)
[2024-04-14] MEDS: amLODIPine BESYLATE 5 MG TABLET 10 MG PO (08:43)
[2024-04-14] MEDS: HEPARIN SOD INJ 5000 UNIT/ML VIAL SC ×2 (08:44→21:35)
[2024-04-14] MEDS: Lisinopril 2.5 MG TABLET 10 MG PO (08:44)
[2024-04-14] MEDS: POTASSIUM CHL 10 mEq IVPB 10 MEQ/100 ML BAG 60 MEQ IV ×4 (10:05→17:09)
--- NOTE | 2024-04-14 12:48 | ESPR_ITS ---
Documentation for date of: 04/14/24 Subjective Subjective Interval history: Patient was seen and examined at bedside no acute overnight events. Patient reports no additional complaints other than ongoing abdominal pain. Electrolytes were repleted. Patient is pending for colonoscopy, continue GoLytely and clear liquid diet. Exam Vital Signs Temp Pulse Resp BP Pulse Ox O2 Del Method O2 Flow Rate 97.2 F 90 19 139/75 H 97 Room Air 3 04/14/24 08:00 04/14/24 08:44 04/14/24 08:00 04/14/24 08:44 04/14/24 08:00 04/14/24 08:00 04/12/24 17:40 Narrative Exam Gen: Well-developed and well-nourished female. HEENT: NCAT, PERRLA, EOMI, MMM, anicteric conjunctivae. CVS: normal S1 and S2. RRR. No M/R/G. Resp: CTA B/L. No rhonchi, rales, crackles or wheezing. Abd: soft, tender throughout, non-distended. Surgical scar appears clean. BS+ in all 4 quadrants. MSK: Good ROM in BUE & BLE. No edema or rash. Neuro: CN II-XII grossly intact. Strength 5/5 in BUE & BLE. Alert and oriented x3. Objective Labs 04/15/24 04:31 04/15/24 04:31 Labs: Laboratory Results - last 24 hr 04/14/24 05:01 WBC 9.4 RBC 3.52 L Hgb 10.6 L Hct 28.9 L MCV 82 MCH 30.1 MCHC 36.7 RDW Std Deviation 39.4 Plt Count 521 H D Neut % (Auto) 63 Lymph % (Auto) 17 [place] % (Auto) 8 Eos % (Auto) 10 Baso % (Auto) 2 Neut # (Auto) 5.9 Lymph # (Auto) 1.6 [place] # (Auto) 0.8 Eos # (Auto) 1.0 H Baso # (Auto) 0.1 Immature Gran # (Auto) 0.02 H Absolute Nucleated RBC 0.00 Immature Gran % 0 Nucleated RBC % 0 Sodium 144 Potassium 3.3 L Chloride 105 Carbon Dioxide 28.7 Anion Gap 10 BUN < 5 L Creatinine 0.5 L Estim Creat Clear Calc 92.3 eGFR > 60 BUN/Creatinine Ratio 10 L Glucose 159 H Calculated Osmolality 287 Calcium 9.0 Corrected Calcium 9.3 Phosphorus 2.5 Magnesium 1.8 Total Bilirubin 0.6 AST < 10 ALT 10 Alkaline Phosphatase 100 Total Protein 5.7 Albumin 3.6 Globulin 2.1 L Albumin/Globulin Ratio 1.7 Quality Measures Quality Measures VTE prophylaxis Advance care planning discussed with:: patient Assessment & Plan Assessment Current Active Medications: Generic Name Dose Route Start Last Admin Trade Name Freq PRN Reason Stop Dose Admin Acetaminophen 650 mg 04/10/24 21:02 04/11/24 05:30 Acetaminophen 325 Mg Tablet PO 05/10/24 21:01 650 mg Q6H PRN Administration PAIN SCALE 1-3 (mild Acetaminophen 650 mg 04/10/24 21:02 Acetaminophen 325 Mg Tablet PO 05/10/24 21:01 Q6H PRN Fever >100.4 Hydrocodone Bitart/Acetaminophen 1 tab 04/10/24 21:02 Hydrocodone/Apap 10/325 Tab PO 04/15/24 21:01 Q4HR PRN PAIN SCALE 7-10 (Severe Amlodipine Besylate 10 mg 04/11/24 01:15 04/14/24 08:43 Amlodipine Besylate 5 Mg Tablet PO 05/11/24 01:14 10 mg QDAY TULIO Administration Dextrose 25 ml 04/10/24 21:07 Dextrose 50%-Water Inj 50 Ml Syringe IV 05/10/24 21:06 Q15MIN PRN BG 50-70 responsive npo pt Dextrose 50 ml 04/10/24 21:07 Dextrose 50%-Water Inj 50 Ml Syringe IV 05/10/24 21:06 Q15MIN PRN BG <50 OR BG <70 & pt unresponsive Glucagon 1 mg 04/10/24 21:07 Glucagon Inj 1 Mg Vial IM Q15MIN PRN BG <70, and no IV access Heparin Sodium (Porcine) 5,000 unit 04/13/24 21:00 04/14/24 08:44 Heparin Sod Inj 5000 Unit/Ml Vial SC 04/27/24 20:59 5,000 unit Q12HR TULIO Administration Hydralazine HCl 10 mg 04/12/24 18:52 Hydralazine Inj 20 Mg/Ml Vial IV 05/12/24 18:51 Q6H PRN SBP > 180 OR DBP >105 Promethazine HCl 12.5 mg/ 50.5 mls @ 150 mls/hr 04/12/24 18:15 04/14/24 05:15 Sodium Chloride IV 05/12/24 18:14 150 mls/hr Q6HR TULIO Administration Piperacillin Sod/Tazobactam 50 mls @ 12.5 mls/hr 04/14/24 14:00 Sod 3.375 gm/ Sodium Chloride IV 04/18/24 05:59 Q8HR TULIO Protocol Potassium Chloride 10 meq in 100 mls @ 100 mls/hr 04/14/24 08:34 04/14/24 12:16 Kcl Ivpb IV 04/14/24 14:33 60 mls/hr Q1H TULIO Administration Insulin Human Lispro 0 unit 04/13/24 21:30 04/14/24 11:17 Insulin Lispro (Admelog) 1 Unit/0.01 Ml Unit SC 05/13/24 21:29 1 unit ACHS TULIO Administration Protocol Lisinopril 10 mg 04/11/24 10:45 04/14/24 08:44 Lisinopril 2.5 Mg Tablet PO 05/11/24 10:44 10 mg QDAY TULIO Administration Ondansetron HCl 4 mg 04/10/24 21:02 04/12/24 08:02 Ondansetron Inj 2 Mg/Ml Inj 2 Ml IV 05/10/24 21:01 4 mg Q6H PRN Administration NAUSEA OR VOMITING Protocol Oxycodone/Acetaminophen 1 tab 04/10/24 21:02 04/13/24 05:45 Oxycodone/Apap 5/325 Tablet PO 04/15/24 21:01 1 tab Q6H PRN Administration PAIN SCALE 4-6 (Moderate Pantoprazole Sodium 40 mg 04/11/24 09:00 04/14/24 08:43 Pantoprazole Inj 40 Mg Vial IVP 05/11/24 08:59 40 mg QDAY TULIO Administration Plan Ms. Multani is a 68-year-old female with past medical history of biliary dyskinesia s/p cholecystectomy and appendectomy, hypertension, DM2, seizures, headaches, and frequent UTIs who is admitted for severe abdominal pain and intractable N and V. #Intractable nausea and vomiting, improving. #Abdominal pain, improving. #Biliary Dyskinesia, EF ~16% s/p cholecystectomy. #Hx of Incidental appendectomy. #Hx of Hemorrhagic gastritis s/p EGD. #Hx of Constipation. Pt underwent EGD last night, will follow up with report. Pt is currently is currently bowel prep for colonoscopy. CTA showed fluid distended small bowel loops, differential would include enteritis ileus. Plan: - GI Dr Moran consulted, appreciate recommendations. - General surgery Dr Frias consulted, does not recommend any surgical intervention at this time. - Continue with bowel prep and colonoscopy. - Continue Protonix 40 mg IV qday. - Zofran 4mg Q6H PRN. - Pain control, with percocet and tylenol. - Phenergren 12.5 mg IV q6h. - pending colonoscopy. #History of hypertension. Plan: - On lisinopril 10 mg and Amlodipine 10 mg. #Type 2 DM. - Last A1c = 7.2% on 02/2024. Plan: - SSI. - Hypoglycemia protocol ordered. - Blood sugar checks ACHS. #Hx of seizures disorder. #Hx of headaches. Patient has not been prescribed antiseizure medication as of recently, last seizure episode was 1.5 years ago. Health Maintenance: Disposition: Med Surg. DVT prophylaxis: Heparin q12h. GI prophylaxis: Protonix. Diet: Clear liquid. CODE STATUS: Full code. Plan of care discussed with attending Dr. Esquivel. Roberto Pugh MD, PGY 2. Disclaimer: This note was dictated by speech recognition. Minor errors in nutrition tech may be present due to voice recognition software. Attending Provider Attestation/Addendum I have examined the patient, reviewed labs and imaging findings, discussed the case with the resident(s), and reviewed entered orders. I agree with the plan of care as outlined in this note, with these additional summaries/recommendations: Patient seen at bedside. No acute overnight events. Today patient is seen drinking GoLytely and appears to be tolerating well with no significant nausea/vomiting. Overall her nausea/vomiting has improved but not resolved. Gastroenterology following and patient will go for colonoscopy today. Continue Phenergan for nausea/vomiting. Counseled patient that she will likely need close outpatient follow-up with gastroenterology with further workup. Continue insulin sliding scale for diabetes mellitus type 2. Previous A1c 7.2%. Continue lisinopril and Norvasc for history of primary hypertension. Repeat hematology and chemistry panel in AM. Dr. Esquivel
[2024-04-14] MEDS: PIPER/TAZO INJ 3.375 GM in SODIUM CHLORIDE 0.9% (P) 50 ML IV ×2 (14:33→21:32)
[2024-04-14] MEDS: POTASSIUM CHLORIDE 20 mEq TABCR PO (22:00)
[2024-04-15] VITALS (7 sets, daily range): BP systolic 111–166; BP diastolic 66–83; PULSE 83–93; RESP 17–20; TEMP 36.2–36.6; O2SAT 94–98
[2024-04-15] MEDS: PROMETHAZINE INJ 12.5 MG in SODIUM CHLORIDE 0.9% 50 ML 150 MG IV ×3 (00:18→11:21)
[2024-04-15] MEDS: HYDROcodone/APAP 10/325 TAB PO (02:23)
[2024-04-15] MEDS: PIPER/TAZO INJ 3.375 GM in SODIUM CHLORIDE 0.9% (P) 50 ML IV ×2 (05:24→14:28)
[2024-04-15 05:28] LABS: Basophils # (Auto) 0.1 Thou/mm3 (0.0-0.2); Basophils % (Auto) 1 % (0-2.5); Eosinophils % (Auto) 11 % (0-10); Hematocrit 27.3 % (36.0-46.0); Hemoglobin 9.8 g/dL (12.0-16.0); Immature Granulocytes % (Auto) 0 % (0-0); Immature Granulocytes Auto 0.02 Thou/mm3 (0.00-0.00); Lymphocytes % (Auto) 22 % (10-50); Mean Corpuscular HGB Conc 35.9 g/dl (31.0-37.0); Mean Corpuscular Hemoglobin 30.2 pg (25.0-35.0); Mean Corpuscular Volume 84 fL (80-100); Monocytes # (Auto) 0.6 Thou/mm3 (0.0-0.8); Monocytes % (Auto) 7 % (0-12); Neutrophils # (Auto) 5.3 Thou/mm3 (1.8-7.7); Neutrophils % (Auto) 59 % (37-80); Nucleated Red Blood Cell % 0 /100 WBC (0); Platelet Count 463 Thou/mm3 (140-440); RDW Standard Deviation 41.1 fL (36.4-46.3); Red Blood Count 3.25 Miln/mm3 (4.00-5.20); White Blood Count 9.1 Thou/mm3 (3.6-11.0)
[2024-04-15 06:03] LABS: Alanine Aminotransferase 11 U/L (10-49); Albumin, Serum 3.2 gm/dL (3.4-4.8); Albumin/Globulin Ratio 1.5 (1.2-2.2); Alkaline Phosphatase 91 U/L (46-116); Anion Gap 9 (7-16); Aspartate Amino Transferase 11 U/L (0-34); BUN/Creatinine Ratio 8 Ratio (12-20); Bilirubin,Total 0.5 mg/dL (0.3-1.2); Blood Urea Nitrogen < 5 mg/dL (9-23); Calcium 8.5 mg/dL (8.3-10.6); Calcium (Corrected) 9.1 mg/dL (8.5-10.1); Carbon Dioxide 26.9 mMol/L (20.0-31.0); Chloride 105 mMol/L (98-107); Creatinine (Component) 0.6 mg/dL (0.6-1.3); Estimated Creatinine Clearance 76.9 mL/min (>60); Globulin 2.1 gm/dL (2.3-3.5); Glucose 214 mg/dL (74-106); Magnesium 1.7 mg/dL (1.6-2.6); Osmolality,Calculated 284 (275-295); Phosphorous 3.1 mg/dL (2.4-5.1); Potassium 3.9 mMol/L (3.4-5.1); Sodium 141 mMol/L (136-145); Total Protein 5.3 gm/dL (5.7-8.2); eGFR > 60 See Note
[2024-04-15] MEDS: INSULIN LISPRO (AdmeLOG) 1 UNIT/0.01 ML UNIT SC ×3 (07:59→17:47)
[2024-04-15] MEDS: PANTOPRAZOLE INJ 40 MG VIAL IVP (08:09)
[2024-04-15] MEDS: amLODIPine BESYLATE 5 MG TABLET 10 MG PO (08:10)
[2024-04-15] MEDS: Lisinopril 2.5 MG TABLET 10 MG PO (08:11)
[2024-04-15] MEDS: HEPARIN SOD INJ 5000 UNIT/ML VIAL SC (08:12)
--- NOTE | 2024-04-15 09:59 | PD.IMPROG ---
Documentation for date of: 04/15/24 Subjective Subjective Interval history: Case discussed with internal medicine team okay to discharge patient home Exam Vital Signs Temp Pulse Resp BP Pulse Ox O2 Del Method O2 Flow Rate 97.7 F 89 17 125/68 97 Room Air 3 04/15/24 08:00 04/15/24 08:11 04/15/24 08:00 04/15/24 08:11 04/15/24 08:00 04/15/24 08:00 04/15/24 04:00 Objective Labs 04/15/24 04:31 04/15/24 04:31 Labs: Laboratory Results - last 24 hr 04/15/24 04:31 WBC 9.1 RBC 3.25 L Hgb 9.8 L Hct 27.3 L MCV 84 MCH 30.2 MCHC 35.9 RDW Std Deviation 41.1 Plt Count 463 H D Neut % (Auto) 59 Lymph % (Auto) 22 [place] % (Auto) 7 Eos % (Auto) 11 H Baso % (Auto) 1 Neut # (Auto) 5.3 Lymph # (Auto) 2.0 [place] # (Auto) 0.6 Eos # (Auto) 1.0 H Baso # (Auto) 0.1 Immature Gran # (Auto) 0.02 H Absolute Nucleated RBC 0.00 Immature Gran % 0 Nucleated RBC % 0 Sodium 141 Potassium 3.9 D Chloride 105 Carbon Dioxide 26.9 Anion Gap 9 BUN < 5 L Creatinine 0.6 Estim Creat Clear Calc 76.9 eGFR > 60 BUN/Creatinine Ratio 8 L Glucose 214 H D Calculated Osmolality 284 Calcium 8.5 Corrected Calcium 9.1 Phosphorus 3.1 Magnesium 1.7 Total Bilirubin 0.5 AST 11 ALT 11 Alkaline Phosphatase 91 Total Protein 5.3 L Albumin 3.2 L Globulin 2.1 L Albumin/Globulin Ratio 1.5 Impressions Impression: Esophagitis Gastritis no evidence of colonic obstruction abdominal pain related to stool impaction due to pain medication Assessment & Plan A&P Narrative # Nausea vomiting suggestive of gastric motility disorder # Status post laparoscopic cholecystectomy # Air droplets, on anterior abdominal wall are insignificant and does not suggest any acute abdomen perforated viscus, related to previous surgery # Change of bowel habit with constipation Plan Agree with the current management reevaluate in 24 hours If nausea continues I will consider doing an upper endoscopy Thank you for the opportunity to participate in the care of this patient Time Spent With Patient Time: Total time spent is greater than 50% in coordination of care (as documented) at patient's floor/unit and/or counseling patient:
--- NOTE | 2024-04-15 15:50 | ESDS_ITS ---
Planned Discharge Date 04/15/24 DS: Providers Provider Date of admission: 04/10/24 21:02 Primary care physician: Fredis Shah MD Admitting Provider: Clinton Albert MD Attending Provider on Admission: Clinton Albert MD Consults: 04/10/24 21:04 Consult to General Surgery Stat Comment: Consulting Provider: Leticia Frias 04/10/24 21:39 Consult to Gastroenterology Stat Comment: Intractable V/D, abdomen pain Consulting Provider: Robert Moran 04/11/24 01:03 Referral Registered Dietitian Routine Comment: Attending Provider on DC: Chris Esquivel MD Discharging Provider: Carlos A Gong MD DS: Diagnosis Problem List Completed Was Problem List Reviewed/Reconciled?: Yes Hospital Course Hospital Course Hospital course: The patient is a 68-year-old female with a past medical of hypertension, diabetes, frequent UTIs and headaches, documented history of seizures and intractable nausea and vomiting who presented to the ED with vomiting and diarrhea on 04/10/2024. The patient had just recently been discharged about a week prior for similar symptoms but return to the ED since her symptoms returned and were worse over the few days prior to presentation. On the previous admission, she had an uncomplicated cholecystectomy and appendectomy done and she was discharged home Reglan to be used as needed for nausea and vomiting. In the ED, the patient's labs were within normal limits and she was admitted for management of intractable vomiting and diarrhea. GI was consulted and the colonoscopy was done which showed hemorrhoids and some diverticula, biopsies were taken. Today, the patient is clinically and hemodynamically stable, no longer has pain and nausea. She is medically clear for discharge. She is recommended to stop all other pain medications and use only Tylenol as needed for pain, she is also been prescribed Zofran as needed for nausea and vomiting. She will follow-up with her PCP within 1 week of discharge, follow-up biopsy results. #Intractable vomiting and diarrhea #Abdominal pain, improving #History of biliary dyskinesia s/p cholecystectomy #History of hypertension #History of type II DM Discharge instructions: Follow up with your PCP within 1 week of discharge for biopsy results Stop all pain medications, use only tylenol as needed Take zofran as needed for nausea or vomiting Return to the ED if symptoms worsen Case was discussed with Dr Morel PGY-2 and attending physician, Dr Esquivel Disclaimer: This note was dictated by speech recognition. Minor errors in senior consumer insights consultant may be present due to voice recognition software. Time Spent with Patient Time attestation: Total time spent providing and/or coordinating discharge services: Exam Vital Signs Temp Pulse Resp BP Pulse Ox O2 Del Method O2 Flow Rate 97.4 F 88 18 166/83 H 97 Room Air 3 04/15/24 12:00 04/15/24 12:00 04/15/24 12:00 04/15/24 12:00 04/15/24 12:00 04/15/24 12:00 04/15/24 04:00 Narrative Exam GENERAL: AAOX3 NEURO: ORGAN GRINDER grossly intact, moves extremities x4 HEENT: Moist mucosa. Eyes open, symmetrical, & clear CARDIO: No chest pain on palpation. Heart RRR, no obvious murmurs PULM: No noted coughing/dyspnea. Lungs CTA B/L GI: Abdomen soft, nondistended, no pain on palpation. BSx4 URO/THERMITE BOMB LOADER:: No further abnormalities noted. SKIN/MSK/EXT: No wounds/rashes/edema/amputations, no pain on palpation. Pedal pulses present B/L Discharge Plan Plan Patient Disposition: HOME (Self Care) Care Plan Goals: Follow up with your PCP within 1 week of discharge for biopsy results Stop all pain medications, use only tylenol as needed Take zofran as needed for nausea or vomiting Return to the ED if symptoms worsen Catrachita un seguimiento con valdovinos PCP dentro de la semana posterior al raj para obtener los resultados de la biopsia. Suspenda todos los analg?sicos, use solo tylenol seg?n sea necesario Slater zofran seg?n sea necesario para las n?useas o los v?mitos. Regrese al servicio de urgencias si los s?ntomas empeoran. Prescriptions/Referrals Prescriptions/Med Rec: New ondansetron 4 mg tablet,disintegrating 4 mg PO Q8H PRN (Reason: nausea and vomiting) 30 Days Qty: 30 0RF Continued benazepril 5 mg tablet 10 mg PO QDAY pantoprazole [Protonix] 40 mg tablet,delayed release (DR/EC) 40 mg PO BID Qty: 60 0RF Januvia 25 mg tablet 25 mg PO QDAY 30 Days Qty: 30 0RF polyethylene glycol 3350 [Miralax] 17 gram/dose powder 4 g PO QDAY PRN (Reason: constipation) 30 Days Qty: 119 0RF sucralfate 100 mg/mL suspension 10 ml PO QID 30 Days Qty: 1200 0RF Rx Instructions: swish in mouth and swallow; use after food/drink metformin 500 mg tablet 500 mg PO BIDWMEAL 30 Days Qty: 60 0RF Discontinued metoclopramide HCl 5 mg tablet 5 mg PO QDAY PRN (Reason: constipation) 30 Days Qty: 30 0RF hydromorphone [Dilaudid] 2 mg tablet 2 mg PO Q6H MDD 10 mg PRN (Reason: pain) Qty: 14 0RF Referrals: Fredis Shah MD [Primary Care Provider] - Patient/Caregiver Discharge Instructions Other Discharge Activity Instructions:: Follow up with your PCP within 1 week of discharge for biopsy results Stop all pain medications, use only tylenol as needed Take zofran as needed for nausea or vomiting Return to the ED if symptoms worsen Catrachita un seguimiento con valdovinos PCP dentro de la semana posterior al raj para obtener los resultados de la biopsia. Suspenda todos los analg?sicos, use solo tylenol seg?n sea necesario Slater zofran seg?n sea necesario para las n?useas o los v?mitos. Regrese al servicio de urgencias si los s?ntomas empeoran. Print Language: Urdu Stand Alone Forms: Britt Award Info., Patient Portal Info Letter Discharge Order Discharge Orders: Discharge (Routine); Ordered 04/15/24 Ordered By: Carlos A Gong Quality Discharge Quality Measures VTE prophylaxis Attestestation MD Attestation I have examined the patient, reviewed labs and imaging findings, discussed the case with the resident(s), and reviewed entered orders. I agree with the plan of care as outlined in this note. Dr. Esquivel
== END 2024-04-15 18:50 | disposition home or self-care (01) | DRG 378 ==
LOC: SERX 20:00 → SERHOLD 21:55 → S3SX 04-12 01:18
PROVIDERS: Nurse Practitioner Family; Specialist; Admitting Provider Internal Medicine; Emergency Provider Emergency Medicine; PCP Student in an Organized Health Care Education/Training Program; Visit Provider Internal Medicine
PROC: (CPT 43239; principal; 2024-04-12 17:30)
PROC: 0DJD8ZZ Inspection of Lower Intestinal Tract, Via Natural or Artificial Opening Endoscopic (ICD-10-PCS; CPT 45378; principal; 2024-04-14 18:00)
DX: K29.71 Gastritis, unspecified, with bleeding (principal); N17.9 Acute kidney failure, unspecified; K64.9 Unspecified hemorrhoids; K57.30 Diverticulosis of large intestine without perforation or abscess without bleeding; I10 Essential (primary) hypertension; E11.9 Type 2 diabetes mellitus without complications; E83.42 Hypomagnesemia; G40.909 Epilepsy, unspecified, not intractable, without status epilepticus; K59.00 Constipation, unspecified; K82.4 Cholesterolosis of gallbladder; D75.839 Thrombocytosis, unspecified; K20.90 Esophagitis, unspecified without bleeding; E86.0 Dehydration; Z90.49 Acquired absence of other specified parts of digestive tract; Z88.5 Allergy status to narcotic agent; Z79.84 Long term (current) use of oral hypoglycemic drugs; Z87.440 Personal history of urinary (tract) infections; Z79.899 Other long term (current) drug therapy; Z90.710 Acquired absence of both cervix and uterus; T50.995A Adverse effect of other drugs, medicaments and biological substances, initial encounter; Z79.4 Long term (current) use of insulin
CPT/HCPCS: 36415; 74175; 74176; 80053; 81001; 83605; 83690; 83735; 84100; 85025; 85610; 85652; 86140; 87040; 87081; 87086; 87493; 96361; 96365; 96372; 96375; 99285; A4649; J0360; J1200; J1643; J1815; J1885; J2250; J2405; J2470; J2543; J2550; J2765; J3010; J3475; J3480; J3490; J7030; J7050; J7120; Q0162; Q9967; A9270

== ENCOUNTER → 2024-05-19 | Outpatient (CLI) | payer OTHER, SELFPAY ==
[2024-05-19 09:59] LABS: Collection Type, Urine Clean Catch
[2024-05-19 10:21] LABS: Bilirubin,Urine Negative (Negative); Blood,Urine Trace (Negative); Clarity,Urine Clear (Clear/Hazy); Color,Urine Lt-Yellow (Lt Yel-Yel); Glucose, Urine 1+ (Negative); Ketones,Urine Negative (Negative); Leukocyte Esterase,Urine Negative (Negative); Nitrite,Urine Negative (Negative); Protein,Urine 2+ (Neg - Trace); RBC,Urine 3 /hpf (0-3); Specific Gravity,Urine 1.014 (1.001-1.035); Squamous Epithelial Cell,Urine 1 /hpf (0-5); Urobilinogen,Urine Negative mg/dL (0.0-1.0); WBC,Urine 3 /hpf (0-5)
[2024-05-19 10:24] LABS: Glucose Estimated Average 163 mg/dL (80-131); Hemoglobin A1C 7.3 % Hgb (4.8-6.0)
[2024-05-19 10:38] LABS: Alanine Aminotransferase 12 U/L (10-49); Albumin, Serum 4.4 gm/dL (3.4-4.8); Albumin/Globulin Ratio 1.9 (1.2-2.2); Alkaline Phosphatase 86 U/L (46-116); Anion Gap 10 (7-16); Aspartate Amino Transferase 11 U/L (0-34); BUN/Creatinine Ratio 33 Ratio (12-20); Bilirubin,Total 0.6 mg/dL (0.3-1.2); Blood Urea Nitrogen 26 mg/dL (9-23); Carbon Dioxide 23.9 mMol/L (20.0-31.0); Cardiac Risk Estimate 4.4 RATIO (3.7-5.6); Chloride 98 mMol/L (98-107); Cholesterol 261 mg/dL (132-200); Creatinine (Component) 0.8 mg/dL (0.6-1.3); Globulin 2.3 gm/dL (2.3-3.5); Glucose 301 mg/dL (74-106); HDL Cholesterol 60 mg/dL (40-60); LDL Cholesterol,Calculated 167 mg/dL (0-130); Osmolality,Calculated 280 (275-295); Potassium 4.5 mMol/L (3.4-5.1); Sodium 132 mMol/L (136-145); Total Protein 6.7 gm/dL (5.7-8.2); Triglycerides 168 mg/dL (30-150); eGFR > 60 See Note
== END | disposition home or self-care (01) ==
PROVIDERS: PCP Student in an Organized Health Care Education/Training Program; Referring Provider Student in an Organized Health Care Education/Training Program; Visit Provider Student in an Organized Health Care Education/Training Program
DX: E11.65 Type 2 diabetes mellitus with hyperglycemia (principal); I10 Essential (primary) hypertension
CPT/HCPCS: 36415; 80053; 80061; 81001; 83036

== ENCOUNTER → 2024-09-28 | Outpatient (CLI) | payer OTHER, SELFPAY ==
[2024-09-28 11:46] LABS: Collection Type, Urine Clean Catch; Squamous Epithelial Cell,Urine 0 /hpf (0-5)
[2024-09-28 12:11] LABS: Basophils # (Auto) 0.2 Thou/mm3 (0.0-0.2); Basophils % (Auto) 2 % (0-2.5); Eosinophils # (Auto) 0.8 Thou/mm3 (0.0-0.5); Eosinophils % (Auto) 8 % (0-10); Hematocrit 34.5 % (36.0-46.0); Hemoglobin 12.6 g/dL (12.0-16.0); Immature Granulocytes Auto 0.08 Thou/mm3 (0.00-0.00); Lymphocytes # (Auto) 2.1 Thou/mm3 (1.0-4.8); Lymphocytes % (Auto) 22 % (10-50); Mean Corpuscular HGB Conc 36.5 g/dl (31.0-37.0); Mean Corpuscular Hemoglobin 30.1 pg (25.0-35.0); Mean Corpuscular Volume 83 fL (80-100); Monocytes # (Auto) 0.6 Thou/mm3 (0.0-0.8); Monocytes % (Auto) 7 % (0-12); Neutrophils # (Auto) 5.6 Thou/mm3 (1.8-7.7); Neutrophils % (Auto) 61 % (37-80); Nucleated Red Blood Cell # 0.00 Thou/mm3 (0.00-0.00); Nucleated Red Blood Cell % 0 /100 WBC (0); Platelet Count 450 Thou/mm3 (140-440); RDW Standard Deviation 37.3 fL (36.4-46.3); Red Blood Count 4.18 Miln/mm3 (4.00-5.20); White Blood Count 9.3 Thou/mm3 (3.6-11.0)
[2024-09-28 12:29] LABS: Bilirubin,Urine Negative (Negative); Blood,Urine Trace (Negative); Clarity,Urine Clear (Clear/Hazy); Color,Urine Colorless (Lt Yel-Yel); Culture Indicated,Urine Not Indicated; Glucose, Urine Negative (Negative); Ketones,Urine Negative (Negative); Leukocyte Esterase,Urine Positive (Negative); Nitrite,Urine Negative (Negative); PH,Urine 6.0 (5.0-7.0); Protein,Urine 1+ (Neg - Trace); RBC,Urine 2 /hpf (0-3); Specific Gravity,Urine 1.008 (1.001-1.035); Urobilinogen,Urine Negative mg/dL (0.0-1.0); WBC,Urine 3 /hpf (0-5)
[2024-09-28 12:34] LABS: Alanine Aminotransferase 8 U/L (10-49); Albumin, Serum 4.1 gm/dL (3.4-4.8); Albumin/Globulin Ratio 1.9 (1.2-2.2); Alkaline Phosphatase 70 U/L (46-116); Anion Gap 8 (7-16); Aspartate Amino Transferase 13 U/L (0-34); BUN/Creatinine Ratio 26 Ratio (12-20); Bilirubin,Total 1.0 mg/dL (0.3-1.2); Blood Urea Nitrogen 21 mg/dL (9-23); Calcium 9.1 mg/dL (8.3-10.6); Calcium (Corrected) 9.1 mg/dL (8.5-10.1); Carbon Dioxide 25.6 mMol/L (20.0-31.0); Cardiac Risk Estimate 3.8 RATIO (3.7-5.6); Chloride 97 mMol/L (98-107); Cholesterol 196 mg/dL (132-200); Creatinine (Component) 0.8 mg/dL (0.6-1.3); Free T4 (Free Thyroxine) 1.39 ng/dL (0.89-1.76); Globulin 2.2 gm/dL (2.3-3.5); Glucose 141 mg/dL (74-106); HDL Cholesterol 52 mg/dL (40-60); LDL Cholesterol,Calculated 100 mg/dL (0-130); Osmolality,Calculated 267 (275-295); Potassium 4.4 mMol/L (3.4-5.1); Sodium 131 mMol/L (136-145); Thyroid Stimulating Hormone 3.54 uIU/mL (0.55-4.78); Total Protein 6.3 gm/dL (5.7-8.2); Triglycerides 218 mg/dL (30-150); eGFR > 60 See Note
[2024-09-28 12:48] LABS: Vitamin B12 711 pg/mL (211-911); Vitamin D 25 Hydroxy Total 25.8 ng/mL (7.3-40.2)
[2024-09-28 13:24] LABS: Creatinine MALB Rnd Ur 27 mg/dL (30-125); Microalbumin Creat Ratio 1467 mg/gCrea (<30); Microalbumin, Random Urine 396 mg/L (0-300)
[2024-09-28 13:35] LABS: Glucose Estimated Average 214 mg/dL (80-131); Hemoglobin A1C 9.1 % Hgb (4.8-6.0)
[2024-10-02 06:25] LABS: T3,Total* 93 ng/dL (76-181)
== END | disposition home or self-care (01) ==
DX: I10 Essential (primary) hypertension (principal); E78.2 Mixed hyperlipidemia; E11.65 Type 2 diabetes mellitus with hyperglycemia
CPT/HCPCS: 36415; 80053; 80061; 81001; 82043; 82306; 82570; 82607; 83036; 84439; 84443; 84480; 85025

== ENCOUNTER 2024-10-07 11:18 | Emergency (ER) | payer OTHER, SELFPAY ==
[2024-10-07 11:34] VITALS: BP 104/69; PULSE 104; RESP 18; TEMP 36.9; O2SAT 98; BMI 26.9
--- NOTE | 2024-10-07 11:45 | PD.EDRME ---
Rapid Medical Screening Exam RME Arrival date/time: 10/07/24 11:18 Chief Complaint: General Adult/Misc Complain Time Seen by Provider: 10/07/24 11:42 Vital signs: Vital Signs Temperature 98.5 F 10/07/24 11:34 Pulse Rate 104 H 10/07/24 11:34 Respiratory Rate 18 10/07/24 11:34 Blood Pressure 104/69 10/07/24 11:34 Pulse Oximetry (%) 98 10/07/24 11:34 Oxygen Delivery Method Room Air 10/07/24 11:34 Pulse ox is 98% room air Vital signs reviewed by provider: Yes RME Narrative: Patient has chronically been ill since this last March. As per family member patient was seen at the physician relations manager and she flatlined. Today she went to visit the [place] and he sent her to the ED for higher level of care
--- NOTE | 2024-10-07 11:47 | EKG_ITS ---
[facility] Test Date: 2024-10-07 Pat Name: AMANDA COREY Department: Room: - Gender: Female Revenue Audit Clerk: : [id number] Requested By: Michael Wiseman Order Number: [id number] Reading MD: Michael Wiseman Measurements Intervals [place] Rate: 101 P: 35 CA: 166 QRS: 37 QRSD: 86 T: 53 QT: 320 QTc: 415 Interpretive Statements SINUS TACHYCARDIA ABNORMAL RHYTHM ECG Compared to ECG 03/26/2024 17:03:10 Sinus rhythm no longer present /store/S0/[id number].pdf
--- NOTE | 2024-10-07 11:47 | XR_ITS ---
Examination: PA chest single view TECHNIQUE: Upright PA chest single view Date and time: October 07, 2024 1241 hours INDICATIONS: Onset chest pain today FINDINGS: Normal heart size. Lungs are clear. The osseous structures are demineralized but intact IMPRESSION: No active disease
--- NOTE | 2024-10-07 12:16 | PD.EDADULT ---
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 Chest pain started at the time of anxiety attack per family member. This evolved into lightheadedness but no full syncope. Patient is being seen by DOCK OPERATOR for chronic dysuria which has been ongoing since March of this year. Patient is very dramatic. Vital signs are stable. Review of the medical record show the patient was admitted to this hospital for in March 2024 resulting in a cholecystectomy and appendectomy. RME / HPI RME / HPI narrative: Patient has chronically been ill since this last March. 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 Today she went to visit the [facility] in the [facility] and he sent her to the ED for higher level of care Related Data Home Medications ?Medication ?Instructions ?Recorded ?Confirmed benazepril 5 mg tablet 10 mg PO QDAY 03/26/24 03/26/24 Previous Rx's ?Medication ?Instructions ?Recorded pantoprazole 40 mg tablet,delayed 40 mg PO BID #60 tabs 04/01/24 release (Protonix) ciprofloxacin HCl 500 mg tablet 500 mg PO BID #14 tabs 10/07/24 Allergies Allergy/AdvReac Type Severity Reaction Status Date / Time oxycodone (From OxyContin) Allergy Severe Anaphylaxis Verified 10/07/24 12:28 hydromorphone (From Dilaudid) Allergy Verified 10/07/24 12:28 nitrofurantoin (From Allergy Verified 10/07/24 12:28 Macrobid) morphine AdvReac Severe Anaphylaxis Verified 10/07/24 12:28 Review of Systems Review of Systems Narrative Review of Systems: GEN: No fever, no chills, no weight loss EYES: No discharge, no visual changes, no pain HEENT: No ear pain, no congestion, no sore throat PULM: No shortness of breath, no cough, no congestion CV: + chest pain, no dyspnea on exertion, no palpitations GI: No nausea, no vomiting, no diarrhea, no pain, no constipation : No frequency, no urgency, + dysuria MUSC/SKEL: No joint pain, no back pain SKIN: No rash PSYCH: No hallucinations, no depression HEME/LYMPH: No easy bleeding or bruising tendencies NEURO: No weakness, no headache Past Medical History Past Medical History NEUROLOGIC: Positive Seizures (long time ago, per pt) and Head Trauma CARDIAC: Positive Hypercholesterolemia and Hypertension; Negative Cardiac Disorders or Congestive Heart Failure RESPIRATORY: Negative Chronic Obstructive Pulmonary Disease (COPD) or Asthma GENITOURINARY: Negative Genitourinary Disorders or Renal Disease REPRODUCTIVE: Negative Pelvic Inflammatory Disease MUSCULOSKELETAL: Negative Musculoskeletal Disorders ENT: Positive Head Trauma ENDOCRINE: Positive Diabetes Mellitus Type 2; Negative Diabetes Mellitus Type 1 HEMATOLOGIC: Negative Blood Disorders or Sickle Cell Disease PSYCHO/SOCIAL: Positive Anxiety OTHER HISTORY: Negative Blood Transfusions, Blood Transfusion Reaction or Anesthesia Reactions Family History FAMILY HISTORY: Negative Family Cardiac Disorders Surgical History SURGICAL: Positive Hysterectomy and Section Social History SMOKING STATUS: Never smoker SECOND HAND EXPOSURE: No SUBSTANCE USE: does not use ED Exam Narrative Physical exam: [General: Traumatic, but appears not in any acute distress Head normocephalic HEENT: Eyes pupils are PERRLA EOMs are intact mouth dry membranes uvula is midline swallow symmetrical phonation is normal. All the subsystems of ATTR within acceptable limits Neck is supple nontender Chest equal chest rise nontender to palpation Respiratory: Clear to auscultation no wheezes crackles or rubs CV: Rate rhythm is regular no murmurs rubs or clicks Abdomen is soft nontender no masses positive bowel sounds all 4 quadrants Back: No CVA tenderness no spinous process tenderness from cervical spine thoracic and lumbar spine Skin: Intact no petechiae rash induration ulceration or crepitus Extremities: Moving all extremity against resistance cap refill less than 2 seconds neurosensory intact Neuro: Awake alert oriented x3 Glascow coma 15 no focal deficits] Course Quality Measures none Orders Category Date Time Status EKG (ED ONLY) *Do not use* NOW Care 10/07/24 11:47 Completed EKG (ED Only) Stat Exams 10/07/24 11:47 Draft XR chest 1V Stat Exams 10/07/24 11:47 Completed B-Type Natriuretic Peptide Stat Lab 10/07/24 12:11 Completed CBC Stat Lab 10/07/24 12:11 Completed Comprehensive Metabolic Panel Stat Lab 10/07/24 12:11 Completed Drug Screen,Urine Stat Lab 10/07/24 14:08 Completed LDH (Lactate Dehydrogenase) Stat Lab 10/07/24 12:11 Completed Magnesium Stat Lab 10/07/24 12:11 Completed Partial Thromboplastin Time Stat Lab 10/07/24 12:11 Completed Prothrombin Time with INR Stat Lab 10/07/24 12:11 Completed Troponin I Stat Lab 10/07/24 12:11 Completed Urinalysis, C/S if Indicated Stat Lab 10/07/24 14:08 Completed Urine Culture Stat Lab 10/07/24 14:08 Received Ketorolac Inj [Toradol Inj] Med 10/07/24 13:20 Discontinued 15 mg IVP X1 ONE Sodium Chloride 0.9% 1000 ml [Ns] 1,000 ml Med 10/07/24 13:00 Discontinued IV 999 mls/hr cefTRIAXone/D5w 1gm IV premix [Rocephin/D5w 1gm IV Med 10/07/24 15:34 Discontinued premix] 1 gm in 50 ml IV X1 Vital Signs Vital signs: Vital Signs Temperature 98.5 F 10/07/24 11:34 Pulse Rate 104 H 10/07/24 11:34 Respiratory Rate 18 10/07/24 11:34 Blood Pressure 104/69 10/07/24 11:34 Pulse Oximetry (%) 98 10/07/24 11:34 Oxygen Delivery Method Room Air 10/07/24 11:34 Discharge Plan Plan Patient Disposition: HOME (Self Care) Patient condition on transfer: Stable Prescriptions/Referrals Prescriptions/Med Rec: New ciprofloxacin HCl 500 mg tablet 500 mg PO BID Qty: 14 0RF No Action benazepril 5 mg tablet 10 mg PO QDAY pantoprazole [Protonix] 40 mg tablet,delayed release (DR/EC) 40 mg PO BID Qty: 60 0RF Referrals: Janiya Dickinson FNP-C [Primary Care Provider] - In 1 week Problem List Clinical Impression: UTI (urinary tract infection) Patient/Caregiver Discharge Instructions Education Materials: ED CYSTITIS Female Adult Print Language: Faroese Stand Alone Forms: Britt Award Info., Patient Portal Info Letter PA/DIRECTOR PRODUCT MANAGEMENT Supervising Physician PA/DIRECTOR PRODUCT MANAGEMENT Supervising Physician: João Encarnacion ENP, MD Attestation MD Attestation The patient was seen by the midlevel practitioner. I, the co-signing physician, was present during the entire ER visit. While I did not physically examine the patient, I was available for consultation as needed. I agree with the plan and documentation. MDM Clinical Information Provided by patient and EMS Medical Records Reviewed [facility] and EMS Meds/Rx Considered, not Ordered None Labs/Rad/Tests considered, not Ordered None EKG EKG Interpretation narrative: EKG performed 1151 shows a ventricular rate of 101 MN interval 166 QRS of 86 QTc of 378 this is sinus tachycardia. Lab Interpretation Lab(s) interpretation(s): CBC shows no acute leukocytosis anemia or thrombocytopenia CMP shows a sodium of 126 chloride of 94 glucose of 157 no other electrolyte imbalances magnesium 1.5 no transaminitis or T. bili elevation Troponin is negative BNP is negative Urine is turbid 2+ protein 1+ blood leukocyte esterase and nitrite positive WBCs at 149 RBCs at 64+ bacteria UDS is negative. Medication Administration(s) Medication Administration History Discontinued Medications Sodium Chloride (Ns) 1,000 mls @ 999 mls/hr IV .Q1H1M ONE Stop: 10/07/24 14:00 Last Infusion: 10/07/24 14:25 Dose: Infused Documented By: Admin: 10/07/24 13:24 Dose: 999 mls/hr Documented By: EF Ceftriaxone Sodium/Dextrose (Rocephin/D5w 1gm Iv Premix) 1 gm in 50 mls @ 100 mls/hr IV X1 ONE Stop: 10/07/24 16:03 Last Infusion: 10/07/24 16:10 Dose: Infused Documented By: Admin: 10/07/24 15:40 Dose: 100 mls/hr Documented By: EF Ketorolac Tromethamine (Ketorolac Inj 30 Mg/Ml Vial) 15 mg IVP X1 ONE Stop: 10/07/24 13:21 Last Admin: 10/07/24 13:40 Dose: 15 mg Documented By: EF
[2024-10-07 12:24] LABS: Basophils # (Auto) 0.1 Thou/mm3 (0.0-0.2); Basophils % (Auto) 1 % (0-2.5); Eosinophils # (Auto) 0.3 Thou/mm3 (0.0-0.5); Eosinophils % (Auto) 3 % (0-10); Hematocrit 33.7 % (36.0-46.0); Hemoglobin 12.5 g/dL (12.0-16.0); Immature Granulocytes Auto 0.04 Thou/mm3 (0.00-0.00); Lymphocytes # (Auto) 1.3 Thou/mm3 (1.0-4.8); Lymphocytes % (Auto) 13 % (10-50); Mean Corpuscular HGB Conc 37.1 g/dl (31.0-37.0); Mean Corpuscular Hemoglobin 30.0 pg (25.0-35.0); Mean Corpuscular Volume 81 fL (80-100); Monocytes # (Auto) 0.7 Thou/mm3 (0.0-0.8); Monocytes % (Auto) 7 % (0-12); Neutrophils # (Auto) 7.6 Thou/mm3 (1.8-7.7); Neutrophils % (Auto) 76 % (37-80); Nucleated Red Blood Cell # 0.00 Thou/mm3 (0.00-0.00); Nucleated Red Blood Cell % 0 /100 WBC (0); Platelet Count 420 Thou/mm3 (140-440); RDW Standard Deviation 35.8 fL (36.4-46.3); Red Blood Count 4.16 Miln/mm3 (4.00-5.20); White Blood Count 10.0 Thou/mm3 (3.6-11.0)
[2024-10-07 12:39] LABS: INR 1.0 (0.9-1.3); Partial Thromboplastin Time 28.7 Seconds (22.0-36.0); Prothrombin Time 10.6 Seconds (9.0-12.2)
[2024-10-07 12:40] LABS: B-Type Natriuretic Peptide 23 pg/mL (0-100)
[2024-10-07 12:52] LABS: Alanine Aminotransferase 8 U/L (10-49); Albumin, Serum 4.1 gm/dL (3.4-4.8); Albumin/Globulin Ratio 2.1 (1.2-2.2); Alkaline Phosphatase 71 U/L (46-116); Anion Gap 10 (7-16); Aspartate Amino Transferase 11 U/L (0-34); BUN/Creatinine Ratio 25 Ratio (12-20); Bilirubin,Total 0.8 mg/dL (0.3-1.2); Blood Urea Nitrogen 20 mg/dL (9-23); Calcium 9.7 mg/dL (8.3-10.6); Calcium (Corrected) 9.7 mg/dL (8.5-10.1); Carbon Dioxide 22.1 mMol/L (20.0-31.0); Chloride 94 mMol/L (98-107); Creatinine (Component) 0.8 mg/dL (0.6-1.3); Estimated Creatinine Clearance 55.6 mL/min (>60); Globulin 2.0 gm/dL (2.3-3.5); Glucose 157 mg/dL (74-106); LDH (Lactate Dehydrogenase) 134 U/L (120-246); Magnesium 1.5 mg/dL (1.6-2.6); Osmolality,Calculated 258 (275-295); Potassium 4.3 mMol/L (3.4-5.1); Sodium 126 mMol/L (136-145); Total Protein 6.1 gm/dL (5.7-8.2); Troponin I < 0.002 ng/mL (0.0-0.045); eGFR > 60 See Note
[2024-10-07] MEDS: SODIUM CHLORIDE 0.9% 1000 ML 1,000 ML 999 ML IV (13:24)
[2024-10-07] MEDS: KETOROLAC INJ 30 MG/ML VIAL 15 MG IVP (13:40)
[2024-10-07 14:13] LABS: Collection Type, Urine Clean Catch
[2024-10-07 14:23] LABS: Bacteria,Urine 4+; Bilirubin,Urine Negative (Negative); Blood,Urine 1+ (Negative); Clarity,Urine Turbid (Clear/Hazy); Color,Urine Lt-Yellow (Lt Yel-Yel); Glucose, Urine Negative (Negative); Granular Casts,Urine < 1 /hpf (0-1); Ketones,Urine Trace (Negative); Leukocyte Esterase,Urine Positive (Negative); Nitrite,Urine Positive (Negative); PH,Urine 6.5 (5.0-7.0); Protein,Urine 2+ (Neg - Trace); RBC,Urine 6 /hpf (0-3); Specific Gravity,Urine 1.011 (1.001-1.035); Squamous Epithelial Cell,Urine 3 /hpf (0-5); Urobilinogen,Urine Negative mg/dL (0.0-1.0); WBC,Urine 149 /hpf (0-5)
[2024-10-07 14:24] LABS: Culture Indicated,Urine Yes
[2024-10-07 14:30] LABS: Amphetamine/Methamp Scrn,U Negative (Negative); Barbiturate Screen,Urine Negative (Negative); Benzodiazepines Screen,Urine Negative (Negative); Benzoylecgonine Screen, Ur Negative (Negative); Fentanyl Screen,Urine Negative (Negative); Opiate Screen,Urine Negative (Negative); THC Screen,Urine Negative (Negative)
[2024-10-07] MEDS: cefTRIAXone/D5w 1gm IV premix 1 GM/50 ML BAG IV (15:40)
[2024-10-07 16:11] VITALS: BP 139/89; PULSE 97; RESP 13; O2SAT 100
== END 2024-10-07 16:12 | disposition home or self-care (01) ==
PROVIDERS: Physician Assistant; Emergency Provider Family Medicine
DX: N39.0 Urinary tract infection, site not specified (principal); R07.9 Chest pain, unspecified
CPT/HCPCS: 36415; 71045; 80053; 80307; 81001; 83615; 83735; 83880; 84484; 85025; 85610; 85730; 87077; 87086; 87186; 93005; 96361; 96365; 96375; 99284; J0696; J1885; J7030

== ENCOUNTER 2024-10-23 15:35 | Emergency (ER) | payer OTHER, SELFPAY ==
[2024-10-23 15:36] VITALS: BMI 27.2
[2024-10-23 15:56] VITALS: BP 157/86; PULSE 88; RESP 18; TEMP 36.9; O2SAT 100
--- NOTE | 2024-10-23 16:17 | XR_ITS ---
Examination: CT abdomen with intravenous contrast CT pelvis with intravenous contrast 2-D coronal reconstructions 2-D sagittal reconstructions Date and time of exam:October 23, 2024, 1727 hrs., Comparison April 13, 2024. Indications: Periumbilical pain onset today.. CTDI: vol (mGy) 7.68. DLP: (mGycm) 421. Technique: Multiple axial sections of the abdomen and pelvis have been obtained. 64 slice high-resolution scanner used. 3 mm axial sections have been obtained, post intravenous injection 60 cc [id number]. 2-D sagittal, coronal reconstructions obtained. Low dose protocols were performed. One or more of the following dose reduction techniques were used; automated exposure control, adjustment of the mA and/or KV according to patient size, use of iterative reconstruction technique. Findings: No focal liver or splenic lesion. Absent gallbladder. No common bile duct stones. No pancreatic mass. Minimal right hydronephrosis with wall thickening of the right ureter without ureteral calculi Aorta normal size. Abundant stool throughout the colon 8 mm fat-containing umbilical hernia with mild inflammation along the umbilical tract, no abscess No pericecal inflammatory change. Colonic diverticulosis. Urinary bladder intact. Impression: Suspicious for right urinary tract infection. 8mm fat-containing umbilical hernia with mild inflammation along the umbilical tract, no abscess, however recommend ultrasound umbilicus follow-up
--- NOTE | 2024-10-23 16:20 | PD.EDRME ---
Rapid Medical Screening Exam RME Arrival date/time: 10/23/24 15:35 69-year-old female with a history of hypertension presents to the emergency room with a chief complaint of diffuse 10 out of 10 abdominal pain x 3 days I have greeted and performed a focused initial assessment of this patient. A comprehensive ED assessment and evaluation of the patient, analysis of all test results, and completion of the medical decision making process will be conducted by additional ED providers. Chief Complaint: Abdominal Pain Time Seen by Provider: 10/23/24 15:43 Vital signs: Vital Signs Temperature 98.5 F 10/23/24 15:56 Pulse Rate 88 10/23/24 15:56 Respiratory Rate 18 10/23/24 15:56 Blood Pressure 157/86 H 10/23/24 15:56 Pulse Oximetry (%) 100 10/23/24 15:56 Oxygen Delivery Method Room Air 10/23/24 15:56 Vital signs reviewed by provider: Yes
[2024-10-23 16:37] LABS: Basophils # (Auto) 0.1 Thou/mm3 (0.0-0.2); Basophils % (Auto) 1 % (0-2.5); Eosinophils # (Auto) 0.7 Thou/mm3 (0.0-0.5); Eosinophils % (Auto) 7 % (0-10); Hematocrit 32.3 % (36.0-46.0); Hemoglobin 11.7 g/dL (12.0-16.0); Immature Granulocytes Auto 0.04 Thou/mm3 (0.00-0.00); Lymphocytes # (Auto) 1.5 Thou/mm3 (1.0-4.8); Lymphocytes % (Auto) 15 % (10-50); Mean Corpuscular HGB Conc 36.2 g/dl (31.0-37.0); Mean Corpuscular Hemoglobin 30.2 pg (25.0-35.0); Mean Corpuscular Volume 83 fL (80-100); Monocytes # (Auto) 0.7 Thou/mm3 (0.0-0.8); Monocytes % (Auto) 7 % (0-12); Neutrophils # (Auto) 7.0 Thou/mm3 (1.8-7.7); Neutrophils % (Auto) 70 % (37-80); Nucleated Red Blood Cell # 0.00 Thou/mm3 (0.00-0.00); Nucleated Red Blood Cell % 0 /100 WBC (0); Platelet Count 416 Thou/mm3 (140-440); RDW Standard Deviation 38.0 fL (36.4-46.3); Red Blood Count 3.88 Miln/mm3 (4.00-5.20); White Blood Count 10.0 Thou/mm3 (3.6-11.0)
[2024-10-23 16:54] LABS: Alanine Aminotransferase 13 U/L (10-49); Albumin, Serum 4.3 gm/dL (3.4-4.8); Albumin/Globulin Ratio 2.0 (1.2-2.2); Alkaline Phosphatase 84 U/L (46-116); Anion Gap 9 (7-16); Aspartate Amino Transferase 13 U/L (0-34); BUN/Creatinine Ratio 27 Ratio (12-20); Bilirubin,Total 0.6 mg/dL (0.3-1.2); Blood Urea Nitrogen 27 mg/dL (9-23); Calcium 9.8 mg/dL (8.3-10.6); Calcium (Corrected) 9.8 mg/dL (8.5-10.1); Carbon Dioxide 25.0 mMol/L (20.0-31.0); Chloride 94 mMol/L (98-107); Creatinine (Component) 1.0 mg/dL (0.6-1.3); Estimated Creatinine Clearance 42.9 mL/min (>60); Globulin 2.1 gm/dL (2.3-3.5); Glucose 159 mg/dL (74-106); Lipase 48 U/L (12-53); Osmolality,Calculated 265 (275-295); Potassium 5.5 mMol/L (3.4-5.1); Sodium 128 mMol/L (136-145); Total Protein 6.4 gm/dL (5.7-8.2); eGFR > 60 See Note
[2024-10-23 17:58] LABS: Collection Type, Urine Clean Catch
[2024-10-23 18:13] VITALS: BP 168/96; PULSE 79; RESP 16; TEMP 36.8; O2SAT 99
[2024-10-23 18:27] LABS: Bacteria,Urine Rare; Bilirubin,Urine Negative (Negative); Blood,Urine Negative (Negative); Budding Yeast,Urine Present; Clarity,Urine Clear (Clear/Hazy); Color,Urine Lt-Yellow (Lt Yel-Yel); Glucose, Urine Negative (Negative); Ketones,Urine Negative (Negative); Leukocyte Esterase,Urine Positive (Negative); Nitrite,Urine Negative (Negative); PH,Urine 7.0 (5.0-7.0); Protein,Urine 2+ (Neg - Trace); RBC,Urine 4 /hpf (0-3); Specific Gravity,Urine 1.019 (1.001-1.035); Squamous Epithelial Cell,Urine 4 /hpf (0-5); Urobilinogen,Urine Negative mg/dL (0.0-1.0); WBC,Urine 4 /hpf (0-5)
--- NOTE | 2024-10-23 18:42 | PD.EDABDPN ---
ED Abdominal Pain RME/HPI General Chief Complaint: Abdominal Pain Stated complaint: ABD PAIN FOR 2 WEEKS Time seen by provider: 10/23/24 15:43 Arrival date/time: 10/23/24 15:35 RME / HPI RME / HPI narrative: 10/23/24 15:35 69-year-old female with a history of hypertension presents to the emergency room with a chief complaint of diffuse 10 out of 10 abdominal pain x 3 days I have greeted and performed a focused initial assessment of this patient. A comprehensive ED assessment and evaluation of the patient, analysis of all test results, and completion of the medical decision making process will be conducted by additional ED providers. DR. FOFANA MAIN ED EVALUATION: 69 y/o female with Hx of Type II DM and SHx of cholecystectomy, appendectomy, and section presents to ED c/o severe lower abdominal pain and vomiting x 1 day. Pain has been ongoing for several months. 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 Reports allergies to Morphine, Dilaudid, Bactrim, and Oxycontin. No other concerns or complaintsd expressed at this time. Related Data Home Medications ?Medication ?Instructions ?Recorded ?Confirmed benazepril 5 mg tablet 10 mg PO QDAY 03/26/24 03/26/24 Previous Rx's ?Medication ?Instructions ?Recorded pantoprazole 40 mg tablet,delayed 40 mg PO BID #60 tabs 04/01/24 release (Protonix) ciprofloxacin HCl 500 mg tablet 500 mg PO BID #14 tabs 10/07/24 peg 3350-electrolytes 236 240 ml PO Q1H #4,000 mL 10/23/24 gram-22.74 gram-6.74 gram-5.86 gram solution (Golytely) Allergies Allergy/AdvReac Type Severity Reaction Status Date / Time hydromorphone (From Dilaudid) Allergy Severe Difficulty Verified 10/23/24 15:38 Breathing nitrofurantoin (From Allergy Severe Difficulty Verified 10/23/24 15:38 Macrobid) Breathing oxycodone (From OxyContin) Allergy Severe Anaphylaxis Verified 10/23/24 15:38 morphine AdvReac Severe Anaphylaxis Verified 10/23/24 15:38 Review of Systems Review of Systems Systems Reviewed: All systems reviewed, normal except as documented Past Medical History Past Medical History NEUROLOGIC: Positive Seizures and Head Trauma CARDIAC: Positive Hypercholesterolemia and Hypertension GASTROINTESTINAL: Positive Gall Bladder Disease ENT: Positive Head Trauma ENDOCRINE: Positive Diabetes Mellitus Type 2 PSYCHO/SOCIAL: Positive Anxiety Surgical History SURGICAL: Positive Eye Surgery (laser), Abdominal Surgery, Hysterectomy, Section and Hx Cholecystectomy ED Exam Narrative Physical exam: Generally patient is alert and in no obvious distress, heart regular rate and rhythm, lungs clear to auscultation equal bilaterally, abdomen soft nondistended bowel sounds hypoactive nontender, extremities no edema, neurologic exam no focal motor deficits Course Quality Measures none Orders Category Date Time Status CT Screening NOW Care 10/23/24 16:[address] Screening X1 Care 10/23/24 16:[address] abdomen pelvis w con Stat Exams 10/23/24 16:17 Completed CBC Stat Lab 10/23/24 16:23 Completed CMP [Comprehensive Metabolic Panel] Stat Lab 10/23/24 16:23 Completed Lipase Stat Lab 10/23/24 16:23 Completed UA [Urinalysis] Stat Lab 10/23/24 17:53 Completed Urine Culture Stat Lab 10/23/24 17:53 Received Ketorolac Inj [Toradol Inj] Med 10/23/24 18:42 Discontinued 15 mg IVP X1 ONE Vital Signs Vital signs: Vital Signs Temperature 98.5 F 10/23/24 15:56 Pulse Rate 88 10/23/24 15:56 Respiratory Rate 18 10/23/24 15:56 Blood Pressure 157/86 H 10/23/24 15:56 Pulse Oximetry (%) 100 10/23/24 15:56 Oxygen Delivery Method Room Air 10/23/24 15:56 Abdominal Pain MDM MDM Narrative MDM Narrative:: Scribe Attestation: I, Corie Caal, am scribing for and in the presence of Dr. Salcedo. Provider Notation: Although this document has been carefully reviewed, there may still be some phonetic and other typographical errors. These errors are purely grammatical due to imperfections in the software program and should not be construed in any way to? compromise the substance of the patient's medical care during this visit. Differential diagnosis: Constipation, intra-abdominal infection, bowel obstruction I interpreted all labs. There is no leukocytosis. Kidney function is normal. Potassium slightly elevated at 5.5 but it was slightly hemolyzed. Patient is not on potassium supplementation. LFTs are normal. CT scan done the abdomen pelvis with IV contrast showed evidence for constipation. Urinalysis shows no evidence for infection. There was very mild right-sided hydronephrosis without a stone. Patient does not have colicky pain. No free air. No intra-abdominal abscess. Abdominal pain since patient surgery months ago would be compatible with constipation. Patient will be started on GoLytely to be taken as prescribed. She is to follow-up with her GI physician. Return to ER as needed or if condition worsens. Patient data External records reviewed:: [facility] previous records (Reviewed prior ED records from 04/10/24. Patient was seen for Intra-abdominal free air of unknown etiology.) Clinical information provided by:: patient and family (Daughter) Social determinants that could affect healthcare access:: none Patient has the following chronic illnesses:: Seizures and Head Trauma CARDIAC: Positive Hypercholesterolemia and Hypertension GASTROINTESTINAL: Positive Gall Bladder Disease ENT: Positive Head Trauma ENDOCRINE: Positive Diabetes Mellitus Type 2 PSYCHO/SOCIAL: Positive Anxiety How is presenting disease/condition affected by chronic disease/condition?: exacerbated by Evaluation data The following diagnostics were reviewed and interpreted by me:: lab results and radiology exam(s) Lab and/or radiology exams considered but not ordered:: None Interpretation Summary: RADIOLOGY Abdomen/Pelvis CT: Findings: No focal liver or splenic lesion. Absent gallbladder. No common bile duct stones. No pancreatic mass. Minimal right hydronephrosis with wall thickening of the right ureter without ureteral calculi Aorta normal size. Abundant stool throughout the colon 8 mm fat-containing umbilical hernia with mild inflammation along the umbilical tract, no abscess No pericecal inflammatory change. Colonic diverticulosis. Urinary bladder intact. Impression: Suspicious for right urinary tract infection. 8mm fat-containing umbilical hernia with mild inflammation along the umbilical tract, no abscess, however recommend ultrasound umbilicus follow-up Medications / Prescriptions Medications or Prescriptions considered but not ordered:: None Medication administrations:: Medication Administration History Discontinued Medications Ketorolac Tromethamine (Ketorolac Inj 30 Mg/Ml Vial) 15 mg IVP X1 ONE Stop: 10/23/24 18:43 Last Admin: 10/23/24 18:53 Dose: 15 mg Documented By: ROMULO See above if any. Consultations Consultation(s) initiated? (list below): No Diagnosis Differential diagnosis abdominal pain: abdominal pain, calculus of kidney, constipation, diverticulitis, gastroenteritis, pancreatitis and small bowel obstruction Most likely diagnosis given after review of the tests above:: None Admission Indicated Admission indicated?: not indicated Admission Request Was there a request for admission?: No Disposition Plan Disposition Plan: Discharge Discharge Attestation Discharge Attestation: The patient and all family members were given an opportunity to ask questions and understood the discharge instructions. Discharge instructions specifically effects, indications for sooner follow up or return to the emergency department, and the expected course of current diagnosis. Patient condition: Stable Discharge Plan Plan Patient Disposition: HOME (Self Care) Prescriptions/Referrals Prescriptions/Med Rec: New peg 3350-electrolytes [Golytely] 236-22.74-6.74 -5.86 gram recon soln 240 ml PO Q1H Qty: 4000 0RF Rx Instructions: until fecal effluent is clear No Action benazepril 5 mg tablet 10 mg PO QDAY pantoprazole [Protonix] 40 mg tablet,delayed release (DR/EC) 40 mg PO BID Qty: 60 0RF ciprofloxacin HCl 500 mg tablet 500 mg PO BID Qty: 14 0RF Referrals: No Primary/Family,Physician [Primary Care Provider] - In 1 week Problem List Clinical Impression: Abdominal pain, Constipation Patient/Caregiver Discharge Instructions Education Materials: Abdominal Pain, ED Constipation (Adult) Additional Instructions: GoLytely as prescribed. Obtain a GI physician. Return to ER as needed or if condition worsens. Print Language: [place] Stand Alone Forms: Britt Award Info., Patient Portal Info Letter
[2024-10-23 18:53] VITALS: BP 176/86
[2024-10-23] MEDS: KETOROLAC INJ 30 MG/ML VIAL 15 MG IVP (18:53)
[2024-10-23 19:38] VITALS: BP 165/85; PULSE 85; RESP 14; TEMP 37; O2SAT 99
== END 2024-10-23 19:41 | disposition home or self-care (01) ==
PROVIDERS: Nurse Practitioner Family; Emergency Provider Emergency Medicine
DX: K59.00 Constipation, unspecified (principal); K42.9 Umbilical hernia without obstruction or gangrene
CPT/HCPCS: 36415; 74177; 80053; 81001; 83690; 85025; 87086; 87106; 96374; 99283; A4649; J1885; Q9967

== ENCOUNTER → 2024-10-28 | Outpatient (CLI) | payer OTHER, SELFPAY ==
[2024-10-28 14:58] LABS: Alanine Aminotransferase 13 U/L (10-49); Albumin, Serum 4.3 gm/dL (3.4-4.8); Albumin/Globulin Ratio 1.9 (1.2-2.2); Alkaline Phosphatase 87 U/L (46-116); Anion Gap 12 (7-16); Aspartate Amino Transferase 14 U/L (0-34); BUN/Creatinine Ratio 22 Ratio (12-20); Bilirubin,Total 0.8 mg/dL (0.3-1.2); Blood Urea Nitrogen 24 mg/dL (9-23); Calcium 10.3 mg/dL (8.3-10.6); Calcium (Corrected) 10.3 mg/dL (8.5-10.1); Carbon Dioxide 25.6 mMol/L (20.0-31.0); Chloride 94 mMol/L (98-107); Creatinine (Component) 1.1 mg/dL (0.6-1.3); Globulin 2.3 gm/dL (2.3-3.5); Glucose 167 mg/dL (74-106); Osmolality,Calculated 272 (275-295); Potassium 4.7 mMol/L (3.4-5.1); Sodium 132 mMol/L (136-145); Thyroid Stimulating Hormone 2.95 uIU/mL (0.55-4.78); Total Protein 6.6 gm/dL (5.7-8.2); eGFR 55 See Note
== END | disposition home or self-care (01) ==
LOC: COPL 12:56
DX: Z00.01 Encounter for general adult medical examination with abnormal findings (principal); K59.00 Constipation, unspecified
CPT/HCPCS: 36415; 80053; 84443

== ENCOUNTER → 2024-11-30 | Outpatient (CLI) | payer OTHER, SELFPAY ==
--- NOTE | 2024-11-30 13:41 | XR_ITS ---
Examination: PA lateral chest 2 views Technique 1. Lateral chest 2 views Date and time: November 30, 2024, 1351 hours INDICATIONS: Preop FINDINGS: Normal heart size Lungs are clear. The osseous structures are demineralized IMPRESSION: No active disease
== END | disposition home or self-care (01) ==
DX: Z02.79 Encounter for issue of other medical certificate (principal)
CPT/HCPCS: 71046

== ENCOUNTER → 2024-12-01 | Outpatient (CLI) | payer OTHER, SELFPAY ==
[2024-12-01 08:02] LABS: Collection Type, Urine Clean Catch
[2024-12-01 08:41] LABS: Basophils # (Auto) 0.1 Thou/mm3 (0.0-0.2); Basophils % (Auto) 1 % (0-2.5); Eosinophils # (Auto) 0.9 Thou/mm3 (0.0-0.5); Eosinophils % (Auto) 8 % (0-10); Hematocrit 33.5 % (36.0-46.0); Hemoglobin 12.0 g/dL (12.0-16.0); Immature Granulocytes Auto 0.04 Thou/mm3 (0.00-0.00); Lymphocytes # (Auto) 1.6 Thou/mm3 (1.0-4.8); Lymphocytes % (Auto) 15 % (10-50); Mean Corpuscular HGB Conc 35.8 g/dl (31.0-37.0); Mean Corpuscular Hemoglobin 30.7 pg (25.0-35.0); Mean Corpuscular Volume 86 fL (80-100); Monocytes # (Auto) 0.7 Thou/mm3 (0.0-0.8); Monocytes % (Auto) 6 % (0-12); Neutrophils # (Auto) 7.5 Thou/mm3 (1.8-7.7); Neutrophils % (Auto) 69 % (37-80); Nucleated Red Blood Cell # 0.00 Thou/mm3 (0.00-0.00); Nucleated Red Blood Cell % 0 /100 WBC (0); Platelet Count 492 Thou/mm3 (140-440); RDW Standard Deviation 39.2 fL (36.4-46.3); Red Blood Count 3.91 Miln/mm3 (4.00-5.20); White Blood Count 10.8 Thou/mm3 (3.6-11.0)
[2024-12-01 08:48] LABS: Bilirubin,Urine Negative (Negative); Blood,Urine Trace (Negative); Clarity,Urine Clear (Clear/Hazy); Color,Urine Lt-Yellow (Lt Yel-Yel); Glucose, Urine Negative (Negative); Hyaline Casts,Urine < 1 /hpf (0-1); Ketones,Urine Negative (Negative); Leukocyte Esterase,Urine Negative (Negative); Nitrite,Urine Negative (Negative); PH,Urine 6.0 (5.0-7.0); Protein,Urine 2+ (Neg - Trace); RBC,Urine 2 /hpf (0-3); Specific Gravity,Urine 1.014 (1.001-1.035); Squamous Epithelial Cell,Urine < 1 /hpf (0-5); Urobilinogen,Urine Negative mg/dL (0.0-1.0); WBC,Urine 2 /hpf (0-5)
[2024-12-01 08:51] LABS: Glucose Estimated Average 143 mg/dL (80-131); Hemoglobin A1C 6.6 % Hgb (4.8-6.0)
[2024-12-01 08:58] LABS: Creatinine MALB Rnd Ur 45 mg/dL (30-125)
[2024-12-01 09:02] LABS: Vitamin B12 504 pg/mL (211-911)
[2024-12-01 09:03] LABS: Alanine Aminotransferase 17 U/L (10-49); Albumin, Serum 3.9 gm/dL (3.4-4.8); Albumin/Globulin Ratio 1.7 (1.2-2.2); Alkaline Phosphatase 77 U/L (46-116); Anion Gap 9 (7-16); Aspartate Amino Transferase 11 U/L (0-34); BUN/Creatinine Ratio 33 Ratio (12-20); Bilirubin,Total 0.6 mg/dL (0.3-1.2); Blood Urea Nitrogen 33 mg/dL (9-23); Calcium 9.5 mg/dL (8.3-10.6); Calcium (Corrected) 9.6 mg/dL (8.5-10.1); Carbon Dioxide 25.6 mMol/L (20.0-31.0); Cardiac Risk Estimate 2.8 RATIO (3.7-5.6); Chloride 104 mMol/L (98-107); Cholesterol 199 mg/dL (132-200); Creatinine (Component) 1.0 mg/dL (0.6-1.3); Globulin 2.3 gm/dL (2.3-3.5); Glucose 148 mg/dL (74-106); HDL Cholesterol 72 mg/dL (40-60); LDL Cholesterol,Calculated 100 mg/dL (0-130); Osmolality,Calculated 287 (275-295); Potassium 4.3 mMol/L (3.4-5.1); Sodium 139 mMol/L (136-145); Thyroid Stimulating Hormone 2.03 uIU/mL (0.55-4.78); Total Protein 6.2 gm/dL (5.7-8.2); Triglycerides 134 mg/dL (30-150); eGFR > 60 See Note
[2024-12-01 09:09] LABS: Microalbumin Creat Ratio 3804 mg/gCrea (<30); Microalbumin, Random Urine 1712 mg/L (0-300)
[2024-12-01 09:23] LABS: INR 0.9 (0.9-1.3); Partial Thromboplastin Time 26.8 Seconds (22.0-36.0); Prothrombin Time 9.8 Seconds (9.0-12.2)
== END | disposition home or self-care (01) ==
LOC: COPL 06:57
DX: Z02.79 Encounter for issue of other medical certificate (principal)
CPT/HCPCS: 36415; 80053; 80061; 81001; 82043; 82570; 82607; 83036; 84443; 85025; 85610; 85730

== ENCOUNTER → 2024-12-30 | Outpatient (CLI) | payer OTHER, SELFPAY ==
[2024-12-30 16:44] LABS: Basophils # (Auto) 0.1 Thou/mm3 (0.0-0.2); Basophils % (Auto) 1 % (0-2.5); Eosinophils # (Auto) 0.9 Thou/mm3 (0.0-0.5); Eosinophils % (Auto) 7 % (0-10); Hematocrit 30.4 % (36.0-46.0); Hemoglobin 11.0 g/dL (12.0-16.0); Immature Granulocytes Auto 0.04 Thou/mm3 (0.00-0.00); Lymphocytes # (Auto) 2.0 Thou/mm3 (1.0-4.8); Lymphocytes % (Auto) 17 % (10-50); Mean Corpuscular HGB Conc 36.2 g/dl (31.0-37.0); Mean Corpuscular Hemoglobin 29.9 pg (25.0-35.0); Mean Corpuscular Volume 83 fL (80-100); Monocytes # (Auto) 0.8 Thou/mm3 (0.0-0.8); Monocytes % (Auto) 7 % (0-12); Neutrophils # (Auto) 8.0 Thou/mm3 (1.8-7.7); Neutrophils % (Auto) 67 % (37-80); Nucleated Red Blood Cell # 0.00 Thou/mm3 (0.00-0.00); Nucleated Red Blood Cell % 0 /100 WBC (0); Platelet Count 430 Thou/mm3 (140-440); RDW Standard Deviation 37.2 fL (36.4-46.3); Red Blood Count 3.68 Miln/mm3 (4.00-5.20); White Blood Count 11.8 Thou/mm3 (3.6-11.0)
[2024-12-30 17:22] LABS: Creatinine MALB Rnd Ur 53 mg/dL (30-125); Microalbumin Creat Ratio 717 mg/gCrea (<30); Microalbumin, Random Urine > 380 mg/L (0-300)
[2024-12-30 17:22] LABS: Blood Urea Nitrogen 27 mg/dL (9-23); Creatinine (Component) 0.8 mg/dL (0.6-1.3); eGFR > 60 See Note
== END | disposition home or self-care (01) ==
LOC: COPL 16:09
DX: M54.50 Low back pain, unspecified (principal)
CPT/HCPCS: 36415; 81025; 82043; 82565; 82570; 84520; 85025

== ENCOUNTER 2024-12-31 18:10 | Emergency (ER) | payer OTHER, SELFPAY ==
[2024-12-31 18:20] VITALS: BP 124/72; PULSE 86; RESP 16; TEMP 36.8; O2SAT 98
--- NOTE | 2024-12-31 18:26 | PD.EDRME ---
Rapid Medical Screening Exam E Arrival date/time: 12/31/24 18:10 Chief Complaint: Syncope / Near Syncope Time Seen by Provider: 12/31/24 18:17 Vital signs: Vital Signs Temperature 98.3 F 12/31/24 18:20 Pulse Rate 86 12/31/24 18:20 Respiratory Rate 16 12/31/24 18:20 Blood Pressure 124/72 12/31/24 18:20 Pulse Oximetry (%) 98 12/31/24 18:20 Oxygen Delivery Method Room Air 12/31/24 18:20 E Narrative: Generalized weakness/malaise and vomiting the past 2 days. Diagnosed with UTI yesterday in clinic, started on bactrim. Exam: No acute distress Abdomen soft, NT Clinical Impression: general weakness
--- NOTE | 2024-12-31 18:31 | EKG_ITS ---
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
[2024-12-31 19:22] LABS: Basophils # (Auto) 0.1 Thou/mm3 (0.0-0.2); Basophils % (Auto) 1 % (0-2.5); Eosinophils # (Auto) 0.6 Thou/mm3 (0.0-0.5); Eosinophils % (Auto) 6 % (0-10); Hematocrit 31.4 % (36.0-46.0); Hemoglobin 11.6 g/dL (12.0-16.0); Immature Granulocytes Auto 0.05 Thou/mm3 (0.00-0.00); Lymphocytes # (Auto) 1.7 Thou/mm3 (1.0-4.8); Lymphocytes % (Auto) 17 % (10-50); Mean Corpuscular HGB Conc 36.9 g/dl (31.0-37.0); Mean Corpuscular Hemoglobin 30.8 pg (25.0-35.0); Mean Corpuscular Volume 83 fL (80-100); Monocytes # (Auto) 0.7 Thou/mm3 (0.0-0.8); Monocytes % (Auto) 7 % (0-12); Neutrophils # (Auto) 7.1 Thou/mm3 (1.8-7.7); Neutrophils % (Auto) 69 % (37-80); Nucleated Red Blood Cell # 0.00 Thou/mm3 (0.00-0.00); Nucleated Red Blood Cell % 0 /100 WBC (0); Platelet Count 446 Thou/mm3 (140-440); RDW Standard Deviation 37.6 fL (36.4-46.3); Red Blood Count 3.77 Miln/mm3 (4.00-5.20); White Blood Count 10.2 Thou/mm3 (3.6-11.0)
[2024-12-31 19:41] LABS: Alanine Aminotransferase 15 U/L (10-49); Albumin, Serum 4.2 gm/dL (3.4-4.8); Albumin/Globulin Ratio 1.8 (1.2-2.2); Alkaline Phosphatase 84 U/L (46-116); Anion Gap 11 (7-16); Aspartate Amino Transferase 15 U/L (0-34); BUN/Creatinine Ratio 18 Ratio (12-20); Bilirubin,Total 0.5 mg/dL (0.3-1.2); Blood Urea Nitrogen 18 mg/dL (9-23); Calcium 9.3 mg/dL (8.3-10.6); Calcium (Corrected) 9.3 mg/dL (8.5-10.1); Carbon Dioxide 23.1 mMol/L (20.0-31.0); Chloride 98 mMol/L (98-107); Creatinine (Component) 1.0 mg/dL (0.6-1.3); Globulin 2.3 gm/dL (2.3-3.5); Glucose 143 mg/dL (74-106); Lipase 33 U/L (12-53); Osmolality,Calculated 268 (275-295); Potassium 4.5 mMol/L (3.4-5.1); Sodium 132 mMol/L (136-145); Total Protein 6.5 gm/dL (5.7-8.2); Troponin I < 0.002 ng/mL (0.0-0.045); eGFR > 60 See Note
[2024-12-31 20:50] VITALS: BP 145/79; PULSE 78; RESP 16; O2SAT 99
--- NOTE | 2024-12-31 20:53 | PD.EDSYNC ---
ED Syncope RME/HPI General Chief Complaint: Syncope / Near Syncope Stated Complaint: ALMOST PASSED OUT, DX UTI YESTERDAY Time Seen by Provider: 12/31/24 18:17 Arrival date/time: 12/31/24 18:10 RME / HPI RME / HPI narrative: Generalized weakness/malaise and vomiting the past 2 days. Diagnosed with UTI yesterday in clinic, started on bactrim. Dr. Bran?s Main ED Evaluation: 69yo female with a history of DM, seizures presents to the ED for a chief complaint of near syncope. Patient was diagnosed with a UTI yesterday and was started on Bactrim. Since then, patient has developed progressively worsening generalized weakness and fatigue. Patient denies any fever, chills, or any other associated symptoms. Related Data Home Medications ?Medication ?Instructions ?Recorded ?Confirmed benazepril 5 mg tablet 10 mg PO QDAY 03/26/24 03/26/24 Previous Rx's ?Medication ?Instructions ?Recorded pantoprazole 40 mg tablet,delayed 40 mg PO BID #60 tabs 04/01/24 release (Protonix) ciprofloxacin HCl 500 mg tablet 500 mg PO BID #14 tabs 10/07/24 peg 3350-electrolytes 236 240 ml PO Q1H #4,000 mL 10/23/24 gram-22.74 gram-6.74 gram-5.86 gram solution (Golytely) Allergies Allergy/AdvReac Type Severity Reaction Status Date / Time hydromorphone (From Dilaudid) Allergy Severe Difficulty Verified 12/31/24 18:15 Breathing nitrofurantoin (From Allergy Severe Difficulty Verified 12/31/24 18:15 Macrobid) Breathing oxycodone (From OxyContin) Allergy Severe Anaphylaxis Verified 12/31/24 18:15 morphine AdvReac Severe Anaphylaxis Verified 12/31/24 18:15 Review of Systems Review of Systems Systems Reviewed: All systems reviewed, normal except as documented Past Medical History Past Medical History NEUROLOGIC: Positive Seizures and Head Trauma CARDIAC: Positive Hypercholesterolemia and Hypertension; Negative Cardiac Disorders or Congestive Heart Failure RESPIRATORY: Negative Chronic Obstructive Pulmonary Disease (COPD) or Asthma GASTROINTESTINAL: Positive Gall Bladder Disease GENITOURINARY: Negative Genitourinary Disorders or Renal Disease REPRODUCTIVE: Negative Pelvic Inflammatory Disease MUSCULOSKELETAL: Negative Musculoskeletal Disorders ENT: Positive Head Trauma ENDOCRINE: Positive Diabetes Mellitus Type 2; Negative Diabetes Mellitus Type 1 HEMATOLOGIC: Negative Blood Disorders or Sickle Cell Disease PSYCHO/SOCIAL: Positive Anxiety OTHER HISTORY: Negative Blood Transfusions, Blood Transfusion Reaction or Anesthesia Reactions Family History FAMILY HISTORY: Negative Family Cardiac Disorders Surgical History SURGICAL: Positive Eye Surgery (laser), Abdominal Surgery, Hysterectomy and Section Social History SMOKING STATUS: Never smoker SECOND HAND EXPOSURE: No SUBSTANCE USE: does not use ED Exam Narrative Physical exam: Generally patient is alert and in no obvious distress, heart regular rate and rhythm, lungs clear to auscultation equal bilaterally, abdomen soft bowel sounds present nondistended mild suprapubic abdominal tenderness without rebound. Skin is warm pale and dry, neurologic exam [place] Coma Scale is 15 without focal motor deficit Course Quality Measures none Orders Category Date Time Status EKG (ED ONLY) *Do not use* NOW Care 12/31/24 18:31 Completed EKG (ED Only) Stat Exams 12/31/24 18:31 Draft CBC Stat Lab 12/31/24 19:10 Completed CMP [Comprehensive Metabolic Panel] Stat Lab 12/31/24 19:10 Completed Lipase Stat Lab 12/31/24 19:10 Completed Troponin I Stat Lab 12/31/24 19:10 Completed UA [Urinalysis] Stat Lab 12/31/24 21:24 Completed Urine Culture Stat Lab 12/31/24 18:31 Received Ringers Lactated 1000 ml [Lactated Ringers] 1,000 ml Med 12/31/24 21:01 Discontinued IV 999 mls/hr cefTRIAXone/D5w 1gm IV premix [Rocephin/D5w 1gm IV Med 12/31/24 21:58 Active premix] 1 gm in 50 ml IV X1 Vital Signs Vital signs: Vital Signs Temperature 98.3 F 12/31/24 18:20 Pulse Rate 86 12/31/24 18:20 Respiratory Rate 16 12/31/24 18:20 Blood Pressure 124/72 12/31/24 18:20 Pulse Oximetry (%) 98 12/31/24 18:20 Oxygen Delivery Method Room Air 12/31/24 18:20 Syncope MDM Narrative MDM Narrative:: Scribe Attestation: 12/31/24 - Korin Tang am scribing for and in the presence of Dr. Bran. I interpreted all labs. There is no electrolyte abnormality. No leukocytosis. Patient's urine is slightly infected. Patient was hydrated with a liter normal saline and given Rocephin 1 g IV. Patient had a near syncopal episode with weakness today. EKG is nonischemic and without ectopy. Patient is safe for discharge to continue the Bactrim antibiotic. Follow-up with her doctor. Return to ER as needed or if condition worsens. Patient data External records reviewed:: [facility] previous records (Per chart review, patient was seen here on 10/23/24 for abdominal pain.) Clinical information provided by:: patient Social determinants that could affect healthcare access:: none Patient has the following chronic illnesses:: DM, seizures How is presenting disease/condition affected by chronic disease/condition?: uneffected by Evaluation data The following diagnostics were reviewed and interpreted by me:: lab results and EKG tracing(s) Lab and/or radiology exams considered but not ordered:: none Interpretation Summary: See MDM Medications / Prescriptions Medications or Prescriptions considered but not ordered:: none Medication administrations:: Medication Administration History Ceftriaxone Sodium/Dextrose (Rocephin/D5w 1gm Iv Premix) 1 gm in 50 mls @ 100 mls/hr IV X1 ONE Stop: 12/31/24 22:27 Discontinued Medications Lactated Ringer's (Lactated Ringers) 1,000 mls @ 999 mls/hr IV .Q1H1M ONE Stop: 12/31/24 22:01 Last Admin: 12/31/24 21:38 Dose: 999 mls/hr Documented By: EE see above, if any Consultations Consultation(s) initiated? (list below): No Diagnosis Syncope Differential Diagnosis: other (See MDM) Most likely diagnosis given after review of the tests above:: see clinical impression below Admission Indicated Admission indicated?: not indicated Admission Request Was there a request for admission?: No Disposition Plan Disposition Plan: Discharge Discharge Attestation Discharge Attestation: The patient and all family members were given an opportunity to ask questions and understood the discharge instructions. Discharge instructions specifically effects, indications for sooner follow up or return to the emergency department, and the expected course of current diagnosis. Patient condition: Stable Discharge Plan Plan Patient Disposition: HOME (Self Care) Prescriptions/Referrals Prescriptions/Med Rec: No Action benazepril 5 mg tablet 10 mg PO QDAY pantoprazole [Protonix] 40 mg tablet,delayed release (DR/EC) 40 mg PO BID Qty: 60 0RF ciprofloxacin HCl 500 mg tablet 500 mg PO BID Qty: 14 0RF peg 3350-electrolytes [Golytely] 236-22.74-6.74 -5.86 gram recon soln 240 ml PO Q1H Qty: 4000 0RF Rx Instructions: until fecal effluent is clear Referrals: Janiya Dickinson FNP-C [Primary Care Provider] - In 1 week Problem List Clinical Impression: Near syncope, Acute UTI Patient/Caregiver Discharge Instructions Education Materials: ED CYSTITIS Female Adult Additional Instructions: Continue all current medications including the antibiotic. Stay hydrated. Follow-up with your doctor. Return to ER as needed or if condition worsens. Print Language: Armenian Stand Alone Forms: Britt Award Info., Patient Portal Info Letter
[2024-12-31 21:32] LABS: Collection Type, Urine Clean Catch
[2024-12-31 21:35] VITALS: BMI 27.6
[2024-12-31] MEDS: RINGERS LACTATED 1000 ML 1,000 ML 999 ML IV (21:38)
[2024-12-31 21:46] LABS: Bacteria,Urine Rare; Bilirubin,Urine Negative (Negative); Blood,Urine Negative (Negative); Clarity,Urine Clear (Clear/Hazy); Color,Urine Yellow (Lt Yel-Yel); Glucose, Urine Trace (Negative); Hyaline Casts,Urine < 1 /hpf (0-1); Ketones,Urine Negative (Negative); Leukocyte Esterase,Urine Positive (Negative); Nitrite,Urine Negative (Negative); PH,Urine 6.0 (5.0-7.0); Protein,Urine 2+ (Neg - Trace); RBC,Urine 2 /hpf (0-3); Specific Gravity,Urine 1.011 (1.001-1.035); Squamous Epithelial Cell,Urine 1 /hpf (0-5); Urobilinogen,Urine Negative mg/dL (0.0-1.0); WBC,Urine 25 /hpf (0-5)
[2024-12-31] MEDS: cefTRIAXone/D5w 1gm IV premix 1 GM/50 ML BAG IV (22:23)
[2024-12-31 22:59] VITALS: BP 137/70; PULSE 80; RESP 137; TEMP 36.7; O2SAT 99
== END 2024-12-31 23:00 | disposition home or self-care (01) ==
PROVIDERS: Physician Assistant; Emergency Provider Emergency Medicine
DX: R55 Syncope and collapse (principal); N39.0 Urinary tract infection, site not specified; E11.9 Type 2 diabetes mellitus without complications
CPT/HCPCS: 36415; 80053; 81001; 83690; 84484; 85025; 87086; 93005; 96361; 96365; 99283; J0696; J7120

== ENCOUNTER 2025-01-04 10:08 | Emergency (ER) | payer OTHER, SELFPAY ==
[2025-01-04] VITALS (7 sets, daily range): BP systolic 99–165; BP diastolic 72–98; PULSE 80–98; RESP 13–19; TEMP 36.6–37.1; O2SAT 96–100; BMI 27.6
--- NOTE | 2025-01-04 10:55 | EDNOTE_ITS ---
ED Abdominal Pain RME/HPI General Chief Complaint: General Adult/Misc Complain Stated complaint: UTI, ABX NOT WORKING, SZ Time seen by provider: 01/04/25 10:36 Arrival date/time: 01/04/25 10:08 RME / HPI RME / HPI narrative: 69 year old female with history of seizures, hypertension, diabetes, documented intractable nausea and vomiting, recurrent UTIs presents to the ED BIBA from home for evaluation of pelvic pain today. Described as a burning sensation, rating 10/10 in severity. Reportedly has had similar pain on/off for a long time . Patient additionally complains of chills x 2 weeks. Patient states she has consulted with DIRECTOR OF BUSINESS DEVELOPMENT (TIMO Schwartz) at [facility] on the of this month who noted proteinuria and micro hematuria. States she was started on antibiotics, Estradiol cream, Bactrim, Phenazo, Banaz. Also stated she consulted with ticketer Dr. Calderon on the of this month who also noted proteinuria. Related Data Home Medications ?Medication ?Instructions ?Recorded ?Confirmed benazepril 5 mg tablet 10 mg PO QDAY 03/26/2403/26 Previous Rx's ?Medication ?Instructions ?Recorded pantoprazole 40 mg tablet,delayed 40 mg PO BID #60 tab s 04/01/24 release (Protonix) ciprofloxacin HCl 500 mg tablet 500 mg PO BID #14 tabs 10/07/24 peg 3350-electrolytes 236 240 ml PO Q1H #4,000 mL 09/26 11/19 gram-22.74 gram-6.74 gram-5.86 gram solution (Golytely) omeprazole 40 mg capsule,delayed 40 mg PO QDAY #30 cap s 01/04/25 release promethazine 25 mg tablet 25 mg PO BID #60 tabs Allergies Allergy/AdvReac Type Severity Reaction Status Date / Time hydromorphone (From Dilaudid) Allergy Severe Difficulty Verified 12/31/24 18:15 Breathing nitrofurantoin (From Allergy Severe Difficulty Verified 12/31/24 18:15 Macrobid) Breathing oxycodone (From OxyContin) Allergy Severe Anaphylaxis Verified 12/31/24 18:15 morphine AdvReac Severe Anaphylaxis Verified 12/31/24 18:15 Review of Systems Review of Systems Systems Reviewed: All systems reviewed, normal except as documented Past Medical History Past Medical History NEUROLOGIC: Positive Seizures, Epilepsy and Head Trauma CARDIAC: Positive Hypercholesterolemia and Hypertension GASTROINTESTINAL: Positive Gall Bladder Disease GENITOURINARY: Positive Renal Disease ENT: Positive Head Trauma ENDOCRINE: Positive Diabetes Mellitus Type 2 PSYCHO/SOCIAL: Positive Anxiety Surgical History SURGICAL: Positive Eye Surgery, Abdominal Surgery, Hysterectomy and Section Social History SMOKING STATUS: Never smoker SECOND HAND EXPOSURE: No SUBSTANCE USE: does not use ED Exam Narrative Physical exam: GENERAL APPEARANCE: alert and oriented x 4, well-developed, well-nourished, no acute distress HEENT: Normocephalic, atraumatic; pupils equal, round, reactive to light; EOMI; mucous membranes pink, moist; oropharynx clear NECK: Supple LUNGS: CTABL; no wheezes, no rales, no rhonchi HEART: Regular rate, regular rhythm; normal S1, S2; no murmurs ABDOMEN: non distended; normal BS; soft, mild suprapubic tenderness, no guardi ng, no rebound; no masses, no organomegaly, no hernia PELVIC: White discharge in the vaginal vault, the mucousa was pale, no lesions no erythema, no foul smell. RECTAL: Stool is brown and guaiac negative BACK: no CVA tenderness EXTREMITIES: atraumatic; no edema NEUROLOGIC: awake; alert and oriented x4; cranial nerves II-XII grossly intact; no focal sensory or motor deficits PSYCHIATRIC: appropriate mood and affect SKIN: warm, dry, normal color; no rashes Course Course Course Narrative: 1602: I spoke with GI Dr. Moran. Discussed patients PMHx, HPI, ED course, exam findings, labs, and radiology results. He recommends starting the patient on 40mg Omeprazole QDAY and Promethazine 25mg BID. Advised patient follow up with her PCP. 1700: After Ativan, the patient is much improved and resting comfortably. We reviewed all the results, analysis, and treatment plans. Patient is amenable to discharge. Strict return precautions were outlined. Quality Measures none Orders Category Date Time Status CT Screening NOW Care 01/04/25 11:09 Active EKG (ED ONLY) *Do not use* NOW Care 01/04/25 11:05 Completed In and Out Catheter X1 Care 01/04/25 14:[address] abdomen pelvis w con Stat Exams 01/04/25 11:08 Completed EKG (ED Only) Stat Exams 01/04/25 11:05 Draft B-Type Natriuretic Peptide Stat Lab 01/04/25 11:00 Completed CBC Stat Lab 01/04/25 11:00 Completed Chlamydia/GC/TV - PCR Stat Lab 01/04/25 13:56 Received Comprehensive Metabolic Panel Stat Lab 01/04/25 11:00 Completed SHAWN Prep Stat Lab 01/04/25 14:37 Received Lipase Stat Lab 01/04/25 11:00 Completed Magnesium Stat Lab 01/04/25 11:00 Completed Partial Thromboplastin Time Stat Lab 01/04/25 11:00 Completed Prothrombin Time with INR Stat Lab 01/04/25 11:00 Completed Troponin I Stat Lab 01/04/25 11:00 Completed UA, C/S IF [Urinalysis, C/S if Indicated] Stat Lab 01/04/25 13:56 Completed Wet Prep Stat Lab 01/04/25 14:37 Received Cod Liver Oil/Znox Cream [Desitin 40%] Med 01/04/25 16:39 Discontinued See Dose Instructions TOP X1 ONE LORazepam [Ativan Inj] Med 01/04/25 11:05 Discontinued 1 mg IVP X1 ONE LORazepam [Ativan Inj] Med 01/04/25 15:44 Discontinued 1 mg IVP X1 ONE Metoclopramide Inj [Reglan Inj] Med 01/04/25 14:16 Discontinued 10 mg IVP X1 ONE Ondansetron Inj [Zofran Inj] Med 01/04/25 11:05 Discontinued 4 mg IVP X1 ONE Pantoprazole/Ns 80Mg IV Premix [Protonix/NS 80mg IV Med 01/04/25 11:10 Discontinued Premix] 80 mg in 100 ml IV X1 Pantoprazole/Ns 80Mg IV Premix [Protonix/NS 80mg IV Med 01/04/25 11:11 Active Premix] 80 mg in 100 ml IV X1 Sodium Chloride 0.9% 1000 ml [Ns] 1,000 ml Med 01/04/25 11:43 Discontinued IV 80 mls/hr fentaNYL INJ [Sublimaze Inj] Med 01/04/25 11:05 Discontinued 25 mcg IVP X1 ONE fentaNYL INJ [Sublimaze Inj] Med 01/04/25 14:16 Discontinued 50 mcg IVP X1 ONE Vital Signs Vital signs: Vital Signs Temperature 98.2 F 01/04/25 10:11 Pulse Rate 85 01/04/25 10:11 Respiratory Rate 14 01/04/25 10:11 Blood Pressure 165/91 H 01/04/25 10:11 Pulse Oximetry (%) 98 01/04/25 10:11 Oxygen Delivery Method Room Air 01/04/25 10:11 Pulse ox is 98% on room air which is adequate. Abdominal Pain MDM MDM Narrative MDM Narrative:: I Angeladonny Benjamin, bony scribing for and in the presence of Dr. Panchal. Patient data External records reviewed:: [facility] previous records and EMS form Clinical information provided by:: patient and EMS Social determinants that could affect healthcare access:: none Patient has the following chronic illnesses:: seizures, hypertension, diabetes, documented intractable nausea and vomiting, recurrent UTIs How is presenting disease/condition affected by chronic disease/condition?: exacerbated by Evaluation data The following diagnostics were reviewed and interpreted by me:: lab results, radiology exam(s) and EKG tracing(s) (EKG @ 13:32. Normal sinus rhythm, rate 81, no STEMI. ) Lab and/or radiology exams considered but not ordered:: None Interpretation Summary: Ordering Physician: Marija Panchal MD Date of Service: 01/04/25 Procedure(s): CT abdomen pelvis w con Accession Number(s): [id number] cc: Kvng Page MD; Marija Panchal MD~ Examination: CT abdomen with intravenous contrast CT pelvis with intravenous contrast 2-D coronal reconstructions 2-D sagittal reconstructions Date and time of exam: January 04, 2025, 1247 hours INDICATIONS: Generalized abdominal pain nausea vomiting beginning today COMPARISON: October 23, 2024. CTDI: vol (mGy) 7.5 DLP: (mGycm) 436 Technique: Multiple axial sections of the abdomen and pelvis have been obtained. 64 slice high-resolution scanner used. 3 mm axial sections have been obtained, post intravenous injection 60 cc Isovue 370 2-D sagittal, coronal reconstructions obtained. Low dose protocols were performed. One or more of the following dose reduction techniques were used; automated exposure control, adjustment of the mA and/or KV according to patient size, use of iterative reconstruction technique. Findings: Trace pericardial effusion No visualized liver or splenic lesion Absent gallbladder No extrahepatic biliary tract dilatation No pancreatic or adrenal mass No renal or ureteral calculi No pericecal inflammatory change Mild wall thickening left pelvicalyceal system right pelvicalyceal system and ureters No ureteral calculi. Absent uterus No bladder mass or bladder calculi Moderate osteopenia IMPRESSION: Suspicious for bilateral urinary tract infection, no hydronephrosis or ureteral calculi No bowel obstruction Dictated By: Kvng Page MD Signed By: <Electronically signed by Kvng Page MD in OV> 01/04/25 1333 Medications / Prescriptions Medications or Prescriptions considered but not ordered:: None Medication administrations:: Medication Administration History Pantoprazole Sodium (Protonix/Ns 80mg Iv Premix) 80 mg in 100 mls @ 10 mls/hr IV X1 ONE Stop: 01/04/25 21:10 Last Admin: 01/04/25 11:23 Dose: 10 mls/hr Documented By: EF Discontinued Medications Fentanyl Citrate (Fentanyl Cit Inj 50 Mcg/Ml Amp 2ml) 25 mcg IVP X1 ONE Stop: 01/04/25 11:06 Last Admin: 01/04/25 11:24 Dose: 25 mcg Documented By: EF Fentanyl Citrate (Fentanyl Cit Inj 50 Mcg/Ml Amp 2ml) 50 mcg IVP X1 ONE Stop: 01/04/25 14:17 Last Admin: 01/04/25 14:57 Dose: 50 mcg Documented By: EF Pantoprazole Sodium (Protonix/Ns 80mg Iv Premix) 80 mg in 100 mls @ 400 mls/hr IV X1 ONE Stop: 01/04/25 11:24 Last Infusion: 01/04/25 11:48 Dose: Infused Documented By: Admin: 01/04/25 11:23 Dose: 400 mls/hr Documented By: EF Sodium Chloride (Ns) 1,000 mls @ 80 mls/hr IV .[id number] TULIO Stop: 02/03/25 11:42 Lorazepam (Lorazepam 2 Mg/Ml Vial) 1 mg IVP X1 ONE Stop: 01/04/25 11:06 Last Admin: 01/04/25 11:22 Dose: 1 mg Documented By: EF Lorazepam (Lorazepam 2 Mg/Ml Vial) 1 mg IVP X1 ONE Stop: 01/04/25 15:45 Last Admin: 01/04/25 15:53 Dose: 1 mg Documented By: EF Metoclopramide HCl (Metoclopramide Inj 5 Mg/Ml Vial 2 Ml) 10 mg IVP X1 ONE; Protocol Stop: 01/04/25 14:17 Last Admin: 01/04/25 14:57 Dose: 10 mg Documented By: EF Ondansetron HCl (Ondansetron Inj 2 Mg/Ml Inj 2 Ml) 4 mg IVP X1 ONE; Protocol Stop: 01/04/25 11:06 Last Admin: 01/04/25 11:23 Dose: 4 mg Documented By: EF Zinc Oxide (Cod Isha Oil/Znox Cream 40% 60 Gm Tube) 0 gm TOP X1 ONE Stop: 01/04/25 16:40 See above Consultations Consultation(s) initiated? (list below): Yes Consultation #1 (Physician, Specialty, Details): See course Diagnosis Differential diagnosis abdominal pain: abdominal pain, calculus of kidney, constipation, diverticulitis and gastroenteritis Most likely diagnosis given after review of the tests above:: Vomiting Pelvic pain Atrophic vaginitis Admission Indicated Admission indicated?: not indicated Explain why admission is indicated or not indicated:: With no condition needing emergent intervention, there was no indication for admission. Admission Request Was there a request for admission?: No Disposition Plan Disposition Plan: Discharge Discharge Attestation Discharge Attestation: The patient and all family members were given an opportunity to ask questions and understood the discharge instructions. Discharge instructions specifically effects, indications for sooner follow up or return to the emergency department, and the expected course of current diagnosis. Patient condition: Stable Discharge Plan Plan Patient Disposition: HOME (Self Care) Prescriptions/Referrals Prescriptions/Med Rec: New omeprazole 40 mg capsule,delayed release(DR/EC) 40 mg PO QDAY Qty: 30 0RF promethazine 25 mg tablet 25 mg PO BID Qty: 60 0RF No Action benazepril 5 mg tablet 10 mg PO QDAY pantoprazole [Protonix] 40 mg tablet,delayed release (DR/EC) 40 mg PO BID Qty: 60 0RF ciprofloxacin HCl 500 mg tablet 500 mg PO BID Qty: 14 0RF peg 3350-electrolytes [Golytely] 236-22.74-6.74 -5.86 gram recon soln 240 ml PO Q1H Qty: 4000 0RF Rx Instructions: until fecal effluent is clear Referrals: Janiya Dickinson FNP-C [Primary Care Provider] - In 1 week Problem List Clinical Impression: Vomiting, Pelvic pain, Atrophic vaginitis Patient/Caregiver Discharge Instructions Education Materials: Gastroparesis, ED Atrophic Vaginitis Additional Instructions: Continue estrogen cream. Start new medications as prescribed for nausea/vomiting. Follow up with your doctor. Print Language: Khmer Stand Alone Forms: Britt Award Info., Patient Portal Info Letter
--- NOTE | 2025-01-04 11:05 | EKG_ITS ---
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
--- NOTE | 2025-01-04 11:08 | XR_ITS ---
Examination: CT abdomen with intravenous contrast CT pelvis with intravenous contrast 2-D coronal reconstructions 2-D sagittal reconstructions Date and time of exam: January 04, 2025, 1247 hours INDICATIONS: Generalized abdominal pain nausea vomiting beginning today COMPARISON: October 23, 2024. CTDI: vol (mGy) 7.5 DLP: (mGycm) 436 Technique: Multiple axial sections of the abdomen and pelvis have been obtained. 64 slice high-resolution scanner used. 3 mm axial sections have been obtained, post intravenous injection 60 cc Isovue 370 2-D sagittal, coronal reconstructions obtained. Low dose protocols were performed. One or more of the following dose reduction techniques were used; automated exposure control, adjustment of the mA and/or KV according to patient size, use of iterative reconstruction technique. Findings: Trace pericardial effusion No visualized liver or splenic lesion Absent gallbladder No extrahepatic biliary tract dilatation No pancreatic or adrenal mass No renal or ureteral calculi No pericecal inflammatory change Mild wall thickening left pelvicalyceal system right pelvicalyceal system and ureters No ureteral calculi. Absent uterus No bladder mass or bladder calculi Moderate osteopenia IMPRESSION: Suspicious for bilateral urinary tract infection, no hydronephrosis or ureteral calculi No bowel obstruction
[2025-01-04 11:21] LABS: Basophils # (Auto) 0.1 Thou/mm3 (0.0-0.2); Basophils % (Auto) 1 % (0-2.5); Eosinophils # (Auto) 0.4 Thou/mm3 (0.0-0.5); Eosinophils % (Auto) 4 % (0-10); Hematocrit 31.7 % (36.0-46.0); Hemoglobin 11.8 g/dL (12.0-16.0); Immature Granulocytes Auto 0.05 Thou/mm3 (0.00-0.00); Lymphocytes # (Auto) 1.4 Thou/mm3 (1.0-4.8); Lymphocytes % (Auto) 13 % (10-50); Mean Corpuscular HGB Conc 37.2 g/dl (31.0-37.0); Mean Corpuscular Hemoglobin 30.5 pg (25.0-35.0); Mean Corpuscular Volume 82 fL (80-100); Monocytes # (Auto) 0.6 Thou/mm3 (0.0-0.8); Monocytes % (Auto) 5 % (0-12); Neutrophils # (Auto) 7.8 Thou/mm3 (1.8-7.7); Neutrophils % (Auto) 76 % (37-80); Nucleated Red Blood Cell # 0.00 Thou/mm3 (0.00-0.00); Nucleated Red Blood Cell % 0 /100 WBC (0); Platelet Count 490 Thou/mm3 (140-440); RDW Standard Deviation 38.2 fL (36.4-46.3); Red Blood Count 3.87 Miln/mm3 (4.00-5.20); White Blood Count 10.3 Thou/mm3 (3.6-11.0)
[2025-01-04] MEDS: LORazepam 2 MG/ML VIAL 1 MG IVP ×2 (11:22→15:53)
[2025-01-04] MEDS: PANTOPRAZOLE/NS 80MG IV PREMIX 80 MG/100 ML BAG 10 MG IV (11:23)
[2025-01-04] MEDS: PANTOPRAZOLE/NS 80MG IV PREMIX 80 MG/100 ML BAG 400 MG IV (11:23)
[2025-01-04] MEDS: ONDANSETRON INJ 2 MG/ML INJ 2 ML 4 MG IVP (11:23)
[2025-01-04] MEDS: fentaNYL CIT INJ 50 mCg/ML AMP 2ML 25 MCG IVP (11:24)
[2025-01-04 11:45] LABS: Alanine Aminotransferase 12 U/L (10-49); Albumin, Serum 4.5 gm/dL (3.4-4.8); Albumin/Globulin Ratio 2.4 (1.2-2.2); Alkaline Phosphatase 70 U/L (46-116); Anion Gap 10 (7-16); Aspartate Amino Transferase 14 U/L (0-34); BUN/Creatinine Ratio 15 Ratio (12-20); Bilirubin,Total 0.7 mg/dL (0.3-1.2); Blood Urea Nitrogen 15 mg/dL (9-23); Calcium 9.3 mg/dL (8.3-10.6); Calcium (Corrected) 9.3 mg/dL (8.5-10.1); Carbon Dioxide 23.5 mMol/L (20.0-31.0); Chloride 99 mMol/L (98-107); Creatinine (Component) 1.0 mg/dL (0.6-1.3); Estimated Creatinine Clearance 43.2 mL/min (>60); Globulin 1.9 gm/dL (2.3-3.5); Glucose 170 mg/dL (74-106); Lipase 31 U/L (12-53); Magnesium 1.8 mg/dL (1.6-2.6); Osmolality,Calculated 269 (275-295); Potassium 4.2 mMol/L (3.4-5.1); Sodium 132 mMol/L (136-145); Total Protein 6.4 gm/dL (5.7-8.2); Troponin I < 0.002 ng/mL (0.0-0.045); eGFR > 60 See Note
[2025-01-04 11:56] LABS: INR 0.9 (0.9-1.3); Partial Thromboplastin Time 27.6 Seconds (22.0-36.0); Prothrombin Time 9.8 Seconds (9.0-12.2)
[2025-01-04 12:21] LABS: B-Type Natriuretic Peptide 117 pg/mL (0-100)
[2025-01-04 14:12] LABS: Collection Type, Urine Catheter
[2025-01-04 14:21] LABS: Bilirubin,Urine Negative (Negative); Blood,Urine Trace (Negative); Clarity,Urine Clear (Clear/Hazy); Color,Urine Lt-Yellow (Lt Yel-Yel); Culture Indicated,Urine Not Indicated; Glucose, Urine Negative (Negative); Ketones,Urine Negative (Negative); Leukocyte Esterase,Urine Negative (Negative); Nitrite,Urine Negative (Negative); PH,Urine 6.5 (5.0-7.0); Protein,Urine 2+ (Neg - Trace); RBC,Urine 1 /hpf (0-3); Specific Gravity,Urine 1.020 (1.001-1.035); Squamous Epithelial Cell,Urine < 1 /hpf (0-5); Urobilinogen,Urine Negative mg/dL (0.0-1.0); WBC,Urine 2 /hpf (0-5)
[2025-01-04] MEDS: fentaNYL CIT INJ 50 mCg/ML AMP 2ML IVP (14:57)
[2025-01-04] MEDS: METOCLOPRAMIDE INJ 5 MG/ML VIAL 2 ML 10 MG IVP (14:57)
[2025-01-04 17:37] LABS: Chlamydia trachomatis PCR Negative (Not Detect); Neisseria Gonorrhoeae DNA PCR Negative (Not Detect); Trichomonas Negative (Negative)
--- NOTE | 2025-01-04 18:21 | PD.EDADDENDU ---
Emergency Room Addendum Addendum Narrative: 1800: Care assumed from Dr. Panchal, the previous shift emergency physician. Past medical, surgical, social and family history reviewed. Vitals and home medications reviewed. Results and treatment plan discussed. I will assume the care of the patient at this time and will follow the patient. Please refer to the emergency department record for history and examination from initial visit. 69yo female presenting with vaginal pain for which she has been treated with topical estrogen, having recently finished course of Bactrim for UTI complains of burning/itching with the vaginal introitus region. Patient is nontoxic, who on pelvic exam showed 2+ edema of internal and external labia and introitus, no ulcerations identified. No vaginal discharge is present. On speculum examination, there is mild inflammation noted without perulent discharge. Highly suspect vaginal candidiasis. Unfortunately, SHAWN prep is not available at this time. Will treat the patient with microlog ointment, ciprofloxacin given residual mild upper tract inflammatory changes based on CT findings, and clindamycin gel for nonspecific vaginitis. Patient is instructed to follow-up with her CLINICAL LABORATORY DIRECTOR in 5-7 days, maintain sitz baths TID, keep her genitalia dry and cool, and to return for worsening problems.
[2025-01-04] MEDS: cefTRIAXone/D5w 1gm IV premix 1 GM/50 ML BAG IV (19:40)
[2025-01-05 13:56] LABS: BVAG Candida Negative (Negative); Bacterial Vaginosis Markers Negative (Negative); Candida glabrata Negative (Negative); Candida krusei PCR Negative (Negative); Trichomonas Negative (Negative)
== END 2025-01-04 20:30 | disposition home or self-care (01) ==
PROVIDERS: Emergency Medicine; Emergency Provider Emergency Medicine
DX: N39.0 Urinary tract infection, site not specified (principal)
CPT/HCPCS: 36415; 51701; 74177; 80053; 81001; 81514; 83690; 83735; 83880; 84484; 85025; 85610; 85730; 87210; 87220; 87491; 87591; 87661; 93005; 96365; 96375; 96376; 99284; A4649; J0696; J2060; J2405; J2765; J3010; J3490; Q9967; A9270

== ENCOUNTER → 2025-01-06 | Outpatient (CLI) | payer OTHER, SELFPAY ==
[2025-01-06 10:46] LABS: Basophils # (Auto) 0.1 Thou/mm3 (0.0-0.2); Basophils % (Auto) 1 % (0-2.5); Eosinophils # (Auto) 0.6 Thou/mm3 (0.0-0.5); Eosinophils % (Auto) 6 % (0-10); Hematocrit 29.5 % (36.0-46.0); Hemoglobin 10.8 g/dL (12.0-16.0); Immature Granulocytes Auto 0.04 Thou/mm3 (0.00-0.00); Lymphocytes # (Auto) 1.4 Thou/mm3 (1.0-4.8); Lymphocytes % (Auto) 15 % (10-50); Mean Corpuscular HGB Conc 36.6 g/dl (31.0-37.0); Mean Corpuscular Hemoglobin 30.1 pg (25.0-35.0); Mean Corpuscular Volume 82 fL (80-100); Monocytes # (Auto) 0.7 Thou/mm3 (0.0-0.8); Monocytes % (Auto) 7 % (0-12); Neutrophils # (Auto) 6.6 Thou/mm3 (1.8-7.7); Neutrophils % (Auto) 70 % (37-80); Nucleated Red Blood Cell # 0.00 Thou/mm3 (0.00-0.00); Nucleated Red Blood Cell % 0 /100 WBC (0); Platelet Count 460 Thou/mm3 (140-440); RDW Standard Deviation 37.8 fL (36.4-46.3); Red Blood Count 3.59 Miln/mm3 (4.00-5.20); White Blood Count 9.4 Thou/mm3 (3.6-11.0)
[2025-01-06 11:08] LABS: Folate 6.41 ng/mL (>5.38); Vitamin B12 555 pg/mL (211-911); Vitamin D 25 Hydroxy Total 29.4 ng/mL (7.3-40.2)
[2025-01-06 11:15] LABS: Ferritin 278 ng/mL (7.3-270.7); Iron 109 mcg/dL (50-170); Percent Iron Saturation 35 % (20-55); Total Iron Binding Capacity 306 mcg/dL (250-425); Unsaturated Iron Binding 197 (225-295)
[2025-01-06 11:22] LABS: Alanine Aminotransferase 9 U/L (10-49); Albumin, Serum 4.1 gm/dL (3.4-4.8); Albumin/Globulin Ratio 2.2 (1.2-2.2); Alkaline Phosphatase 64 U/L (46-116); Anion Gap 9 (7-16); Aspartate Amino Transferase 15 U/L (0-34); BUN/Creatinine Ratio 11 Ratio (12-20); Bilirubin,Total 0.6 mg/dL (0.3-1.2); Blood Urea Nitrogen 15 mg/dL (9-23); Calcium 8.6 mg/dL (8.3-10.6); Calcium (Corrected) 8.6 mg/dL (8.5-10.1); Carbon Dioxide 23.0 mMol/L (20.0-31.0); Cardiac Risk Estimate 2.8 RATIO (3.7-5.6); Chloride 99 mMol/L (98-107); Cholesterol 176 mg/dL (132-200); Creatinine (Component) 1.4 mg/dL (0.6-1.3); Free T4 (Free Thyroxine) 1.28 ng/dL (0.89-1.76); Globulin 1.9 gm/dL (2.3-3.5); Glucose 152 mg/dL (74-106); Glucose Estimated Average 137 mg/dL (80-131); HDL Cholesterol 64 mg/dL (40-60); Hemoglobin A1C 6.4 % Hgb (4.8-6.0); LDL Cholesterol,Calculated 79 mg/dL (0-130); Osmolality,Calculated 266 (275-295); Phosphorous 3.5 mg/dL (2.4-5.1); Potassium 4.4 mMol/L (3.4-5.1); Sodium 131 mMol/L (136-145); Thyroid Stimulating Hormone 2.85 uIU/mL (0.55-4.78); Total Protein 6.0 gm/dL (5.7-8.2); Triglycerides 167 mg/dL (30-150); Uric Acid 5.6 mg/dL (3.1-7.8); eGFR 41 See Note
[2025-01-06 11:38] LABS: Collection Type, Urine Clean Catch
[2025-01-06 12:49] LABS: Bacteria,Urine Rare; Bilirubin,Urine 1+ (Negative); Blood,Urine Negative (Negative); Clarity,Urine Hazy (Clear/Hazy); Color,Urine Drk-Yellow (Lt Yel-Yel); Glucose, Urine Negative (Negative); Ketones,Urine Negative (Negative); Leukocyte Esterase,Urine Negative (Negative); Nitrite,Urine Positive (Negative); PH,Urine 6.0 (5.0-7.0); Protein,Urine 1+ (Neg - Trace); RBC,Urine 1 /hpf (0-3); Specific Gravity,Urine 1.011 (1.001-1.035); Squamous Epithelial Cell,Urine 5 /hpf (0-5); Urobilinogen,Urine 2.0 mg/dL (0.0-1.0); WBC,Urine 6 /hpf (0-5)
[2025-01-06 13:09] LABS: Creatinine MALB Rnd Ur 45 mg/dL (30-125); Microalbumin Creat Ratio 1156 mg/gCrea (<30); Microalbumin, Random Urine 520 mg/L (0-300)
== END | disposition home or self-care (01) ==
LOC: COPL 09:57
PROVIDERS: Referring Provider Internal Medicine Nephrology; Visit Provider Internal Medicine Nephrology
DX: I12.9 Hypertensive chronic kidney disease with stage 1 through stage 4 chronic kidney disease, or unspecified chronic kidney disease (principal); E11.22 Type 2 diabetes mellitus with diabetic chronic kidney disease; D63.1 Anemia in chronic kidney disease; N18.9 Chronic kidney disease, unspecified; N39.0 Urinary tract infection, site not specified; E78.5 Hyperlipidemia, unspecified; E21.3 Hyperparathyroidism, unspecified; E55.9 Vitamin D deficiency, unspecified; E03.9 Hypothyroidism, unspecified
CPT/HCPCS: 36415; 80053; 80061; 81001; 82043; 82306; 82570; 82607; 82728; 82746; 83036; 83540; 83550; 84100; 84439; 84443; 84550; 85025; 87086

== ENCOUNTER 2025-01-09 22:56 | Emergency (ER) | payer OTHER, SELFPAY ==
[2025-01-09 23:39] VITALS: BP 144/86; PULSE 92; RESP 20; TEMP 36.6; O2SAT 97
--- NOTE | 2025-01-10 00:01 | XR_ITS ---
Examination: CT abdomen and pelvis without contrast. Coronal 3-D reconstructions. Sagittal 2-D reconstructions. Date and time of exam: January 10, 2025, 0050 hours INDICATIONS: Abdominal pain and nausea vomiting beginning today CTDI: vol (mGy): 6.87 DLP: (mGycm): 367 Technique: Axial images of the abdomen have been obtained, 3 mm slice thickness Intravenous contrast material has not been administered. Low dose protocols were performed. One or more of the following dose reduction techniques were used; automated exposure control, adjustment of the mA and/or KV according to patient size, use of iterative reconstruction technique. Findings: No visualized liver or splenic lesion Absent gallbladder Common bile duct poorly visualized No pancreatic mass or pancreatic edema Normal adrenal glands No renal or ureteral calculi, no hydronephrosis Aortic calcification no aneurysmal dilatation Absent appendix No bowel obstruction Intact urinary bladder, I do not visualize urinary bladder wall thickening Absent uterus Mild prolapse of the rectum and vagina Advanced disc narrowing L5-S1 IMPRESSION: Absent gallbladder Poor visualization common bile duct, consider hepatobiliary sonography follow-up
--- NOTE | 2025-01-10 00:02 | PD.EDRME ---
Rapid Medical Screening Exam E Arrival date/time: 01/09/25 22:56 This is a case of 69-year-old female with history of hypertension and diabetes came in in the emergency room due to generalized abdominal pain nausea vomiting patient was here twice already and was treated for urinary tract infection discharged with Cipro and atrophic vaginitis worsening of the symptoms this decided to start consult her in the emergency room Chief Complaint: Abdominal Pain Time Seen by Provider: 01/10/25 00:01 Vital signs: Vital Signs Temperature 98 F 01/09/25 23:39 Pulse Rate 92 01/09/25 23:39 Respiratory Rate 20 01/09/25 23:39 Blood Pressure 144/86 H 01/09/25 23:39 Pulse Oximetry (%) 97 01/09/25 23:39 Oxygen Delivery Method Room Air 01/09/25 23:39 Exam: Generalized tenderness on the abdomen no guarding no rebound no rigidity patient noted to have mild dehydration Clinical Impression: Abdominal pain
[2025-01-10 00:20] LABS: Basophils # (Auto) 0.1 Thou/mm3 (0.0-0.2); Basophils % (Auto) 1 % (0-2.5); Eosinophils # (Auto) 0.6 Thou/mm3 (0.0-0.5); Eosinophils % (Auto) 5 % (0-10); Hematocrit 29.9 % (36.0-46.0); Hemoglobin 11.1 g/dL (12.0-16.0); Immature Granulocytes Auto 0.05 Thou/mm3 (0.00-0.00); Lymphocytes # (Auto) 1.4 Thou/mm3 (1.0-4.8); Lymphocytes % (Auto) 11 % (10-50); Mean Corpuscular HGB Conc 37.1 g/dl (31.0-37.0); Mean Corpuscular Hemoglobin 30.4 pg (25.0-35.0); Mean Corpuscular Volume 82 fL (80-100); Monocytes # (Auto) 0.7 Thou/mm3 (0.0-0.8); Monocytes % (Auto) 6 % (0-12); Neutrophils # (Auto) 9.3 Thou/mm3 (1.8-7.7); Neutrophils % (Auto) 77 % (37-80); Nucleated Red Blood Cell # 0.00 Thou/mm3 (0.00-0.00); Nucleated Red Blood Cell % 0 /100 WBC (0); Platelet Count 395 Thou/mm3 (140-440); RDW Standard Deviation 36.7 fL (36.4-46.3); Red Blood Count 3.65 Miln/mm3 (4.00-5.20); White Blood Count 12.1 Thou/mm3 (3.6-11.0)
[2025-01-10 00:25] VITALS: BP 162/90; PULSE 87; RESP 18; TEMP 36.7; O2SAT 98
[2025-01-10] MEDS: ONDANSETRON INJ 2 MG/ML INJ 2 ML 4 MG IV (00:25)
[2025-01-10 00:27] VITALS: BMI 27.4
[2025-01-10 00:53] LABS: Alanine Aminotransferase 23 U/L (10-49); Albumin, Serum 4.4 gm/dL (3.4-4.8); Albumin/Globulin Ratio 2.4 (1.2-2.2); Alkaline Phosphatase 62 U/L (46-116); Anion Gap 8 (7-16); Aspartate Amino Transferase 24 U/L (0-34); BUN/Creatinine Ratio 16 Ratio (12-20); Bilirubin,Total 0.6 mg/dL (0.3-1.2); Blood Urea Nitrogen 14 mg/dL (9-23); Calcium 9.0 mg/dL (8.3-10.6); Calcium (Corrected) 9.0 mg/dL (8.5-10.1); Carbon Dioxide 23.2 mMol/L (20.0-31.0); Chloride 91 mMol/L (98-107); Creatinine (Component) 0.9 mg/dL (0.6-1.3); Estimated Creatinine Clearance 47.8 mL/min (>60); Globulin 1.8 gm/dL (2.3-3.5); Glucose 152 mg/dL (74-106); Lipase 45 U/L (12-53); Osmolality,Calculated 249 (275-295); Potassium 4.6 mMol/L (3.4-5.1); Sodium 122 mMol/L (136-145); Total Protein 6.2 gm/dL (5.7-8.2); eGFR > 60 See Note
--- NOTE | 2025-01-10 01:02 | PD.EDABDPN ---
ED Abdominal Pain RME/HPI General Chief Complaint: Urogenital-Female Stated complaint: ABD PAIN,N/V Time seen by provider: 01/10/25 00:01 Arrival date/time: 01/09/25 22:56 RME / HPI RME / HPI narrative: 01/09/25 22:56 cc: abdominal pain Patient is a 61-year-old female with a past medical history of hypertension, hyperlipidemia, diabetes mellitus type 2 [id number], history of hemorrhoids, diverticula, history of esophagitis who presented with a chief complaint of abdominal pain at the umbilical region. Per patient has had cholecystectomy (03/30/2024) and incidental appendectomy during that same procedure. Per patient history difficult use the restroom has small pebble-like stools and strains. Patient denied any suprapubic tenderness. Previous EGD in March 2024 showed negative H.pylori with pathology. Exam: Generalized tenderness on the abdomen no guarding no rebound no rigidity patient noted to have mild dehydration Impression: Abdominal pain Related Data Home Medications ?Medication ?Instructions ?Recorded ?Confirmed benazepril 5 mg tablet 10 mg PO QDAY 03/26/24 03/26/24 Previous Rx's ?Medication ?Instructions ?Recorded pantoprazole 40 mg tablet,delayed 40 mg PO BID #60 tabs 04/01/24 release (Protonix) peg 3350-electrolytes 236 240 ml PO Q1H #4,000 mL 10/23/24 gram-22.74 gram-6.74 gram-5.86 gram solution (Golytely) nystatin-triamcinolone 100,000 1 applic topical TID #30 grams 01/04/25 unit/gram-0.1 % topical ointment omeprazole 40 mg capsule,delayed 40 mg PO QDAY #30 caps 01/04/25 release promethazine 25 mg tablet 25 mg PO BID #60 tabs 01/04/25 peg 3350-electrolytes 236 240 ml PO Q10M Constipation #4,000 01/10/25 gram-22.74 gram-6.74 gram-5.86 mL gram solution (Golytely) Allergies Allergy/AdvReac Type Severity Reaction Status Date / Time hydromorphone (From Dilaudid) Allergy Severe Difficulty Verified 01/09/25 22:58 Breathing nitrofurantoin (From Allergy Severe Difficulty Verified 01/09/25 22:58 Macrobid) Breathing oxycodone (From OxyContin) Allergy Severe Anaphylaxis Verified 01/09/25 22:58 morphine AdvReac Severe Anaphylaxis Verified 01/09/25 22:58 Review of Systems Review of Systems Narrative Review of Systems: General appearance: NO weight change, NO fatigue, NO weakness, NO fever, NO chills, NO night sweats, No cough Skin: NO rash, NO itching, NO sores, NO moles HEENT: NO Trauma, NO nausea, NO vomiting, NO visual changes, NO blurry vision, NO double vision, NO tinnitus, NO vertigo, NO ear discharge, NO rhinorrhea, NO stuffiness, NO sneezing, NO allergy, NO epistaxis. NO Hoarseness, NO sore throat, NO swollen neck. Cardiac: NO Palpitations, NO dyspnea on exertion, NO orthopnea, NO paroxysmal nocturnal dyspnea, NO edema Respiratory: NO Shortness of Breath, NO Wheezing, NO Cough, NO Sputum, NO hemoptysis GI:NO appetite, NO nausea, NO vomiting, NO dysphagia, NO changes in bowel frequency, NO stool color, NO diarrhea, NO constipation, NO hemetemesis, NO hemorrhoids, NO melena, NO hematechezia, Yes abdominal pain, NO jaundice Renal: NO frequency, NO hesitancy, NO urgency, NO hematuria, NO nocturia, NO incontinence MSK: NO muscle weakness, NO gout, NO arthritis, NO muscle stiffness Neuro: NO headaches, NO tremors, NO weakness, NO paralysis, NO seizures, NO loss of consciousness, NO numbness. Hem: NO anemia, NO easy bruising/bleeding, NO petechiae, NO purpura Endo: NO heat/cold intolerance, NO excessive sweating, NO polyuria, NO polydipsia, NO polyphagia, NO thyroid problems, NO diabetes Pysch: NO mood, NO anxiety, NO depression ED Exam Narrative Physical exam: General Appearance: Alert & Oriented X3, thin females who is lying in bed in mild distress secondary to abdominal pain. HEENT: Skull symmetrical and atraumatic. Conjunctivae pin and moist. Pupils equal, round, reactive to light and accommodation (PERRL). External ear without lesion or discharge. Straight, nares patient, mucosa pink, no discharge. Cardio: Normal Rate and Rhythm with S1 and S2 heart sounds. No murmurs or extra heart sounds auscultated. No bruits on carotid auscultation. No peripheral edema or cyanosis. Lungs: Symmetric with good expansion. Chest and back non-tender. Breath sounds vesicular without crackles, wheezing or rhonchi Abdomen: Mild tenderness, Non-distended, Soft, Normal Reactive Bowel Sounds, tenderness at umbilical region. Neuro: Alert, cooperative, oriented to person, place, and time. Speech clear. CN grossly intact. Upper motor strength 5/5 and Lower motor strength 5/5. Sensation intact. Course Course Course Narrative: CBC CMP Lipase, UA CT abomen Quality Measures none Orders Category Date Time Status CT abdomen pelvis wo con Stat Exams 01/10/25 00:01 Completed CBC Stat Lab 01/10/25 00:11 Completed Comprehensive Metabolic Panel Stat Lab 01/10/25 00:11 Completed Lipase Stat Lab 01/10/25 00:11 Completed Urinalysis Stat Lab 01/10/25 02:40 Completed Ketorolac Inj [Toradol Inj] Med 01/10/25 04:03 Discontinued 30 mg IVP Q6HR PRN Ketorolac Inj [Toradol Inj] Med 01/10/25 00:58 Discontinued 30 mg IVP X1 ONE Lactulose Syrup [Enulose Syrup] Med 01/10/25 04:01 Discontinued 20 gm PO X1 ONE Melatonin Med 01/10/25 04:04 Discontinued 3 mg PO HS ONE Metoclopramide Inj [Reglan Inj] Med 01/10/25 01:06 Discontinued 10 mg IVP X1 ONE Metoclopramide [Reglan] Med 01/10/25 00:52 Discontinued 5 mg PO X1 ONE Naproxen [Naprosyn] Med 01/10/25 04:19 Discontinued 250 mg PO X1 ONE Ondansetron Inj [Zofran Inj] Med 01/10/25 00:01 Discontinued 4 mg IM X1 ONE Ondansetron Inj [Zofran Inj] Med 01/10/25 00:19 Discontinued 4 mg IV X1 ONE Simethicone [Mylicon Chew] Med 01/10/25 04:01 Discontinued 80 mg PO X1 ONE Sodium Chloride 0.9% 1000 ml [Ns] 1,000 ml Med 01/10/25 01:00 Discontinued IV 999 mls/hr Vital Signs Vital signs: Vital Signs Temperature 98 F 01/09/25 23:39 Pulse Rate 92 01/09/25 23:39 Respiratory Rate 20 01/09/25 23:39 Blood Pressure 144/86 H 01/09/25 23:39 Pulse Oximetry (%) 97 01/09/25 23:39 Oxygen Delivery Method Room Air 01/09/25 23:39 Abdominal Pain MDM Patient data External records reviewed:: [facility] previous records Clinical information provided by:: patient Social determinants that could affect healthcare access:: none Patient has the following chronic illnesses:: HTN HLD diabetes hx of hemorrhoids, and diverticula How is presenting disease/condition affected by chronic disease/condition?: exacerbated by (hx of diverticula given constipation ) Evaluation data The following diagnostics were reviewed and interpreted by me:: lab results and radiology exam(s) Lab and/or radiology exams considered but not ordered:: None Interpretation Summary: Patient is a 61-year-old female with a past medical history of hypertension, hyperlipidemia, diabetes mellitus type 2 [id number], history of hemorrhoids, diverticula, history of esophagitis with abdominal pain at the level of the umbilicus. Mild leukocytosis noted on CBC 12.1, hemoglobin of 11.1 noted to be anemia, hyponatremia noted likely secondary to poor oral intake as patient has had decreased appetite. Lipase within normal limits 45. UA negative. CT abdomen no evidence of bowel obstruction. Partially distended urinary bladder that is some wall thickening but UA negative and no UA symptoms. Small hiatal hernia present. Large amount of fecal material in the colon, concern for constipation. #Constipation - The patient's plan was discussed with attending Dr. Justice Nelson MD PGY2 Internal Medicine Medications / Prescriptions Medications or Prescriptions considered but not ordered:: None Medication administrations:: Medication Administration History Discontinued Medications Sodium Chloride (Ns) 1,000 mls @ 999 mls/hr IV .Q1H1M ONE Stop: 01/10/25 02:00 Last Infusion: 01/10/25 02:16 Dose: Infused Documented By: Admin: 01/10/25 01:15 Dose: 999 mls/hr Documented By: JARED Ketorolac Tromethamine (Ketorolac Inj 30 Mg/Ml Vial) 30 mg IVP X1 ONE Stop: 01/10/25 00:59 Last Admin: 01/10/25 01:16 Dose: 30 mg Documented By: JARED Ketorolac Tromethamine (Ketorolac Inj 30 Mg/Ml Vial) 30 mg IVP Q6HR PRN PRN Reason: PAIN Stop: 01/15/25 04:02 Lactulose (Lactulose Syrup 20 Gm/30 Ml Udc) 20 gm PO X1 ONE; Protocol Stop: 01/10/25 04:02 Last Admin: 01/10/25 04:24 Dose: 20 gm Documented By: KE Melatonin (Melatonin 3 Mg Tablet) 3 mg PO HS ONE Stop: 01/10/25 04:05 Last Admin: 01/10/25 04:49 Dose: Not Given Documented By: JARED Non-Admin Reason: Called Pharm- pend delivery Metoclopramide HCl (Metoclopramide 5 Mg Tablet) 5 mg PO X1 ONE Stop: 01/10/25 00:53 Last Admin: 01/10/25 01:17 Dose: Not Given Documented By: JARED Non-Admin Reason: Cancelled by Provider Metoclopramide HCl (Metoclopramide Inj 5 Mg/Ml Vial 2 Ml) 10 mg IVP X1 ONE; Protocol Stop: 01/10/25 01:07 Last Admin: 01/10/25 01:17 Dose: 10 mg Documented By: JARED Naproxen (Naproxen 250 Mg Tablet) 250 mg PO X1 ONE Stop: 01/10/25 04:20 Last Admin: 01/10/25 04:24 Dose: 250 mg Documented By: KE Ondansetron HCl (Ondansetron Inj 2 Mg/Ml Inj 2 Ml) 4 mg IM X1 ONE; Protocol Stop: 01/10/25 00:02 Last Admin: 01/10/25 01:02 Dose: Not Given Documented By: JARED Non-Admin Reason: Duplicate Medication on eMAR Ondansetron HCl (Ondansetron Inj 2 Mg/Ml Inj 2 Ml) 4 mg IV X1 ONE; Protocol Stop: 01/10/25 00:20 Last Admin: 01/10/25 00:25 Dose: 4 mg Documented By: KE Simethicone (Simethicone 80 Mg Chew) 80 mg PO X1 ONE Stop: 01/10/25 04:02 Last Admin: 01/10/25 04:49 Dose: Not Given Documented By: JARED Non-Admin Reason: Cancelled by Provider same as above Consultations Consultation(s) initiated? (list below): No Diagnosis Differential diagnosis abdominal pain: abdominal pain, constipation, diverticulitis, gastroenteritis and small bowel obstruction Most likely diagnosis given after review of the tests above:: Patient is a 61-year-old female with a past medical history of hypertension, hyperlipidemia, diabetes mellitus type 2 [id number], history of hemorrhoids, diverticula, history of esophagitis with abdominal pain at the level of the umbilicus. Mild leukocytosis noted on CBC 12.1, hemoglobin of 11.1 noted to be anemia, hyponatremia noted likely secondary to poor oral intake as patient has had decreased appetite. Lipase within normal limits 45. UA negative. CT abdomen no evidence of bowel obstruction. Partially distended urinary bladder that is some wall thickening but UA negative and no UA symptoms. Small hiatal hernia present. Large amount of fecal material in the colon, concern for constipation. - The patient's plan was discussed with attending Dr. Justice Nelson MD PGY2 Internal Medicine Admission Indicated Admission indicated?: not indicated Admission Request Was there a request for admission?: No Disposition Plan Disposition Plan: Discharge Discharge Attestation Discharge Attestation: The patient and all family members were given an opportunity to ask questions and understood the discharge instructions. Discharge instructions specifically effects, indications for sooner follow up or return to the emergency department, and the expected course of current diagnosis. Patient condition: Stable Discharge Plan Plan Patient Disposition: HOME (Self Care) Patient condition on transfer: Stable Health Concerns: Instructions: -Please take Golytely for constipation one time only. -Miralax for fiber to help you have regular bowel movements. -Please take senna as a stool softener. -Please follow up with Dr. Moran -Please follow up with your primary care provider within one week of discharge -If your symptoms worsen,please seek immediate medical attention and return to your nearest emergency room -If you do not have a primary care provider, [facility] [address], [place] [address], Prescriptions/Referrals Prescriptions/Med Rec: New peg 3350-electrolytes [Golytely] 236-22.74-6.74 -5.86 gram recon soln 240 ml PO Q10M Qty: 4000 0RF Rx Instructions: until fecal effluent is clear Continued benazepril 5 mg tablet 10 mg PO QDAY pantoprazole [Protonix] 40 mg tablet,delayed release (DR/EC) 40 mg PO BID Qty: 60 0RF omeprazole 40 mg capsule,delayed release(DR/EC) 40 mg PO QDAY Qty: 30 0RF promethazine 25 mg tablet 25 mg PO BID Qty: 60 0RF nystatin-triamcinolone 100,000-0.1 unit/gram-% ointment 1 applic topical TID Qty: 30 0RF peg 3350-electrolytes [Golytely] 236-22.74-6.74 -5.86 gram recon soln 240 ml PO Q1H Qty: 4000 0RF Rx Instructions: until fecal effluent is clear Discontinued ciprofloxacin HCl [Cipro] 500 mg tablet 500 mg PO BID Qty: 14 0RF ciprofloxacin HCl 500 mg tablet 500 mg PO BID Qty: 14 0RF Referrals: Robert Moran MD [Physician, Gastroenterology] - In 1 week Problem List Clinical Impression: Constipation Patient/Caregiver Discharge Instructions Education Materials: Eating a High-Fiber Diet, ED Constipation (Adult) Print Language: Romanian Stand Alone Forms: Britt Award Info., Patient Portal Info Letter
[2025-01-10] MEDS: SODIUM CHLORIDE 0.9% 1000 ML 1,000 ML 999 ML IV (01:15)
[2025-01-10] MEDS: KETOROLAC INJ 30 MG/ML VIAL IVP (01:16)
[2025-01-10] MEDS: METOCLOPRAMIDE INJ 5 MG/ML VIAL 2 ML 10 MG IVP (01:17)
--- NOTE | 2025-01-10 01:59 | PRELIM_ITS ---
CT scan of the abdomen and pelvis without intravenous contrast (axial sections with sagittal, coronal and 3D reformats) January 10, 2025 0049 hours Clinical History: Abdominal pain Reference is made to the prior report dated February 03, 2024. Findings: The evaluation is slightly limited due to motion artifact. The gallbladder is surgically absent. No biliary ductal dilatation is noted. No evidence of renal/ureteric calculus or hydroureteronephrosis. The liver, pancreas, spleen, kidneys and adrenals are unremarkable on this noncontrast study. The appendix is not visualized, likely surgically absent. No evidence of bowel obstruction. A fypdlxlo-ot-pyxbe amount of fecal material is present in the colon. There is no mesenteric or retroperitoneal adenopathy. The aorta and its branches demonstrate atheromatous calcification without evidence of aneurysm. The urinary bladder is partially distended and shows mild wall thickening; possibility of cystitis cannot be excluded. The uterus is not visualized, likely surgically absent. No evidence of adnexal mass. There is no free fluid or free air. There is suggestion of pelvic floor laxity with possible rectocele. Degenerative changes are identified in the spine. There is mild degenerative anterolisthesis of L4 over L5. The lung bases are clear. A small hiatal hernia is present. Please note that evaluation of soft tissue/vascular structures and bowel loops is limited due to absence of IV and oral contrast. Impression: 1. No evidence of bowel obstruction, free air or fluid collection. 2. Partially distended urinary bladder with mild wall thickening; possibility of cystitis cannot be excluded. 3. Other findings as described above. Suggest clinical correlation and follow up accordingly. Report Electronically Signed By: Raj Ramírez 01/10/2025 1:58:46 AM [EST]
[2025-01-10 02:43] LABS: Collection Type, Urine Clean Catch; Squamous Epithelial Cell,Urine 0 /hpf (0-5)
[2025-01-10 02:47] LABS: Bilirubin,Urine Negative (Negative); Blood,Urine Trace (Negative); Clarity,Urine Clear (Clear/Hazy); Color,Urine Lt-Yellow (Lt Yel-Yel); Glucose, Urine Trace (Negative); Ketones,Urine Negative (Negative); Leukocyte Esterase,Urine Negative (Negative); Nitrite,Urine Negative (Negative); PH,Urine 6.5 (5.0-7.0); Protein,Urine 2+ (Neg - Trace); RBC,Urine 2 /hpf (0-3); Specific Gravity,Urine 1.010 (1.001-1.035); Urobilinogen,Urine Negative mg/dL (0.0-1.0); WBC,Urine 1 /hpf (0-5)
[2025-01-10 03:33] VITALS: BP 140/75; PULSE 91; RESP 19; TEMP 37.3; O2SAT 98
[2025-01-10] MEDS: LACTULOSE SYRUP 20 GM/30 ML UDC PO (04:24)
[2025-01-10] MEDS: NAPROXEN 250 MG TABLET PO (04:24)
[2025-01-10 04:39] VITALS: BP 155/89; PULSE 90; RESP 19; TEMP 37.3; O2SAT 99
== END 2025-01-10 04:40 | disposition home or self-care (01) ==
PROVIDERS: Nurse Practitioner Family; Emergency Provider Emergency Medicine
DX: K59.00 Constipation, unspecified (principal); D64.9 Anemia, unspecified; E11.9 Type 2 diabetes mellitus without complications; E78.5 Hyperlipidemia, unspecified; I10 Essential (primary) hypertension
CPT/HCPCS: 36415; 74176; 80053; 81001; 83690; 85025; 96361; 96374; 96375; 99284; J1885; J2405; J2765; J7030; A9270

== ENCOUNTER → 2025-02-01 | Outpatient (CLI) | payer OTHER, SELFPAY ==
--- NOTE | 2025-02-01 09:12 | XR_ITS ---
Examination: Abdomen AP single view Technique: AP portable supine abdomen, single view Exam date and time: February 01, 2025, 0930 hours INDICATIONS: Abdominal pain 1 year FINDINGS: Large amounts of stool throughout the colon No free air Surgical clips upper right abdomen Significant osteopenia IMPRESSION: Large amounts of stool throughout the entire colon
[2025-02-01 11:08] LABS: Basophils # (Auto) 0.1 Thou/mm3 (0.0-0.2); Basophils % (Auto) 1 % (0-2.5); Eosinophils # (Auto) 0.8 Thou/mm3 (0.0-0.5); Eosinophils % (Auto) 9 % (0-10); Hematocrit 31.7 % (36.0-46.0); Hemoglobin 11.6 g/dL (12.0-16.0); Immature Granulocytes Auto 0.04 Thou/mm3 (0.00-0.00); Lymphocytes # (Auto) 1.4 Thou/mm3 (1.0-4.8); Lymphocytes % (Auto) 16 % (10-50); Mean Corpuscular HGB Conc 36.6 g/dl (31.0-37.0); Mean Corpuscular Hemoglobin 30.7 pg (25.0-35.0); Mean Corpuscular Volume 84 fL (80-100); Monocytes # (Auto) 0.6 Thou/mm3 (0.0-0.8); Monocytes % (Auto) 7 % (0-12); Neutrophils # (Auto) 6.1 Thou/mm3 (1.8-7.7); Neutrophils % (Auto) 67 % (37-80); Nucleated Red Blood Cell # 0.00 Thou/mm3 (0.00-0.00); Nucleated Red Blood Cell % 0 /100 WBC (0); Platelet Count 498 Thou/mm3 (140-440); RDW Standard Deviation 41.1 fL (36.4-46.3); Red Blood Count 3.78 Miln/mm3 (4.00-5.20); White Blood Count 9.1 Thou/mm3 (3.6-11.0)
[2025-02-01 11:40] LABS: Alanine Aminotransferase 8 U/L (10-49); Albumin, Serum 4.4 gm/dL (3.4-4.8); Albumin/Globulin Ratio 2.0 (1.2-2.2); Alkaline Phosphatase 72 U/L (46-116); Anion Gap 10 (7-16); Aspartate Amino Transferase 11 U/L (0-34); BUN/Creatinine Ratio 25 Ratio (12-20); Bilirubin,Total 0.7 mg/dL (0.3-1.2); Blood Urea Nitrogen 15 mg/dL (9-23); Calcium 9.5 mg/dL (8.3-10.6); Calcium (Corrected) 9.5 mg/dL (8.5-10.1); Carbon Dioxide 23.5 mMol/L (20.0-31.0); Chloride 102 mMol/L (98-107); Creatinine (Component) 0.6 mg/dL (0.6-1.3); Globulin 2.2 gm/dL (2.3-3.5); Glucose 194 mg/dL (74-106); Osmolality,Calculated 275 (275-295); Potassium 4.1 mMol/L (3.4-5.1); Sodium 135 mMol/L (136-145); Total Protein 6.6 gm/dL (5.7-8.2); eGFR > 60 See Note
== END | disposition home or self-care (01) ==
LOC: SDIM 09:04 → COPL 09:44
PROVIDERS: PCP Specialist; Referring Provider Specialist; Visit Provider Specialist
DX: K59.00 Constipation, unspecified (principal); I12.9 Hypertensive chronic kidney disease with stage 1 through stage 4 chronic kidney disease, or unspecified chronic kidney disease; E11.22 Type 2 diabetes mellitus with diabetic chronic kidney disease; N18.9 Chronic kidney disease, unspecified; D63.1 Anemia in chronic kidney disease; E78.5 Hyperlipidemia, unspecified
CPT/HCPCS: 36415; 74018; 80053; 85025